=== PATIENT | female | born 1940 | race Caucasian/White ===

== ENCOUNTER 2016-09-30 04:49 | Inpatient (IN) | payer MEDICARE ==
[2016-09-30] MEDS ORDERED: ONDANSETRON 4 MG/2 ML VIAL IVP STA (04:58)
[2016-09-30] MEDS ORDERED: SODIUM CHLORIDE 0.9% 1,000 ML IV STA ×2 (04:58→07:43)
[2016-09-30] MEDS ORDERED: SODIUM CHLORIDE 0.9% 500 ML IV STA (04:58)
--- NOTE | 2016-09-30 05:16 | ED ---
Nausea/Vomiting/Diarrhea HPI - General Chief complaint: Nausea/Vomiting/Diarrhea Stated complaint: ABD PAIN Time Seen by Provider: 09/30/16 04:50 Source: patient, family, RN notes reviewed Mode of arrival: EMS Limitations: no limitations - History of Present Illness Initial comments: This is a 76-year-old female states she had the onset at about 11:30 PM of nausea vomiting diarrhea she's been dry heaving since then. Apparently her is been sick recently with similar findings. No evidence or complaints of vomiting blood or blood per rectum. MD complaint: nausea, vomiting, diarrhea, abdominal pain - Related Data Home Medications Medication Instructions Recorded Confirmed Aspirin 81 mg PO DAILY 02/09/14 01/08/15 Atenolol 25 mg PO DAILY 02/09/14 01/08/15 Digoxin [Digox] 125 mcg PO DAILY 02/09/14 01/08/15 Ergocalciferol (Vitamin D2) 50,000 unit PO Q7DAYS 02/09/14 01/08/15 [Drisdol] Ferrous Sulfate [Feosol] 325 mg PO Q48H 02/09/14 01/08/15 Furosemide 40 mg PO DAILY 02/09/14 01/08/15 Gabapentin 300 mg PO TID 02/09/14 01/08/15 Levothyroxine Sodium [Synthroid] 137 mcg PO DAILY 02/09/14 01/08/15 Omeprazole 20 mg PO BID 02/09/14 01/08/15 Potassium Chloride [Klor-Con M10] 5 meq PO DAILY 02/09/14 01/08/15 predniSONE [Prednisone] 10 mg PO DAILY 02/09/14 01/08/15 Insulin Aspart [NovoLOG Flexpen] See Protocol SQ ACHS 01/09/15 01/09/15 Previous Rx's Medication Instructions Recorded Cholestyramine (with Sugar) 4 gm PO QID #28 packet 01/14/15 [Questran Packet] Insulin Aspart [NovoLOG Flexpen] 10 units SQ AC-BRKFST #0 01/14/15 Insulin Aspart [NovoLOG Flexpen] 10 units SQ AC-LUNCH #0 01/14/15 Insulin Aspart [NovoLOG Flexpen] 10 units SQ AC-SUPPER #0 01/14/15 Insulin Aspart [NovoLOG Flexpen] 10 units SQ HS #0 01/14/15 Insulin NPH Human Isophane 10 unit SQ HS #0 01/14/15 [NovoLIN N] Insulin NPH Human Isophane 30 unit SQ AC-BRKFST #0 01/14/15 [NovoLIN N] Lactobacillus Acidoph & Bulgar 1 each PO TID #30 packet 01/14/15 [Lactinex] Losartan [Cozaar] 50 mg PO BID #60 tab 01/14/15 Vancomycin Oral Solution 250 mg PO Q6HR #40 ml 01/14/15 Allergies Allergy/AdvReac Type Severity Reaction Status Date / Time levofloxacin [From Levaquin] Allergy Intermediate Unknown Verified 09/30/16 05: 00 Penicillins Allergy Intermediate Rash/Hives Verified 09/30/16 05:00 Sulfa (Sulfonamide Allergy Intermediate Rash/Hives Verified 09/30/16 05:00 Antibiotics) cephalexin monohydrate Allergy Unknown Unknown Verified 09/30/16 05:00 [From Keflex] erythromycin base Allergy Unknown Rash/Hives Verified 09/30/16 05:00 [From E-Mycin] gatifloxacin [From Tequin] Allergy Unknown Unknown Verified 09/30/16 05:00 nitrofurantoin Allergy Unknown Unknown Verified 09/30/16 05:00 macrocrystalline [From Macrodantin] [place] Allergy Unknown Verified 09/30/16 05:00 apricot Allergy Unknown Verified 09/30/16 05:00 asparagus Allergy Unknown Verified 09/30/16 05:00 banana [Banana] Allergy Unknown Verified 09/30/16 05:00 cabbage Allergy Unknown Verified 09/30/16 05:00 carrot Allergy Unknown Verified 09/30/16 05:00 ciprofloxacin [From Cipro] Allergy Unknown Verified 09/30/16 05:00 ciprofloxacin HCl Allergy Unknown Verified 09/30/16 05:00 [From Cipro] Coconut Allergy Unknown Verified 09/30/16 05:00 coffee (Coffea arabica) Allergy Unknown Verified 09/30/16 05:00 [coffee] cucumber Allergy Unknown Verified 09/30/16 05:00 flaxseed Allergy Unknown Verified 09/30/16 05:00 sam Allergy Unknown Verified 09/30/16 05:00 grapefruit [Grapefruit] Allergy Unknown Verified 09/30/16 05:00 insulin NPH human isophane Allergy Rash/Hives Verified 09/30/16 05:00 [From Humulin 70/30] insulin regular, human Allergy Rash/Hives Verified 09/30/16 05:00 [From Humulin 70/30] onion Allergy Unknown Verified 09/30/16 05:00 orange juice [Roulette] Allergy Unknown Verified 09/30/16 05:00 spinach Allergy Unknown Verified 09/30/16 05:00 tree nut [Pecan] Allergy Unknown Verified 09/30/16 05:00 cantaloupe Allergy Unknown Uncoded 09/30/16 05:00 cottonseed Allergy Unknown Uncoded 09/30/16 05:00 green beans Allergy Unknown Uncoded 09/30/16 05:00 mustard Allergy Unknown Uncoded 09/30/16 05:00 nuts Allergy Unknown Uncoded 09/30/16 05:00 pepper Allergy Unknown Uncoded 09/30/16 05:00 rice Allergy Unknown Uncoded 09/30/16 05:00 squash Allergy Unknown Uncoded 09/30/16 05:00 tea Allergy Unknown Uncoded 09/30/16 05:00 walnut Allergy Unknown Uncoded 09/30/16 05:00 Review of Systems ROS Statement: Those systems with pertinent positive or pertinent negative responses have been documented in the HPI. ROS Other: All systems not noted in ROS Statement are negative. Past Medical History Past Medical History: Asthma, Coronary Artery Disease (CAD), Heart Failure, Diabetes Mellitus, Fibromyalgia, GI Bleed, Hyperlipidemia, Hypertension, Mitral Valve Prolapse (MVP), Osteoarthritis (OA), Pneumonia, Sleep Apnea/CPAP/BIPAP, Thyroid Disorder Additional Past Medical History / Comment(s): NEUROPATHY, SARCOIDOSIS, LUPUS, AUTOIMMUNE ISSUES HEART MURMUR, autoimmune HEPATITIS with prednisone dependence , IRREGULAR HEART RATE, LEFT FEMUR FRACTURE, NO CPAP USE, right ankle fracture, lower extremity DVT History of Any Multi-Drug Resistant Organisms: C-DIFF Date of last positivie culture/infection: 12/2014 MDRO Source:: stool Past Surgical History: Adenoidectomy, Appendectomy, Cholecystectomy, Heart Catheterization With Stent, Hysterectomy, Tonsillectomy Additional Past Surgical History / Comment(s): COLONOSCOPY, EGD, Zena filter, bronchoscopy Past Anesthesia/Blood Transfusion Reactions: No Reported Reaction Date of Last Stent Placement:: 2012 Past Psychological History: No Psychological Hx Reported Smoking Status: Never smoker Past Alcohol Use History: None Reported Additional Past Alcohol Use History / Comment(s): Patient is a lifelong nonsmoker. She denies any medical marijuana, marijuana or street drug use. She denies any alcohol use. She lives at home with her . There are currently no pets in the home. 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 Past Drug Use History: None Reported - Past Family History Mother Family Medical History: Coronary Artery Disease (CAD) Father Family Medical History: Coronary Artery Disease (CAD) General Exam - General Exam Comments Initial Comments: This a well-developed well-nourished awake alert anxious moaning female. Limitations: no limitations General appearance: alert, anxious, in distress Head exam: Present: atraumatic, normocephalic, normal inspection Eye exam: Present: normal appearance, PERRL, EOMI. Absent: scleral icterus, conjunctival injection, periorbital swelling ENT exam: Present: mucous membranes dry Neck exam: Present: normal inspection. Absent: tenderness, meningismus, lymphadenopathy Respiratory exam: Present: normal lung sounds bilaterally. Absent: respiratory distress, wheezes, rales, rhonchi, stridor Cardiovascular Exam: Present: normal rhythm, tachycardia, normal heart sounds. Absent: systolic murmur, diastolic murmur, rubs, gallop, clicks GI/Abdominal exam: Present: soft, normal bowel sounds. Absent: distended, tenderness, guarding, rebound, rigid, mass, bruit, pulsatile mass, hernia Rectal exam: Present: deferred Extremities exam: Present: normal inspection, full ROM, normal capillary refill. Absent: tenderness, pedal edema, joint swelling, calf tenderness Back exam: Present: normal inspection Neurological exam: Present: alert, oriented X3, CN II-XII intact Psychiatric exam: Present: normal affect, anxious Skin exam: Present: warm, dry, intact, normal color. Absent: rash Course Vital Signs 09/30/16 09/30/16 04:54 06:17 Temperature 99.1 F Pulse Rate 104 H 56 L Respiratory 20 20 Rate Blood Pressure 145/81 124/40 O2 Sat by Pulse 96 96 Oximetry - Reevaluation(s) Reevaluation #1: 09/30/16 07:42 The patient was noted to have a blood pressure in the 80s. Initially was 145 systolic when she came and she will receive additional fluids she is asymptomatic otherwise. Medical Decision Making - Medical Decision Making I did discuss findings with the patient and family as well as with Dr. Chaidez the patient will be admitted for evaluation of elevated troponin dehydration renal insufficiency and gastroenteritis. - Lab Data Result diagrams: 09/30/16 05:19 09/30/16 05:19 Lab Results 09/30/16 09/30/16 09/30/16 Range/Units 05:19 05:19 05:19 WBC 14.4 H (3.8-10.6) k/uL RBC 5.41 H (3.80-5.40) m/uL Hgb 16.5 H D (11.4-16.0) gm/dL Hct 51.2 H (34.0-46.0) % MCV 94.5 D (80.0-100.0) fL MCH 30.5 (25.0-35.0) pg MCHC 32.2 (31.0-37.0) g/dL RDW 14.2 (11.5-15.5) % Plt Count 248 (150-450) k/uL Neutrophils % (Manual) 41.0 % Band Neutrophils % 47.5 % Lymphocytes % (Manual) 5.0 % Monocytes % (Manual) 5.5 % Metamyelocytes % 0.5 % Myelocytes % 0.5 % Neutrophils # (Manual) 12.7 H (1.3-7.7) k/uL Lymphocytes # (Manual) 0.7 L (1.0-4.8) k/uL Monocytes # (Manual) 0.8 (0-1.0) k/uL Nucleated RBCs 0 (0-0) /100 WBC Toxic Granulation Present Toxic Vacuolation Present Poikilocytosis (manual Present Anisocytosis (manual) Present Sodium 143 (137-145) mmol/L Potassium 5.5 H (3.5-5.1) mmol/L Chloride 104 (98-107) mmol/L Carbon Dioxide 21 L (22-30) mmol/L Anion Gap 18 mmol/L BUN 43 H (7-17) mg/dL Creatinine 1.70 H (0.52-1.04) mg/dL Est GFR (MDRD) Af Amer 36 (>60 ml/min/1.73 sqM) Est GFR (MDRD) Non-Af 29 (>60 ml/min/1.73 sqM) Glucose 195 H (74-99) mg/dL Plasma Lactic Acid Chandler (0.7-2.0) mmol/L Calcium 8.6 (8.4-10.2) mg/dL Total Bilirubin 1.0 (0.2-1.3) mg/dL AST 46 H (14-36) U/L ALT 36 (9-52) U/L Alkaline Phosphatase 71 (38-126) U/L Total Creatine Kinase 63 (30-135) U/L CK-MB (CK-2) 1.3 (0.0-2.4) ng/mL CK-MB (CK-2) Rel Index 2.1 Troponin I 0.038 H* (0.000-0.034) ng/mL Total Protein 7.4 (6.3-8.2) g/dL Albumin 3.8 (3.5-5.0) g/dL Amylase 78 (30-110) U/L Lipase 93 (23-300) U/L Digoxin 0.9 ng/mL 09/30/16 09/30/16 Range/Units 05:19 06:40 WBC (3.8-10.6) k/uL RBC (3.80-5.40) m/uL Hgb (11.4-16.0) gm/dL Hct (34.0-46.0) % MCV (80.0-100.0) fL MCH (25.0-35.0) pg MCHC (31.0-37.0) g/dL RDW (11.5-15.5) % Plt Count (150-450) k/uL Neutrophils % (Manual) % Band Neutrophils % % Lymphocytes % (Manual) % Monocytes % (Manual) % Metamyelocytes % % Myelocytes % % Neutrophils # (Manual) (1.3-7.7) k/uL Lymphocytes # (Manual) (1.0-4.8) k/uL Monocytes # (Manual) (0-1.0) k/uL Nucleated RBCs (0-0) /100 WBC Toxic Granulation Toxic Vacuolation Poikilocytosis (manual Anisocytosis (manual) Sodium (137-145) mmol/L Potassium (3.5-5.1) mmol/L Chloride (98-107) mmol/L Carbon Dioxide (22-30) mmol/L Anion Gap mmol/L BUN (7-17) mg/dL Creatinine (0.52-1.04) mg/dL Est GFR (MDRD) Af Amer (>60 ml/min/1.73 sqM) Est GFR (MDRD) Non-Af (>60 ml/min/1.73 sqM) Glucose (74-99) mg/dL Plasma Lactic Acid Chandler 3.3 H* (0.7-2.0) mmol/L Calcium (8.4-10.2) mg/dL Total Bilirubin (0.2-1.3) mg/dL AST (14-36) U/L ALT (9-52) U/L Alkaline Phosphatase (38-126) U/L Total Creatine Kinase (30-135) U/L CK-MB (CK-2) (0.0-2.4) ng/mL CK-MB (CK-2) Rel Index Troponin I 0.030 (0.000-0.034) ng/mL Total Protein (6.3-8.2) g/dL Albumin (3.5-5.0) g/dL Amylase (30-110) U/L Lipase (23-300) U/L Digoxin ng/mL - EKG Data -: EKG Interpreted by Wi EKG shows normal: sinus rhythm (Sinus rhythm a rate of 57 WI interval to 16 QRS duration 124 QT/QTC of 466/453 bundle-branch block pattern nonspecific changes when compared to an EKG dated 01/10/15) - Radiology Data Radiology results: report reviewed (Surgeon nonspecific), image reviewed Disposition Clinical Impression: Gastroenteritis, Renal insufficiency syndrome, Dehydration, Elevated troponin, Hypotensive episode Disposition: ADMITTED IP TO THIS [facility] Condition: Stable
[2016-09-30] MEDS ORDERED: METOCLOPRAMIDE 5 MG/ML 2 ML VIAL IVP STA (05:51)
[2016-09-30 05:53] LABS: CH 30.7; CHCM 32.6; HCT 51.2 % (34.0-46.0); HDW 2.36; Immature Gran Flag Slight; MCH 30.5 pg (25.0-35.0); MCHC 32.2 g/dL (31.0-37.0); Mean Platelet Volume 7.9; RBC 5.41 m/uL (3.80-5.40); RDW 14.2 % (11.5-15.5); WBC 14.4 k/uL (3.8-10.6); WBC (Perox) 15.03
[2016-09-30 06:25] LABS: HGB 16.5 gm/dL (11.4-16.0); MCV 94.5 fL (80.0-100.0)
[2016-09-30 06:50] LABS: Creatine Kinase MB 1.3 ng/mL (0.0-2.4)
[2016-09-30 06:54] LABS: Troponin I 0.038 ng/mL (0.000-0.034)
[2016-09-30 06:57] LABS: Add Differential Manual Differential
[2016-09-30 07:04] LABS: Band Neutrophils % 47.5 %; Metamyelocytes % 0.5 %; Myelocytes % 0.5 %; Nucleated Red Blood Cells 0 /100 WBC (0-0); Total Cells Counted 200
[2016-09-30 07:05] LABS: Calcium 8.6 mg/dL (8.4-10.2); Digoxin 0.9 ng/mL; Total Protein 7.4 g/dL (6.3-8.2); Toxic Granulation Present
[2016-09-30 07:06] LABS: Toxic Vacuolation Present
[2016-09-30 07:15] LABS: Potassium 5.5 mmol/L (3.5-5.1)
--- NOTE | 2016-09-30 07:25 | XR ---
EXAMINATION TYPE: XR KUB DATE OF EXAM: 09/30/2016 7:18 AM COMPARISON: 10/05/2011 HISTORY: 76-year-old female with left lower quadrant pain and nausea with vomiting and dehydration, a bdominal pain FINDINGS: Supine imaging limited for assessment of free air. Cholecystectomy clips and IVC filter are present. There is some bowel gas which appears to be within the colon in the right abdomen. Small amount of rectal gas as well. Otherwise, there is overall pauci ty of bowel gas limiting overall evaluation. IMPRESSION: Nonspecific bowel gas pattern. Some right-sided colonic gas is seen and some rectal gas as well.
[2016-09-30] MEDS ORDERED: NALOXONE 0.4 MG/ML 1 ML VIAL IV PRN (07:43)
[2016-09-30] MEDS ORDERED: HEPARIN SODIUM,PORCINE 5,000 UNIT/ML 1 ML VIAL IV ONE (07:53)
[2016-09-30] MEDS: SODIUM CHLORIDE 0.9% 1,000 ML IV SCH ×2 (08:05→17:45)
[2016-09-30] MEDS: HEPARIN SODIUM,PORCINE/D5W PMX 25,000 UNIT in DEXTROSE/WATER 1 500ML.BAG IV SCH (08:05)
[2016-09-30 08:16] LABS: INR 1.3 (<1.1); Prothrombin Time 12.4 sec (9.0-12.0)
--- NOTE | 2016-09-30 08:47 | XR ---
EXAMINATION TYPE: XR chest 2V DATE OF EXAM: 09/30/2016 8:26 AM COMPARISON: 01/12/2015 HISTORY: 76 year-old female shortness of breath, abdominal pain, trauma TECHNIQUE: AP and lateral views FINDINGS: Round sclerotic densities in the peripheral and upper lungs especially on the right likely related to prior healed rib fracture deformities and was seen on 2014 as well. The heart is mildly enlarged. Diffuse interstitial prominence. No aron consolidation or pleural effu олег. IMPRESSION: Mild cardiomegaly with diffuse interstitial prominence. Correlate to exclude CHF and pulmonary vascul ar congestion.
[2016-09-30 10:36] VITALS: BMI 43.9
[2016-09-30] MEDS: PANTOPRAZOLE 40 MG/10 ML VIAL IV SCH ×2 (11:19→20:18)
[2016-09-30 11:22] LABS: Hemoglobin A1C 6.6 % (4.2-6.1)
[2016-09-30 11:55] LABS: Glucose,Whole Blood 197 mg/dL (75-99)
[2016-09-30 12:02] LABS: Troponin I 0.103 ng/mL (0.000-0.034)
[2016-09-30] MEDS ORDERED: ONDANSETRON 4 MG/2 ML VIAL IVP PRN (12:22)
[2016-09-30] MEDS ORDERED: INSULIN LISPRO (humaLOG) 300 UNIT/3 ML VIAL SQ SCH ×2 (12:30→17:30)
[2016-09-30] MEDS ORDERED: DIGOXIN 125 MCG TAB PO STA (15:37)
[2016-09-30] MEDS ORDERED: ATENOLOL 25 MG TAB PO STA (15:38)
--- NOTE | 2016-09-30 16:04 | CONS ---
DATE OF CONSULTATION: ATTENDING: Dr. Snowden. Mrs. Herrera is a 76-year-old female with known history of coronary artery disease, who presented with symptoms of nausea and vomiting and diarrhea and quite fatigued. She came into the emergency room and subsequently admitted. She has a known history of coronary artery disease, has been followed by Dr. Ortiz in the past, has underwent a stenting years ago following a myocardial infarction. She has not had any chest pain. Her breathing has been stable. She denies dizziness. No palpitation. She has occasional peripheral edema. No PND. No orthopnea. She was in the hospital in December of 2014. At that time her left ventricular systolic function was normal. She had no fever but she had chills. Apparently her had similar symptoms at home as well. Her coronary risk factors are positive for hypertension and hyperlipidemia. She is a nonsmoker. She is diabetic. Her medications at home included prednisone, omeprazole, losartan 50 mg daily, insulin, atenolol, digoxin, furosemide and gabapentin. REVIEW OF SYSTEMS: RESPIRATORY SYSTEM: She has mild dyspnea on exertion. No recent wheezing or cough. GI system: She had the nausea and vomiting and the diarrhea. No recent GI bleeding. system: No history of recent dysuria or hematuria. Nervous system: No history of stroke or seizure. PHYSICAL EXAMINATION: A 76-year-old female, alert, in mild discomfort. Temperature of 100.9, blood pressure 124/50 with a heart in the 50s. HEAD: Normocephalic. EYES: Sclerae anicteric. NECK: Good upstroke. No bruit. No jugular venous distention. LUNGS: Clear to auscultation. HEART: Regular rate and rhythm. S1, S2, no S3, with systolic murmur 2/6. No diastolic murmur. No rub. ABDOMEN: Soft, obese, mild tenderness. Positive bowel sounds. No organomegaly. EXTREMITIES: No edema. Lab data revealed BUN and creatinine of 43 and 1.7. Troponin of 0.03. AST of 46, ALT of 36. White blood cell of 14.4. Hemoglobin of 16.5. Her lactic acid is 3.3. Her EKG revealed sinus mechanism with a right bundle branch block, first-degree AV block, no acute changes. Her chest x-ray revealed questionable increased markings. Her KUB revealed no evidence of obstruction. IMPRESSION: 1. Diarrhea with nausea and vomiting, probable viral gastroenteritis. Of note, the patient had C. difficile infection in December of 2014. 2. History of coronary artery disease, stable. 3. History of diabetes. 4. Hyperlipidemia. 5. History of autoimmune hepatitis and sarcoidosis. RECOMMENDATIONS: From the cardiac standpoint, I see no evidence of acute cardiac changes. First troponin is within the normal range so far. Her renal functions are consistent with dehydration and the patient is getting IV fluid. If the second troponin is negative then I will stop the IV heparin. Will hold her losartan at this time, follow her renal function. Depending on her progress, further recommendation will be made. Thank you for this consult. We will follow with you
[2016-09-30 16:44] LABS: Glucose,Whole Blood 234 mg/dL (75-99)
[2016-09-30] MEDS: GABAPENTIN 300 MG CAP PO SCH ×2 (16:45→22:18)
[2016-09-30 17:32] LABS: Creatine Kinase MB 2.5 ng/mL (0.0-2.4); Troponin I 0.113 ng/mL (0.000-0.034)
[2016-09-30] MEDS: INSULIN REGULAR HUMAN 40 UNIT SQ SCH (17:45)
[2016-09-30] MEDS: HYDROCORTISONE SUCCINATE 100 MG/2 ML VIAL IV SCH (17:45)
[2016-09-30 19:00] LABS: Glucose,Whole Blood 174 mg/dL (75-99)
[2016-09-30] MEDS: cefTRIAXone 2,000 MG in SODIUM CHLORIDE 0.9% 100 ML IVPB SCH (19:07)
[2016-09-30] MEDS ORDERED: SODIUM CHLORIDE 0.9% 1,000 ML IV ONE ×3 (19:24→20:30)
[2016-09-30 19:31] LABS: Appearance,Urine Cloudy (Clear); Bacteria,Urine Occasional /hpf; Bilirubin,Urine 1+ (Negative); Glucose,Urine (UA) Negative (Negative); Ketones,Urine Negative (Negative); Leukocyte Esterase,Urine Moderate (Negative); Nitrite,Urine Negative (Negative); Particle Count 27833; Protein,Urine Trace (Negative); RBC,Urine 4 /hpf (0-5); Specific Gravity,Urine 1.018 (1.001-1.035); Squamous Epithelial Cell,Urine 1 /hpf (0-4); UA Billing (MACRO vs. MICRO) MICRO; WBC,Urine 7 /hpf (0-5)
[2016-09-30] MEDS: INSULIN NPH HUMAN ISOPHANE SQ SCH (20:16)
[2016-09-30] MEDS: diphenhydrAMINE 50 MG CAP PO SCH (20:17)
[2016-09-30 22:19] LABS: Glucose,Whole Blood 122 mg/dL (75-99)
[2016-10-01] MEDS: HYDROCORTISONE SUCCINATE 100 MG/2 ML VIAL IV SCH ×3 (00:23→16:57)
[2016-10-01 06:08] LABS: Basophils % (A) 0 %; CH 30.3; CHCM 31.1; Eosinophils # (A) 0.1 k/uL (0-0.7); Eosinophils % (A) 0 %; HCT 38.2 % (34.0-46.0); HDW 2.49; Hypochromasia Slight; Luc # (Auto) 0.08; Luc % (Auto) 0; Lymphocytes # (A) 4.8 k/uL (1.0-4.8); Lymphocytes % (A) 21 %; MCH 32.1 pg (25.0-35.0); MCHC 32.6 g/dL (31.0-37.0); MCV 98.2 fL (80.0-100.0); Monocytes # (A) 2.3 k/uL (0-1.0); Monocytes % (A) 10 %; Neutrophils # (A) 16.2 k/uL (1.3-7.7); Neutrophils % (A) 69 %; RBC 3.89 m/uL (3.80-5.40); RDW 14.4 % (11.5-15.5); WBC 23.4 k/uL (3.8-10.6); WBC (Perox) 19.04
[2016-10-01 06:09] LABS: HGB 12.5 gm/dL (11.4-16.0)
[2016-10-01] MEDS: LEVOTHYROXINE 137 MCG TAB PO SCH (06:13)
[2016-10-01] MEDS: SODIUM CHLORIDE 0.9% 1,000 ML IV SCH ×2 (06:14→08:08)
[2016-10-01 07:17] LABS: Calcium 6.2 mg/dL (8.4-10.2); Phosphorous 4.6 mg/dL (2.5-4.5); Potassium 5.3 mmol/L (3.5-5.1)
[2016-10-01 07:18] LABS: Magnesium 1.5 mg/dL (1.6-2.3)
[2016-10-01 07:41] LABS: Glucose,Whole Blood 149 mg/dL (75-99)
--- NOTE | 2016-10-01 08:05 | HP ---
DATE OF ADMISSION: CHIEF COMPLAINT: Nausea, vomiting, diarrhea. HISTORY OF PRESENT ILLNESS: This 76-year-old female with a past medical history of hospice, CAD, CHF, diabetes mellitus, fibromyalgia, GI bleed, hypertension, hyperlipidemia, mitral valve prolapse, history of sleep apnea, hypothyroidism, lupus, autoimmune disorder, history of hepatitis, history of adenoidectomy, appendectomy, being followed by Dr. Mary Ann Snowden in the outpatient setting is complaining of nausea, diarrhea for 2 days duration. The apparently was sick and was having similar symptoms. The patient came to [facility] and admitted for further evaluation and treatment. The patient had features of acute renal failure and as well as plasma lactic acid elevated indicating possible sepsis and troponins were elevated up to 0.103 and the patient admitted for further evaluation and treatment. There is no history of fever, rigors. No history of any headache, loss of consciousness or seizures at this time. PAST MEDICAL HISTORY: History of asthma, CAD, CHF, diabetes mellitus, fibromyalgia, gastrointestinal bleed, hypertension, hyperlipidemia, mitral valve, prolapse, history of sleep apnea, arthritis, history of pneumonia, appendectomy, cholecystectomy, coronary artery disease and stent. Home medications are: 1. Prednisone 10 mg p.o. daily. 2. Benadryl 50 mg q.h.s.. 3. Klor-Con 5 mg p.o. daily. 4. Omeprazole 20 mg p.o. b.i.d. 5. Mobic 15 mg p.o. b.i.d. 6. Cozaar 50 mg daily. 7. Synthroid 160 mcg p.o. b.i.d. 8. Novolin R 14 subcu a.c. t.i.d. 9. Novolin N 10 units subcu q.h.s. 10. Novolin N 34 units subcu a.c. breakfast. 11. Gabapentin 300 mg p.o. t.i.d. 12. Lasix 40 mg p.o. daily. 13. Iron sulfate 320 mg q.48 hours. 14. Drisdol 50,000 p.o. Saturday. 15. Digoxin 120 mcg p.o. daily. 16. Atenolol 25 mg p.o. daily. 17. Aspirin 81 mg p.o. daily. ALLERGIES: MULTIPLE ALLERGIES INCLUDING LEVAQUIN, PENICILLIN, SULFA, CEPHALEXIN, ERYTHROMYCIN, GATIFLOXACIN, ALMOND, BANANA, CABG, CARROTS, COCONUT, COFFEE, CUCUMBER, FLEX SEED, POLA, INSULIN, ONION, SPINACH, TREE NUTS, CANTALOUPE, SEED, GREEN BEANS, MUSTARD, NUTS, PEPPER, RICE, SQUASH, TEA, WALNUT. FAMILY HISTORY: History of coronary artery disease. SOCIAL HISTORY: No history of smoking, no history of alcohol. REVIEW OF SYSTEMS: ENT: No diminished hearing or vision. Mouth is dry. CARDIOVASCULAR: No angina or palpitations. RESPIRATORY: No cough or hemoptysis. GI: As mentioned earlier. : No dysuria. NERVOUS SYSTEM: No numbness or weakness. ALLERGY/IMMUNOLOGY: No asthma or hayfever. MUSCULOSKELETAL: As mentioned earlier. HEMATOLOGY: No history of anemia. ENDOCRINE: As mentioned earlier. CONSTITUTIONAL: As mentioned earlier. DERMATOLOGY: Negative. RHEUMATOLOGY: Negative. PSYCHIATRY: As mentioned earlier. PHYSICAL EXAMINATION: Patient is alert and oriented x3. Pulse is 54, blood pressure 104/69, respirations 18, temperature 100, pulse ox 100% on 2 liters. HEENT: Conjunctivae normal. Oral mucosa dry. NECK: No jugular venous distention. No carotid bruit. No lymph node enlargement. CARDIOVASCULAR: S1 and S2, muffled. No S3, no S4. RESPIRATORY: Breath sounds diminished at the bases. No rhonchi, no crackles. ABDOMEN: Soft, mild diffuse distention. Otherwise no guarding, no rigidity. No mass palpable. Bowel sounds present. LEGS: No edema, no swelling. NERVOUS SYSTEM: Higher function as mentioned. Moves all four limbs. No focal motor deficits. LYMPHATIC: No lymphadenopathy in the neck, axillae or groin. SKIN: No ulcer, rash or bleeding. LABS: WBC 14.2, hemoglobin 16.5. Sodium is 140, potassium 5.5. Hemoglobin A1c 6.6. Lactic acid is noted. Troponin 0.103. ASSESSMENT: 1. Acute diarrhea, possible acute gastritis and gastroenteritis with sepsis, present on admission. 2. Increased WBC. 3. Increased hemoglobin secondary to dehydration. 4. Acute renal failure, possible prerenal and acute dehydration, acute tubular necrosis. 5. Hyperkalemia. 6. Increased plasma lactic acid. 7. Troponin 0.103; rule out acute non-ST segment elevation myocardial infarction. 8. Obesity, body mass index of 43.9. 9. History of asthma. 10. History of congestive heart failure. 11. History of coronary artery disease. 12. Diabetes mellitus type 2. 13. History of fibromyalgia. 14. History of gastrointestinal bleed. 15. Hypertension. 16. Hyperlipidemia. 17. Mitral valve prolapse. 18. History of pneumonia. 19. History of sleep apnea. 20. Hypothyroidism. 21. History of neuropathy. 22. History of sarcoidosis. 23. Lupus. 24. History of autoimmune disease. 25. History of autoimmune hepatitis. 26. History of irregular cardiac rhythm. 27. History of left femoral fracture. 28. History of Clostridium difficile colitis. 29. History of appendectomy. 30. History of cholecystectomy. 31. History of coronary artery disease and stent. 32. FULL CODE. RECOMMENDATIONS AND DISCUSSION: In this 76-year-old woman who presented with multiple complex medical issues. Will monitor the patient closely. Continue the current medications, continue symptomatic treatment. Continue the IV fluids cautiously. Otherwise, we will obtain cardiology consultation. I would also recommend broad-spectrum IV antibiotics will be initiated and I would also recommend evaluation per Dr. Almanza. The patient is immunosuppressed. Patient also had multiple allergies as well. Prognosis extremely guarded because of multiple complex medical issues. Further recommendations to follow. Dr. Lester also will be consulted for ongoing pulmonary issues. See orders for details. AMYD
[2016-10-01] MEDS: HEPARIN SODIUM,PORCINE/D5W PMX 25,000 UNIT in DEXTROSE/WATER 1 500ML.BAG IV SCH (08:08)
[2016-10-01] MEDS: ASPIRIN 81 MG CHEW PO SCH (08:09)
[2016-10-01] MEDS: PANTOPRAZOLE 40 MG/10 ML VIAL IV SCH ×2 (08:09→20:15)
[2016-10-01] MEDS: GABAPENTIN 300 MG CAP PO SCH ×3 (08:10→21:56)
[2016-10-01] MEDS: DIGOXIN 125 MCG TAB PO SCH (08:10)
[2016-10-01] MEDS: ATENOLOL 25 MG TAB PO SCH (08:10)
--- NOTE | 2016-10-01 08:14 | XR ---
EXAMINATION TYPE: XR chest 1V portable DATE OF EXAM: 10/01/2016 6:46 AM Comparison: 09/30/2016 Clinical History: 76 year-old female shortness of breath Findings: Heart remains mildly enlarged. Diffuse interstitial opacities persist with some slight increased righ t perihilar density. Patchy left basilar opacity also slightly increased. Impression: Correlate for [id number] CHF, stable to slightly worsened. Increasing focal atelectasis or cons olidation at the left base.
[2016-10-01] MEDS: INSULIN NPH HUMAN ISOPHANE SQ SCH ×2 (08:18→20:15)
[2016-10-01] MEDS: INSULIN REGULAR HUMAN 40 UNIT SQ SCH ×3 (08:18→17:03)
[2016-10-01] MEDS: HYDROmorphone 1 MG/ML 1 ML SYRINGE IVP PRN ×2 (08:30→21:49)
[2016-10-01] MEDS ORDERED: FUROSEMIDE 40 MG TAB PO SCH (09:00)
[2016-10-01] MEDS ORDERED: Magnesium Replacement Protocol 1 EACH MISC MISCELLANE PRN (09:01)
[2016-10-01] MEDS: MAGNESIUM SULFATE-D5W PMX 1 GM in DEXTROSE/WATER 1 100ML.BAG IVPB SCH ×2 (09:55→12:07)
[2016-10-01 12:21] LABS: Glucose,Whole Blood 184 mg/dL (75-99)
--- NOTE | 2016-10-01 14:52 | P.CNPUL ---
History of Present Illness Consult date: 10/01/16 Requesting physician: Hellen Chaidez Reason for consult: other (Sarcoidosis and ICU management.) Chief complaint: Diarrhea nausea and vomiting History of present illness: This is a 76-year-old female who is quite familiar to my service. Patient had a remote history of sarcoidosis, and history of autoimmune hepatitis. 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 Patient was admitted this time with a few days' history of multiple GI symptoms including nausea vomiting and diarrhea. Patient was also fatigued, and upon evaluation in the ER, patient was found to have slightly elevated troponin, hence he was seen by cardiology, but considering her profound dehydration picture hypotension requiring fluid boluses, I was asked to see the patient on consultation. Since admission, the patient received multiple fluid boluses, and she seems to be doing much better today. No active pulmonary symptoms, her GI symptoms seem to be under control, except for her diarrhea. Further workup on her diarrhea is pending. Review of Systems 12 point review of systems were obtained, please refer to pertinent positives and negatives as per HPI Past Medical History Past Medical History: Asthma, Coronary Artery Disease (CAD), Heart Failure, Diabetes Mellitus, Fibromyalgia, GI Bleed, Hyperlipidemia, Hypertension, Mitral Valve Prolapse (MVP), Osteoarthritis (OA), Pneumonia, Sleep Apnea/CPAP/BIPAP, Thyroid Disorder Additional Past Medical History / Comment(s): NEUROPATHY, SARCOIDOSIS, LUPUS, AUTOIMMUNE ISSUES HEART MURMUR, autoimmune HEPATITIS with prednisone dependence , IRREGULAR HEART RATE, LEFT FEMUR FRACTURE, NO CPAP USE, right ankle fracture, lower extremity DVT History of Any Multi-Drug Resistant Organisms: C-DIFF Date of last positivie culture/infection: 12/2014 MDRO Source:: stool Past Surgical History: Adenoidectomy, Appendectomy, Cholecystectomy, Heart Catheterization With Stent, Hysterectomy, Tonsillectomy Additional Past Surgical History / Comment(s): COLONOSCOPY, EGD, [place] filter, bronchoscopy Past Anesthesia/Blood Transfusion Reactions: No Reported Reaction Date of Last Stent Placement:: 2012 Past Psychological History: No Psychological Hx Reported Smoking Status: Never smoker Past Alcohol Use History: None Reported Additional Past Alcohol Use History / Comment(s): Patient is a lifelong nonsmoker. She denies any medical marijuana, marijuana or street drug use. She denies any alcohol use. She lives at home with her . There are currently no pets in the home. 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 Past Drug Use History: None Reported - Past Family History Mother Family Medical History: Coronary Artery Disease (CAD) Father Family Medical History: Coronary Artery Disease (CAD) Medications and Allergies Home Medications Medication Instructions Recorded Confirmed Type Aspirin 81 mg PO DAILY 02/09/14 09/30/16 History Atenolol 25 mg PO DAILY 02/09/14 09/30/16 History Digoxin [Digox] 125 mcg PO DAILY 02/09/14 09/30/16 History Ergocalciferol (Vitamin D2) 50,000 unit PO BENSON 02/09/14 09/30/16 History [Drisdol] Ferrous Sulfate [Feosol] 325 mg PO Q48H 02/09/14 09/30/16 History Furosemide 40 mg PO DAILY 02/09/14 09/30/16 History Gabapentin 300 mg PO TID 02/09/14 09/30/16 History Levothyroxine Sodium [Synthroid] 137 mcg PO DAILY 02/09/14 09/30/16 History Omeprazole 20 mg PO BID 02/09/14 09/30/16 History Potassium Chloride [Klor-Con M10] 5 meq PO DAILY 02/09/14 09/30/16 History Insulin NPH Human Isophane 34 unit SQ AC-BRKFST 09/30/16 09/30/16 History [NovoLIN N] Insulin Regular, Human [NovoLIN R] 40 unit SQ AC-TID 09/30/16 09/30/16 History Losartan [Cozaar] 50 mg PO DAILY 09/30/16 09/30/16 History Meloxicam [Mobic] 15 mg PO DAILY 09/30/16 09/30/16 History diphenhydrAMINE [Benadryl] 50 mg PO HS 09/30/16 09/30/16 History predniSONE 10 mg PO DAILY 09/30/16 09/30/16 History Allergies Allergy/AdvReac Type Severity Reaction Status Date / Time levofloxacin [From Levaquin] Allergy Intermediate Unknown Verified 09/30/16 09: 45 Penicillins Allergy Intermediate Rash/Hives Verified 09/30/16 09:45 Sulfa (Sulfonamide Allergy Intermediate Rash/Hives Verified 09/30/16 09:45 Antibiotics) cephalexin monohydrate Allergy Unknown Unknown Verified 09/30/16 09:45 [From Keflex] erythromycin base Allergy Unknown Rash/Hives Verified 09/30/16 09:45 [From E-Mycin] gatifloxacin [From Tequin] Allergy Unknown Unknown Verified 09/30/16 09:45 nitrofurantoin Allergy Unknown Unknown Verified 09/30/16 09:45 macrocrystalline [From Macrodantin] Corona Allergy Unknown Verified 09/30/16 09:45 apricot Allergy Unknown Verified 09/30/16 09:45 asparagus Allergy Unknown Verified 09/30/16 09:45 banana [Banana] Allergy Unknown Verified 09/30/16 09:45 cabbage Allergy Unknown Verified 09/30/16 09:45 carrot Allergy Unknown Verified 09/30/16 09:45 ciprofloxacin [From Cipro] Allergy Unknown Verified 09/30/16 09:45 ciprofloxacin HCl Allergy Unknown Verified 09/30/16 09:45 [From Cipro] Coconut Allergy Unknown Verified 09/30/16 09:45 coffee (Coffea arabica) Allergy Unknown Verified 09/30/16 09:45 [coffee] cucumber Allergy Unknown Verified 09/30/16 09:45 flaxseed Allergy Unknown Verified 09/30/16 09:45 sam Allergy Unknown Verified 09/30/16 09:45 grapefruit [Grapefruit] Allergy Unknown Verified 09/30/16 09:45 insulin lispro [From Humalog] Allergy Rash/Hives Verified 09/30/16 11:23 insulin NPH human isophane Allergy Rash/Hives Verified 09/30/16 09:45 [From Humulin 70/30] insulin regular, human Allergy Rash/Hives Verified 09/30/16 09:45 [From Humulin 70/30] onion Allergy Unknown Verified 09/30/16 09:45 orange juice [[place]] Allergy Unknown Verified 09/30/16 09:45 spinach Allergy Unknown Verified 09/30/16 09:45 tree nut [Pecan] Allergy Unknown Verified 09/30/16 09:45 cantaloupe Allergy Unknown Uncoded 09/30/16 05:00 cottonseed Allergy Unknown Uncoded 09/30/16 05:00 green beans Allergy Unknown Uncoded 09/30/16 05:00 mustard Allergy Unknown Uncoded 09/30/16 05:00 nuts Allergy Unknown Uncoded 09/30/16 05:00 pepper Allergy Unknown Uncoded 09/30/16 05:00 rice Allergy Unknown Uncoded 09/30/16 05:00 squash Allergy Unknown Uncoded 09/30/16 05:00 tea Allergy Unknown Uncoded 09/30/16 05:00 walnut Allergy Unknown Uncoded 09/30/16 05:00 Physical Exam Vitals: Vital Signs Temp Pulse Pulse Resp BP BP Pulse Ox 10/01/16 12:30 78 16 128/47 98 10/01/16 12:00 78 92 15 139/53 98 10/01/16 11:30 81 22 140/48 98 10/01/16 11:00 78 12 152/57 97 10/01/16 10:45 79 14 152/57 98 10/01/16 10:30 81 15 143/51 99 10/01/16 10:15 82 16 143/51 96 10/01/16 10:00 82 16 138/50 98 10/01/16 09:45 83 19 138/50 96 10/01/16 09:30 85 18 118/56 98 10/01/16 09:10 84 17 118/56 99 10/01/16 09:00 83 13 110/50 98 10/01/16 08:50 83 17 110/50 98 10/01/16 08:40 82 9 L 110/50 98 10/01/16 08:30 87 12 135/51 100 10/01/16 08:20 82 11 L 135/51 99 10/01/16 08:10 82 14 135/51 98 10/01/16 08:00 98.1 F 80 92 16 116/54 100 10/01/16 07:50 81 11 L 116/54 100 10/01/16 07:40 83 15 116/54 99 10/01/16 07:30 84 18 121/58 99 10/01/16 07:20 89 27 H 121/58 100 10/01/16 07:10 83 11 L 121/58 100 10/01/16 07:00 82 15 140/50 100 10/01/16 06:50 84 12 140/50 99 10/01/16 06:40 82 15 140/50 100 10/01/16 06:30 84 14 121/54 99 10/01/16 06:20 86 14 121/54 95 10/01/16 06:10 99 15 121/54 99 10/01/16 06:00 88 18 135/52 99 10/01/16 05:50 88 16 135/52 100 02 05:40 85 14 135/52 99 02 05:30 87 12 119/51 99 10/01/16 05:20 86 15 119/51 96 02 05:10 87 12 119/51 95 02 05:00 87 11 L 113/45 98 10/01/16 04:50 86 15 113/45 98 10/01/16 04:40 86 13 113/45 99 02 04:30 86 12 115/45 99 10/01/16 04:20 84 14 115/45 99 10/01/16 04:10 84 11 L 115/45 97 10/01/16 04:00 89 92 15 107/41 98 10/01/16 03:50 90 21 107/41 98 10/01/16 03:40 86 15 107/41 97 10/01/16 03:30 88 19 94/50 95 10/01/16 03:20 98.2 F 87 16 94/50 97 02 03:10 88 25 H 94/50 98 10/01/16 03:00 90 18 103/40 100 10/01/16 02:50 88 23 103/40 97 02 02:40 86 12 103/40 99 10/01/16 02:30 87 12 92/45 100 02 02:20 88 11 L 92/45 99 02 02:10 88 12 92/45 100 02 02:00 88 12 103/41 100 10/01/16 01:50 89 10 L 103/41 100 02 01:40 91 16 103/41 97 02 01:30 89 11 L 100/44 100 02 01:20 89 11 L 100/44 99 02/ 01:10 89 12 100/44 100 10/01/16 01:00 89 12 85/41 99 02 00:50 87 12 85/41 98 02 00:40 90 14 85/41 100 02 00:30 90 23 100/46 100 10/01/16 00:20 91 17 100/46 100 10/01/16 00:10 91 12 100/46 100 10/01/16 00:00 98.2 F 92 92 11 L 94/45 95 09/30/16 23:50 95 18 94/45 92 L 09/30/16 23:40 91 11 L 94/45 100 09/30/16 23:30 92 16 85/42 99 09/30/16 23:20 93 12 85/42 100 09/30/16 23:10 92 16 85/42 98 09/30/16 23:00 92 13 100/42 98 09/30/16 22:50 92 19 100/42 98 09/30/16 22:40 92 15 100/42 99 09/30/16 22:37 93 20 102/39 100 09/30/16 22:30 90 12 102/39 99 09/30/16 22:20 93 15 102/39 90 L 09/30/16 22:10 94 19 84/44 100 09/30/16 22:00 93 16 100/42 99 09/30/16 21:50 91 18 100/42 100 09/30/16 21:42 92 14 100/42 99 09/30/16 21:00 92 13 90/40 99 09/30/16 20:00 97.8 F 94 20 99/39 99 09/30/16 19:27 85/53 09/30/16 19:20 102 H 16 78/36 99 09/30/16 19:10 97.9 F 103 H 16 91/59 98 09/30/16 16:00 100 F H 88 17 85/60 96 09/30/16 15:39 17 Intake and Output 09/30/16 10/01/16 10/01/16 22:59 06:59 14:59 Intake Total 2400 2200 1081 Output Total 165 495 755 Balance 2235 1705 326 Intake: IV 2400 2200 500 Sodium Chloride 0.9% 1, 2400 2200 500 000 ml @ 100 mls/hr IV . Q10H [facility] Rx#:[id number] Intake, IV Titration 581 Amount Heparin Sodium,Porcine/ 481 D5w Pmx 25,000 unit In Dextrose/Water 1 500ml. bag @ 9.8 UNITS/KG/HR 20 mls/hr IV .Q24H [facility] Rx#: [id number] Magnesium Sulfate-D5w Pmx 100 1 gm In Dextrose/Water 1 100ml.bag @ 100 mls/hr IVPB Q1H [facility] Rx#: [id number] Output: Urine 165 395 455 Stool 100 300 Other: Voiding Method Indwelling Catheter Indwelling Catheter Indwelling Catheter Weight 102 kg 112.5 kg Physical Exam: Revealed a 76-year-old female in no form of respiratory distress. HEENT:[Neck is supple.] [No neck masses.] [No thyromegaly.] [No JVD.] Chest: [Clear throughout, no crackles, no rhonchi, no wheezes.] Cardiac Exam: [Normal S1 and S2, no S3 gallop, no murmur.] Abdomen: [Soft, nontender, no megaly, no rebound, no guarding, normal bowel sounds.] Extremities: [No clubbing, no edema, no cyanosis.] Neurological Exam: [No focal neurologic deficit.] Results - Laboratory Findings CBC and BMP: 10/01/16 05:48 10/01/16 05:48 PT/INR, D-dimer PT 12.4 sec (9.0-12.0) H 09/30/16 05:19 INR 1.3 (<1.1) 09/30/16 05:19 Abnormal lab findings: Abnormal Labs 09/30/16 09/30/16 09/30/16 11:02 11:02 11:52 WBC Plt Count Neutrophils # Monocytes # APTT Potassium Chloride Carbon Dioxide BUN Creatinine Glucose POC Glucose (mg/dL) 197 H Plasma Lactic Acid [place] 4.0 H* Calcium Phosphorus Magnesium CK-MB (CK-2) Troponin I 0.103 H* Urine Appearance Urine Protein Urine Bilirubin Ur Leukocyte Esterase Urine WBC Urine WBC Clumps Urine Bacteria 09/30/16 09/30/16 09/30/16 16:21 16:23 16:41 WBC Plt Count Neutrophils # Monocytes # APTT Potassium Chloride Carbon Dioxide BUN Creatinine Glucose POC Glucose (mg/dL) 234 H Plasma Lactic Acid [place] 4.4 H* Calcium Phosphorus Magnesium CK-MB (CK-2) 2.5 H* Troponin I 0.113 H* Urine Appearance Urine Protein Urine Bilirubin Ur Leukocyte Esterase Urine WBC Urine WBC Clumps Urine Bacteria 09/30/16 09/30/16 09/30/16 18:59 19:00 20:05 WBC Plt Count Neutrophils # Monocytes # APTT 64.3 H Potassium Chloride Carbon Dioxide BUN Creatinine Glucose POC Glucose (mg/dL) 174 H Plasma Lactic Acid [place] Calcium Phosphorus Magnesium CK-MB (CK-2) Troponin I Urine Appearance Cloudy H Urine Protein Trace H Urine Bilirubin 1+ H Ur Leukocyte Esterase Moderate H Urine WBC 7 H Urine WBC Clumps Occasional H Urine Bacteria Occasional H 09/30/16 09/30/16 10/01/16 22:09 22:17 03:52 WBC Plt Count Neutrophils # Monocytes # APTT 48.1 H Potassium Chloride Carbon Dioxide BUN Creatinine Glucose POC Glucose (mg/dL) 122 H Plasma Lactic Acid [place] 2.3 H* Calcium Phosphorus Magnesium CK-MB (CK-2) Troponin I Urine Appearance Urine Protein Urine Bilirubin Ur Leukocyte Esterase Urine WBC Urine WBC Clumps Urine Bacteria 10/01/16 10/01/16 10/01/16 05:48 05:48 07:39 WBC 23.4 H Plt Count 146 L Neutrophils # 16.2 H Monocytes # 2.3 H APTT Potassium 5.3 H Chloride 118 H Carbon Dioxide 13 L BUN 52 H Creatinine 2.10 H Glucose 149 H POC Glucose (mg/dL) 149 H Plasma Lactic Acid [place] Calcium 6.2 L* Phosphorus 4.6 H Magnesium 1.5 L CK-MB (CK-2) Troponin I Urine Appearance Urine Protein Urine Bilirubin Ur Leukocyte Esterase Urine WBC Urine WBC Clumps Urine Bacteria 10/01/16 12:20 WBC Plt Count Neutrophils # Monocytes # APTT Potassium Chloride Carbon Dioxide BUN Creatinine Glucose POC Glucose (mg/dL) 184 H Plasma Lactic Acid [place] Calcium Phosphorus Magnesium CK-MB (CK-2) Troponin I Urine Appearance Urine Protein Urine Bilirubin Ur Leukocyte Esterase Urine WBC Urine WBC Clumps Urine Bacteria Assessment and Plan Plan: Impression: Acute gastroenteritis, probably viral in nature, however the patient needs to be screened for C. difficile colitis since she had previous episode of C. difficile colitis in December of 2014 2 history of coronary artery disease, stable 3 multiple comorbidities including sarcoidosis, autoimmune hepatitis, hyperlipidemia, obstructive sleep apnea syndrome, hypothyroidism, diabetic neuropathy, Recommendation: Continue IV fluids, hold Lasix for now, continue empiric antibiotics patient is presently on ceftriaxone, C. difficile screening, continue stress doses of hydrocortisone, but the dose will be tapered down today to 50 mg 3 times a day since the patient seems to be more and more hemodynamically stable. We'll continue to follow. Time with Patient: Greater than 30
[2016-10-01 16:56] LABS: Glucose,Whole Blood 196 mg/dL (75-99)
[2016-10-01] MEDS: cefTRIAXone 2,000 MG in SODIUM CHLORIDE 0.9% 100 ML IVPB SCH (17:06)
[2016-10-01 20:14] LABS: Glucose,Whole Blood 132 mg/dL (75-99)
[2016-10-01] MEDS: diphenhydrAMINE 50 MG CAP PO SCH (20:15)
--- NOTE | 2016-10-01 23:52 | PN ---
DATE OF SERVICE: 10/01/2016 Ms. Herrera is a 76-year-old female who presented with diarrhea, nausea, vomiting and fatigue. She has a known history of coronary artery disease. She was transferred to the ICU yesterday because of episode of hypotension. She is feeling better today. Her blood pressure is stable. She denies any symptoms of chest pain. She has no dizziness. Her breathing is stable. Her abdomen is feeling better. Hemodynamically, she has been stable. She continues to be at this time on insulin, aspirin, atenolol 25 mg daily, digoxin 0.125 mg daily, levothyroxine. PHYSICAL EXAMINATION: Blood pressure 128/40 with a heart in the 70s. LUNGS: Clear. HEART: Regular rate rhythm. S1, S2, no S3, no rub. ABDOMEN: Soft, obese, mild tenderness. EXTREMITIES: No edema. Lab data revealed a BUN and creatinine are 52 and 2.1. Potassium 5.3, white blood cell 23.4, hemoglobin of 12.5. IMPRESSION: 1. Severe gastroenteritis. 2. History of coronary artery disease. 3. Episode of paroxysmal atrial fibrillation with pause, remaining in sinus mechanism. RECOMMENDATIONS: I will stop her IV heparin at this time. Continue the rest of her medical regimen. Follow her renal function closely. Depending on her progress, further recommendation will be made.
[2016-10-02] MEDS: SODIUM CHLORIDE 0.9% 1,000 ML IV SCH ×3 (00:22→18:55)
[2016-10-02] MEDS: HYDROCORTISONE SUCCINATE 100 MG/2 ML VIAL IV SCH ×4 (00:23→23:39)
[2016-10-02] MEDS: LEVOTHYROXINE 137 MCG TAB PO SCH (05:57)
--- NOTE | 2016-10-02 06:21 | PN ---
DATE OF SERVICE: 10/01/2016 This 76-year-old woman who was admitted with nausea, vomiting, diarrhea and features of severe dehydration, hypotension as well as sepsis and septic shock also. The patient is going to be started on empiric antibiotics and the cultures are negative so far. The patient has diarrhea, which is also improving at this time. The patient is on IV Rocephin currently and stress dose corticosteroids. Corticosteroids also. PAST MEDICAL HISTORY: Reviewed. REVIEW OF SYSTEMS: CARDIOVASCULAR: No angina, no palpitations. RESPIRATORY: As mentioned earlier. GI: As mentioned earlier. : No dysuria. NERVOUS SYSTEM: No numbness or weakness. Current medications are reviewed and include: 1. Aspirin 81 mg daily. 2. Tenormin 25 mg daily. 3. Rocephin 1 gram daily. 4. Lanoxin 125 mcg p.o. daily. 5. Benadryl 50 mg. 6. Neurontin 300 mg t.i.d. 7. Solu-Cortef 50 mg q.8. 8. Dilaudid 0.5 q.6. 9. Synthroid 137 mcg daily. 10. Narcan. 11. Novolin R 40 units subcu t.i.d. 12. Novolin N 10 units subcu q.h.s. 13. Novolin N 34 units subcu. 14. Zofran 4 mg IV q.6 p.r.n. 15. Protonix 40 mg IV b.i.d. 16. Multivitamins. PHYSICAL EXAMINATION: The patient is alert and oriented x3. Pulse 77, blood pressure 151/59, respirations 35, temperature n, pulse ox 100% on 2 L. HEENT: Conjunctivae normal. NECK: No jugular venous distention. CARDIOVASCULAR: S1 and S2, muffled. RESPIRATORY: Breath sounds diminished at the bases. Scattered rhonchi and no crackles. Abdomen is soft, obese, nontender. No mass palpable. Mild diffuse discomfort. No guarding. No rigidity. LEGS: No edema, no swelling. NERVOUS SYSTEM: No focal deficits. LABS: WBC 23.4, hemoglobin 12.5. Sodium 141, potassium 5.3. Creatinine 2.10. Calcium is 6.2. ASSESSMENT: 1. Acute diarrhea, possible acute gastroenteritis with sepsis and severe sepsis and septic shock and hypotension present on admission. 2. Increased WBC . 3. Increased hemoglobin possibly secondary to dehydration. 4. Acute renal failure, possibly prerenal, acute tubular necrosis secondary to dehydration, prerenal factors. 5. Hyperkalemia secondary to acute renal failure. 6. Increased plasma lactic acid. 7. Troponin 0.103, rule out acute non-ST segment elevation myocardial infarction or indeterminate. 8. Obesity, body mass index of 43.9. 9. History of asthma. 10. History of congestive heart failure. 11. History of coronary artery disease. 12. Diabetes mellitus type 2. 13. History of fibromyalgia. 14. History of gastrointestinal bleeding. 15. Hypertension. 16. Hyperlipidemia. 17. History of mitral valve prolapse. 18. History of pneumonia. 19. History of sleep apnea. 20. Hypothyroidism. 21. History of neuropathy. 22. History of sarcoidosis. 23. History of lupus. 24. History of autoimmune disease. 25. History of autoimmune hepatitis. 26. History of irregular cardiac rhythm. 27. History of left femoral fracture. 28. History of Clostridium difficile colitis. 29. History of appendectomy. 30. History of cholecystectomy. 31. History of coronary artery disease, stent. 32. FULL CODE. RECOMMENDATIONS AND DISCUSSION: This 76-year-old woman presented with multiple complex medical issues, will monitor the patient closely. Continue the current medications. Continue symptomatic treatment. Otherwise, at this time I would recommend continue with empiric antibiotics. Follow cultures. Continue with steroids. Continue with IV fluids. Monitor closely. Monitor electrolytes. Repeat labs. The creatinine appears to be slightly worsened compared to yesterday. We will continue to monitor. Dr. Lester's input appreciated. Closely follow with Dr. Sweeney and as well as Dr. Almanza. Further recommendations to follow. Prognosis guarded. MTDD
[2016-10-02 06:32] LABS: Glucose,Whole Blood 98 mg/dL (75-99)
[2016-10-02] MEDS: PANTOPRAZOLE 40 MG TABLET PO SCH ×2 (07:59→21:01)
[2016-10-02] MEDS: DIGOXIN 125 MCG TAB PO SCH (07:59)
[2016-10-02] MEDS: ATENOLOL 25 MG TAB PO SCH (07:59)
[2016-10-02] MEDS: GABAPENTIN 300 MG CAP PO SCH ×3 (07:59→21:02)
[2016-10-02] MEDS: ASPIRIN 81 MG CHEW PO SCH (07:59)
--- NOTE | 2016-10-02 08:18 | PN ---
Mrs. Herrera is a 76-year-old female who presented with nausea and vomiting, diarrhea. She was transferred to the ICU yesterday because of episodes of hypotension. She has history of sarcoidosis and autoimmune hepatitis. She is feeling better today. She received IV fluids and her blood pressure is stable. She denies any symptoms of chest pain. She denies any dizziness or palpitation. Hemodynamically, she is more stable. Her blood pressure 129/46 with a heart rate in the 70s. LUNGS: Clear. HEART: Regular rate rhythm. S1, S2, no S3, with systolic murmur. ABDOMEN: Soft, obese, nontender. EXTREMITIES: No significant edema. She continues to be on atenolol 25 mg daily, digoxin 0.125 mg daily, aspirin once a day, IV heparin. LAB DATA: BUN and creatinine 52 and 2.1 with a sodium of 5.3. IMPRESSION: 1. Gastroenteritis, improving. 2. Hypertension, resolved. 3. Renal failure worsening, probably prerenal with an episode of hypotension. 4. Diabetes mellitus. 5. Hyperlipidemia. 6. History of coronary artery disease, stable. RECOMMENDATIONS: Will continue present therapy, continue to follow her renal function. I will stop her IV heparin. Her level of activity will be increased gradually. MTDD
[2016-10-02 08:24] LABS: Calcium 7.2 mg/dL (8.4-10.2); Magnesium 2.2 mg/dL (1.6-2.3); Phosphorous 3.6 mg/dL (2.5-4.5)
[2016-10-02 08:37] LABS: Potassium 4.7 mmol/L (3.5-5.1)
[2016-10-02 08:44] LABS: Basophils % (A) 0 %; CH 30.5; CHCM 32.1; Eosinophils % (A) 0 %; HCT 38.7 % (34.0-46.0); HGB 12.4 gm/dL (11.4-16.0); Luc # (Auto) 0.09; Luc % (Auto) 1; Lymphocytes # (A) 0.3 k/uL (1.0-4.8); Lymphocytes % (A) 3 %; MCH 30.7 pg (25.0-35.0); MCHC 32.1 g/dL (31.0-37.0); MCV 95.4 fL (80.0-100.0); Mean Platelet Volume 8.9; Monocytes # (A) 0.4 k/uL (0-1.0); Monocytes % (A) 4 %; Neutrophils # (A) 10.2 k/uL (1.3-7.7); Neutrophils % (A) 93 %; RBC 4.06 m/uL (3.80-5.40); RDW 14.3 % (11.5-15.5); WBC (Perox) 10.93
[2016-10-02] MEDS: INSULIN NPH HUMAN ISOPHANE SQ SCH ×2 (09:54→21:08)
[2016-10-02] MEDS: INSULIN REGULAR HUMAN 40 UNIT SQ SCH ×3 (09:54→17:45)
[2016-10-02 09:55] LABS: Glucose,Whole Blood 100 mg/dL (75-99)
--- NOTE | 2016-10-02 10:32 | ECHOF ---
Referral Reason:cad MEASUREMENTS -------- HEIGHT: 152.4 cm WEIGHT: 112.5 kg BP: 157/62 RVIDd: 2.4 cm (< 3.3) IVSd: 1.1 cm (0.6 - 1.1) LVIDd: 4.6 cm (3.9 - 5.3) LVPWd: 1.2 cm (0.6 - 1.1) IVSs: 1.7 cm LVIDs: 3.2 cm LVPWs: 2.3 cm LA Diam: 3.6 cm (2.7 - 3.8) Ao Diam: 2.4 cm (2.0 - 3.7) AV Cusp: 1.2 cm (1.5 - 2.6) LA Diam: 3.0 cm (2.7 - 3.8) MV EXCURSION: 13.536 mm (> 18.000) MV EF SLOPE: 30 mm/s (70 - 150) EPSS: 1.2 cm MV E Abhay: 1.12 m/s MV DecT: 237 ms MV A Abhay: 1.04 m/s MV E/A Ratio: 1.08 AV maxP.00 mmHg AV meanP.63 mmHg RAP: 5.00 mmHg RVSP: 10.49 mmHg FINDINGS -------- Sinus rhythm. This was a technically adequate study. There is borderline concentric left ventricular hypertrophy. Overall left ventricular systolic function is normal with, an EF between 55 - 60 %. The right ventricle is normal in size. The left atrial size is normal. The right atrium is normal in size. Aortic valve is trileaflet and is mildly thickened. Peak/mean gradient across the Aortic Valve is 14.00mmHg / 7.63mmHg. Mild mitral annular calcification present. There is trace mitral regurgitation. Mild tricuspid regurgitation present. Right ventricular systolic pressure is normal at < 35 mmHg. Trace/mild (physiologic) pulmonic regurgitation. The aortic root size is normal. Normal inferior vena cava with normal inspiratory collapse consistent with estimated right atrial pressure of 5 mmHg. Echo free space may represent effusion or a pericardial fat pad. CONCLUSIONS -------- 1. Sinus rhythm. 2. Mild mitral annular calcification present. 3. There is trace mitral regurgitation. 4. Mild tricuspid regurgitation present. 5. Right ventricular systolic pressure is normal at < 35 mmHg. 6. Trace/mild (physiologic) pulmonic regurgitation. 7. The aortic root size is normal. 8. Echo free space may represent effusion or a pericardial fat pad. 9. This was a technically adequate study. 10. There is borderline concentric left ventricular hypertrophy. 11. Overall left ventricular systolic function is normal with, an EF between 55 - 60 %. 12. The right ventricle is normal in size. 13. The left atrial size is normal. 14. The right atrium is normal in size. 15. Aortic valve is trileaflet and is mildly thickened. 16. Peak/mean gradient across the Aortic Valve is 14.00mmHg / 7.63mmHg. HUMAN FACTORS SPECIALIST: Jen Vu RDCS
[2016-10-02 12:08] LABS: Glucose,Whole Blood 93 mg/dL (75-99)
--- NOTE | 2016-10-02 14:21 | P.CONS ---
History of Present Illness - Reason for Consult Consult date: 10/02/16 Sepsis - History of Present Illness This is a 76-year-old female who is known to ID service for urinary tract infections. Patient denies having any recent problems with urinary tract infections and currently denies having any increased frequency, burning with urination. Patient states that she started having nausea and vomiting and diarrhea on Saturday and presented to [facility] emergency center on September 30 with the above complaints. Her chest x-ray showed mild cardiomegaly with diffuse interstitial prominence, KUB showed nonspecific bowel gas pattern with right-sided and rectal gas. She was found to be hypotensive with systolic blood pressure in the 80s and was given fluid bolus. Temperature maximum 100.9. White count 14.4 with repeat at 23.4. Potassium 5.5 and 1.70 with repeat of 52 and 2.10. Lactic acid 2.3 with repeat 1.2. Hemoglobin A1c 6.6. AST 46. Dig level 0.9 and troponin 0.113. Urinalysis was cloudy, protein trace, bili high, leukoesterase moderate. C. difficile toxin was negative. Blood cultures showing no growth at 24 hours that's 2 out of 2 specimens. Urine culture is in process. She underwent a repeat chest x-ray on the second that showed mild to moderate heart failure slightly worsened with increased atelectasis or consolidation left base. Patient currently has a fecal management system in place. She initially went to the intensive care unit. She has received IV fluid boluses, stress hydrocortisone. Lasix has been on hold. She has been followed by Dr. Lester for intensive care management. She has been seen by Dr. Burnett is well with no acute coronary disease. She has been subsequently transferred to the selective care unit. She states her nausea and vomiting are improved but she continues to have diarrhea but unsure of how much. She denies having fever or chills. Review of Systems All systems: negative Constitutional: Reports anorexia, Reports fatigue, Reports poor appetite, Denies chills, Denies fever Eyes: denies blurred vision, denies pain Ears, nose, mouth and throat: Denies headache, Denies sore throat Cardiovascular: Denies chest pain, Denies shortness of breath Respiratory: Denies cough Gastrointestinal: Reports abdominal pain, Reports diarrhea, Reports nausea, Reports vomiting Genitourinary: Denies dysuria, Denies hematuria, Denies urgency, Denies urinary frequency Musculoskeletal: Denies myalgias Integumentary: Denies pruritus, Denies rash Neurological: Denies numbness, Denies weakness Psychiatric: Denies anxiety, Denies depression Endocrine: Denies fatigue, Denies weight change Past Medical History Past Medical History: Asthma, Coronary Artery Disease (CAD), Heart Failure, Diabetes Mellitus, Fibromyalgia, GI Bleed, Hyperlipidemia, Hypertension, Mitral Valve Prolapse (MVP), Osteoarthritis (OA), Pneumonia, Sleep Apnea/CPAP/BIPAP, Thyroid Disorder Additional Past Medical History / Comment(s): NEUROPATHY, SARCOIDOSIS, LUPUS, AUTOIMMUNE ISSUES HEART MURMUR, autoimmune HEPATITIS with prednisone dependence , IRREGULAR HEART RATE, LEFT FEMUR FRACTURE, NO CPAP USE, right ankle fracture, lower extremity DVT History of Any Multi-Drug Resistant Organisms: C-DIFF Year Discovered:: 12/2014 MDRO Source:: stool Past Surgical History: Adenoidectomy, Appendectomy, Cholecystectomy, Heart Catheterization With Stent, Hysterectomy, Tonsillectomy Additional Past Surgical History / Comment(s): COLONOSCOPY, EGD, Zena filter, bronchoscopy Past Anesthesia/Blood Transfusion Reactions: No Reported Reaction Date of Last Stent Placement:: 2012 Past Psychological History: No Psychological Hx Reported Smoking Status: Never smoker Past Alcohol Use History: None Reported Additional Past Alcohol Use History / Comment(s): Patient is a lifelong nonsmoker. She denies any medical marijuana, marijuana or street drug use. She denies any alcohol use. She lives at home with her . There are currently no pets in the home. 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 Past Drug Use History: None Reported - Past Family History Mother Family Medical History: Coronary Artery Disease (CAD) Father Family Medical History: Coronary Artery Disease (CAD) Medications and Allergies Home Medications Medication Instructions Recorded Confirmed Type Aspirin 81 mg PO DAILY 02/09/14 09/30/16 History Atenolol 25 mg PO DAILY 02/09/14 09/30/16 History Digoxin [Digox] 125 mcg PO DAILY 02/09/14 09/30/16 History Ergocalciferol (Vitamin D2) 50,000 unit PO BENSON 02/09/14 09/30/16 History [Drisdol] Ferrous Sulfate [Feosol] 325 mg PO Q48H 02/09/14 09/30/16 History Furosemide 40 mg PO DAILY 02/09/14 09/30/16 History Gabapentin 300 mg PO TID 02/09/14 09/30/16 History Levothyroxine Sodium [Synthroid] 137 mcg PO DAILY 02/09/14 09/30/16 History Omeprazole 20 mg PO BID 02/09/14 09/30/16 History Potassium Chloride [Klor-Con M10] 5 meq PO DAILY 02/09/14 09/30/16 History Insulin NPH Human Isophane 34 unit SQ AC-BRKFST 09/30/16 09/30/16 History [NovoLIN N] Insulin Regular, Human [NovoLIN R] 40 unit SQ AC-TID 09/30/16 09/30/16 History Losartan [Cozaar] 50 mg PO DAILY 09/30/16 09/30/16 History Meloxicam [Mobic] 15 mg PO DAILY 09/30/16 09/30/16 History diphenhydrAMINE [Benadryl] 50 mg PO HS 09/30/16 09/30/16 History predniSONE 10 mg PO DAILY 09/30/16 09/30/16 History Allergies Allergy/AdvReac Type Severity Reaction Status Date / Time levofloxacin [From Levaquin] Allergy Intermediate Unknown Verified 09/30/16 09: 45 Penicillins Allergy Intermediate Rash/Hives Verified 09/30/16 09:45 Sulfa (Sulfonamide Allergy Intermediate Rash/Hives Verified 09/30/16 09:45 Antibiotics) cephalexin monohydrate Allergy Unknown Unknown Verified 09/30/16 09:45 [From Keflex] erythromycin base Allergy Unknown Rash/Hives Verified 09/30/16 09:45 [From E-Mycin] gatifloxacin [From Tequin] Allergy Unknown Unknown Verified 09/30/16 09:45 nitrofurantoin Allergy Unknown Unknown Verified 09/30/16 09:45 macrocrystalline [From Macrodantin] Vega Allergy Unknown Verified 09/30/16 09:45 apricot Allergy Unknown Verified 09/30/16 09:45 asparagus Allergy Unknown Verified 09/30/16 09:45 banana [Banana] Allergy Unknown Verified 09/30/16 09:45 cabbage Allergy Unknown Verified 09/30/16 09:45 carrot Allergy Unknown Verified 09/30/16 09:45 ciprofloxacin [From Cipro] Allergy Unknown Verified 09/30/16 09:45 ciprofloxacin HCl Allergy Unknown Verified 09/30/16 09:45 [From Cipro] Coconut Allergy Unknown Verified 09/30/16 09:45 coffee (Coffea arabica) Allergy Unknown Verified 09/30/16 09:45 [coffee] cucumber Allergy Unknown Verified 09/30/16 09:45 flaxseed Allergy Unknown Verified 09/30/16 09:45 sam Allergy Unknown Verified 09/30/16 09:45 grapefruit [Grapefruit] Allergy Unknown Verified 09/30/16 09:45 insulin lispro [From Humalog] Allergy Rash/Hives Verified 09/30/16 11:23 insulin NPH human isophane Allergy Rash/Hives Verified 09/30/16 09:45 [From Humulin 70/30] insulin regular, human Allergy Rash/Hives Verified 09/30/16 09:45 [From Humulin 70/30] onion Allergy Unknown Verified 09/30/16 09:45 orange juice [Stevens] Allergy Unknown Verified 09/30/16 09:45 spinach Allergy Unknown Verified 09/30/16 09:45 tree nut [Pecan] Allergy Unknown Verified 09/30/16 09:45 cantaloupe Allergy Unknown Uncoded 09/30/16 05:00 cottonseed Allergy Unknown Uncoded 09/30/16 05:00 green beans Allergy Unknown Uncoded 09/30/16 05:00 mustard Allergy Unknown Uncoded 09/30/16 05:00 nuts Allergy Unknown Uncoded 09/30/16 05:00 pepper Allergy Unknown Uncoded 09/30/16 05:00 rice Allergy Unknown Uncoded 09/30/16 05:00 squash Allergy Unknown Uncoded 09/30/16 05:00 tea Allergy Unknown Uncoded 09/30/16 05:00 walnut Allergy Unknown Uncoded 09/30/16 05:00 Physical Exam Vitals: Vital Signs Temp Pulse Pulse Resp BP BP Pulse Ox 10/02/16 12:00 66 16 10/02/16 11:38 97.5 F L 66 16 145/69 97 10/02/16 08:00 97.6 F 64 16 127/60 100 10/02/16 03:02 97.1 F L 66 16 157/62 100 10/01/16 22:00 74 15 146/50 100 10/01/16 21:00 71 14 146/50 100 10/01/16 20:00 98.1 F 74 92 17 100 10/01/16 19:00 78 14 100 10/01/16 18:00 75 15 100 10/01/16 17:00 74 16 144/62 100 10/01/16 16:00 75 16 129/46 100 10/01/16 15:30 92 35 H 10/01/16 15:00 77 35 H 151/59 99 10/01/16 14:00 72 20 146/45 99 Intake and Output 10/01/16 10/02/16 10/02/16 22:59 06:59 14:59 Intake Total 100 420 Output Total 517 572 9765 Balance -300 -400 -680 Intake: IV 100 Sodium Chloride 0.9% 1, 100 000 ml @ 100 mls/hr IV . Q10H [facility] Rx#:[id number] Oral 420 Output: Urine 300 300 900 Stool 100 100 200 Other: Voiding Method Indwelling Catheter Indwelling Catheter Indwelling Catheter # Voids 0 Weight 111.5 kg Gen: This is a morbidly obese 76-year-old female. She is in bed appears to be in no acute distress. HEENT: Head is atraumatic, normocephalic. Pupils equal, round. Sclerae is anicteric. Oral mucous membranes are dry. NECK: Supple. No JVD. No lymphadenopathy. No thyromegaly. LUNGS: Clear to auscultation. No wheezes or rhonchi. No intercostal retractions. HEART: Regular rate and rhythm. No murmur. ABDOMEN: Soft. Bowel sounds are present. No masses. Bilateral lower abdominal tenderness. Fecal management system in place draining medium brown liquid stool of scant amount. EXTREMITIES: No pedal edema. No calf tenderness. No pedal edema. Dorsalis pedis is weak bilaterally. NEUROLOGICAL: Patient is awake, alert and oriented x3. Cranial nerves 2 through 12 are grossly intact. Results CBC & Chem 7: 10/02/16 06:18 10/02/16 06:18 Labs: Abnormal Lab Results - Last 24 Hours (Table) 10/01/16 10/01/16 10/02/16 Range/Units 16:53 20:13 06:18 WBC 11.0 H (3.8-10.6) k/uL Plt Count 107 L (150-450) k/uL Neutrophils # 10.2 H (1.3-7.7) k/uL Lymphocytes # 0.3 L (1.0-4.8) k/uL Chloride (98-107) mmol/L Carbon Dioxide (22-30) mmol/L BUN (7-17) mg/dL Creatinine (0.52-1.04) mg/dL POC Glucose (mg/dL) 196 H 132 H (75-99) mg/dL Calcium (8.4-10.2) mg/dL 10/02/16 10/02/16 Range/Units 06:18 09:51 WBC (3.8-10.6) k/uL Plt Count (150-450) k/uL Neutrophils # (1.3-7.7) k/uL Lymphocytes # (1.0-4.8) k/uL Chloride 115 H (98-107) mmol/L Carbon Dioxide 16 L (22-30) mmol/L BUN 40 H (7-17) mg/dL Creatinine 1.27 H (0.52-1.04) mg/dL POC Glucose (mg/dL) 100 H (75-99) mg/dL Calcium 7.2 L (8.4-10.2) mg/dL Microbiology - Last 24 Hours (Table) 09/30/16 19:00 Urine Culture - Preliminary Urine,Catheterized Gram Neg Bacilli Aerococcus urinae 09/30/16 16:21 Blood Culture - Preliminary Blood No Growth after 24 hours Assessment and Plan Plan: This is a 76-year-old female who presented to the hospital with nausea , vomiting, diarrhea most likely due to gastroenteritis with signs of dehydration and sepsis with concern for urinary tract infection. Urine culture is in process. C. difficile toxin is negative. Stool studies will be ordered. Continue supportive care. Further recommendations as patient progresses. The above dictated assessment and findings were discussed with Dr. Almanza. The impression and plan of care have been directed as dictated. Angelica Calixto nurse practitioner acting as scribe for Dr. Almanza. Time with Patient: Greater than 30
--- NOTE | 2016-10-02 14:44 | P.PN ---
Subjective Principal diagnosis: Dehydration This is a 76-year-old female who presented to the hospital with symptoms of nausea vomiting and diarrhea. She is now being followed on the telemetry unit, she was in the intensive care unit because of episodes of hypotension. Patient also has a history of sarcoidosis and autoimmune hepatitis. Patient did receive IV fluid bolus, continues to have stable blood pressure. He was seen and examined today, denies any dizziness or lightheadedness. Blood pressure and heart rate have been stable. Echocardiogram with Doppler study was performed which revealed an ejection fraction of 55-60%. Objective - Vital Signs Vital signs: Vital Signs Temp 97.5 F L 10/02/16 11:38 Pulse 66 10/02/16 12:00 Resp 16 10/02/16 12:00 BP 145/69 10/02/16 11:38 Pulse Ox 97 10/02/16 11:38 Intake & Output 10/01/16 10/02/16 10/02/16 18:59 06:59 18:59 Intake Total 1481 1420 Output Total 6481 432 4970 Balance 476 -650 320 Weight 111.5 kg Intake: IV 800 1000 Sodium Chloride 0.9% 1, 800 1000 000 ml @ 100 mls/hr IV . Q10H [facility] Rx#:[id number] Intake, IV Titration 681 Amount Heparin Sodium,Porcine/ 481 D5w Pmx 25,000 unit In Dextrose/Water 1 500ml. bag @ 9.8 UNITS/KG/HR 20 mls/hr IV .Q24H [facility] Rx#: [id number] Magnesium Sulfate-D5w Pmx 200 1 gm In Dextrose/Water 1 100ml.bag @ 100 mls/hr IVPB Q1H [facility] Rx#: [id number] Oral 420 Output: Urine 605 550 900 Stool 400 100 200 Other: Voiding Method Indwelling Catheter Indwelling Catheter Indwelling Catheter # Voids 0 - Exam PHYSICAL EXAMINATION: HEENT: Head is atraumatic, normocephalic. Pupils equal, round. Neck is supple. There is no elevated jugular venous pressure. HEART EXAMINATION: Heart S1, S2 normal. No murmur or gallop heard. CHEST EXAMINATION: Lungs are clear to auscultation and precussion. No chest wall tenderness is noted on palpation or with deep breathing. ABDOMEN: Soft, nontender. Bowel sounds are heard. No organomegaly noted. Fecal management system in place. EXTREMITIES: 2+ peripheral pulses with no evidence of peripheral edema and no calf tenderness noted. NEUROLOGIC patient is awake, alert and oriented -3. . - Labs CBC & Chem 7: 10/02/16 06:18 10/02/16 06:18 Labs: Abnormal Lab Results - Last 24 Hours (Table) 10/01/16 10/01/16 10/02/16 Range/Units 16:53 20:13 06:18 WBC 11.0 H (3.8-10.6) k/uL Plt Count 107 L (150-450) k/uL Neutrophils # 10.2 H (1.3-7.7) k/uL Lymphocytes # 0.3 L (1.0-4.8) k/uL Chloride (98-107) mmol/L Carbon Dioxide (22-30) mmol/L BUN (7-17) mg/dL Creatinine (0.52-1.04) mg/dL POC Glucose (mg/dL) 196 H 132 H (75-99) mg/dL Calcium (8.4-10.2) mg/dL 10/02/16 10/02/16 Range/Units 06:18 09:51 WBC (3.8-10.6) k/uL Plt Count (150-450) k/uL Neutrophils # (1.3-7.7) k/uL Lymphocytes # (1.0-4.8) k/uL Chloride 115 H (98-107) mmol/L Carbon Dioxide 16 L (22-30) mmol/L BUN 40 H (7-17) mg/dL Creatinine 1.27 H (0.52-1.04) mg/dL POC Glucose (mg/dL) 100 H (75-99) mg/dL Calcium 7.2 L (8.4-10.2) mg/dL Microbiology - Last 24 Hours (Table) 09/30/16 19:00 Urine Culture - Preliminary Urine,Catheterized Gram Neg Bacilli Aerococcus urinae 09/30/16 16:21 Blood Culture - Preliminary Blood No Growth after 24 hours Assessment and Plan (1) Diabetes Status: Acute (2) HTN (hypertension) Status: Acute (3) Dehydration Status: Acute (4) Elevated troponin Status: Acute (5) Gastroenteritis Status: Acute (6) Hypotensive episode Status: Acute (7) Renal insufficiency syndrome Status: Acute (8) Autoimmune hepatitis Status: Acute Plan: From cardiology's perspective, we will recommend to continue the patient on her current medications. We will follow her with you now on an as-needed basis only , please don't hesitate to call with any questions. DNP note has been reviewed, I agree with a documented findings and plan of care. Patient was seen and examined.
--- NOTE | 2016-10-02 15:24 | P.PN ---
Subjective Planned for 10/02/2016 This is a 76-year-old female patient seen by my partner Dr. Salas yesterday. She apparently is well-known to Dr. London Steen and has a history of sarcoidosis. The patient also has a history of autoimmune hepatitis. Maintained on prednisone 10 mg a day chronically. The patient was admitted with a number different GI symptoms including nausea vomiting and diarrhea. She was fatigued. She had a slightly elevated troponin. She was seen by cardiology. She was found to be high dehydrated. She is doing much better today. Feeling much better. Lying flat. Hoping to go home by tomorrow. She was sitting at the bedside with her . Objective - Vital Signs Vital signs: Vital Signs Temp 97.0 F L 10/02/16 15:19 Pulse 63 10/02/16 15:19 Resp 18 10/02/16 15:19 BP 122/48 10/02/16 15:19 Pulse Ox 95 10/02/16 15:19 Intake & Output 10/01/16 10/02/16 10/02/16 18:59 06:59 18:59 Intake Total 1481 1420 Output Total 7202 073 7743 Balance 476 -650 320 Weight 111.5 kg Intake: IV 800 1000 Sodium Chloride 0.9% 1, 800 1000 000 ml @ 100 mls/hr IV . Q10H [facility] Rx#:[id number] Intake, IV Titration 681 Amount Heparin Sodium,Porcine/ 481 D5w Pmx 25,000 unit In Dextrose/Water 1 500ml. bag @ 9.8 UNITS/KG/HR 20 mls/hr IV .Q24H [facility] Rx#: [id number] Magnesium Sulfate-D5w Pmx 200 1 gm In Dextrose/Water 1 100ml.bag @ 100 mls/hr IVPB Q1H [facility] Rx#: [id number] Oral 420 Output: Urine 605 550 900 Stool 400 100 200 Other: Voiding Method Indwelling Catheter Indwelling Catheter Indwelling Catheter # Voids 0 - Exam No acute distress, oriented 3. HEENT examination is grossly unremarkable. Mucous membranes are moist. No oral lesions. Supple. Full range of motion. No adenopathy or thyromegaly. Cardiovascular examination reveals regular rhythm rate. S1-S2 normal. No S3- S4. No murmur. Lungs are clear breath sounds equal. No wheezes or rhonchi. Abdomen soft and obese. Extremities are intact. - Labs CBC & Chem 7: 10/02/16 06:18 10/02/16 06:18 Labs: Abnormal Lab Results - Last 24 Hours (Table) 10/01/16 10/01/16 10/02/16 Range/Units 16:53 20:13 06:18 WBC 11.0 H (3.8-10.6) k/uL Plt Count 107 L (150-450) k/uL Neutrophils # 10.2 H (1.3-7.7) k/uL Lymphocytes # 0.3 L (1.0-4.8) k/uL Chloride (98-107) mmol/L Carbon Dioxide (22-30) mmol/L BUN (7-17) mg/dL Creatinine (0.52-1.04) mg/dL POC Glucose (mg/dL) 196 H 132 H (75-99) mg/dL Calcium (8.4-10.2) mg/dL 10/02/16 10/02/16 Range/Units 06:18 09:51 WBC (3.8-10.6) k/uL Plt Count (150-450) k/uL Neutrophils # (1.3-7.7) k/uL Lymphocytes # (1.0-4.8) k/uL Chloride 115 H (98-107) mmol/L Carbon Dioxide 16 L (22-30) mmol/L BUN 40 H (7-17) mg/dL Creatinine 1.27 H (0.52-1.04) mg/dL POC Glucose (mg/dL) 100 H (75-99) mg/dL Calcium 7.2 L (8.4-10.2) mg/dL Microbiology - Last 24 Hours (Table) 09/30/16 19:00 Urine Culture - Preliminary Urine,Catheterized Gram Neg Bacilli Aerococcus urinae 09/30/16 16:21 Blood Culture - Preliminary Blood No Growth after 24 hours Assessment and Plan (1) Dehydration Status: Acute (2) Diabetes Status: Acute (3) Elevated troponin Status: Acute (4) Gastroenteritis Status: Acute (5) HTN (hypertension) Status: Acute (6) Hypotensive episode Status: Acute (7) Renal insufficiency syndrome Status: Acute (8) Autoimmune hepatitis Status: Acute (9) Diabetes Status: Acute (10) Diarrhea Status: Acute (11) Sarcoidosis Status: Acute Plan: Plan 10/02/2016 The patient is doing much better. Feels much better. Hoping to be discharged home tomorrow. No major issues or complaints today. No pulmonary complaints. She should follow-up with Dr. Engel once she is discharged. Additional recommendations suggestions are forthcoming. She should also follow-up with her primary doctor is Dr. Mary Ann Snowden. Time with Patient: Less than 30
[2016-10-02] MEDS ORDERED: LOPERAMIDE 2 MG CAP PO STA (16:33)
[2016-10-02] MEDS ORDERED: LOPERAMIDE 2 MG CAP PO PRN (16:33)
--- NOTE | 2016-10-02 17:06 | XR ---
EXAMINATION TYPE: XR chest 1V DATE OF EXAM: 10/02/2016 4:47 PM COMPARISON: 10/01/2016 INDICATION: Short of breath TECHNIQUE: Single frontal view of the chest is obtained. FINDINGS: Heart size is enlarged. EKG leads overlie the chest. The pulmonary vasculature is normal. The lungs are clear. IMPRESSION: 1. Cardiomegaly.
[2016-10-02 17:24] LABS: Glucose,Whole Blood 180 mg/dL (75-99)
[2016-10-02] MEDS: cefTRIAXone 2,000 MG in SODIUM CHLORIDE 0.9% 100 ML IVPB SCH (17:46)
[2016-10-02] MEDS: diphenhydrAMINE 50 MG CAP PO SCH (21:01)
[2016-10-02 21:10] LABS: Glucose,Whole Blood 111 mg/dL (75-99)
--- NOTE | 2016-10-02 21:23 | PN ---
DATE OF SERVICE: 10/02/2016 This 76 -year-old woman who was admitted with acute diarrhea is being closely monitored. Seen and evaluated the patient along with nurse practitioner. Please refer to the nurse practitioner notes and impression documented as a scribe for further information. Repeat chest x-ray. Remove rectal tube. Symptomatic treatment. Guarded prognosis. Further recommendations to follow. steroids. MTDD
--- NOTE | 2016-10-02 21:40 | P.CON ---
Consult Note - . Consult date: 10/02/16 Assessment/Plan:: This is a 76-year-old female who is known to ID service for urinary tract infections. Patient denies having any recent problems with urinary tract infections and currently denies having any increased frequency, burning with urination. Patient states that she started having nausea and vomiting and diarrhea on Saturday and presented to [facility] emergency center on September 30 with the above complaints. Her chest x-ray showed mild cardiomegaly with diffuse interstitial prominence, KUB showed nonspecific bowel gas pattern with right-sided and rectal gas. She was found to be hypotensive with systolic blood pressure in the 80s and was given fluid bolus. Temperature maximum 100.9. White count 14.4 with repeat at 23.4. Potassium 5.5 and 1.70 with repeat of 52 and 2.10. Lactic acid 2.3 with repeat 1.2. Hemoglobin A1c 6.6. AST 46. Dig level 0.9 and troponin 0.113. Urinalysis was cloudy, protein trace, bili high, leukoesterase moderate. C. difficile toxin was negative. Blood cultures showing no growth at 24 hours that's 2 out of 2 specimens. Urine culture is in process. She underwent a repeat chest x-ray on the second that showed mild to moderate heart failure slightly worsened with increased atelectasis or consolidation left base. Patient currently has a fecal management system in place. She initially went to the intensive care unit. She has received IV fluid boluses, stress hydrocortisone. Lasix has been on hold. She has been followed by Dr. Lester for intensive care management. She has been seen by Dr. Burnett is well with no acute coronary disease. She has been subsequently transferred to the selective care unit. She states her nausea and vomiting are improved but she continues to have diarrhea but unsure of how much. She denies having fever or chills. Please see the consult note is dictated by nurse practitioner Mrs. Angelica Calixto. Diarrhea starting to improve. Does relate that and daughter have both had similar illnesses. Physical history of C. diff in the distant past. Current testing is negative. with evidence of sepsis at admission concerns to sepsis from the urinary system. Urine culture does have gram-negative bacilli. With her history of prior urinary infections and by therapy with ceftriaxone was started. Also receiving supportive care. Has received some steroid therapy because of her chronic autoimmune hepatitis and sarcoidosis and chronic steroid needs. She's feeling considerably better today. She relates that she' s been able to eat some solid food. Rectal tube was removed and she's had just a few loose stools since. No melena or hematochezia have been noted. For she is feeling considerably better. I'm going concerns the possibility of gastroenteritis and stool evaluations have been requested. Stool for C. diff did come back as negative. With the final urine culture and hopefully will be able to adjust antibiotic therapy for discharge. I agree with the evaluation, assessment and plan as dictated by nurse practitioner Mrs. Angelica Calixto.
[2016-10-03] MEDS: SODIUM CHLORIDE 0.9% 1,000 ML IV SCH ×2 (03:25→15:41)
[2016-10-03] MEDS: LEVOTHYROXINE 137 MCG TAB PO SCH (05:59)
[2016-10-03 06:27] LABS: Glucose,Whole Blood 76 mg/dL (75-99)
[2016-10-03] MEDS: INSULIN NPH HUMAN ISOPHANE SQ SCH ×2 (06:27→22:16)
[2016-10-03] MEDS: INSULIN REGULAR HUMAN 40 UNIT SQ SCH ×3 (06:28→17:39)
[2016-10-03 06:44] LABS: Basophils % (A) 0 %; CHCM 32.7; Eosinophils # (A) 0.1 k/uL (0-0.7); Eosinophils % (A) 1 %; HCT 39.1 % (34.0-46.0); HDW 2.67; HGB 12.2 gm/dL (11.4-16.0); Luc # (Auto) 0.12; Luc % (Auto) 1; Lymphocytes # (A) 0.4 k/uL (1.0-4.8); Lymphocytes % (A) 4 %; MCH 29.9 pg (25.0-35.0); MCHC 31.3 g/dL (31.0-37.0); MCV 95.5 fL (80.0-100.0); Mean Platelet Volume 9.6; Monocytes # (A) 0.4 k/uL (0-1.0); Monocytes % (A) 4 %; Neutrophils # (A) 8.5 k/uL (1.3-7.7); Neutrophils % (A) 89 %; RBC 4.09 m/uL (3.80-5.40); RDW 14.4 % (11.5-15.5); WBC 9.5 k/uL (3.8-10.6); WBC (Perox) 9.74
[2016-10-03 07:12] LABS: Manual Review Performed
[2016-10-03 07:29] LABS: Anion Gap 7 mmol/L; Blood Urea Nitrogen 31 mg/dL (7-17); Calcium 7.8 mg/dL (8.4-10.2); Carbon Dioxide 19 mmol/L (22-30); Chloride 116 mmol/L (98-107); Glucose 76 mg/dL (74-99); Non-African American GFR(MDRD) 56 (>60 ml/min/1.73 sqM); Phosphorous 2.9 mg/dL (2.5-4.5); Sodium 142 mmol/L (137-145)
[2016-10-03] MEDS: ASPIRIN 81 MG CHEW PO SCH (07:52)
[2016-10-03] MEDS: HYDROCORTISONE SUCCINATE 100 MG/2 ML VIAL IV SCH (07:52)
[2016-10-03] MEDS: GABAPENTIN 300 MG CAP PO SCH ×3 (07:53→22:16)
[2016-10-03] MEDS: DIGOXIN 125 MCG TAB PO SCH (07:53)
[2016-10-03] MEDS: ATENOLOL 25 MG TAB PO SCH (07:53)
[2016-10-03] MEDS: PANTOPRAZOLE 40 MG TABLET PO SCH ×2 (07:53→22:16)
[2016-10-03 11:50] LABS: Glucose,Whole Blood 105 mg/dL (75-99)
--- NOTE | 2016-10-03 14:55 | P.PN ---
Subjective This is a very pleasant 76-year-old female patient who follows with Dr. Lester in our office for sarcoidosis. She also has autoimmune hepatitis and is treated with prednisone 10 mg daily. She presented here 09/30/2016 with complaints of nausea vomiting diarrhea and fatigue. She was found to be quite dehydrated. She also had urinary tract infection with E. coli and Aerococcus urinae 422 She is seen again in today in follow-up. She is sitting up in the chair at the bedside. She is more awake and alert. She denies any shortness of breath, cough or congestion. Her creatinine has improved and is currently 0.97. She is maintaining good O2 saturations in the mid 90s on room air. She is afebrile. No leukocytosis. She's been maintained on ceftriaxone. Objective - Vital Signs Vital signs: Vital Signs Temp 97.4 F L 10/03/16 08:00 Pulse 67 10/03/16 08:00 Resp 18 10/03/16 08:00 BP 159/74 10/03/16 08:00 Pulse Ox 95 10/03/16 08:00 Intake & Output 10/02/16 10/03/16 10/03/16 18:59 06:59 18:59 Intake Total 1670 1200 460 Output Total 1200 800 725 Balance 470 400 -265 Weight 112.5 kg Intake: IV 1000 900 Sodium Chloride 0.9% 1, 1000 900 000 ml @ 100 mls/hr IV . Q10H [facility] Rx#:[id number] Oral 670 300 460 Output: Urine 900 800 725 Stool 300 Other: Voiding Method Indwelling Catheter Indwelling Catheter Indwelling Catheter # Voids 0 - Exam GENERAL EXAM: Obese. Alert, active, comfortable in no apparent distress. HEAD: Normocephalic. EYES: Normal reaction of pupils, equal size. NOSE: Clear with pink turbinates. THROAT: No erythema or exudates. NECK: No masses, no JVD. CHEST: No chest wall deformity. LUNGS: Equal air entry with no crackles, wheeze, rhonchi or dullness. CVS: S1 and S2 normal with no audible murmurs, regular rhythm. ABDOMEN: No hepatosplenomegaly, normal bowel sounds, no guarding or rigidity. SPINE: No scoliosis or deformity SKIN: No rashes CENTRAL NERVOUS SYSTEM: No focal deficits, tone is normal in all 4 extremities. Extremities: There is trace peripheral edema. No clubbing, no cyanosis. Peripheral pulses are intact. - Labs CBC & Chem 7: 10/03/16 06:17 10/03/16 06:17 Labs: Abnormal Lab Results - Last 24 Hours (Table) 10/02/16 10/02/16 10/03/16 Range/Units 17:01 21:06 06:17 Plt Count 87 L (150-450) k/uL Neutrophils # 8.5 H (1.3-7.7) k/uL Lymphocytes # 0.4 L (1.0-4.8) k/uL Chloride (98-107) mmol/L Carbon Dioxide (22-30) mmol/L BUN (7-17) mg/dL POC Glucose (mg/dL) 180 H 111 H (75-99) mg/dL Calcium (8.4-10.2) mg/dL 10/03/16 10/03/16 Range/Units 06:17 11:42 Plt Count (150-450) k/uL Neutrophils # (1.3-7.7) k/uL Lymphocytes # (1.0-4.8) k/uL Chloride 116 H (98-107) mmol/L Carbon Dioxide 19 L (22-30) mmol/L BUN 31 H (7-17) mg/dL POC Glucose (mg/dL) 105 H (75-99) mg/dL Calcium 7.8 L (8.4-10.2) mg/dL Microbiology - Last 24 Hours (Table) 09/30/16 19:00 Urine Culture - Final Urine,Catheterized Escherichia coli Aerococcus urinae 09/30/16 16:21 Blood Culture - Preliminary Blood No Growth after 48 hours Assessment and Plan Plan: Impression: #1 Acute gastroenteritis, recovered #2 Acute urinary tract infection secondary to E. coli and Aerococcus urinae. #3 History of coronary artery disease, stable. #4 Sarcoidosis, currently inactive and stable. #5 Autoimmune hepatitis maintained on prednisone 10 mg daily. #6 Hyperlipidemia. #7 Obstructive sleep apnea syndrome. #8 Hypothyroidism. #9 Diabetic neuropathy. Plan: The patient was seen and evaluated by Dr. Eid. She is stable from the pulmonary and critical care standpoint. We'll continue with her current antibiotics in the form of ceftriaxone. We'll discontinue her Solu-Cortef and put her back on her maintenance prednisone at 10 mg daily. We'll increase her activity as tolerated. We'll continue to follow make further recommendations based on her clinical status.
[2016-10-03 17:05] LABS: Glucose,Whole Blood 129 mg/dL (75-99)
--- NOTE | 2016-10-03 17:30 | P.PN ---
Subjective Date of service 10/02/2016. Progress note being dictated for Dr. Smith. Interval history: This is a 76-year-old female admitted with acute nausea, vomiting ,diarrhea, possible acute gastroenteritis with severe sepsis, septic shock on admission with hypotension, acute renal failure, dehydration and multiple other medical issues in a patient on chronic steroids. Maintained on Rocephin, steroids, gentle IV fluid hydration, status post fluid boluses. Significant improvement in renal function. Evaluated by multiple consults with recommendations noted. Diet intake improving. Feels better today with no further nausea or vomiting. Diarrhea slowly improving. Currently with [employer].fr system. Tested negative for C. difficile colitis. Generalized weakness, requiring 2 person assist to transfer from bed to chair, PT/OT recommendations pending. Echo reporting normal LV function, EF 55-60%, borderline concentric left ventricular hypertrophy. Chest x-ray reports cardiomegaly. Denies chest pain, palpitations or increasing shortness of breath. Denies focal deficits lightheadedness or dizziness. Afebrile, leukocytosis improving. Preliminary Urine culture with gram-negative bacilli, preliminary blood cultures negative. Objective - Vital Signs Vital signs: Vital Signs Temp 97.0 F L 10/02/16 15:19 Pulse 63 10/02/16 15:19 Resp 18 10/02/16 15:19 BP 122/48 10/02/16 15:19 Pulse Ox 95 10/02/16 15:19 Intake & Output 10/01/16 10/02/16 10/02/16 18:59 06:59 18:59 Intake Total 1481 1420 Output Total 4041 452 9935 Balance 476 -650 320 Weight 111.5 kg Intake: IV 800 1000 Sodium Chloride 0.9% 1, 800 1000 000 ml @ 100 mls/hr IV . Q10H [facility] Rx#:[id number] Intake, IV Titration 681 Amount Heparin Sodium,Porcine/ 481 D5w Pmx 25,000 unit In Dextrose/Water 1 500ml. bag @ 9.8 UNITS/KG/HR 20 mls/hr IV .Q24H [facility] Rx#: [id number] Magnesium Sulfate-D5w Pmx 200 1 gm In Dextrose/Water 1 100ml.bag @ 100 mls/hr IVPB Q1H [facility] Rx#: [id number] Oral 420 Output: Urine 605 550 900 Stool 400 100 200 Other: Voiding Method Indwelling Catheter Indwelling Catheter Indwelling Catheter # Voids 0 - Exam PHYSICAL EXAM: VITAL SIGNS: As above GENERAL: [Sitting up in chair, mild increase in shortness of breath] HEENT: [Pupils equal conjunctiva normal.] NECK: [Supple, no JVD] RESPIRATORY EFFORT:[Mildly increased] LUNGS: [Diminished, scattered rhonchi, no wheezing, no crackles] CARDIOVASCULAR[regular S1 and S2, no murmur, gallop, or rub, no edema] GI: [Abdomen soft, obese, nontender, positive bowel sounds.] PSYCH: [Alert and oriented -3, mood and affect normal.] NEURO: No focal deficits, generalized diffuse weakness - Labs CBC & Chem 7: 10/03/16 06:17 10/03/16 06:17 Labs: Abnormal Lab Results - Last 24 Hours (Table) 10/01/16 10/01/16 10/02/16 Range/Units 16:53 20:13 06:18 WBC 11.0 H (3.8-10.6) k/uL Plt Count 107 L (150-450) k/uL Neutrophils # 10.2 H (1.3-7.7) k/uL Lymphocytes # 0.3 L (1.0-4.8) k/uL Chloride (98-107) mmol/L Carbon Dioxide (22-30) mmol/L BUN (7-17) mg/dL Creatinine (0.52-1.04) mg/dL POC Glucose (mg/dL) 196 H 132 H (75-99) mg/dL Calcium (8.4-10.2) mg/dL 10/02/16 10/02/16 Range/Units 06:18 09:51 WBC (3.8-10.6) k/uL Plt Count (150-450) k/uL Neutrophils # (1.3-7.7) k/uL Lymphocytes # (1.0-4.8) k/uL Chloride 115 H (98-107) mmol/L Carbon Dioxide 16 L (22-30) mmol/L BUN 40 H (7-17) mg/dL Creatinine 1.27 H (0.52-1.04) mg/dL POC Glucose (mg/dL) 100 H (75-99) mg/dL Calcium 7.2 L (8.4-10.2) mg/dL Microbiology - Last 24 Hours (Table) 09/30/16 19:00 Urine Culture - Preliminary Urine,Catheterized Gram Neg Bacilli Aerococcus urinae 09/30/16 16:21 Blood Culture - Preliminary Blood No Growth after 24 hours Assessment and Plan Plan: 1. [Acute diarrhea, possible gastroenteritis with severe sepsis secondary to UTI and septic shock, hypotension, increased plasma lactic acid present on admission]. 2. [Acute UTI with Leukocytosis, preliminary culture with gram-negative bacilli] . 3. [Increased hemoglobin possibly secondary to dehydration]. 4. [Acute renal failure, prerenal, acute tubular necrosis secondary to dehydration, prerenal factors]. 5. [Hyperkalemia secondary to acute renal failure]. 6. [Troponin 0.103, rule out acute non-STEMI or indeterminate]. 7. [Morbid obesity, BMI 48.4]. 8. Chronic intermittent asthma 9. Chronic CHF, no acute exacerbation at this time 10. CAD, history of stent 11. Diabetes, type II 12. Fibromyalgia 13. History of GI bleed 14. Hypertension 15. Hyperlipidemia 16. Mitral valve prolapse 17. Sleep apnea 18. Hypothyroidism 19. Neuropathy 20. History of sarcoidosis 21. History of lupus, 22. History of autoimmune hepatitis 24. History of irregular cardiac rhythm 25. History of left femoral fracture 26. History of C. difficile colitis Plan: Continue on current medication regime ,monitoring and symptomatic treatment. Follow cultures closely. Antibiotics as per infectious disease. Repeat Chest x-ray. Fecal management system to be discontinued. Imodium added to med regime. Close monitoring of electrolytes with repeat labs ordered for a.m. Symptomatic treatment. PT OT .Discharge planning in progress for tomorrow. Guarded prognosis given multiple complex medical issues. Further recommendations to follow. The impression and plan of care has been dictated as directed. : I performed a H&P examination of this patient and discussed the same with the dictator. I agree with the dictator's note. Any additional findings/opinions/ etc. will be noted.
[2016-10-03] MEDS: cefTRIAXone 2,000 MG in SODIUM CHLORIDE 0.9% 100 ML IVPB SCH (17:39)
--- NOTE | 2016-10-03 17:41 | P.PN ---
Subjective Date of service 10/03/2016. Progress note being dictated for Dr. Arguelles. Interval history: This is a 76-year-old female admitted with acute nausea, vomiting ,diarrhea, possible acute gastroenteritis with severe sepsis, dehydration, acute renal failure, and multiple other medical issues . Continues on Rocephin, steroids.renal function continues to improve. Good diet intake. No further nausea, or vomiting. Yesterday fecal management system discontinued, Imodium added to med regime. No further diarrhea. Generalized weakness, declining rehab. Denies chest pain, palpitations or increasing shortness of breath. Denies focal deficits lightheadedness or dizziness. Urine culture now positive for E. coli, aeroccocus urinae, preliminary blood cultures negative. Objective - Vital Signs Vital signs: Vital Signs Temp 96.9 F L 10/03/16 16:00 Pulse 57 L 10/03/16 16:00 Resp 16 10/03/16 16:00 BP 151/58 10/03/16 16:00 Pulse Ox 98 10/03/16 16:00 Intake & Output 10/02/16 10/03/16 10/03/16 18:59 06:59 18:59 Intake Total 1670 1200 700 Output Total 2099 670 3260 Balance 470 400 -1125 Weight 112.5 kg Intake: IV 1000 900 Sodium Chloride 0.9% 1, 1000 900 000 ml @ 100 mls/hr IV . Q10H [facility] Rx#:[id number] Oral 670 300 700 Output: Urine 018 515 4254 Stool 300 200 Other: Voiding Method Indwelling Catheter Indwelling Catheter Indwelling Catheter # Voids 0 - Exam PHYSICAL EXAM: VITAL SIGNS: As above GENERAL: [Sitting up in chair, mild increase in shortness of breath] HEENT: [Pupils equal conjunctiva normal.] NECK: [Supple, no JVD] RESPIRATORY EFFORT:[Mildly increased] LUNGS: [Diminished, scattered rhonchi, no wheezing, no crackles] CARDIOVASCULAR[regular S1 and S2, no murmur, gallop, or rub, no edema] GI: [Abdomen soft, obese, nontender, positive bowel sounds.] PSYCH: [Alert and oriented -3, mood and affect normal.] NEURO: No focal deficits, generalized diffuse weakness, moves all 4 extremities - Labs CBC & Chem 7: 10/03/16 06:17 10/03/16 06:17 Labs: Abnormal Lab Results - Last 24 Hours (Table) 10/02/16 10/03/16 10/03/16 Range/Units 21:06 06:17 06:17 Plt Count 87 L (150-450) k/uL Neutrophils # 8.5 H (1.3-7.7) k/uL Lymphocytes # 0.4 L (1.0-4.8) k/uL Chloride 116 H (98-107) mmol/L Carbon Dioxide 19 L (22-30) mmol/L BUN 31 H (7-17) mg/dL POC Glucose (mg/dL) 111 H (75-99) mg/dL Calcium 7.8 L (8.4-10.2) mg/dL 10/03/16 10/03/16 Range/Units 11:42 16:52 Plt Count (150-450) k/uL Neutrophils # (1.3-7.7) k/uL Lymphocytes # (1.0-4.8) k/uL Chloride (98-107) mmol/L Carbon Dioxide (22-30) mmol/L BUN (7-17) mg/dL POC Glucose (mg/dL) 105 H 129 H (75-99) mg/dL Calcium (8.4-10.2) mg/dL Microbiology - Last 24 Hours (Table) 09/30/16 19:00 Urine Culture - Final Urine,Catheterized Escherichia coli Aerococcus urinae 09/30/16 16:21 Blood Culture - Preliminary Blood No Growth after 48 hours Assessment and Plan Plan: 1. [Acute diarrhea, possible gastroenteritis with severe sepsis secondary to UTI and septic shock, hypotension, increased plasma lactic acid present on admission]. 2. [Acute UTI with E. coli, aeroccocus urinae]. 3. [Increased hemoglobin possibly secondary to dehydration]. 4. [Acute renal failure, prerenal, acute tubular necrosis secondary to dehydration, prerenal factors]. 5. [Hyperkalemia secondary to acute renal failure]. 6. [Troponin 0.103, rule out acute non-STEMI or indeterminate]. 7. [Morbid obesity, BMI 48.4]. 8. Chronic intermittent asthma 9. Chronic CHF, no acute exacerbation at this time 10. CAD, history of stent 11. Diabetes, type II 12. Fibromyalgia 13. History of GI bleed 14. Hypertension 15. Hyperlipidemia 16. Mitral valve prolapse 17. Sleep apnea 18. Hypothyroidism 19. Neuropathy 20. History of sarcoidosis 21. History of lupus, 22. History of autoimmune hepatitis 24. History of irregular cardiac rhythm 25. History of left femoral fracture 26. History of C. difficile colitis Plan: Continue on current medication regime ,monitoring and symptomatic treatment. Follow cultures closely with antibiotics as per ID. Increase ambulation with assistance with walker as tolerated. PT/OT. Close monitoring of electrolytes with repeat labs ordered for a.m. Discharge planning in progress for tomorrow. Guarded prognosis given multiple complex medical issues. Further recommendations to follow. The impression and plan of care has been dictated as directed. : I performed a H&P examination of this patient and discussed the same with the dictator. I agree with the dictator's note. Any additional findings/opinions/ etc. will be noted.
[2016-10-03 21:02] LABS: Glucose,Whole Blood 105 mg/dL (75-99)
--- NOTE | 2016-10-03 22:05 | P.PN ---
Subjective Principal diagnosis: Urinary tract infection This is a 76-year-old female who is known to ID service for urinary tract infections. Patient denies having any recent problems with urinary tract infections and currently denies having any increased frequency, burning with urination. Patient states that she started having nausea and vomiting and diarrhea on Saturday and presented to [facility] emergency center on September 30 with the above complaints. Her chest x-ray showed mild cardiomegaly with diffuse interstitial prominence, KUB showed nonspecific bowel gas pattern with right-sided and rectal gas. She was found to be hypotensive with systolic blood pressure in the 80s and was given fluid bolus. Temperature maximum 100.9. White count 14.4 with repeat at 23.4. Potassium 5.5 and 1.70 with repeat of 52 and 2.10. Lactic acid 2.3 with repeat 1.2. Hemoglobin A1c 6.6. AST 46. Dig level 0.9 and troponin 0.113. Urinalysis was cloudy, protein trace, bili high, leukoesterase moderate. C. difficile toxin was negative. Blood cultures showing no growth at 24 hours that's 2 out of 2 specimens. Urine culture is in process. She underwent a repeat chest x-ray on the second that showed mild to moderate heart failure slightly worsened with increased atelectasis or consolidation left base. Patient currently has a fecal management system in place. She initially went to the intensive care unit. She has received IV fluid boluses, stress hydrocortisone. Lasix has been on hold. She has been followed by Dr. Lester for intensive care management. She has been seen by Dr. Burnett is well with no acute coronary disease. She has been subsequently transferred to the selective care unit. She's feeling better today. The nausea and emesis have resolved. Diarrhea is resolved. She is able to eat. But is still very weak and is requiring 2 people for an assistance. She believes that she wanted to go back to home. However she doesn't gain her strength will need to go to rehab. Objective - Vital Signs Vital signs: Vital Signs Temp 96.9 F L 10/03/16 16:00 Pulse 57 L 10/03/16 16:00 Resp 16 10/03/16 16:00 BP 151/58 10/03/16 16:00 Pulse Ox 98 10/03/16 16:00 Intake & Output 10/03/16 10/03/16 10/04/16 06:59 18:59 06:59 Intake Total 1200 700 240 Output Total 800 2225 Balance 400 -1525 240 Weight 112.5 kg Intake: IV 900 Sodium Chloride 0.9% 1, 900 000 ml @ 100 mls/hr IV . Q10H [facility] Rx#:[id number] Oral 300 700 240 Output: Urine 800 2025 Uretheral ([place]) 400 Stool 200 Other: Voiding Method Indwelling Catheter Indwelling Catheter # Voids 1 # Bowel Movements 1 - Exam Gen: This is a morbidly obese 76-year-old female. She is in bed appears to be in no acute distress. HEENT: Head is atraumatic, normocephalic. Pupils equal, round. Sclerae is anicteric. Oral mucous membranes are dry. NECK: Supple. No JVD. No lymphadenopathy. No thyromegaly. LUNGS: Clear to auscultation. No wheezes or rhonchi. No intercostal retractions. HEART: Regular rate and rhythm. No murmur. ABDOMEN: Soft. Bowel sounds are present. No masses. Bilateral lower abdominal tenderness. Fecal management system in place draining medium brown liquid stool of scant amount. EXTREMITIES: No pedal edema. No calf tenderness. No pedal edema. Dorsalis pedis is weak bilaterally. NEUROLOGICAL: Patient is awake, alert and oriented x3 - Labs CBC & Chem 7: 10/03/16 06:17 10/03/16 06:17 Labs: Abnormal Lab Results - Last 24 Hours (Table) 10/03/16 10/03/16 10/03/16 Range/Units 06:17 06:17 11:42 Plt Count 87 L (150-450) k/uL Neutrophils # 8.5 H (1.3-7.7) k/uL Lymphocytes # 0.4 L (1.0-4.8) k/uL Chloride 116 H (98-107) mmol/L Carbon Dioxide 19 L (22-30) mmol/L BUN 31 H (7-17) mg/dL POC Glucose (mg/dL) 105 H (75-99) mg/dL Calcium 7.8 L (8.4-10.2) mg/dL 10/03/16 10/03/16 Range/Units 16:52 21:01 Plt Count (150-450) k/uL Neutrophils # (1.3-7.7) k/uL Lymphocytes # (1.0-4.8) k/uL Chloride (98-107) mmol/L Carbon Dioxide (22-30) mmol/L BUN (7-17) mg/dL POC Glucose (mg/dL) 129 H 105 H (75-99) mg/dL Calcium (8.4-10.2) mg/dL Microbiology - Last 24 Hours (Table) 09/30/16 16:21 Blood Culture - Preliminary Blood No Growth after 72 hours 09/30/16 19:00 Urine Culture - Final Urine,Catheterized Escherichia coli Aerococcus urinae Laboratory Results WBC 9.5 k/uL (3.8-10.6) 10/03/16 06:17 RBC 4.09 m/uL (3.80-5.40) 10/03/16 06:17 Hgb 12.2 gm/dL (11.4-16.0) 10/03/16 06:17 Hct 39.1 % (34.0-46.0) 10/03/16 06:17 MCV 95.5 fL (80.0-100.0) 10/03/16 06:17 MCH 29.9 pg (25.0-35.0) 10/03/16 06:17 MCHC 31.3 g/dL (31.0-37.0) 10/03/16 06:17 RDW 14.4 % (11.5-15.5) 10/03/16 06:17 Plt Count 87 k/uL (150-450) L 10/03/16 06:17 Neutrophils % 89 % 10/03/16 06:17 Neutrophils % (Manual) 41.0 % 09/30/16 05:19 Band Neutrophils % 47.5 % 09/30/16 05:19 Lymphocytes % 4 % 10/03/16 06:17 Lymphocytes % (Manual) 5.0 % 09/30/16 05:19 Monocytes % 4 % 10/03/16 06:17 Monocytes % (Manual) 5.5 % 09/30/16 05:19 Eosinophils % 1 % 10/03/16 06:17 Basophils % 0 % 10/03/16 06:17 Metamyelocytes % 0.5 % 09/30/16 05:19 Myelocytes % 0.5 % 09/30/16 05:19 Neutrophils # 8.5 k/uL (1.3-7.7) H 10/03/16 06:17 Neutrophils # (Manual) 12.7 k/uL (1.3-7.7) H 09/30/16 05:19 Lymphocytes # 0.4 k/uL (1.0-4.8) L 10/03/16 06:17 Lymphocytes # (Manual) 0.7 k/uL (1.0-4.8) L 09/30/16 05:19 Monocytes # 0.4 k/uL (0-1.0) 10/03/16 06:17 Monocytes # (Manual) 0.8 k/uL (0-1.0) 09/30/16 05:19 Eosinophils # 0.1 k/uL (0-0.7) 10/03/16 06:17 Basophils # 0.0 k/uL (0-0.2) 10/03/16 06:17 Nucleated RBCs 0 /100 WBC (0-0) 09/30/16 05:19 Manual Slide Review Performed 10/03/16 06:17 Toxic Granulation Present 09/30/16 05:19 Toxic Vacuolation Present 09/30/16 05:19 Hypochromasia Slight 10/01/16 05:48 Poikilocytosis (manual Present 09/30/16 05:19 Anisocytosis (manual) Present 09/30/16 05:19 PT 12.4 sec (9.0-12.0) H 09/30/16 05:19 INR 1.3 (<1.1) 09/30/16 05:19 APTT 48.1 sec (22.0-30.0) H 10/01/16 03:52 Sodium 142 mmol/L (137-145) 10/03/16 06:17 Potassium 5.0 mmol/L (3.5-5.1) 10/03/16 06:17 Chloride 116 mmol/L (98-107) H 10/03/16 06:17 Carbon Dioxide 19 mmol/L (22-30) L 10/03/16 06:17 Anion Gap 7 mmol/L 10/03/16 06:17 BUN 31 mg/dL (7-17) H 10/03/16 06:17 Creatinine 0.97 mg/dL (0.52-1.04) 10/03/16 06:17 Est GFR (MDRD) Af Amer >60 (>60 ml/min/1.73 sqM) 10/03/16 06:17 Est GFR (MDRD) Non-Af 56 (>60 ml/min/1.73 sqM) 10/03/16 06:17 Glucose 76 mg/dL (74-99) 10/03/16 06:17 POC Glucose (mg/dL) 105 mg/dL (75-99) H 10/03/16 21:01 POC Glu [employer] ID Gerardo Restrepo 10/03/16 21:[address] Glu mg/dL 143 mg/dL 09/30/16 05:19 Hemoglobin A1c 6.6 % (4.2-6.1) H 09/30/16 05:19 Plasma Lactic Acid [place] 1.2 mmol/L (0.7-2.0) 10/01/16 03:52 Calcium 7.8 mg/dL (8.4-10.2) L 10/03/16 06:17 Phosphorus 2.9 mg/dL (2.5-4.5) 10/03/16 06:17 Magnesium 2.0 mg/dL (1.6-2.3) 10/03/16 06:17 Total Bilirubin 1.0 mg/dL (0.2-1.3) 09/30/16 05:19 AST 46 U/L (14-36) H 09/30/16 05:19 ALT 36 U/L (9-52) 09/30/16 05:19 Alkaline Phosphatase 71 U/L (38-126) 09/30/16 05:19 Total Creatine Kinase 135 U/L (30-135) 09/30/16 16:23 CK-MB (CK-2) 2.5 ng/mL (0.0-2.4) H* 09/30/16 16:23 CK-MB (CK-2) Rel Index 1.9 09/30/16 16:23 Troponin I 0.113 ng/mL (0.000-0.034) H* 09/30/16 16:23 Total Protein 7.4 g/dL (6.3-8.2) 09/30/16 05:19 Albumin 3.8 g/dL (3.5-5.0) 09/30/16 05:19 Amylase 78 U/L (30-110) 09/30/16 05:19 Lipase 93 U/L (23-300) 09/30/16 05:19 Urine Color Yellow 09/30/16 19:00 Urine Appearance Cloudy (Clear) H 09/30/16 19:00 Urine pH 5.0 (5.0-8.0) 09/30/16 19:00 Ur Specific [place] 1.018 (1.001-1.035) 09/30/16 19:00 Urine Protein Trace (Negative) H 09/30/16 19:00 Urine Glucose (UA) Negative (Negative) 09/30/16 19:00 Urine Ketones Negative (Negative) 09/30/16 19:00 Urine Blood Negative (Negative) 09/30/16 19:00 Urine Nitrate Negative (Negative) 09/30/16 19:00 Urine Bilirubin 1+ (Negative) H 09/30/16 19:00 Urine Urobilinogen 2.0 mg/dL (<2.0) 09/30/16 19:00 Ur Leukocyte Esterase Moderate (Negative) H 09/30/16 19:00 Urine RBC 4 /hpf (0-5) 09/30/16 19:00 Urine WBC 7 /hpf (0-5) H 09/30/16 19:00 Urine WBC Clumps Occasional /hpf (None) H 09/30/16 19:00 Ur Squamous Epith Cells 1 /hpf (0-4) 09/30/16 19:00 Urine Bacteria Occasional /hpf (None) H 09/30/16 19:00 Digoxin 0.9 ng/mL 09/30/16 05:19 C. difficile (EIA) Intrp Negative (Negative) 09/30/16 16:00 Microbiology 09/30/16 16:21 Blood Blood Culture - Preliminary No Growth after 72 hours 09/30/16 06:40 Blood Blood Culture - Preliminary No Growth after 72 hours 09/30/16 19:00 Urine,Catheterized Urine Culture - Final Escherichia coli Aerococcus urinae Assessment and Plan (1) Leukocytosis Narrative/Plan: 76-year-old woman presented to Hospital with profound weakness this as with nausea emesis and diarrhea. There is concern that she had a viral or bacterial gastroenteritis. C. diff was negative. No other positive studies are noted except as is the positive urine culture for both E. coli and enterococcus. She is responding very well this point in time to the ceftriaxone therapy. However she still is very weak and will need further therapy evaluations. May need to go to rehab. She is doing well with the current antibiotic therapy with Rocephin. It would be reasonable this point and to complete another week of this antibiotic therapy given the marked clinical improvement. The leukocytosis has improved. The acute renal failure has resolved. Status: Acute (2) UTI (urinary tract infection) Status: Acute
[2016-10-03] MEDS: diphenhydrAMINE 50 MG CAP PO SCH (22:15)
[2016-10-04 06:08] LABS: Glucose,Whole Blood 77 mg/dL (75-99)
[2016-10-04 06:40] LABS: Basophils % (A) 0 %; CH 30.2; CHCM 31.5; Eosinophils % (A) 1 %; HCT 38.3 % (34.0-46.0); HDW 2.67; HGB 12.1 gm/dL (11.4-16.0); Hypochromasia Slight; Luc # (Auto) 0.12; Luc % (Auto) 2; Lymphocytes # (A) 0.6 k/uL (1.0-4.8); Lymphocytes % (A) 9 %; MCH 30.7 pg (25.0-35.0); MCHC 31.7 g/dL (31.0-37.0); MCV 96.7 fL (80.0-100.0); Mean Platelet Volume 8.3; Monocytes # (A) 0.3 k/uL (0-1.0); Monocytes % (A) 5 %; Neutrophils # (A) 5.5 k/uL (1.3-7.7); Neutrophils % (A) 83 %; RBC 3.96 m/uL (3.80-5.40); RDW 14.5 % (11.5-15.5); WBC 6.7 k/uL (3.8-10.6)
[2016-10-04] MEDS: LEVOTHYROXINE 137 MCG TAB PO SCH (06:57)
[2016-10-04] MEDS: SODIUM CHLORIDE 0.9% 1,000 ML IV SCH ×2 (06:57→12:16)
[2016-10-04 07:04] LABS: Anion Gap 10 mmol/L; Blood Urea Nitrogen 29 mg/dL (7-17); Calcium 8.2 mg/dL (8.4-10.2); Carbon Dioxide 18 mmol/L (22-30); Chloride 116 mmol/L (98-107); Glucose 78 mg/dL (74-99); Non-African American GFR(MDRD) 54 (>60 ml/min/1.73 sqM); Potassium 4.4 mmol/L (3.5-5.1); Sodium 144 mmol/L (137-145)
[2016-10-04] MEDS: INSULIN NPH HUMAN ISOPHANE SQ SCH (07:09)
[2016-10-04] MEDS: INSULIN REGULAR HUMAN 40 UNIT SQ SCH ×3 (07:20→17:33)
--- NOTE | 2016-10-04 08:47 | PN ---
DATE OF SERVICE: 10/03/2016 This 76-year-old woman who was admitted with significant diarrheal illness is improved significantly. Seen and evaluated the patient along with the nurse practitioner. Please refer to the nurse practitioner notes and impression documented for further information. Patient also had with E. coli and Aerococcus urinae in the urine culture also. Increase ambulation. Further recommendations to follow.
[2016-10-04] MEDS ORDERED: predniSONE 10 MG TAB PO SCH (09:00)
[2016-10-04] MEDS: GABAPENTIN 300 MG CAP PO SCH ×2 (09:08→17:31)
[2016-10-04] MEDS: ASPIRIN 81 MG CHEW PO SCH (09:08)
[2016-10-04] MEDS: PANTOPRAZOLE 40 MG TABLET PO SCH (09:08)
[2016-10-04] MEDS: ATENOLOL 25 MG TAB PO SCH (09:08)
[2016-10-04 09:29] VITALS: RESP 18
--- NOTE | 2016-10-04 11:28 | P.PN ---
Subjective Planned for 10/02/2016 This is a 76-year-old female patient seen by my partner Dr. Salas yesterday. She apparently is well-known to Dr. London Steen and has a history of sarcoidosis. The patient also has a history of autoimmune hepatitis. Maintained on prednisone 10 mg a day chronically. The patient was admitted with a number different GI symptoms including nausea vomiting and diarrhea. She was fatigued. She had a slightly elevated troponin. She was seen by cardiology. She was found to be high dehydrated. She is doing much better today. Feeling much better. Lying flat. Hoping to go home by tomorrow. She was sitting at the bedside with her . Progress note dated 10/02/2016 This is a 76-year-old female patient sees Dr. Lester and our pulmonary office. She sees him for her sarcoidosis which is inactive and quiesced and at this time. She also has a history of autoimmune hepatitis treated with a base dose of prednisone at 10 mg a day. She presented with primarily urinary symptoms with dehydration. Both are treated in our back to baseline. She's feeling well. No pulmonary complaints. From the pulmonary standpoint patient could be discharged home. Infectious disease is seen the patient. Objective - Vital Signs Vital signs: Vital Signs Temp 98.1 F 10/04/16 09:00 Pulse 58 L 10/04/16 09:00 Resp 18 10/04/16 09:00 BP 161/71 10/04/16 09:00 Pulse Ox 98 10/04/16 09:00 Intake & Output 10/03/16 10/04/16 10/04/16 18:59 06:59 18:59 Intake Total 700 740 240 Output Total 2225 775 Balance -1525 -35 240 Weight 115.2 kg Intake: Oral 700 740 240 Output: Urine 5 675 Uretheral (Ballard) 400 Stool 200 100 Other: Voiding Method Indwelling Catheter Indwelling Catheter Bedside Commode # Voids 1 # Bowel Movements 1 - Exam No acute distress, oriented 3. HEENT examination is grossly unremarkable. Mucous membranes are moist. No oral lesions. Supple. Full range of motion. No adenopathy or thyromegaly. Cardiovascular examination reveals regular rhythm rate. S1-S2 normal. No S3- S4. No murmur. Lungs are clear breath sounds equal. No wheezes or rhonchi. Abdomen soft and obese. Extremities are intact. - Labs CBC & Chem 7: 10/04/16 05:51 10/04/16 05:51 Labs: Abnormal Lab Results - Last 24 Hours (Table) 10/03/16 10/03/16 10/03/16 Range/Units 11:42 16:52 21:01 Plt Count (150-450) k/uL Lymphocytes # (1.0-4.8) k/uL Chloride (98-107) mmol/L Carbon Dioxide (22-30) mmol/L BUN (7-17) mg/dL POC Glucose (mg/dL) 105 H 129 H 105 H (75-99) mg/dL Calcium (8.4-10.2) mg/dL 10/04/16 10/04/16 Range/Units 05:51 05:51 Plt Count 117 L (150-450) k/uL Lymphocytes # 0.6 L (1.0-4.8) k/uL Chloride 116 H (98-107) mmol/L Carbon Dioxide 18 L (22-30) mmol/L BUN 29 H (7-17) mg/dL POC Glucose (mg/dL) (75-99) mg/dL Calcium 8.2 L (8.4-10.2) mg/dL Microbiology - Last 24 Hours (Table) 09/30/16 16:21 Blood Culture - Preliminary Blood No Growth after 72 hours 09/30/16 19:00 Urine Culture - Final Urine,Catheterized Escherichia coli Aerococcus urinae Assessment and Plan (1) Dehydration Status: Acute (2) Diabetes Status: Acute (3) Elevated troponin Status: Acute (4) Gastroenteritis Status: Acute (5) HTN (hypertension) Status: Acute (6) Hypotensive episode Status: Acute (7) Renal insufficiency syndrome Status: Acute (8) Autoimmune hepatitis Status: Acute (9) Diabetes Status: Acute (10) Diarrhea Status: Acute (11) Sarcoidosis Status: Acute Plan: Plan 10/02/2016 The patient is doing much better. Feels much better. Hoping to be discharged home tomorrow. No major issues or complaints today. No pulmonary complaints. She should follow-up with Dr. Engel once she is discharged. Additional recommendations suggestions are forthcoming. She should also follow-up with her primary doctor is Dr. Mary Ann Snowden. Plan dated 10/04/2016 The patient is doing much better. We placed her on prednisone 10 mg a day. The Solu-Cortef was discontinued. From the pulmonary standpoint the patient could be discharged. We'll only see the patient has needed. She should follow- up with Dr. Engel when she is discharged from the hospital. Time with Patient: Less than 30
[2016-10-04 11:47] LABS: Glucose,Whole Blood 165 mg/dL (75-99)
[2016-10-04 16:29] VITALS: BP 184/79; PULSE 52; TEMP 97.5
[2016-10-04 16:37] LABS: Glucose,Whole Blood 112 mg/dL (75-99)
[2016-10-04] MEDS: cefTRIAXone 2,000 MG in SODIUM CHLORIDE 0.9% 100 ML IVPB SCH (17:31)
--- NOTE | 2016-10-05 14:50 | DS ---
DATE OF ADMISSION: 09/30/2016 DATE OF DISCHARGE: 10/04/2016 FINAL DIAGNOSES: 1. Acute diarrhea, possible gastroenteritis with severe sepsis secondary to urinary tract infection. Septic shock, hypotension, and as well as plasma lactic present on admission. 2. Acute urinary tract infection with Escherichia coli and enterococcus urinary. 3. Increased to hemoglobin possibly secondary to dehydration. 4. Acute renal failure prerenal acute tubular necrosis secondary to dehydration, prerenal factors. 5. Congestive heart failure with chronic diastolic dysfunction, ejection fraction 50% to 55%. 6. Hyperkalemia secondary to acute renal failure. 7. Troponin 0.103, indeterminate troponins. Possibly secondary to sepsis. 8. Morbid obesity for a BMI 48.4. 9. Chronic intermittent asthma. 10. History of congestive heart failure, with no acute exacerbation at this time. 11. History of coronary artery disease and stent. 12. Diabetes mellitus type 2. 13. Fibromyalgia. 14. History of gastrointestinal bleed. 15. Hypertension. 16. Hyperlipidemia. 17. Mitral valve prolapse. 18. Sleep apnea. 19. History of hypothyroidism. 20. History of neuropathy. 21. History of sarcoidosis. 22. History of lupus, hepatitis. 23. History of irregular cardiac arrhythmia. 24. History of left femoral fracture. 25. History of clostridium difficile colitis. 26. NO CODE, NO CPR, NO VENT. DISCHARGE DISPOSITION: The patient will be discharged in stable condition with guarded prognosis. Total time taken 35 minutes. HISTORY OF PRESENT ILLNESS: This 76-year-old admitted with UTI sepsis severe hypotension, diarrhea, the patient was treated symptomatically with high-dose steroids and other medications. The patient being monitored in the ICU . Dr. Almanza and Dr. Eid saw the patient. The patient improved significantly. The patient able to ambulate. PT/OT was consulted and the patient improved significantly. The patient will be discharged in stable condition with guarded prognosis with the following advice and medications: On exam, vital signs stable. CARDIOVASCULAR: S1, S2 muffled. RESPIRATORY: Breath sounds diminished at the bases. A few scattered rhonchi. ABDOMEN: Soft, nontender. Central nervous system: No focal deficits. DISCHARGE ADVICE AND MEDICATIONS: 1. Diet is cardiac. 2. Activity limited until follow up. 3. Follow-up with Dr. Lestre in 2 weeks. 4. Follow-up with Dr. Mary Ann Snowden in 2 to 3 days. 5. Follow up with Dr. Almanza as recommended. 6. Medications are Ecotrin 81 mg p.o. daily. 7. Atenolol 25 mg daily. 8. Digoxin 0.125 mg p.o. daily. 9. Vitamin D2 50,000 Saturday. 10. Iron sulfate 320 mg q.48 hours. 11. Lasix 40 mg p.o. daily. 12. Gabapentin 300 mg p.o. t.i.d. 13. Novolin 10 units q.h.s. and 34 units a.c. 14. Novolin-R 40 units a.c. t.i.d. 15. Synthroid 137 mcg p.o. daily. 16. Imodium 2 mg daily q.i.d. p.r.n. 17. Cozaar 50 mg p.o. daily. 18. Omeprazole 20 mg p.o. b.i.d. 19. Klor-Con 10 meq p.o. daily. 20. Benadryl 50 mg q.h.s. 21. Prednisone 10 mg p.o. daily. Once again, the patient will be discharged in a stable condition with guarded prognosis. AMYD
== END 2016-10-04 19:37 | disposition home or self-care (01) | DRG 871 ==
LOC: EC 04:49 → 6SEL 07:49 → 6ICU 18:42 → 6SEL 10-02 02:26
PROVIDERS: ADMIT Internal Medicine; ATTEND Internal Medicine
DX: A41.9 Sepsis, unspecified organism (principal); N17.0 Acute kidney failure with tubular necrosis; R65.21 Severe sepsis with septic shock; E11.40 Type 2 diabetes mellitus with diabetic neuropathy, unspecified; D86.0 Sarcoidosis of lung; I11.0 Hypertensive heart disease with heart failure; I48.0 Paroxysmal atrial fibrillation; I50.32 Chronic diastolic (congestive) heart failure; N39.0 Urinary tract infection, site not specified; E86.0 Dehydration; J98.11 Atelectasis; E87.5 Hyperkalemia; B96.20 Unspecified Escherichia coli [E. coli] as the cause of diseases classified elsewhere; E03.9 Hypothyroidism, unspecified; E78.5 Hyperlipidemia, unspecified; K52.9 Noninfective gastroenteritis and colitis, unspecified; G47.33 Obstructive sleep apnea (adult) (pediatric); I25.10 Atherosclerotic heart disease of native coronary artery without angina pectoris; I25.2 Old myocardial infarction; I34.1 Nonrheumatic mitral (valve) prolapse; J45.20 Mild intermittent asthma, uncomplicated; K75.4 Autoimmune hepatitis; M19.90 Unspecified osteoarthritis, unspecified site; M79.7 Fibromyalgia; Z79.4 Long term (current) use of insulin; Z79.52 Long term (current) use of systemic steroids; Z79.82 Long term (current) use of aspirin; Z82.49 Family history of ischemic heart disease and other diseases of the circulatory system; Z87.01 Personal history of pneumonia (recurrent); Z90.49 Acquired absence of other specified parts of digestive tract; Z95.5 Presence of coronary angioplasty implant and graft; Z79.899 Other long term (current) drug therapy; Z88.1 Allergy status to other antibiotic agents; Z88.0 Allergy status to penicillin; Z88.2 Allergy status to sulfonamides
CPT/HCPCS: 36415; 71010; 71020; 74000; 80048; 80053; 80162; 80299; 81001; 82150; 82550; 82553; 83036; 83605; 83690; 83735; 84100; 84484; 85025; 85610; 85730; 87040; 87077; 87086; 87186; 87324; 93005; 93306; 96361; 96365; 96366; 96375; 96376; 99285

== ENCOUNTER → 2016-12-10 | Outpatient (CLI) | payer MEDICARE ==
--- NOTE | 2016-12-11 08:55 | MM ---
Reason for exam: screening (asymptomatic). Last mammogram was performed 1 year ago. History: Patient is postmenopausal. Family history of breast cancer in maternal aunt. Physical Findings: A clinical breast exam by your physician is recommended on an annual basis and results should be correlated with mammographic findings. MG Screening Mammo w CAD Bilateral CC and MLO view(s) were taken. Prior study comparison: December 08, 2015, right breast MG 3d work up w/cad RT. December 05, 2015, bilateral MG screening mammo w CAD. There are scattered fibroglandular densities. Finding: There are typically benign vascular, punctate calcifications in both breasts. There is a chronic nodularity in the right breast. There is no discrete abnormality. ASSESSMENT: Benign, BI-RAD 2 RECOMMENDATION: Routine screening mammogram of both breasts in 1 year.
== END | disposition home or self-care (01) ==
LOC: RADMAMWWP 10:54
PROVIDERS: ATTEND Family Medicine
DX: Z12.31 Encounter for screening mammogram for malignant neoplasm of breast (principal)

== ENCOUNTER → 2017-01-24 | Outpatient (CLI) | payer MEDICARE ==
[2017-01-24 09:28] LABS: ALT 32 U/L (9-52); AST 38 U/L (14-36); Alkaline Phosphatase 80 U/L (38-126); Anion Gap 7 mmol/L; Blood Urea Nitrogen 22 mg/dL (7-17); Calcium 9.3 mg/dL (8.4-10.2); Carbon Dioxide 28 mmol/L (22-30); Chloride 103 mmol/L (98-107); Cholesterol 156 mg/dL (<200); Glucose 130 mg/dL (74-99); HDL Cholesterol 68 mg/dL (40-60); Non-African American GFR(MDRD) 55 (>60 ml/min/1.73 sqM); Potassium 4.9 mmol/L (3.5-5.1); Sodium 138 mmol/L (137-145); Total Bilirubin 0.9 mg/dL (0.2-1.3); Total Protein 7.1 g/dL (6.3-8.2)
[2017-01-24 09:42] LABS: Triglycerides 177 mg/dL (<150)
== END | disposition home or self-care (01) ==
LOC: LABWHC1 08:24
PROVIDERS: ATTEND Internal Medicine Endocrinology, Diabetes & Metabolism
DX: E11.65 Type 2 diabetes mellitus with hyperglycemia (principal); E03.8 Other specified hypothyroidism
CPT/HCPCS: 36415; 80053; 80061; 82043; 84443

== ENCOUNTER → 2017-02-18 | Outpatient (CLI) | payer MEDICARE ==
--- NOTE | 2017-02-18 13:02 | XR ---
EXAMINATION TYPE: XR ankle complete RT DATE OF EXAM: 02/18/2017 12:55 PM COMPARISON: 12/05/2012 HISTORY: Injury, pain TECHNIQUE: 3 views right ankle FINDINGS: There is a fracture of the medial malleolus. The ankle mortise appears intact. There is dif fuse soft tissue swelling present diffusely. Old fracture of the lateral malleolus is likely present. IMPRESSION: 1. Medial malleolar fracture with diffuse ankle soft tissue swelling.
== END | disposition home or self-care (01) ==
LOC: RADXRMAIN 12:37
PROVIDERS: ATTEND Nurse Practitioner Family
DX: S82.51XA Displaced fracture of medial malleolus of right tibia, initial encounter for closed fracture (principal); M79.89 Other specified soft tissue disorders

== ENCOUNTER → 2017-02-22 | Outpatient (CLI) | payer MEDICARE | END | disposition home or self-care (01) | LOC: LABWHC1 09:33 | PROVIDERS: ATTEND Orthopaedic Surgery | DX: E55.9 Vitamin D deficiency, unspecified (principal) | CPT/HCPCS: 36415; 82306 ==

== ENCOUNTER → 2017-03-15 | Outpatient (CLI) | payer MEDICARE ==
[2017-03-15 08:40] LABS: INR 1.1 (<1.1)
[2017-03-15 08:41] LABS: CH 29.8; CHCM 31.7; HCT 40.1 % (34.0-46.0); HDW 2.32; HGB 12.6 gm/dL (11.4-16.0); MCH 29.6 pg (25.0-35.0); MCHC 31.3 g/dL (31.0-37.0); MCV 94.5 fL (80.0-100.0); Mean Platelet Volume 7.5; RBC 4.24 m/uL (3.80-5.40); RDW 14.3 % (11.5-15.5); WBC 8.2 k/uL (3.8-10.6)
[2017-03-15 08:57] LABS: Calcium 9.2 mg/dL (8.4-10.2); Potassium 5.2 mmol/L (3.5-5.1); Total Bilirubin 0.7 mg/dL (0.2-1.3); Total Protein 6.9 g/dL (6.3-8.2)
== END | disposition home or self-care (01) ==
LOC: LABWHC1 08:13
PROVIDERS: ATTEND Internal Medicine Gastroenterology
DX: K74.60 Unspecified cirrhosis of liver (principal)
CPT/HCPCS: 36415; 80053; 82105; 85027; 85610

== ENCOUNTER → 2017-05-15 | Outpatient (CLI) | payer MEDICARE ==
--- NOTE | 2017-05-15 15:34 | XR ---
EXAMINATION TYPE: XR shoulder complete LT DATE OF EXAM: 05/15/2017 CLINICAL HISTORY: pain COMPARISON: NONE TECHNIQUE: Three views of the left shoulder are obtained. FINDINGS: There is no acute fracture/dislocation evident. The acromioclavicular and glenohumeral angel luis int spaces appear mildly narrowed.. The visualized ribs are intact and unremarkable. IMPRESSION: 1. There is no acute fracture or dislocation. ICD 10 NO FRACTURE, INITIAL EVALUATION
--- NOTE | 2017-05-15 15:50 | XR ---
EXAMINATION TYPE: XR finger LT DATE OF EXAM: 05/15/2017 CLINICAL HISTORY: pain Left first digit. TECHNIQUE: 3 views of the left first digit are submitted. COMPARISON: None FINDINGS: Degenerative narrowing involving the first metacarpal phalangeal joint and interphalangeal joint. Small ossific density adjacent to the first metacarpal head could reflect a spur or small chip or avulsion fracture. Correlate clinically point tenderness. IMPRESSION: Small ossific density adjacent to the first metacarpal head could reflect a spur or small chip or avulsion fracture. Correlate clinically point tenderness.
== END | disposition home or self-care (01) ==
LOC: RADXRMAIN 15:04
PROVIDERS: ATTEND Family Medicine
DX: M85.842 Other specified disorders of bone density and structure, left hand (principal); M79.642 Pain in left hand; M25.519 Pain in unspecified shoulder

== ENCOUNTER → 2017-05-20 | Outpatient (CLI) | payer MEDICARE ==
[2017-05-20 09:25] LABS: ALT 38 U/L (9-52); AST 31 U/L (14-36); Alkaline Phosphatase 89 U/L (38-126); Anion Gap 9 mmol/L; Blood Urea Nitrogen 17 mg/dL (7-17); Calcium 9.1 mg/dL (8.4-10.2); Carbon Dioxide 29 mmol/L (22-30); Chloride 98 mmol/L (98-107); Cholesterol 147 mg/dL (<200); Glucose 145 mg/dL (74-99); HDL Cholesterol 61 mg/dL (40-60); Non-African American GFR(MDRD) 52 (>60 ml/min/1.73 sqM); Potassium 4.4 mmol/L (3.5-5.1); Sodium 136 mmol/L (137-145); Total Bilirubin 0.7 mg/dL (0.2-1.3); Total Protein 6.4 g/dL (6.3-8.2)
[2017-05-20 15:14] LABS: Urine Creatinine 83.6 mg/dL
== END | disposition home or self-care (01) ==
LOC: LABWHC1 08:18
PROVIDERS: ATTEND Internal Medicine Endocrinology, Diabetes & Metabolism
DX: E11.65 Type 2 diabetes mellitus with hyperglycemia (principal); E03.8 Other specified hypothyroidism
CPT/HCPCS: 36415; 80053; 80061; 82043; 82570; 84443

== ENCOUNTER → 2017-08-29 | Outpatient (CLI) | payer MEDICARE ==
[2017-08-29 09:42] LABS: CH 29.4; CHCM 31.2; HCT 41.5 % (34.0-46.0); HDW 2.26; HGB 12.8 gm/dL (11.4-16.0); MCH 29.2 pg (25.0-35.0); MCHC 30.9 g/dL (31.0-37.0); MCV 94.5 fL (80.0-100.0); Mean Platelet Volume 8.5; RBC 4.39 m/uL (3.80-5.40); RDW 14.4 % (11.5-15.5)
[2017-08-29 09:58] LABS: Calcium 9.4 mg/dL (8.4-10.2); Potassium 4.5 mmol/L (3.5-5.1); Total Bilirubin 0.7 mg/dL (0.2-1.3); Total Protein 6.6 g/dL (6.3-8.2)
[2017-08-29 10:06] LABS: INR 1.1 (<1.2); Prothrombin Time 11.1 sec (9.0-12.0)
== END | disposition home or self-care (01) ==
LOC: LABWHC1 08:23
PROVIDERS: ATTEND Internal Medicine Gastroenterology
DX: K74.60 Unspecified cirrhosis of liver (principal)
CPT/HCPCS: 36415; 80053; 82105; 85027; 85610

== ENCOUNTER → 2017-10-16 | Outpatient (CLI) | payer MEDICARE ==
--- NOTE | 2017-10-16 10:43 | US ---
EXAMINATION TYPE: US liver DATE OF EXAM: 10/16/2017 COMPARISON: 2013 CLINICAL HISTORY: K74.60 cirrhosis of the liver. Cirrhosis, cholecystectomy EXAM MEASUREMENTS: Liver Length: 14.0 cm Gallbladder Wall: Surgically absent CBD: 0.5 cm Right Kidney: 11.4 x 3.3 x 3.8 cm Technical limitations due to patient's body habitus and large amount of overlying bowel content Pancreas: Tail obscured by overlying bowel gas Liver: heterogeneous in appearance of the hepatic parenchyma with a focal hypoechoic area noted = 1. 6 x 1.5 x 1.3cm , seen on the prior exam of 2013 measuring 1.5 cm. Gallbladder: Surgically absent Evidence for sonographic Coronel's sign: No CBD: visualized portion appears wnl Right Kidney: no evidence of hydronephrosis or mass as visualized Hepatopedal flow is noted within the portal vein. IMPRESSION: 1. Heterogeneity of the hepatic parenchyma is compatible with the patient's history of underlying hep atocellular disease. 2. Focal hepatic mass is similar to the prior exam currently measuring 1.6 cm and previously measurin g 1.5 cm on the exam of 2013. Therefore this is favored to be benign.
== END | disposition home or self-care (01) ==
LOC: RADUSWWP 08:56
PROVIDERS: ATTEND Internal Medicine Gastroenterology
DX: R16.0 Hepatomegaly, not elsewhere classified (principal)
CPT/HCPCS: 76705

== ENCOUNTER → 2017-12-11 | Outpatient (CLI) | payer MEDICARE ==
--- NOTE | 2017-12-11 15:32 | XR ---
EXAMINATION TYPE: XR ribs LT w pa chest xray DATE OF EXAM: 12/11/2017 COMPARISON: NONE HISTORY: Contusion on RIBS left rib pain, bruising TECHNIQUE: Left ribs are examined in 2 projections and supplemented with a frontal chest FINDINGS: There is mild stable cardiomegaly. No pneumothorax is evident. No suspicious osseous abnormality is evident. Costochondral cartilage calcification is present. IMPRESSION: 1. Normal left ribs study
== END | disposition home or self-care (01) ==
LOC: RADXRMAIN 14:34
PROVIDERS: ATTEND Family Medicine
DX: S20.212A Contusion of left front wall of thorax, initial encounter (principal)

== ENCOUNTER → 2017-12-13 | Outpatient (CLI) | payer MEDICARE ==
--- NOTE | 2017-12-16 13:18 | MM ---
Reason for exam: screening (asymptomatic). Last mammogram was performed 1 year ago. History: Patient is postmenopausal. Family history of breast cancer in maternal aunt. Physical Findings: A clinical breast exam by your physician is recommended on an annual basis and results should be correlated with mammographic findings. MG Screening Mammo w CAD Bilateral CC and MLO view(s) were taken. Prior study comparison: December 10, 2016, bilateral MG screening mammo w CAD. December 08, 2015, right breast MG 3d work up w/cad RT. There are scattered fibroglandular densities. Finding: There are typically benign calcifications in both breasts. No suspicious abnormality. No significant changes in finding since December 10, 2016 and December 08, 2015. ASSESSMENT: Benign, BI-RAD 2 RECOMMENDATION: Routine screening mammogram of both breasts in 1 year.
== END | disposition home or self-care (01) ==
LOC: RADMAMWWP 09:23
PROVIDERS: ATTEND Family Medicine
DX: Z12.31 Encounter for screening mammogram for malignant neoplasm of breast (principal)
CPT/HCPCS: 77067

== ENCOUNTER 2017-12-14 10:20 | Inpatient (IN) | payer MEDICARE ==
[2017-12-14 10:52] LABS: Glucose,Whole Blood 48 mg/dL (75-99)
[2017-12-14] MEDS ORDERED: DEXTROSE 50%-WATER 50 ML SYRINGE IVP STA (10:53)
--- NOTE | 2017-12-14 10:56 | ED ---
General Adult HPI - General Chief complaint: Recheck/Abnormal Lab/Rx Stated complaint: Low Blood Sugar Time Seen by Provider: 12/14/17 10:46 Source: patient, family, EMS, RN notes reviewed Mode of arrival: EMS - History of Present Illness Initial comments: Patient is a pleasant 77-year-old female presenting to the emergency department with family by EMS for low blood sugar. Patient was difficult to get out of bed per family. EMS arrived and found blood sugar low. They did give D50. Patient feels fine at this time and has no complaints. Family feels patient is acting normal. Patient reportedly states her blood sugar has been dropping low recently at nighttime. No recent change in medication or diet. - Related Data Home Medications Medication Instructions Recorded Confirmed Aspirin 81 mg PO DAILY 02/09/14 09/30/16 Atenolol 25 mg PO DAILY 02/09/14 09/30/16 Digoxin [Digox] 125 mcg PO DAILY 02/09/14 09/30/16 Ergocalciferol (Vitamin D2) 50,000 unit PO BENSON 02/09/14 09/30/16 [Drisdol] Ferrous Sulfate [Feosol] 325 mg PO Q48H 02/09/14 09/30/16 Furosemide 40 mg PO DAILY 02/09/14 09/30/16 Gabapentin 300 mg PO TID 02/09/14 09/30/16 Levothyroxine Sodium [Synthroid] 137 mcg PO DAILY 02/09/14 09/30/16 Omeprazole 20 mg PO BID 02/09/14 09/30/16 Potassium Chloride [Klor-Con M10] 5 meq PO DAILY 02/09/14 09/30/16 Insulin NPH Human Isophane 34 unit SQ AC-BRKFST 09/30/16 09/30/16 [NovoLIN N] Insulin Regular, Human [NovoLIN R] 40 unit SQ AC-TID 09/30/16 09/30/16 diphenhydrAMINE [Benadryl] 50 mg PO HS 09/30/16 09/30/16 predniSONE 10 mg PO DAILY 09/30/16 09/30/16 Previous Rx's Medication Instructions Recorded Insulin NPH Human Isophane 10 unit SQ HS #0 01/14/15 [NovoLIN N] Loperamide [Imodium] 2 mg PO QID PRN #15 cap 10/04/16 Losartan Potassium [Cozaar] 50 mg PO DAILY #1 tablet 10/04/16 Allergies Allergy/AdvReac Type Severity Reaction Status Date / Time levofloxacin [From Levaquin] Allergy Intermediate Unknown Verified 12/14/17 10: 27 Penicillins Allergy Intermediate Rash/Hives Verified 12/14/17 10:27 Sulfa (Sulfonamide Allergy Intermediate Rash/Hives Verified 12/14/17 10:27 Antibiotics) cephalexin monohydrate Allergy Unknown Unknown Verified 12/14/17 10:27 [From Keflex] erythromycin base Allergy Unknown Rash/Hives Verified 12/14/17 10:27 [From E-Mycin] gatifloxacin [From Tequin] Allergy Unknown Unknown Verified 12/14/17 10:27 nitrofurantoin Allergy Unknown Unknown Verified 12/14/17 10:27 macrocrystalline [From Macrodantin] Cebolla Allergy Unknown Verified 12/14/17 10:27 apricot Allergy Unknown Verified 12/14/17 10:27 asparagus Allergy Unknown Verified 12/14/17 10:27 banana [Banana] Allergy Unknown Verified 12/14/17 10:27 cabbage Allergy Unknown Verified 12/14/17 10:27 carrot Allergy Unknown Verified 12/14/17 10:27 ciprofloxacin [From Cipro] Allergy Unknown Verified 12/14/17 10:27 ciprofloxacin HCl Allergy Unknown Verified 12/14/17 10:27 [From Cipro] Coconut Allergy Unknown Verified 12/14/17 10:27 coffee (Coffea arabica) Allergy Unknown Verified 12/14/17 10:27 [coffee] cucumber Allergy Unknown Verified 12/14/17 10:27 flaxseed Allergy Unknown Verified 12/14/17 10:27 sam Allergy Unknown Verified 12/14/17 10:27 grapefruit [Grapefruit] Allergy Unknown Verified 12/14/17 10:27 insulin lispro [From Humalog] Allergy Rash/Hives Verified 12/14/17 10:27 insulin NPH human isophane Allergy Rash/Hives Verified 12/14/17 10:27 [From Humulin 70/30] insulin regular, human Allergy Rash/Hives Verified 12/14/17 10:27 [From Humulin 70/30] onion Allergy Unknown Verified 12/14/17 10:27 orange juice [Castle] Allergy Unknown Verified 12/14/17 10:27 spinach Allergy Unknown Verified 12/14/17 10:27 tree nut [Pecan] Allergy Unknown Verified 12/14/17 10:27 cantaloupe Allergy Unknown Uncoded 12/14/17 10:27 cottonseed Allergy Unknown Uncoded 12/14/17 10:27 green beans Allergy Unknown Uncoded 12/14/17 10:27 mustard Allergy Unknown Uncoded 12/14/17 10:27 nuts Allergy Unknown Uncoded 12/14/17 10:27 pepper Allergy Unknown Uncoded 12/14/17 10:27 rice Allergy Unknown Uncoded 12/14/17 10:27 squash Allergy Unknown Uncoded 12/14/17 10:27 tea Allergy Unknown Uncoded 12/14/17 10:27 walnut Allergy Unknown Uncoded 12/14/17 10:27 Review of Systems ROS Statement: Those systems with pertinent positive or pertinent negative responses have been documented in the HPI. ROS Other: All systems not noted in ROS Statement are negative. Constitutional: Denies: fever Eyes: Denies: eye pain ENT: Denies: ear pain Respiratory: Denies: cough Cardiovascular: Denies: chest pain Endocrine: Denies: fatigue Gastrointestinal: Denies: abdominal pain Genitourinary: Denies: dysuria Musculoskeletal: Denies: back pain Skin: Denies: rash Neurological: Denies: headache Past Medical History Past Medical History: Atrial Fibrillation, Asthma, Coronary Artery Disease (CAD) , Heart Failure, Diabetes Mellitus, Fibromyalgia, GI Bleed, Hyperlipidemia, Hypertension, Mitral Valve Prolapse (MVP), Osteoarthritis (OA), Pneumonia, Sleep Apnea/CPAP/BIPAP, Thyroid Disorder Additional Past Medical History / Comment(s): NEUROPATHY, SARCOIDOSIS, LUPUS, AUTOIMMUNE ISSUES HEART MURMUR, autoimmune HEPATITIS with prednisone dependence , IRREGULAR HEART RATE, LEFT FEMUR FRACTURE, NO CPAP USE, right ankle fracture, lower extremity DVT History of Any Multi-Drug Resistant Organisms: C-DIFF Date of last positivie culture/infection: 12/2014 MDRO Source:: stool Past Surgical History: Adenoidectomy, Appendectomy, Cholecystectomy, Heart Catheterization With Stent, Hysterectomy, Tonsillectomy Additional Past Surgical History / Comment(s): COLONOSCOPY, EGD, Zena filter, bronchoscopy Past Anesthesia/Blood Transfusion Reactions: No Reported Reaction Date of Last Stent Placement:: 2012 Past Psychological History: No Psychological Hx Reported Smoking Status: Never smoker Past Alcohol Use History: None Reported Past Drug Use History: None Reported - Past Family History Mother Family Medical History: Coronary Artery Disease (CAD) Father Family Medical History: Coronary Artery Disease (CAD) General Exam Limitations: no limitations General appearance: alert, in no apparent distress Head exam: Present: atraumatic Eye exam: Present: normal appearance, PERRL, EOMI ENT exam: Present: normal oropharynx Neck exam: Present: normal inspection Respiratory exam: Present: normal lung sounds bilaterally Cardiovascular Exam: Present: regular rate, irregular rhythm GI/Abdominal exam: Present: soft. Absent: tenderness Extremities exam: Present: normal inspection Neurological exam: Present: alert, oriented X3, CN II-XII intact. Absent: motor sensory deficit Psychiatric exam: Present: normal affect, normal mood Skin exam: Present: normal color Course Vital Signs 12/14/17 10:22 Temperature 97.1 F L Pulse Rate 102 H Respiratory 16 Rate Blood Pressure 112/58 O2 Sat by Pulse 96 Oximetry EKG Findings - EKG Comments: EKG Findings:: A. fib with rate of 91. QRS 138. QT 436. QTc 536. Normal axis. Right bundle branch block. No acute ST change. Medical Decision Making - Medical Decision Making Patient reevaluated and is sitting up at bedside still eating. Case was discussed with Dr. Arguelles who does recommend admission. He is covering for Dr. bryson, who admits for Dr. Snowden. - Lab Data Lab Results 12/14/17 12/14/17 Range/Units 10:51 11:24 POC Glucose (mg/dL) 48 L 90 (75-99) mg/dL POC Glu Butcher All Round ID Remedios Valerio Ellie Disposition Clinical Impression: Hypoglycemia Disposition: ADMITTED IP TO THIS [facility] Referrals: John Snowden DO [Primary Care Provider] - 1-2 days Decision Time: 11:47
[2017-12-14 11:27] LABS: Glucose,Whole Blood 90 mg/dL (75-99)
[2017-12-14] MEDS ORDERED: NALOXONE 0.4 MG/ML 1 ML VIAL IV PRN (11:47)
[2017-12-14] MEDS ORDERED: DEXTROSE 5%-0.45% NACL 1,000 ML IV SCH (12:00)
[2017-12-14 12:44] LABS: Basophils # (A) 0.1 k/uL (0-0.2); Basophils % (A) 1 %; Eosinophils # (A) 0.1 k/uL (0-0.7); Eosinophils % (A) 1 %; HCT 40.7 % (34.0-46.0); HGB 13.5 gm/dL (11.4-16.0); Lymphocytes # (A) 0.7 k/uL (1.0-4.8); Lymphocytes % (A) 7 %; MCH 31.1 pg (25.0-35.0); MCHC 33.3 g/dL (31.0-37.0); MCV 93.6 fL (80.0-100.0); Mean Platelet Volume 7.6; Monocytes # (A) 0.7 k/uL (0-1.0); Monocytes % (A) 8 %; Neutrophils # (A) 7.9 k/uL (1.3-7.7); Neutrophils % (A) 82 %; Platelet Count 175 k/uL (150-450); RBC 4.35 m/uL (3.80-5.40); WBC 9.6 k/uL (3.8-10.6)
[2017-12-14 12:58] LABS: ALT 24 U/L (9-52); AST 28 U/L (14-36); Albumin 3.3 g/dL (3.5-5.0); Alkaline Phosphatase 50 U/L (38-126); Anion Gap 9 mmol/L; Blood Urea Nitrogen 56 mg/dL (7-17); Calcium 9.1 mg/dL (8.4-10.2); Carbon Dioxide 26 mmol/L (22-30); Chloride 104 mmol/L (98-107); Glucose 114 mg/dL (74-99); Potassium 5.1 mmol/L (3.5-5.1); Sodium 139 mmol/L (137-145); Total Bilirubin 0.6 mg/dL (0.2-1.3); Total Protein 6.3 g/dL (6.3-8.2)
[2017-12-14 13:03] LABS: Glucose,Whole Blood 100 mg/dL (75-99)
[2017-12-14 13:09] LABS: Digoxin <0.4 ng/mL
[2017-12-14 14:29] LABS: Glucose,Whole Blood 126 mg/dL (75-99)
[2017-12-14] MEDS ORDERED: NITROGLYCERIN SL TABS 0.4 MG TAB SUBLINGUAL PRN (15:48)
[2017-12-14] MEDS ORDERED: HYDROcodone/APAP 7.5-325MG 1 EACH TAB PO PRN (15:48)
[2017-12-14] MEDS ORDERED: DIGOXIN 125 MCG TAB PO SCH (16:00)
[2017-12-14] MEDS ORDERED: METOPROLOL SUCCINATE (ER) 25 MG TAB.ER.24H PO SCH (16:00)
[2017-12-14 16:47] VITALS: BMI 44.9
[2017-12-14 17:02] LABS: Glucose,Whole Blood 227 mg/dL (75-99)
[2017-12-14] MEDS: FERROUS SULFATE 325 MG TAB PO SCH (17:47)
[2017-12-14] MEDS: GABAPENTIN 300 MG CAP PO SCH ×2 (17:47→20:27)
[2017-12-14] MEDS: PANTOPRAZOLE 40 MG TABLET PO SCH (17:47)
[2017-12-14] MEDS: diphenhydrAMINE 50 MG CAP PO SCH (20:27)
[2017-12-14 20:40] LABS: Hemoglobin A1C 6.7 % (4.0-6.0)
[2017-12-14 20:59] LABS: Glucose,Whole Blood 280 mg/dL (75-99)
[2017-12-14] MEDS ORDERED: ATROPINE SULFATE 0.1 MG/ML 10ML SYRINGE IV STA (21:51)
[2017-12-14 22:11] LABS: Basophils % (A) 1 %; Eosinophils # (A) 0.1 k/uL (0-0.7); Eosinophils % (A) 1 %; HCT 37.2 % (34.0-46.0); HGB 11.6 gm/dL (11.4-16.0); Lymphocytes # (A) 0.6 k/uL (1.0-4.8); Lymphocytes % (A) 9 %; MCH 29.5 pg (25.0-35.0); MCHC 31.2 g/dL (31.0-37.0); MCV 94.4 fL (80.0-100.0); Mean Platelet Volume 8.4; Monocytes # (A) 0.5 k/uL (0-1.0); Monocytes % (A) 7 %; Neutrophils # (A) 5.9 k/uL (1.3-7.7); Neutrophils % (A) 82 %; Platelet Count 185 k/uL (150-450); RBC 3.94 m/uL (3.80-5.40); RDW 14.2 % (11.5-15.5); WBC 7.2 k/uL (3.8-10.6)
[2017-12-14 22:19] LABS: INR 1.1 (<1.2); Prothrombin Time 10.9 sec (9.0-12.0)
[2017-12-14 22:22] LABS: Magnesium 2.4 mg/dL (1.6-2.3); Potassium 6.1 mmol/L (3.5-5.1)
[2017-12-14] MEDS ORDERED: LIDOCAINE 2% INJ 20 MG/ML (20 ML MDV) ONE ×2 (22:46→22:56)
[2017-12-14] MEDS ORDERED: DEXTROSE 5%-0.45% NACL 1,000 ML IV ONE (22:50)
[2017-12-14] MEDS ORDERED: LIDOCAINE 2% INJ 20 MG/ML SQ ONE ×2 (22:52→23:01)
[2017-12-14] MEDS ORDERED: RX INFO: IV CONTRAST WAS GIVEN 1 EACH MISC MISCELLANE PRN (23:18)
--- NOTE | 2017-12-14 23:44 | HP ---
HISTORY AND PHYSICAL DATE OF SERVICE: 12/14/2017 CHIEF COMPLAINT: Hypoglycemia. HISTORY OF PRESENT ILLNESS: This 77-year-old woman with a past medical history of atrial fibrillation, history of asthma, CAD, CHF, diabetes mellitus, fibromyalgia, GI bleed, hypertension, hyperlipidemia, mitral valve prolapse, history of pneumonia, being followed by Dr. John Snowden in the outpatient setting, was complaining of low blood sugar. The patient was difficult to get out of bed per family this morning and the EMS found the blood sugar was low at 54. D50 was given and the blood sugar increased to 100 and subsequently the blood sugar dropped again to 48 and again D50 was given and the patient was taken to [facility] and admitted for further evaluation and treatment. There was recently a medication change, according to her, and Dr. Westbrook is following the patient from the diabetes point of view. Dr. Lynn Ortiz has also discontinue 2 medications, according to her. There is no history of fever, rigors. No history of headache, loss of conscious, seizures. PAST MEDICAL HISTORY: History of atrial ablation, history of asthma, CAD, CHF, diabetes mellitus, fibromyalgia, hypertension, hyperlipidemia, history of mitral valve prolapse, had adenoidectomy, appendectomy. MEDICATIONS PRIOR TO ADMISSION: Include home medications. Home medications are: 1. Metoprolol 25 mg p.r.n. 2. Digoxin 125 mcg p.r.n. 3. Crestor 5 mg. 4. Nitrostat 0.4 sublingual p.r.n. 5. [place] 7.5 every 6 hours p.r.n. 6. Iron sulfate 320 mg q.48h. 7. Vitamin D2 50,000 p.o. Saturday. 8. Prednisone 10 mg p.o. daily. 9. Klor-Con 5 mg p.o. daily. 10.Cozaar 50 mg p.o. daily. 11.Synthroid 136 mcg p.o. daily. 12.Gabapentin 300 mg p.o. t.i.d. 13.Lasix 40 mg p.o. daily. 14.Omeprazole 20 mg p.o. b.i.d. 15.Insulin 48 units subcu with lunch, 52 units with supper, 15 units q.h.s. and insulin and Novolin and 80 units subcu a.c. breakfast, 28 units a.c. breakfast Novolin R. 16.Benadryl 50 mg q.h.s. 17.Meloxicam 15 mg p.o. daily. 18.Fenofibrate 160 mg p.o. daily. 19.Aspirin 81 mg daily. ALLERGIES: Multiple allergies, including LEVAQUIN, PENICILLIN, SULFA, CEPHALEXIN, ERYTHROMYCIN, GATIFLOXACIN, NITROFURANTOIN, ALMOND, APRICOT, ASPARAGUS, BANANA, CABBAGE, CARROT, CIPROFLOXACIN, COCONUT, COFFEE, CUCUMBER, FLAXSEED, POLA, GRAPEFRUIT, INSULIN , CIPRO AND NPH INSULIN REGULAR, ONION, ORANGE JUICE, SPINACH, TREE NUTS, CANTALOUPE, GREEN BEANS, MUSTARD, NUTS, PEPPER, RICE, SQUASH, TEA, WALNUT. FAMILY HISTORY: History of coronary artery disease in the family. SOCIAL HISTORY: No history of smoking. No history of alcohol. REVIEW OF SYSTEMS: ENT: No diminished hearing, diminished vision. CARDIOVASCULAR: No angina. RESPIRATORY: As mentioned earlier. GI: No nausea or vomiting. : No dysuria. NERVOUS: No numbness or weakness. ALLERGY/IMMUNOLOGY: As mentioned earlier. HEMATOLOGY/ONCOLOGY: No history of anemia. ENDOCRINE: Diabetes mellitus. CONSTITUTIONAL: As mentioned earlier. DERMATOLOGY: Negative. RHEUMATOLOGY: Negative. PSYCHIATRY: As mentioned earlier. PHYSICAL EXAM: Alert and oriented x3. Pulse is 74, blood pressure 164/69, respirations 18, temperature 97.4, pulse ox 98% on room air. HEENT: Conjunctivae normal. Oral mucosa moist. NECK: No jugular venous distention. No carotid bruits. No lymph node enlargement. CARDIOVASCULAR: S1, S2 muffled. RESPIRATORY: Breath sounds diminished in the bases. No rhonchi. No crackles. ABDOMEN: Soft, nontender. No mass palpable. LEGS: No edema. No swelling. NERVOUS SYSTEM: Higher functions as mentioned earlier. Moves all 4 limbs. No focal motor or sensory deficits. LYMPHATIC: No lymphadenopathy in neck or axillae. SKIN: No ulcer, rash or bleeding. LABS: CBC within normal limits. Creatinine 1.77, glucose 114, 100. Albumin is 3.3. ASSESSMENT: 1. Hypoglycemia with uncontrolled diabetes mellitus type 2. 2. History atrial fibrillation. 3. History of asthma. 4. History of coronary artery disease. 5. Congestive heart failure. 6. Diabetes mellitus type 2. 7. History of fibromyalgia. 8. Gastrointestinal bleed. 9. Hyperlipidemia. 10.Hypertension. 11.Mitral valve prolapse. 12.History of degenerative joint disease. 13.Pneumonia. 14.Sleep apnea. 15.History of hypothyroidism. 16.History of neuropathy. 17.History of sarcoidosis. 18.Lupus. 19.History of autoimmune diseases. 20.History of multiple allergies. 21.Adenoidectomy. 22.History of coronary artery disease, stent. RECOMMENDATIONS AND DISCUSSION: In this 77-year-old woman who presented with multiple complex medical issues, will monitor the patient closely, continue the current medical management and symptomatic treatment. Otherwise at this time, I recommend hold the insulins and continue to monitor the endocrine evaluation. Resume the home medications. Guarded prognosis because of multiple complex medical issues. Dr. Westbrook is being consulted. Further recommendations to follow. MMELLIOTTL / YOKON: [id number] / MTDD
--- NOTE | 2017-12-14 23:50 | CONS ---
CONSULTATION HISTORY: Mrs. Herrera is a 77-year-old female who was brought in by her because they tried to wake her up in the morning and he could not wake her up. Came into the emergency room, in the emergency room, she was evaluated. She was noted to be in atrial fibrillation with a steady heart rate, but on presentation she was found to have a low blood sugar. On the floor after admission, the nursing staff felt that she was not looking as well and they put her on a monitor. She turned out to be in complete heart block with slow ventricular response. The patient has some episodes of chest discomfort of relates to a fall she had. She had dizziness but no syncope. She denies any knowledge of prior atrial fibrillation. She was in sinus mechanism in 2017 with a right bundle branch block, but she feels has been feeling dizzy. She has been feeling progressively fatigued and short of breath. She has chronic peripheral edema. No clear PND, nor orthopnea. She has a known history of coronary disease, has been followed by Dr. Ortiz in the past. She had prior stenting following myocardial infarction. She had a normal left ventricular systolic function in the past. Her coronary risk factors are positive for hypertension and hyperlipidemia. She is a nonsmoker. There is no prior documented history of diabetes. PAST MEDICAL HISTORY: Remarkable for history of sarcoidosis and history of autoimmune hepatitis, maintained on prednisone chronically. MEDICATIONS: 1. Aspirin. 2. Crestor 5 mg daily. 3. Prednisone. 4. Metoprolol succinate 25 mg daily. 5. Losartan 50 mg daily. 6. Levothyroxine. 7. Insulin. 8. Gabapentin. 9. Furosemide 40 mg daily. 10.Iron. 11.Fenofibrate. 12.Digoxin 0.125 mg daily. 13.Vitamin D. 14.Aspirin. REVIEW OF SYSTEMS: RESPIRATORY SYSTEM: She had dyspnea on exertion. She has cough. No recent wheezing. GI SYSTEM: No recent nausea. No vomiting. No recent GI bleeding. SYSTEM: No dysuria or hematuria. NERVOUS SYSTEM: No prior history of seizure. In September 2016 she had an echocardiogram, revealed a preserved ventricular size systolic function with mild aortic stenosis. PHYSICAL EXAMINATION: She is a 77-year-old female, alert, in no apparent distress. Appears to be tired. Blood pressure 138/60 with a heart in the 20s. HEAD: Normocephalic eyes. Sclerae anicteric. NECK: No bruit appreciated. LUNGS: Clear to auscultation totally. HEART: Bradycardic. S1, S2 with systolic murmur at the base, ejection type. No diastolic murmur. No rub. ABDOMEN: Soft, nontender, obese. EXTREMITIES: Trace to 1+ edema with decreased distal pulses. LAB DATA: BUN and creatinine of 53 and 1.9, which has worsened since June 2017. Her potassium is 6.1, hemoglobin of 11.6. The patient has a prior episode of hyperkalemia, but not to this level. EKG on admission shows atrial fibrillation with right bundle branch block and a rate of 91. Subsequently, she is in complete heart block with sinus mechanism. IMPRESSION: 1. Complete heart block with symptoms of dizziness and fatigue. The patient had episode of atrial fibrillation raising the possibility of sick sinus syndrome. 2. History of coronary artery disease. 3. Renal failure noted in the past, could be related to the hypoperfusion. 4. History of hypertension. 5. Hyperlipidemia. 6. Diabetes mellitus. 7. Hypothyroidism. 8. History of sarcoidosis and autoimmune hepatitis. RECOMMENDATION: From the cardiac standpoint, I have discussed the finding with the patient and her family. I have recommended to proceed with a temporary pacemaker implantation. We will check her thyroid function test. Depending on the findings, further recommendation will be made. Thank you for this consult. We will follow with you. MARITA / YOKON: [id number] /
[2017-12-14 23:51] LABS: Glucose,Whole Blood 194 mg/dL (75-99)
--- NOTE | 2017-12-15 00:37 | XR ---
EXAMINATION TYPE: XR chest 1V portable DATE OF EXAM: 12/15/2017 COMPARISON: 10/02/2016 HISTORY: Short of breath TECHNIQUE: Single frontal view of the chest is obtained. FINDINGS: Heart is enlarged. There is pulmonary vascular congestion. There is right pacemaker lead w ith the tip over the right ventricle. This is in the right subclavian vein. There is also a left side catheter in uncertain location. There are chest leads. There is no pulmonary consolidation. I see no pleural effusion. IMPRESSION: Cardiomegaly and mild congestion consistent with mild heart failure. Congestion appears increased compared to old exam.
--- NOTE | 2017-12-15 00:59 | OP ---
OPERATIVE REPORT DATE OF SERVICE: 12/14/2017. INDICATIONS: Mrs. Herrera is a 77-year-old female who presented to the hospital with symptoms of dizziness, was noted to have atrial fibrillation on presentation. Subsequently , went into complete heart block with sinus mechanism and a very slow ventricular response. In view of that, recommendations were made regarding temporary pacemaker. The procedure as well as the risks and complication were discussed with her and her family. They are in full understanding and agreement. PROCEDURE: Patient was brought to the greenhouse laborer. No sedation was given. Using Xylocaine anesthesia in the Seldinger technique, a wire was introduced in the right femoral vein, but it was found that the patient had a Zena filter. At that time the wire was removed and pressure was placed with control of the hemostasis. Subsequently, using Xylocaine anesthesia and Seldinger technique, a microcatheter needle was introduced in the right subclavian, exchanged to 6-Portuguese sheath. Subsequently, a temporary pacemaker catheter was introduced in the right ventricle. Pacing parameters were obtained. The pacemaker was secured in place. The patient was returned to room in stable condition. There was no immediate complication. MMODL / IJN: [id number] / MANDY
[2017-12-15] MEDS ORDERED: SODIUM POLYSTYRENE SULFONATE 15 GM/60 ML BOTTLE PO STA ×2 (02:29→08:56)
[2017-12-15] MEDS: SODIUM CHLORIDE 0.9% 1,000 ML IV SCH ×2 (04:00→22:41)
[2017-12-15 04:45] LABS: Glucose,Whole Blood 165 mg/dL (75-99)
[2017-12-15] MEDS ORDERED: MORPHINE SULFATE 4 MG/ML SYRINGE IVP PRN (05:16)
[2017-12-15 05:29] LABS: Basophils % (A) 1 %; Eosinophils # (A) 0.1 k/uL (0-0.7); Eosinophils % (A) 1 %; HCT 35.2 % (34.0-46.0); HGB 11.1 gm/dL (11.4-16.0); Lymphocytes # (A) 0.5 k/uL (1.0-4.8); Lymphocytes % (A) 7 %; MCH 29.8 pg (25.0-35.0); MCHC 31.6 g/dL (31.0-37.0); MCV 94.5 fL (80.0-100.0); Mean Platelet Volume 8.3; Monocytes # (A) 0.7 k/uL (0-1.0); Monocytes % (A) 9 %; Neutrophils # (A) 6.2 k/uL (1.3-7.7); Neutrophils % (A) 82 %; Platelet Count 165 k/uL (150-450); RBC 3.73 m/uL (3.80-5.40); RDW 14.1 % (11.5-15.5); WBC 7.6 k/uL (3.8-10.6)
[2017-12-15] MEDS ORDERED: MORPHINE SULFATE/PF 10MG/10ML VL IVP PRN (05:31)
[2017-12-15 05:40] LABS: Calcium 8.8 mg/dL (8.4-10.2); Magnesium 2.4 mg/dL (1.6-2.3); Phosphorus 3.6 mg/dL (2.5-4.5)
[2017-12-15 05:51] LABS: Potassium 6.2 mmol/L (3.5-5.1)
[2017-12-15] MEDS ORDERED: INSULIN REGULAR BOLUS (FROM DRIP BAG) IV PRN (08:27)
[2017-12-15] MEDS ORDERED: INSULIN REGULAR 100 UNIT in SODIUM CHLORIDE 0.9% 100 ML IV SCH (08:30)
[2017-12-15] MEDS ORDERED: CALCIUM GLUCONATE 1,000 MG in SODIUM CHLORIDE 0.9% 100 ML IVPB ONE (08:59)
[2017-12-15] MEDS ORDERED: FUROSEMIDE 40 MG TAB PO SCH (09:00)
[2017-12-15] MEDS ORDERED: MELOXICAM 7.5 MG TAB PO SCH (09:00)
[2017-12-15] MEDS ORDERED: LOSARTAN 50 MG TAB PO SCH (09:00)
[2017-12-15] MEDS ORDERED: POTASSIUM CHLORIDE ER 10 MEQ TAB.ER.PRT PO SCH (09:00)
[2017-12-15] MEDS ORDERED: FENOFIBRATE 160 MG TAB PO SCH (09:00)
[2017-12-15 09:24] LABS: Glucose,Whole Blood 179 mg/dL (75-99)
[2017-12-15] MEDS ORDERED: NOVOLIN R IV ONE (09:30)
[2017-12-15] MEDS ORDERED: ceFAZolin 1,000 MG in DEXTROSE/WATER 1 50ML.BAG IVPB STA (09:36)
[2017-12-15] MEDS ORDERED: ceFAZolin 2,000 MG in DEXTROSE/WATER 1 50ML.BAG IVPB STA (09:43)
[2017-12-15] MEDS ORDERED: ceFAZolin IN SWFI 2 GM/20 ML SYRINGE IVP STA (09:48)
[2017-12-15] MEDS ORDERED: FUROSEMIDE 10 MG/ML 4 ML VIAL IV STA (09:55)
[2017-12-15] MEDS: LEVOTHYROXINE 137 MCG TAB PO SCH (10:15)
[2017-12-15] MEDS: predniSONE 10 MG TAB PO SCH (10:15)
[2017-12-15] MEDS: ASPIRIN 81 MG PO SCH (10:15)
[2017-12-15] MEDS ORDERED: IV FLUID CONTINUATION 700 ML IV ONE (10:31)
[2017-12-15] MEDS ORDERED: SODIUM CHLORIDE 0.9% 250 ML IV ONE (10:31)
[2017-12-15] MEDS ORDERED: ceFAZolin 1,000 MG in SODIUM CHLORIDE 0.9% IRRIGATIO 250 ML IRRIGATION ONE (10:35)
[2017-12-15 10:44] LABS: Glucose,Whole Blood 126 mg/dL (75-99)
[2017-12-15] MEDS ORDERED: CLINDAMYCIN 900 MG in DEXTROSE 5% IN WATER 50 ML IVPB STA ×2 (10:48)
[2017-12-15] MEDS ORDERED: IODIXANOL 320 MG/ML 100 ML IV ONE (11:00)
[2017-12-15] MEDS ORDERED: ACETAMINOPHEN IV (For NPO) 1,000 MG in EMPTY BAG 1 BAG IVPB ONE (11:06)
[2017-12-15] MEDS ORDERED: HYDROcodone/APAP 5-325MG 1 EACH TAB PO PRN (11:06)
[2017-12-15] MEDS ORDERED: ACETAMINOPHEN TAB 325 MG TAB PO PRN (11:06)
--- NOTE | 2017-12-15 11:14 | P.CRDCN ---
History of Present Illness History of present illness: Patient presented with severe bradycardia secondary to heart block symptomatic with renal hypoperfusion. She was scheduled for a dual-chamber pacemaker for intermittent 2-1 heart block Known severe conduction system disease with intermittent 2-1 block and bradycardia in the 40s already scheduled for an outpatient pacemaker placement Dr. Burnett placed temporary pacemaker lead via the right subclavian last night Non-capture detected, positional, in the ICU Intermittent non-capture when she lay flat, associated with syncope in the ICU when examined this morning Dr. Burnett spoke to me this morning Urgent dual-chamber pacemaker implantation today Past Medical History Past Medical History: Atrial Fibrillation, Asthma, Coronary Artery Disease (CAD) , Heart Failure, Diabetes Mellitus, Fibromyalgia, GI Bleed, Hyperlipidemia, Hypertension, Mitral Valve Prolapse (MVP), Osteoarthritis (OA), Pneumonia, Sleep Apnea/CPAP/BIPAP, Thyroid Disorder Additional Past Medical History / Comment(s): NEUROPATHY, SARCOIDOSIS, LUPUS, AUTOIMMUNE ISSUES HEART MURMUR, autoimmune HEPATITIS with prednisone dependence , IRREGULAR HEART RATE, LEFT FEMUR FRACTURE, NO CPAP USE, right ankle fracture, left lower extremity DVT, left rotator cuff tear History of Any Multi-Drug Resistant Organisms: C-DIFF Date of last positivie culture/infection: 12/2014 MDRO Source:: stool Past Surgical History: Adenoidectomy, Appendectomy, Cholecystectomy, Heart Catheterization With Stent, Hysterectomy, Tonsillectomy Additional Past Surgical History / Comment(s): COLONOSCOPY, EGD, [place] filter, bronchoscopy Past Anesthesia/Blood Transfusion Reactions: No Reported Reaction Date of Last Stent Placement:: 2012 Smoking Status: Never smoker - Past Family History Mother Family Medical History: Coronary Artery Disease (CAD) Father Family Medical History: Coronary Artery Disease (CAD) Medications and Allergies Home Medications Medication Instructions Recorded Confirmed Type Aspirin 81 mg PO DAILY 02/09/14 12/14/17 History Digoxin [Digox] 125 mcg PO DIRECTED 02/09/14 12/14/17 History Ergocalciferol (Vitamin D2) 50,000 unit PO BENSON 02/09/14 12/14/17 History [Drisdol] Ferrous Sulfate [Feosol] 325 mg PO Q48H 02/09/14 12/14/17 History Furosemide 40 mg PO DAILY 02/09/14 12/14/17 History Gabapentin 300 mg PO TID 02/09/14 12/14/17 History Levothyroxine Sodium [Synthroid] 137 mcg PO DAILY 02/09/14 12/14/17 History Omeprazole 20 mg PO BID 02/09/14 12/14/17 History Potassium Chloride [Klor-Con M10] 5 meq PO DAILY 02/09/14 12/14/17 History Insulin NPH Human Isophane 80 unit SQ AC-BRKFST 09/30/16 12/14/17 History [NovoLIN N] Insulin Regular, Human [NovoLIN R] 28 unit SQ W/BRKFST 09/30/16 12/14/17 History diphenhydrAMINE [Benadryl] 50 mg PO HS 09/30/16 12/14/17 History predniSONE 10 mg PO DAILY 09/30/16 12/14/17 History Losartan Potassium [Cozaar] 50 mg PO DAILY #1 tablet 10/04/16 12/14/17 Rx Fenofibrate 160 mg PO DAILY 12/14/17 12/14/17 History HYDROcodone/APAP 7.5-325MG [Brimson 1 tab PO Q6HR PRN 12/14/17 12/14/17 History 7.5-325] Insulin NPH Human Isophane 15 unit SQ HS 12/14/17 12/14/17 History [NovoLIN N] Insulin Regular, Human [NovoLIN R] 52 unit SQ W/SUPPER 12/14/17 12/14/17 History Insulin Regular, Human [Novolin R] 48 unit SQ W/LUNCH 12/14/17 12/14/17 History Meloxicam 15 mg PO DAILY 12/14/17 12/14/17 History Metoprolol Succinate (ER) [Toprol 25 mg PO DIRECTED 12/14/17 12/14/17 History Xl] Nitroglycerin Sl Tabs [Nitrostat] 0.4 mg SUBLINGUAL Q5M PRN 12/14/17 12/14/17 History Rosuvastatin Calcium [Crestor] 5 mg PO WE 12/14/17 12/14/17 History Allergies Allergy/AdvReac Type Severity Reaction Status Date / Time levofloxacin [From Levaquin] Allergy Intermediate Unknown Verified 12/14/17 12: 34 Penicillins Allergy Intermediate Rash/Hives Verified 12/14/17 12:34 Sulfa (Sulfonamide Allergy Intermediate Rash/Hives Verified 12/14/17 12:34 Antibiotics) cephalexin monohydrate Allergy Unknown Unknown Verified 12/14/17 12:34 [From Keflex] erythromycin base Allergy Unknown Rash/Hives Verified 12/14/17 12:34 [From E-Mycin] gatifloxacin [From Tequin] Allergy Unknown Unknown Verified 12/14/17 12:34 nitrofurantoin Allergy Unknown Unknown Verified 12/14/17 12:34 macrocrystalline [From Macrodantin] [place] Allergy Unknown Verified 12/14/17 12:34 apricot Allergy Unknown Verified 12/14/17 12:34 asparagus Allergy Unknown Verified 12/14/17 12:34 banana [Banana] Allergy Unknown Verified 12/14/17 12:34 cabbage Allergy Unknown Verified 12/14/17 12:34 carrot Allergy Unknown Verified 12/14/17 12:34 ciprofloxacin [From Cipro] Allergy Unknown Verified 12/14/17 12:34 ciprofloxacin HCl Allergy Unknown Verified 12/14/17 12:34 [From Cipro] Coconut Allergy Unknown Verified 12/14/17 12:34 coffee (Coffea arabica) Allergy Unknown Verified 12/14/17 12:34 [coffee] cucumber Allergy Unknown Verified 12/14/17 12:34 flaxseed Allergy Unknown Verified 12/14/17 12:34 sam Allergy Unknown Verified 12/14/17 12:34 grapefruit [Grapefruit] Allergy Unknown Verified 12/14/17 12:34 insulin lispro [From Humalog] Allergy Rash/Hives Verified 12/14/17 12:34 insulin NPH human isophane Allergy Rash/Hives Verified 12/14/17 12:34 [From Humulin 70/30] insulin regular, human Allergy Rash/Hives Verified 12/14/17 12:34 [From Humulin 70/30] onion Allergy Unknown Verified 12/14/17 12:34 orange juice [[place]] Allergy Unknown Verified 12/14/17 12:34 spinach Allergy Unknown Verified 12/14/17 12:34 tree nut [Pecan] Allergy Unknown Verified 12/14/17 12:34 cantaloupe Allergy Unknown Uncoded 12/14/17 10:27 cottonseed Allergy Unknown Uncoded 12/14/17 10:27 green beans Allergy Unknown Uncoded 12/14/17 10:27 mustard Allergy Unknown Uncoded 12/14/17 10:27 nuts Allergy Unknown Uncoded 12/14/17 10:27 pepper Allergy Unknown Uncoded 12/14/17 10:27 rice Allergy Unknown Uncoded 12/14/17 10:27 squash Allergy Unknown Uncoded 12/14/17 10:27 tea Allergy Unknown Uncoded 12/14/17 10:27 walnut Allergy Unknown Uncoded 12/14/17 10:27 Physical Exam Vitals: Vital Signs Temp Pulse Pulse Pulse Pulse Resp BP 12/15/17 10:00 53 L 20 135/45 12/15/17 09:00 58 L 21 134/57 12/15/17 08:00 98.9 F 51 L 74 20 97/56 12/15/17 07:00 80 46 H 87/55 12/15/17 06:00 80 24 107/48 12/15/17 05:30 74 30 H 12/15/17 05:00 70 20 12/15/17 04:30 80 21 12/15/17 04:00 98.9 F 80 21 12/15/17 03:52 12/15/17 03:30 62 19 12/15/17 03:15 56 L 41 H 12/15/17 03:00 78 29 H 12/15/17 02:45 72 28 H 12/15/17 02:30 80 19 12/15/17 02:15 78 16 12/15/17 01:30 78 27 H 150/77 12/15/17 01:20 82 23 133/44 12/15/17 01:10 71 20 137/98 12/15/17 01:00 80 26 H 137/98 12/15/17 00:50 68 25 H 145/49 12/15/17 00:40 80 31 H 149/47 12/15/17 00:30 79 19 149/47 12/15/17 00:20 71 14 135/39 12/15/17 00:10 80 14 12/15/17 00:00 80 22 12/14/17 23:50 100.4 F H 80 17 140/53 12/14/17 23:48 100.4 F H 16 12/14/17 22:14 98.3 F 25 L 25 L 16 12/14/17 21:37 98.5 F 26 L 18 12/14/17 20:00 25 L 16 12/14/17 15:32 97.5 F L 74 18 12/14/17 15:11 67 16 153/69 12/14/17 13:00 80 16 111/62 BP Pulse Ox 12/15/17 10:00 100 12/15/17 09:00 99 12/15/17 08:00 100 12/15/17 07:00 99 12/15/17 06:00 96 12/15/17 05:30 114/45 96 12/15/17 05:00 110/47 96 12/15/17 04:30 89/43 96 12/15/17 04:00 119/52 96 12/15/17 03:52 93 L 12/15/17 03:30 115/40 96 12/15/17 03:15 126/61 90 L 12/15/17 03:00 112/53 95 12/15/17 02:45 112/42 98 12/15/17 02:30 139/80 95 12/15/17 02:15 137/50 96 12/15/17 01:30 96 12/15/17 01:20 95 12/15/17 01:10 96 12/15/17 01:00 98 12/15/17 00:50 98 12/15/17 00:40 97 12/15/17 00:30 98 12/15/17 00:20 95 12/15/17 00:10 95 12/15/17 00:00 98 12/14/17 23:50 97 12/14/17 23:48 140/53 96 12/14/17 22:14 138/64 96 12/14/17 21:37 137/83 96 12/14/17 20:00 12/14/17 15:32 164/69 98 12/14/17 15:11 96 12/14/17 13:00 100 Intake and Output 12/14/17 12/15/17 12/15/17 22:59 06:59 14:59 Intake Total 195 380 Output Total 280 195 Balance -85 185 Intake: IV 195 380 Dextrose 5%-0.45% NaCl 1, 140 80 000 ml @ 20 mls/hr IV . Q24H ENZO Rx#:[id number] Sodium Chloride 0.9% 1, 55 300 000 ml @ 20 mls/hr IV . Q24H ENZO Rx#:[id number] Output: Urine 280 195 Other: Voiding Method Toilet Indwelling Catheter Indwelling Catheter Weight 104.326 kg Results 12/15/17 05:04 12/15/17 05:04 Cardiac Enzymes 12/14/17 12/14/17 Range/Units 12:33 21:36 AST 28 (14-36) U/L Troponin I 0.078 H* (0.000-0.034) ng/mL Coagulation 12/14/17 Range/Units 21:36 PT 10.9 (9.0-12.0) sec CBC 12/14/17 12/14/17 12/15/17 Range/Units 12:33 21:36 05:04 WBC 9.6 7.2 7.6 (3.8-10.6) k/uL RBC 4.35 3.94 3.73 L (3.80-5.40) m/uL Hgb 13.5 11.6 11.1 L (11.4-16.0) gm/dL Hct 40.7 37.2 35.2 (34.0-46.0) % Plt Count 175 185 165 (150-450) k/uL Comprehensive Metabolic Panel 12/14/17 12/14/17 12/15/17 Range/Units 12:33 21:36 01:30 Sodium 139 136 L (137-145) mmol/L Potassium 5.1 6.1 H 6.4 H* (3.5-5.1) mmol/L Chloride 104 104 (98-107) mmol/L Carbon Dioxide 26 23 (22-30) mmol/L BUN 56 H 53 H (7-17) mg/dL Creatinine 1.77 H 1.90 H (0.52-1.04) mg/dL Glucose 114 H 271 H (74-99) mg/dL Calcium 9.1 9.0 (8.4-10.2) mg/dL AST 28 (14-36) U/L ALT 24 (9-52) U/L Alkaline Phosphatase 50 (38-126) U/L Total Protein 6.3 (6.3-8.2) g/dL Albumin 3.3 L (3.5-5.0) g/dL 12/15/17 Range/Units 05:04 Sodium 137 (137-145) mmol/L Potassium 6.2 H* (3.5-5.1) mmol/L Chloride 106 (98-107) mmol/L Carbon Dioxide 23 (22-30) mmol/L BUN 56 H (7-17) mg/dL Creatinine 1.92 H (0.52-1.04) mg/dL Glucose 178 H (74-99) mg/dL Calcium 8.8 (8.4-10.2) mg/dL AST (14-36) U/L ALT (9-52) U/L Alkaline Phosphatase (38-126) U/L Total Protein (6.3-8.2) g/dL Albumin (3.5-5.0) g/dL Current Medications Generic Name Dose Route Start Last Admin Trade Name Freq PRN Reason Stop Dose Admin Acetaminophen 650 mg 12/15/17 11:06 Tylenol Tab PO Q6HR PRN Mild Pain Hydrocodone Bitart/Acetaminophen 1 each 12/14/17 15:48 12/14/17 20:26 Brimson 7.5-325 PO 1 each Q6HR PRN Administration Pain Hydrocodone Bitart/Acetaminophen 1 each 12/15/17 11:06 Brimson 5-325 PO Q4HR PRN Pain Amlodipine Besylate 5 mg 12/15/17 09:00 Norvasc PO DAILY ENZO Aspirin 81 mg 12/15/17 09:00 12/15/17 10:15 Aspirin PO 81 mg DAILY ENZO Administration Atorvastatin Calcium 10 mg 12/18/17 09:00 Lipitor PO WE ENZO Cefazolin Sodium 2 gm 12/15/17 17:00 Kefzol IVP 12/16/17 06:01 Q6HR ENZO Diphenhydramine HCl 50 mg 12/14/17 21:00 12/14/17 20:27 Benadryl PO 50 mg HS ENZO Administration Ergocalciferol 50,000 unit 12/15/17 12:00 Vitamin D2 PO BENSON ENZO Ferrous Sulfate 325 mg 12/14/17 16:00 12/14/17 17:47 Feosol PO 325 mg Q48H ENZO Administration Gabapentin 300 mg 12/14/17 16:00 12/14/17 20:27 Neurontin PO 300 mg TID ENZO Administration Sodium Chloride 1,000 mls @ 20 mls/hr 12/14/17 23:30 12/15/17 04:00 Saline 0.9% IV 75 mls/hr .Q24H ENZO Administration Clindamycin Phosphate 900 mg/ 56 mls @ 100 mls/hr 12/15/17 10:48 Dextrose/Water IVPB 12/15/17 11:21 ONCE STA Acetaminophen 1,000 mg/ IV 100 mls @ 400 mls/hr 12/15/17 11:06 Solution IVPB 12/15/17 11:20 ONCE ONE Insulin Aspart 0 unit 12/15/17 12:30 Novolog SQ ACHS ON LICENSE OF [facility] Protocol Levothyroxine Sodium 137 mcg 12/15/17 06:30 12/15/17 10:15 Synthroid PO 137 mcg DAILY@0630 ENZO Administration Miscellaneous Information 1 each 12/14/17 23:18 Rx Info: Iv Contrast Was Given MISCELLANE 12/16/17 23:18 DAILY PRN Per Protocol Morphine Sulfate 2 mg 12/15/17 05:31 12/15/17 05:49 Morphine Sulfate IVP 2 mg Q4HR PRN Administration Pain Naloxone HCl 0.2 mg 12/14/17 11:47 Narcan IV Q2M PRN Opioid Reversal Nitroglycerin 0.4 mg 12/14/17 15:48 Nitrostat SUBLINGUAL Q5M PRN Chest Pain Pantoprazole Sodium 40 mg 12/14/17 17:30 12/14/17 17:47 Protonix PO 40 mg AC-BID ENZO Administration Prednisone 10 mg 12/15/17 09:00 12/15/17 10:15 PO 10 mg DAILY ENZO Administration Sodium Chloride 10 ml 12/15/17 21:00 Saline Flush IV Q12HR ON LICENSE OF [facility] Intake and Output 12/14/17 12/15/17 12/15/17 22:59 06:59 14:59 Intake Total 195 380 Output Total 280 195 Balance -85 185 Intake: IV 195 380 Dextrose 5%-0.45% NaCl 1, 140 80 000 ml @ 20 mls/hr IV . Q24H ON LICENSE OF [facility] Rx#:[id number] Sodium Chloride 0.9% 1, 55 300 000 ml @ 20 mls/hr IV . Q24H ON LICENSE OF [facility] Rx#:[id number] Output: Urine 280 195 Other: Voiding Method Toilet Indwelling Catheter Indwelling Catheter Weight 104.326 kg 12/15/17 05:04 12/15/17 05:04
[2017-12-15] MEDS ORDERED: fentaNYL (PF) 50 MCG/ML 2 ML AMP ONE (11:21)
[2017-12-15] MEDS ORDERED: MIDAZOLAM 2 MG/2 ML VIAL ONE (11:21)
[2017-12-15] MEDS ORDERED: MIDAZOLAM 2 MG/2 ML VIAL IV ONE (11:24)
[2017-12-15] MEDS ORDERED: LIDOCAINE 1% INJ 10MG/ML (20 ML MDV) SQ ONE ×2 (11:26→11:31)
[2017-12-15] MEDS: fentaNYL (PF) 50 MCG/ML 2 ML AMP IV ONE ×2 (11:51→12:17)
[2017-12-15] MEDS ORDERED: ERGOCALCIFEROL 50,000 UNIT CAP PO SCH (12:00)
--- NOTE | 2017-12-15 12:42 | P.PCN ---
Preoperative Diagnosis: Patient underwent EP procedure under conscious sedation/moderate sedation, monitoring of the level of consciousness and physiologic parameters including but not limited to vital signs and oxygenation. Patient tolerated the procedure well without any acute complications. Start time: 1125 Stop time: 1235 Disposition: floor
[2017-12-15 13:04] LABS: Calcium 8.8 mg/dL (8.4-10.2); Potassium 5.2 mmol/L (3.5-5.1)
--- NOTE | 2017-12-15 13:09 | CE ---
CARDIAC ELECTROPHYSIOLOGY REPORT Isabel Herrera is a 77-year-old female who has a history of 2:1 heart block and continued to have these episodes despite discontinuation of digoxin and metoprolol as an outpatient a few weeks back. She presented to the hospital with severe bradycardia with third-degree heart block. Dr. Burnett placed a transvenous temporary pacemaker via the right subclavian vein, but I believe this was unstable this morning with the change in body position and therefore she was brought in urgently for dual-chamber pacemaker implantation. PROCEDURE: When she was brought to the lab first TTP was repositioned in the RV septum. The left pectoral area was prepped and draped as per protocol. IV antibiotics were administered, 3 g of Kefzol. Local anesthetics were used. A 4 cm incision was made parallel to the deltopectoral groove, about 1.5 cm medial to it. The incision was carried down to the level of the pectoralis muscle. A subfascial pocket was made. Hemostasis was assured. Two venous access was obtained in the left axillary vein. Via these 2 venous sheaths were placed. Quadripolar catheter was positioned in the RV for temporary pacing of the right ventricle while the RV lead was placed. The RV lead was placed successfully in the RV apex and screwed in. Next the atrial lead, passive lead was placed in the right atrial appendage after the quadripolar catheter was removed. The leads secured to the underlying pectoralis fascia. Pocket was irrigated with antibiotic solution. Leads were connected to the dual-chamber pacemaker generator which was placed a subfascial pocket. The wound was closed in 3 layers and dressed per protocol. The pacemaker was a [employer] PM [id number], serial #[id number]. The RV lead was a [employer] [id number], 58 cm in length and serial number [id number]. The pacing impedance was 690 ohms, pacing threshold 0.5 V at 0.4 milliseconds. 10 V test negative. The atrial lead was a passive [employer] lead mason tender model #1944, 46 cm in length and serial number [id number]. P waves 2.6 mV, pacing impedance 580 ohms, pacing threshold 1 V at 0.4 milliseconds. 10 V test negative. The device was programmed to DDD mode at 60 ppm with normal AV delay of 184/210 milliseconds. The patient tolerated the procedure well without any acute complications. PLAN: IV antibiotics for overnight. MMODL / IJN: [id number] /
[2017-12-15] MEDS: GABAPENTIN 300 MG CAP PO SCH ×3 (13:35→21:20)
[2017-12-15] MEDS: INSULIN ASPART 100 UNIT/ML 1 ML 10 ML VIAL SQ SCH ×3 (13:37→21:19)
[2017-12-15] MEDS: PANTOPRAZOLE 40 MG TABLET PO SCH ×2 (13:42→18:08)
[2017-12-15] MEDS: amLODIPine 5 MG TAB PO SCH (13:43)
[2017-12-15 14:04] LABS: Glucose,Whole Blood 123 mg/dL (75-99)
--- NOTE | 2017-12-15 16:24 | P.CNPUL ---
History of Present Illness Consult date: 12/15/17 Requesting physician: Natalio Schmidt Reason for consult: other (ICU management,) Chief complaint: Difficult to arouse out of bed. History of present illness: This is a 77-year-old female who is quite familiar to my service. Patient is primarily a patient of Dr. Snowden, I have seen her for many years, mostly because she had previous history of sarcoidosis, autoimmune hepatitis, and the patient has been on prednisone maintenance for many years. And I see her on a regular basis in my office. Patient is also known to have history of asthma, atrial fibrillation and previous ablation, history of diabetes, hypertension, mitral valve prolapse. On 12/14/2017, patient was brought in by EMS because family was having difficulty arousing the patient out of bed. When EMS arrived , patient's sugar was noted to be 54. Hence one amp of D50 was given. Then the sugar dropped again to 48, and another amp of D50 was given. Patient was brought into the hospital, admitted, and when placed on the monitor, the patient was noted to be in third-degree AV block. Patient was seen by cardiology on consultation, and a temporary pacemaker was placed yesterday by Dr. Burnett. Patient is scheduled to have the permanent pacemaker placement today by Dr. Long. Pulmonary-gibson the patient is relatively asymptomatic, no cough no wheezing no shortness of breath, no chest pain, placed back on her usual dose of prednisone. This is 10 mg daily. Denies any headaches no blurred vision no dizziness no chest pain no nausea no vomiting no abdominal pain no melena no hematemesis no dysuria and no frequency no urgency. Review of Systems 14 point review of systems were obtained, please refer to positive findings in HPI otherwise remaining systems are negative. Past Medical History Past Medical History: Atrial Fibrillation, Asthma, Coronary Artery Disease (CAD) , Heart Failure, Diabetes Mellitus, Fibromyalgia, GI Bleed, Hyperlipidemia, Hypertension, Mitral Valve Prolapse (MVP), Osteoarthritis (OA), Pneumonia, Sleep Apnea/CPAP/BIPAP, Thyroid Disorder Additional Past Medical History / Comment(s): NEUROPATHY, SARCOIDOSIS, LUPUS, AUTOIMMUNE ISSUES HEART MURMUR, autoimmune HEPATITIS with prednisone dependence , IRREGULAR HEART RATE, LEFT FEMUR FRACTURE, NO CPAP USE, right ankle fracture, left lower extremity DVT, left rotator cuff tear History of Any Multi-Drug Resistant Organisms: C-DIFF Date of last positivie culture/infection: 12/2014 MDRO Source:: stool Past Surgical History: Adenoidectomy, Appendectomy, Cholecystectomy, Heart Catheterization With Stent, Hysterectomy, Tonsillectomy Additional Past Surgical History / Comment(s): COLONOSCOPY, EGD, [place] filter, bronchoscopy Past Anesthesia/Blood Transfusion Reactions: No Reported Reaction Date of Last Stent Placement:: 2012 Smoking Status: Never smoker - Past Family History Mother Family Medical History: Coronary Artery Disease (CAD) Father Family Medical History: Coronary Artery Disease (CAD) Medications and Allergies Home Medications Medication Instructions Recorded Confirmed Type Aspirin 81 mg PO DAILY 02/09/14 12/14/17 History Digoxin [Digox] 125 mcg PO DIRECTED 02/09/14 12/14/17 History Ergocalciferol (Vitamin D2) 50,000 unit PO BENSON 02/09/14 12/14/17 History [Drisdol] Ferrous Sulfate [Feosol] 325 mg PO Q48H 02/09/14 12/14/17 History Furosemide 40 mg PO DAILY 02/09/14 12/14/17 History Gabapentin 300 mg PO TID 02/09/14 12/14/17 History Levothyroxine Sodium [Synthroid] 137 mcg PO DAILY 02/09/14 12/14/17 History Omeprazole 20 mg PO BID 02/09/14 12/14/17 History Potassium Chloride [Klor-Con M10] 5 meq PO DAILY 02/09/14 12/14/17 History Insulin NPH Human Isophane 80 unit SQ AC-BRKFST 09/30/16 12/14/17 History [NovoLIN N] Insulin Regular, Human [NovoLIN R] 28 unit SQ W/BRKFST 09/30/16 12/14/17 History diphenhydrAMINE [Benadryl] 50 mg PO HS 09/30/16 12/14/17 History predniSONE 10 mg PO DAILY 09/30/16 12/14/17 History Losartan Potassium [Cozaar] 50 mg PO DAILY #1 tablet 10/04/16 12/14/17 Rx Fenofibrate 160 mg PO DAILY 12/14/17 12/14/17 History HYDROcodone/APAP 7.5-325MG [[place] 1 tab PO Q6HR PRN 12/14/17 12/14/17 History 7.5-325] Insulin NPH Human Isophane 15 unit SQ HS 12/14/17 12/14/17 History [NovoLIN N] Insulin Regular, Human [NovoLIN R] 52 unit SQ W/SUPPER 12/14/17 12/14/17 History Insulin Regular, Human [Novolin R] 48 unit SQ W/LUNCH 12/14/17 12/14/17 History Meloxicam 15 mg PO DAILY 12/14/17 12/14/17 History Metoprolol Succinate (ER) [Toprol 25 mg PO DIRECTED 12/14/17 12/14/17 History Xl] Nitroglycerin Sl Tabs [Nitrostat] 0.4 mg SUBLINGUAL Q5M PRN 12/14/17 12/14/17 History Rosuvastatin Calcium [Crestor] 5 mg PO WE 12/14/17 12/14/17 History Allergies Allergy/AdvReac Type Severity Reaction Status Date / Time levofloxacin [From Levaquin] Allergy Intermediate Unknown Verified 12/14/17 12: 34 Penicillins Allergy Intermediate Rash/Hives Verified 12/15/17 11:38 Sulfa (Sulfonamide Allergy Intermediate Rash/Hives Verified 12/14/17 12:34 Antibiotics) cephalexin monohydrate Allergy Unknown Unknown Verified 12/14/17 12:34 [From Keflex] erythromycin base Allergy Unknown Rash/Hives Verified 12/14/17 12:34 [From E-Mycin] gatifloxacin [From Tequin] Allergy Unknown Unknown Verified 12/14/17 12:34 nitrofurantoin Allergy Unknown Unknown Verified 12/14/17 12:34 macrocrystalline [From Macrodantin] Antelope Allergy Unknown Verified 12/14/17 12:34 apricot Allergy Unknown Verified 12/14/17 12:34 asparagus Allergy Unknown Verified 12/14/17 12:34 banana [Banana] Allergy Unknown Verified 12/14/17 12:34 cabbage Allergy Unknown Verified 12/14/17 12:34 carrot Allergy Unknown Verified 12/14/17 12:34 ciprofloxacin [From Cipro] Allergy Unknown Verified 12/14/17 12:34 ciprofloxacin HCl Allergy Unknown Verified 12/14/17 12:34 [From Cipro] Coconut Allergy Unknown Verified 12/14/17 12:34 coffee (Coffea arabica) Allergy Unknown Verified 12/14/17 12:34 [coffee] cucumber Allergy Unknown Verified 12/14/17 12:34 flaxseed Allergy Unknown Verified 12/14/17 12:34 sam Allergy Unknown Verified 12/14/17 12:34 grapefruit [Grapefruit] Allergy Unknown Verified 12/14/17 12:34 insulin lispro [From Humalog] Allergy Rash/Hives Verified 12/14/17 12:34 insulin NPH human isophane Allergy Rash/Hives Verified 12/14/17 12:34 [From Humulin 70/30] insulin regular, human Allergy Rash/Hives Verified 12/14/17 12:34 [From Humulin 70/30] onion Allergy Unknown Verified 12/14/17 12:34 orange juice [Seward] Allergy Unknown Verified 12/14/17 12:34 spinach Allergy Unknown Verified 12/14/17 12:34 tree nut [Pecan] Allergy Unknown Verified 12/14/17 12:34 cantaloupe Allergy Unknown Uncoded 12/14/17 10:27 cottonseed Allergy Unknown Uncoded 12/14/17 10:27 green beans Allergy Unknown Uncoded 12/14/17 10:27 mustard Allergy Unknown Uncoded 12/14/17 10:27 nuts Allergy Unknown Uncoded 12/14/17 10:27 pepper Allergy Unknown Uncoded 12/14/17 10:27 rice Allergy Unknown Uncoded 12/14/17 10:27 squash Allergy Unknown Uncoded 12/14/17 10:27 tea Allergy Unknown Uncoded 12/14/17 10:27 walnut Allergy Unknown Uncoded 12/14/17 10:27 Physical Exam Vitals: Vital Signs Temp Pulse Pulse Pulse Pulse Resp BP 12/15/17 15:00 83 20 151/52 12/15/17 14:00 77 18 167/63 12/15/17 13:55 76 12 12/15/17 13:25 98.8 F 78 10 L 141/71 12/15/17 13:20 78 16 12/15/17 13:16 12/15/17 12:00 10 L 12/15/17 10:40 135/45 12/15/17 10:35 135/45 12/15/17 10:30 135/45 12/15/17 10:00 53 L 20 135/45 12/15/17 09:00 58 L 21 134/57 12/15/17 08:00 98.9 F 51 L 74 20 97/56 12/15/17 07:00 80 46 H 87/55 12/15/17 06:00 80 24 107/48 12/15/17 05:30 74 30 H 12/15/17 05:00 70 20 12/15/17 04:30 80 21 12/15/17 04:00 98.9 F 80 21 12/15/17 03:52 12/15/17 03:30 62 19 12/15/17 03:15 56 L 41 H 12/15/17 03:00 78 29 H 12/15/17 02:50 10 L 12/15/17 02:45 72 28 H 12/15/17 02:30 80 19 12/15/17 02:15 78 16 12/15/17 01:30 78 27 H 150/77 12/15/17 01:20 82 23 133/44 12/15/17 01:10 71 20 137/98 12/15/17 01:00 80 26 H 137/98 12/15/17 00:50 68 25 H 145/49 12/15/17 00:40 80 31 H 149/47 12/15/17 00:30 79 19 149/47 12/15/17 00:20 71 14 135/39 12/15/17 00:10 80 14 12/15/17 00:00 80 22 12/14/17 23:50 100.4 F H 80 17 140/53 12/14/17 23:48 100.4 F H 16 18 22:14 98.3 F 25 L 25 L 16 18 21:37 98.5 F 26 L 18 12/14/17 20:00 25 L 16 BP Pulse Ox 12/15/17 15:00 97 12/15/17 14:00 96 12/15/17 13:55 155/44 12/15/17 13:25 93 L 12/15/17 13:20 99 12/15/17 13:16 98 12/15/17 12:00 12/15/17 10:40 12/15/17 10:35 12/15/17 10:30 12/15/17 10:00 100 12/15/17 09:00 99 12/15/17 08:00 100 12/15/17 07:00 99 12/15/17 06:00 96 12/15/17 05:30 114/45 96 12/15/17 05:00 110/47 96 12/15/17 04:30 89/43 96 12/15/17 04:00 119/52 96 12/15/17 03:52 93 L 12/15/17 03:30 115/40 96 12/15/17 03:15 126/61 90 L 12/15/17 03:00 112/53 95 12/15/17 02:50 93 L 12/15/17 02:45 112/42 98 12/15/17 02:30 139/80 95 12/15/17 02:15 137/50 96 12/15/17 01:30 96 12/15/17 01:20 95 12/15/17 01:10 96 12/15/17 01:00 98 12/15/17 00:50 98 12/15/17 00:40 97 12/15/17 00:30 98 12/15/17 00:20 95 12/15/17 00:10 95 12/15/17 00:00 98 12/14/17 23:50 97 12/14/17 23:48 140/53 96 12/14/17 22:14 138/64 96 12/14/17 21:37 137/83 96 12/14/17 20:00 Intake and Output 12/15/17 12/15/17 12/15/17 06:59 14:59 22:59 Intake Total 195 680 Output Total 280 195 Balance -85 485 Intake: IV 195 680 Dextrose 5%-0.45% NaCl 1, 140 80 000 ml @ 20 mls/hr IV . Q24H EN[facility] Rx#:[id number] Sodium Chloride 0.9% 1, 55 340 000 ml @ 20 mls/hr IV . Q24H ENZO Rx#:[id number] Output: Urine 280 195 Other: Voiding Method Indwelling Catheter Bedpan Physical Exam: Revealed a 77-year-old female, obese, in no distress. Head: Cushingoid, atraumatic, normocephalic. Eyes: PERRLA, EOMI, no icterus. HEENT:[Neck is supple.] [No neck masses.] [No thyromegaly.] [No JVD.] Chest: [Clear throughout, no crackles, no rhonchi, no wheezes.] Cardiac Exam: [Normal S1 and S2, no S3 gallop, no murmur. Ration is noted to be in paced rhythm in the ICU.] Abdomen: [Obese, Soft, nontender, no megaly, no rebound, no guarding, normal bowel sounds.] Extremities: [No clubbing, no edema, no cyanosis.] Neurological Exam: [No focal neurologic deficit.] Psychiatric: Normal mood affect and mental status examination. Lymphatics: No lymphadenopathy. Results - Laboratory Findings CBC and BMP: 12/15/17 05:04 12/15/17 12:40 PT/INR, D-dimer PT 10.9 sec (9.0-12.0) 12/14/17 21:36 INR 1.1 (<1.2) 12/14/17 21:36 Abnormal lab findings: Abnormal Labs 12/14/17 12/14/17 12/14/17 10:51 12:33 12:33 RBC Hgb Neutrophils # 7.9 H Lymphocytes # 0.7 L Sodium Potassium BUN 56 H Creatinine 1.77 H Glucose 114 H POC Glucose (mg/dL) 48 L Magnesium Troponin I Albumin 3.3 L 12/14/17 12/14/17 12/14/17 13:01 14:25 17:01 RBC Hgb Neutrophils # Lymphocytes # Sodium Potassium BUN Creatinine Glucose POC Glucose (mg/dL) 100 H 126 H 227 H Magnesium Troponin I Albumin 12/14/17 12/14/17 12/14/17 20:57 21:36 21:36 RBC Hgb Neutrophils # Lymphocytes # 0.6 L Sodium 136 L Potassium 6.1 H BUN 53 H Creatinine 1.90 H Glucose 271 H POC Glucose (mg/dL) 280 H Magnesium 2.4 H Troponin I Albumin 12/14/17 12/14/17 12/15/17 21:36 23:48 01:30 RBC Hgb Neutrophils # Lymphocytes # Sodium Potassium 6.4 H* BUN Creatinine Glucose POC Glucose (mg/dL) 194 H Magnesium Troponin I 0.078 H* Albumin 12/15/17 12/15/17 12/15/17 02:53 05:04 05:04 RBC 3.73 L Hgb 11.1 L Neutrophils # Lymphocytes # 0.5 L Sodium Potassium 6.2 H* BUN 56 H Creatinine 1.92 H Glucose 178 H POC Glucose (mg/dL) 165 H Magnesium 2.4 H Troponin I Albumin 12/15/17 12/15/17 12/15/17 09:06 10:23 12:40 RBC Hgb Neutrophils # Lymphocytes # Sodium 136 L Potassium 5.2 H BUN 53 H Creatinine 1.89 H Glucose 182 H POC Glucose (mg/dL) 179 H 126 H Magnesium Troponin I Albumin 12/15/17 13:24 RBC Hgb Neutrophils # Lymphocytes # Sodium Potassium BUN Creatinine Glucose POC Glucose (mg/dL) 123 H Magnesium Troponin I Albumin - Diagnostic Findings Chest x-ray: image reviewed (Cardiomegaly and mild congestive changes, patient did receive a dose of Lasix earlier today.) Assessment and Plan Assessment: Impression: 1 acute third-degree AV block requiring pacemaker implantation. 2 history of sarcoidosis, quiescent. 3 history of autoimmune hepatitis, maintained on prednisone at 10 mg daily. 4 multiple comorbidities including history of asthma, history of atrial fibrillation requiring ablation, history of diabetes, fibromyalgia, hyperlipidemia, hypertension, mitral valve prolapse, osteoarthritis, and obstructive sleep apnea syndrome. Recommendation: Continue present supportive care measures, we'll monitor in the ICU for the next 24 hours, patient is back on her usual meds, will continue to follow. Time with Patient: Greater than 30
[2017-12-15] MEDS: ceFAZolin IN SWFI 2 GM/20 ML SYRINGE IVP SCH ×2 (18:08→22:40)
[2017-12-15 18:25] LABS: Glucose,Whole Blood 160 mg/dL (75-99)
[2017-12-15] MEDS ORDERED: hydrALAZINE HCL 20 MG/ML 1 ML VIAL IVP STA (18:52)
--- NOTE | 2017-12-15 19:30 | PN ---
PROGRESS NOTE DATE OF SERVICE: 12/15/2017 This 77-year-old woman who was admitted with significant hypoglycemia and other problems, had overnight issues with cardiac rhythm. The patient had complete heart block. The patient had non conduction disturbance. The patient underwent temporary venous pacemaker last night and the patient underwent pacemaker implantation today by Cardiology. Patient being closely monitored. PAST MEDICAL HISTORY: Reviewed. REVIEW OF SYSTEMS: CARDIOVASCULAR: As mentioned. RESPIRATORY: As mentioned. GI: No nausea. : No dysuria. NERVOUS SYSTEM: As mentioned. ENDOCRINE: As mentioned. CURRENT MEDICATIONS: 1. Tylenol 650 q.6 hours. 2. [place] 7.5. 3. Norvasc 5 mg. 4. Aspirin 81 mg. 5. Lipitor 10 mg. 6. Kefzol 2 g IV q.8h. 7. Benadryl. 8. Vitamin D2. 10.Neurontin 300 mg t.i.d. 11.NovoLog scale. 12.Synthroid 137 mcg p.o. daily. 13.Morphine sulfate 2 mg IV q.4h. 14.Narcan. 15.Nitrostat. 16.Protonix. 17.Prednisone 10 daily. PHYSICAL EXAM: Alert and oriented x3. Pulse 83, blood pressure 151/52, respiration 20, temperature 98.8, pulse ox 97% on 2 L. HEENT: Conjunctivae normal. Oral mucosa moist. NECK: No jugular venous distention. No carotid bruit. No lymph node enlargement. CARDIOVASCULAR: S1, S2. RESPIRATORY: Breath sounds diminished in the bases. A few scattered rhonchi. No crackles. ABDOMEN: Soft, nontender. LEGS: No edema. NERVOUS SYSTEM: No focal deficits. LAB STUDIES: WBC 7.2, hemoglobin 7.1, sodium 130, potassium 5.2, creatinine 1.89. ASSESSMENT: 1. Hypoglycemia, uncontrolled diabetes type 2, present on admission. 2. Complete heart block, severe symptomatic bradycardia, status post pacemaker implantation. 3. History atrial fibrillation. 4. History of asthma. 5. History of coronary artery disease. 6. Congestive heart failure. 7. Diabetes mellitus type 2. 8. History of fibromyalgia. 9. History of GI bleed. 10.Hyperlipidemia. 11.Hypertension. 13.History of degenerative joint disease. 14.History of pneumonia. 15.History of sleep apnea. 16.History of hypothyroidism. 17.History neuropathy. 18.History of sarcoidosis. 19.History of lupus. 20.History autoimmune disease. 21.History of adenoidectomy. 22.History of coronary artery disease, stent. RECOMMENDATIONS AND DISCUSSION: I recommend to continue current management and symptomatic treatment. Otherwise at this time repeat labs. Closely monitor and we will monitor the blood sugars closely. Recommend to get in touch with the patient's own Endocrinology and adjust medications. Otherwise we will continue to monitor. Prognosis guarded because of the multiple complex medical issues. Further recommendations to follow. MMODL / IJN: [id number] / MANDY
[2017-12-15 21:16] LABS: Glucose,Whole Blood 200 mg/dL (75-99)
[2017-12-15] MEDS: diphenhydrAMINE 50 MG CAP PO SCH (21:20)
[2017-12-16 04:47] LABS: Basophils % (A) 0 %; Eosinophils % (A) 1 %; HGB 10.9 gm/dL (11.4-16.0); Lymphocytes # (A) 0.5 k/uL (1.0-4.8); Lymphocytes % (A) 7 %; MCH 30.4 pg (25.0-35.0); MCHC 33.1 g/dL (31.0-37.0); MCV 91.9 fL (80.0-100.0); Mean Platelet Volume 7.7; Monocytes # (A) 0.5 k/uL (0-1.0); Monocytes % (A) 7 %; Neutrophils # (A) 6.3 k/uL (1.3-7.7); Neutrophils % (A) 84 %; Platelet Count 153 k/uL (150-450); RBC 3.59 m/uL (3.80-5.40); RDW 14.1 % (11.5-15.5); WBC 7.5 k/uL (3.8-10.6)
[2017-12-16 04:55] LABS: Calcium 8.8 mg/dL (8.4-10.2); Magnesium 2.2 mg/dL (1.6-2.3); Phosphorus 3.9 mg/dL (2.5-4.5)
[2017-12-16] MEDS: ceFAZolin IN SWFI 2 GM/20 ML SYRINGE IVP SCH ×2 (06:02→10:54)
[2017-12-16] MEDS: LEVOTHYROXINE 137 MCG TAB PO SCH (06:25)
[2017-12-16 07:42] LABS: Glucose,Whole Blood 127 mg/dL (75-99)
[2017-12-16] MEDS: INSULIN ASPART 100 UNIT/ML 1 ML 10 ML VIAL SQ SCH ×4 (08:15→21:09)
[2017-12-16] MEDS: PANTOPRAZOLE 40 MG TABLET PO SCH ×2 (08:15→18:31)
[2017-12-16] MEDS: ASPIRIN 81 MG PO SCH (08:15)
[2017-12-16] MEDS: amLODIPine 5 MG TAB PO SCH (08:15)
[2017-12-16] MEDS: predniSONE 10 MG TAB PO SCH (08:16)
[2017-12-16] MEDS: GABAPENTIN 300 MG CAP PO SCH ×3 (08:16→21:09)
--- NOTE | 2017-12-16 08:38 | XR ---
EXAMINATION TYPE: XR chest 2V DATE OF EXAM: 12/16/2017 COMPARISON: Prior chest x-ray 12/14/2017 HISTORY: Lead placement check TECHNIQUE: Frontal and lateral views of the chest are obtained. FINDINGS: Patient is rotated. There is been interval placement of a generator in the left pectoral r egion, leads are present in the right atrium and ventricle. Heart remains enlarged. Right subclavian lead has been removed. There are overlying cardiac leads. No pneumothorax or pleural effusion is evid ent. Interstitium remains prominent. Patchy basilar increased density is again seen. IMPRESSION: No evident complication status post pacemaker placement. Cardiomegaly, correlate for pos sible pulmonary venous hypertension and interstitial edema. Follow-up recommended.
--- NOTE | 2017-12-16 10:09 | P.PN ---
Subjective Progress Note Date: 12/16/17 Principal diagnosis: Hypoglycemia and hyperkalemia with heart block Progress note dated 12/16/2017 This is a 77-year-old female admitted with third-degree heart block a low blood glucose and a high potassium. The patient does have history of quiesced and sarcoidosis and autoimmune hepatitis. In addition, the patient suffers from asthma atrial fibrillation with previous ablation diabetes fibromyalgia hyperlipidemia hypertension mitral valve prolapse osteoarthritis and sleep apnea syndrome. The patient currently is doing reasonably reasonably well. The patient's currently in the ICU. The patient had a pacemaker placed yesterday for heart block. The patient's getting an IV of saline at KVO and a couple liters of nasal O2. [employer] disturbances have been corrected. He denies any pain shortness breath difficulty breathing nausea vomiting diarrhea palpitations chest pressure or other chest complaints at this time. Objective - Vital Signs Vital signs: Vital Signs Temp 98.8 F 12/16/17 08:00 Pulse 83 12/16/17 08:00 Resp 16 12/16/17 08:00 BP 164/68 12/16/17 08:00 Pulse Ox 97 12/16/17 08:00 Intake & Output 12/15/17 12/16/17 12/16/17 18:59 06:59 18:59 Intake Total 960 260 20 Output Total 345 775 300 Balance 615 -515 -280 Weight 111.3 kg Intake: IV 760 260 20 Dextrose 5%-0.45% NaCl 1, 80 000 ml @ 20 mls/hr IV . Q24H [facility] Rx#:[id number] Sodium Chloride 0.9% 1, 420 260 20 000 ml @ 20 mls/hr IV . Q24H [facility] Rx#:[id number] Oral 200 Output: Urine 345 775 300 Other: Voiding Method Bedpan Bedpan # Voids 1 - Exam No acute distress, The patient is oriented but a bit sleepy HEENT examination is grossly unremarkable. Mucous membranes are moist. No oral lesions. Neck supple. Full range of motion. No adenopathy thyromegaly or neck vein distention. Cardiovascular examination reveals regular rhythm rate. S1-S2 normal. No S3 or S4. No discernible murmur noted. Lungs reveal clear breath sounds. Her sounds are equal bilaterally. No adventitious lung sounds including wheezes rhonchi or crackles. Abdomen soft bowel sounds are heard. No masses or tenderness. Extremities are intact. No cyanosis clubbing or edema. Skin is without rash or lesion. Neurologic examination is brief but nonfocal. - Labs CBC & Chem 7: 12/16/17 03:57 12/16/17 03:57 Labs: Abnormal Lab Results - Last 24 Hours (Table) 12/14/17 12/15/17 12/15/17 Range/Units 12:33 10:23 12:40 RBC (3.80-5.40) m/uL Hgb (11.4-16.0) gm/dL Hct (34.0-46.0) % Lymphocytes # (1.0-4.8) k/uL Sodium 136 L (137-145) mmol/L Potassium 5.2 H (3.5-5.1) mmol/L BUN 53 H (7-17) mg/dL Creatinine 1.89 H (0.52-1.04) mg/dL Glucose 182 H (74-99) mg/dL POC Glucose (mg/dL) 126 H (75-99) mg/dL Hemoglobin A1c 6.7 H (4.0-6.0) % 12/15/17 12/15/17 12/15/17 Range/Units 13:24 18:11 21:15 RBC (3.80-5.40) m/uL Hgb (11.4-16.0) gm/dL Hct (34.0-46.0) % Lymphocytes # (1.0-4.8) k/uL Sodium (137-145) mmol/L Potassium (3.5-5.1) mmol/L BUN (7-17) mg/dL Creatinine (0.52-1.04) mg/dL Glucose (74-99) mg/dL POC Glucose (mg/dL) 123 H 160 H 200 H (75-99) mg/dL Hemoglobin A1c (4.0-6.0) % 12/15/17 12/16/17 12/16/17 Range/Units 23:59 03:57 03:57 RBC 3.59 L (3.80-5.40) m/uL Hgb 10.9 L (11.4-16.0) gm/dL Hct 33.0 L (34.0-46.0) % Lymphocytes # 0.5 L (1.0-4.8) k/uL Sodium (137-145) mmol/L Potassium 5.2 H (3.5-5.1) mmol/L BUN 50 H (7-17) mg/dL Creatinine 1.80 H (0.52-1.04) mg/dL Glucose 145 H (74-99) mg/dL POC Glucose (mg/dL) (75-99) mg/dL Hemoglobin A1c (4.0-6.0) % 12/16/17 Range/Units 07:36 RBC (3.80-5.40) m/uL Hgb (11.4-16.0) gm/dL Hct (34.0-46.0) % Lymphocytes # (1.0-4.8) k/uL Sodium (137-145) mmol/L Potassium (3.5-5.1) mmol/L BUN (7-17) mg/dL Creatinine (0.52-1.04) mg/dL Glucose (74-99) mg/dL POC Glucose (mg/dL) 127 H (75-99) mg/dL Hemoglobin A1c (4.0-6.0) % Assessment and Plan Assessment: Assessment Status post pacemaker insertion on December 15 for complete heart block History of hypoglycemia History of hyperkalemia. History of sarcoidosis, inactive History of autoimmune hepatitis History of asthma Previous history of atrial fibrillation with ablation Diabetes mellitus Fibromyalgia Hyperlipidemia Hypertension Mitral valve prolapse DJD Sleep apnea syndrome Plan: Plan dated 12/16/2017 The patient seemed be doing relatively well. We'll monitor her closely. We'll monitor her electrolytes. We'll pay special attention to potassium and magnesium levels. In addition, we'll continue to watch her glucose. The patient seemed to be relatively stable from the cardiovascular and hemodynamic standpoint at this time. Her respiratory status also seems stable. Prognosis is good. Additional recommendations and suggestions are forthcoming. Critical care time 32 minutes Time with Patient: Greater than 30
[2017-12-16 12:22] LABS: Glucose,Whole Blood 232 mg/dL (75-99)
--- NOTE | 2017-12-16 13:13 | PN ---
PROGRESS NOTE Isabel is a a 77-year-old lady who developed symptomatic heart block in the hospital and underwent permanent pacemaker yesterday. This morning she is feeling better. Has a paced rhythm. Blood pressure is elevated at 164/68. There is no jugular venous distention. Chest exam reveals diminished air entry at the bases. Heart exam reveals first and second heart sounds. No gallop. Examination of the extremities did not reveal any edema. Peripheral pulses are felt. The patient is currently on aspirin, Norvasc 5 mg daily, Lipitor. I will start her back on the Toprol-XL that the patient was on. On exam, heart rate is 60 beats per minute. Blood pressure is 164/68, respiratory rate 18. Chest exam reveals good air entry bilaterally. Heart exam reveals first and second heart sounds. No gallop. Examination of the extremities did not reveal any edema. Chest x-ray did not reveal any pneumothorax. Pacemaker needs to be evaluated today. ASSESSMENT: 1. Complete heart block, status post permanent pacemaker. 2. Uncontrolled hypertension. PLAN: Patient will be ambulated and we should be able to discharge her home. Her renal functions are improving from 1.9 The creatinine had come down to 1.8 and I anticipate it getting better. MMODL / IJN: [id number] /
[2017-12-16] MEDS ORDERED: MORPHINE ORAL SOLN 10 MG/5 ML CUP PO PRN (13:44)
[2017-12-16 17:23] LABS: Glucose,Whole Blood 259 mg/dL (75-99)
--- NOTE | 2017-12-16 17:25 | PN ---
PROGRESS NOTE DATE OF SERVICE: 12/16/2017 This 77-year-old woman admitted with significant hypoglycemia, also had cardiac arrhythmia in the form complete heart block. Patient underwent pacemaker implantation. Patient complains of significant tiredness and weakness. The patient is mildly edematous at this time. Multiple consultants including Dr. Eid and Cardiology following the patient closely. PAST MEDICAL HISTORY: Reviewed. REVIEW OF SYSTEMS: CARDIOVASCULAR: No angina. RESPIRATORY: As mentioned earlier. GI: As mentioned earlier. : No dysuria. NERVOUS SYSTEM: No numbness or weakness. MEDICATIONS: Current medications are reviewed and include: 1. Tylenol 650 q.6h p.r.n. 2. [place] 7.5 q.6h p.r.n. 3. Norvasc 5 mg p.o. daily. 4. Aspirin 81 mg. 5. Lipitor 80 mg daily. 6. Benadryl. 7. Requip. 8. Vitamin D2 50,000 Saturday. 9. Iron sulfate 325 mg q.48 hours. 10.Neurontin 300 mg p.o. t.i.d. 11.NovoLog a.c. and at bedtime. 12.Synthroid 137 mcg p.o. daily. 13.Toprol-XL 50 mg p.o. daily. 14.P.r.n. medications. 15.Narcan 0.2 q.2h p.r.n. 16.Nitrostat 0.4 sublingual p.r.n. 17.Protonix 40 mg b.i.d. 18.Prednisone 10 daily. 19.P.r.n. medications. PHYSICAL EXAM: Patient is alert, oriented x3. Pulse 83, blood pressure is 140/50, respiration 18, temperature 98.8, pulse ox 97% on room air. HEENT: Conjunctivae normal. Oral mucosa moist. NECK: No jugular venous distention. No carotid bruit. No lymph node enlargement. CARDIOVASCULAR: S1, S2. No S3, no S4. RESPIRATORY: Breath sounds diminished in the bases. A few scattered rhonchi. No crackles. ABDOMEN: Soft, obese, nontender. LEGS: Bilateral leg edema. NERVOUS SYSTEM: Higher functions as mentioned earlier, moves all 4 limbs, no focal motor deficits. LYMPHATICS: No lymphadenopathy in the neck, axillae, groin. SKIN: No ulcer, rash or bleeding. LABS: WBC 7, hemoglobin 7.9, creatinine 1.80. ASSESSMENT: 1. Hypoglycemia, poorly controlled diabetes mellitus, present on admission. 2. Complete heart block, severe symptomatic bradycardia, status post pacemaker implantation. 3. History atrial fibrillation. 4. History of asthma. 5. History of coronary artery disease. 6. History of congestive heart failure. 7. Diabetes mellitus type 2. 8. History of fibromyalgia. 9. History of gastrointestinal bleed. 10.Hyperlipidemia. 11.History of degenerative joint disease. 12.History pneumonia. 13.History of sleep apnea. 14.History of hypothyroidism. 15.History of neuropathy. 16.History of sarcoidosis. 17.History of lupus. 18.History of autoimmune disease. 19.History of adenoidectomy. 20.History of coronary artery disease, stent. RECOMMENDATIONS AND DISCUSSION: I recommend to continue current management and symptomatic treatment. At this time I recommend to continue with current medications. I would also recommend PT, OT evaluation and as well as possible ECF rehab. Otherwise home medications to resume. Closely follow with Cardiology. Repeat labs will be ordered. The prognosis guarded because of multiple complex medical issues. Further recommendations to follow. MMODL / IJN: [id number] / MANDY
[2017-12-16] MEDS: METOPROLOL SUCCINATE (ER) 50 MG TAB.ER.24H PO SCH (17:55)
[2017-12-16] MEDS: FERROUS SULFATE 325 MG TAB PO SCH (18:31)
--- NOTE | 2017-12-16 20:23 | ECHOF ---
Referral Reason:cad MEASUREMENTS -------- HEIGHT: 152.4 cm WEIGHT: 111.1 kg BP: 143/77 RVIDd: 2.3 cm (< 3.3) IVSd: 1.1 cm (0.6 - 1.1) LVIDd: 4.8 cm (3.9 - 5.3) LVPWd: 1.2 cm (0.6 - 1.1) IVSs: 1.7 cm LVIDs: 3.1 cm LVPWs: 1.4 cm LA Diam: 3.6 cm (2.7 - 3.8) LAESV Index (A-L): 36.47 ml/m Ao Diam: 3.5 cm (2.0 - 3.7) AV Cusp: 1.6 cm (1.5 - 2.6) MV EXCURSION: 15.965 mm (> 18.000) MV EF SLOPE: 25 mm/s (70 - 150) EPSS: 0.8 cm MV E Abhay: 1.27 m/s MV DecT: 183 ms MV A Abhay: 1.35 m/s MV E/A Ratio: 0.94 AV maxP.30 mmHg AV meanP.98 mmHg FINDINGS -------- Pacerwire seen in RV and RA. This was a technically adequate study. The left ventricular size is normal. There is borderline concentric left ventricular hypertrophy. Overall left ventricular systolic function is normal with, an EF between 55 - 60 %. The right ventricle is normal in size. LA is moderately dilated 34-39 ml/m2 The right atrium is normal in size. There is mild aortic valve sclerosis. There is mild aortic stenosis present. Peak/mean gradient a cross the Aortic Valve is 30.30mmHg / 15.98mmHg. Mild mitral annular calcification present. The tricuspid valve appears structurally normal. Trace/mild (physiologic) pulmonic regurgitation. The aortic root size is normal. Normal inferior vena cava with normal inspiratory collapse consistent with estimated right atrial pre ssure of 5 mmHg. There is a small pericardial effusion located near the left ventricle. CONCLUSIONS -------- 1. Pacerwire seen in RV and RA. 2. This was a technically adequate study. 3. The left ventricular size is normal. 4. There is borderline concentric left ventricular hypertrophy. 5. Overall left ventricular systolic function is normal with, an EF between 55 - 60 %. 6. The right ventricle is normal in size. 7. LA is moderately dilated 34-39 ml/m2 8. The right atrium is normal in size. 9. There is mild aortic valve sclerosis. 10. There is mild aortic stenosis present. 11. Peak/mean gradient across the Aortic Valve is 30.30mmHg / 15.98mmHg. 12. Mild mitral annular calcification present. 13. The tricuspid valve appears structurally normal. 14. Trace/mild (physiologic) pulmonic regurgitation. 15. The aortic root size is normal. 16. Normal inferior vena cava with normal inspiratory collapse consistent with estimated right atrial pressure of 5 mmHg. 17. There is a small pericardial effusion located near the left ventricle. RACING DRIVER: Joanna Yanez RDCS
[2017-12-16 21:05] LABS: Glucose,Whole Blood 214 mg/dL (75-99)
[2017-12-16] MEDS: diphenhydrAMINE 50 MG CAP PO SCH (21:09)
[2017-12-16] MEDS: SODIUM CHLORIDE 0.9% 1,000 ML IV SCH (23:50)
[2017-12-17 06:02] LABS: Basophils % (A) 1 %; Eosinophils # (A) 0.1 k/uL (0-0.7); Eosinophils % (A) 2 %; HCT 32.6 % (34.0-46.0); HGB 10.7 gm/dL (11.4-16.0); Lymphocytes # (A) 0.5 k/uL (1.0-4.8); Lymphocytes % (A) 7 %; MCH 30.2 pg (25.0-35.0); MCV 91.4 fL (80.0-100.0); Mean Platelet Volume 7.4; Monocytes # (A) 0.5 k/uL (0-1.0); Monocytes % (A) 7 %; Neutrophils # (A) 5.9 k/uL (1.3-7.7); Neutrophils % (A) 82 %; Platelet Count 144 k/uL (150-450); RBC 3.56 m/uL (3.80-5.40); RDW 13.8 % (11.5-15.5); WBC 7.2 k/uL (3.8-10.6)
[2017-12-17 06:06] LABS: Glucose,Whole Blood 145 mg/dL (75-99)
[2017-12-17 06:06] LABS: Potassium 4.8 mmol/L (3.5-5.1)
[2017-12-17 06:07] LABS: Calcium 9.3 mg/dL (8.4-10.2)
[2017-12-17] MEDS: LEVOTHYROXINE 137 MCG TAB PO SCH (06:18)
[2017-12-17] MEDS: PANTOPRAZOLE 40 MG TABLET PO SCH ×2 (06:18→16:50)
[2017-12-17] MEDS: INSULIN ASPART 100 UNIT/ML 1 ML 10 ML VIAL SQ SCH ×4 (06:18→21:00)
[2017-12-17] MEDS: predniSONE 10 MG TAB PO SCH (09:30)
[2017-12-17] MEDS: METOPROLOL SUCCINATE (ER) 50 MG TAB.ER.24H PO SCH (09:30)
[2017-12-17] MEDS: amLODIPine 5 MG TAB PO SCH (09:30)
[2017-12-17] MEDS: ASPIRIN 81 MG PO SCH (09:30)
[2017-12-17] MEDS: GABAPENTIN 300 MG CAP PO SCH ×3 (09:30→20:31)
--- NOTE | 2017-12-17 11:33 | P.PN ---
Subjective Progress Note Date: 12/17/17 This is a pleasant 77-year-old female who follows with Dr. Ortiz in the office she presented to the hospital with complete heart block and underwent implantation of a permanent pacemaker. Her device was interrogated and is functioning appropriately, chest x-ray was reviewed yesterday and did not reveal any evidence of a pneumothorax. She was seen and examined this morning, feels well, denies any palpitations, no dizziness or lightheadedness. Blood pressure 150/48, heart rate in the 70s, 97% on room air. White blood cell count 7.2, hemoglobin 10.7, platelet count 144. Sodium 137, potassium 4.8 , BUN 39, creatinine 1.3. Physical therapy was in this morning to assist with ambulation, patient is much longer today overall. She should be able to be discharged home today from cardiology's perspective, we'll make her a follow-up appointment to see Dr. Ortiz in the office post discharge. Objective - Vital Signs Vital signs: Vital Signs Temp 97.4 F L 12/17/17 08:00 Pulse 71 12/17/17 08:00 Resp 18 12/17/17 08:00 BP 154/61 12/17/17 08:00 Pulse Ox 98 12/17/17 08:00 Intake & Output 12/16/17 12/17/17 12/17/17 18:59 06:59 18:59 Intake Total 260 236 Output Total 1050 250 Balance -790 -14 Weight 111.3 kg 107.7 kg Intake: IV 20 Sodium Chloride 0.9% 1, 20 000 ml @ 20 mls/hr IV . Q24H [facility] Rx#:[id number] Oral 240 236 Output: Urine 1050 250 Other: Voiding Method Bedpan Bedside Commode # Voids 1 # Bowel Movements 1 - Exam PHYSICAL EXAMINATION: HEENT: Head is atraumatic, normocephalic. Pupils equal, round. Neck is supple. There is no elevated jugular venous pressure. HEART EXAMINATION: Heart S1 and S2 systolic ejection murmur is heard. Site of pacemaker implantation dressing is dry and intact. CHEST EXAMINATION: Lungs are clear to auscultation and precussion. No chest wall tenderness is noted on palpation or with deep breathing. ABDOMEN: Soft, nontender. Bowel sounds are heard. No organomegaly noted. EXTREMITIES: 1+ peripheral pulses with trace evidence of peripheral edema and mild areas of redness noted . NEUROLOGIC patient is awake, alert and oriented -3. . - Labs CBC & Chem 7: 12/17/17 05:27 12/17/17 05:27 Labs: Abnormal Lab Results - Last 24 Hours (Table) 12/16/17 12/16/17 12/16/17 Range/Units 12:21 17:05 21:03 RBC (3.80-5.40) m/uL Hgb (11.4-16.0) gm/dL Hct (34.0-46.0) % Plt Count (150-450) k/uL Lymphocytes # (1.0-4.8) k/uL BUN (7-17) mg/dL Creatinine (0.52-1.04) mg/dL Glucose (74-99) mg/dL POC Glucose (mg/dL) 232 H 259 H 214 H (75-99) mg/dL 12/17/17 12/17/17 12/17/17 Range/Units 05:27 05:27 06:04 RBC 3.56 L (3.80-5.40) m/uL Hgb 10.7 L (11.4-16.0) gm/dL Hct 32.6 L (34.0-46.0) % Plt Count 144 L (150-450) k/uL Lymphocytes # 0.5 L (1.0-4.8) k/uL BUN 39 H (7-17) mg/dL Creatinine 1.31 H (0.52-1.04) mg/dL Glucose 159 H (74-99) mg/dL POC Glucose (mg/dL) 145 H (75-99) mg/dL Assessment and Plan Plan: Assessment and plan #1 complete heart block status post implantation of a permanent pacemaker #2 paroxysmal atrial fibrillation #3 hypertension #4 hyperlipidemia # 5 diabetes #6 hypothyroidism #7 history of sarcoidosis and autoimmune hepatitis Plan Because of the patient's episodes of paroxysmal atrial fibrillation, we will initiate Eliquis for anticoagulation. We will discontinue the patient's aspirin. She may be able to be discharged home from cardiology's perspective, we'll make her a follow-up appointment to follow-up in the office with Dr. VC Ortiz post discharge. DNP note has been reviewed, I agree with a documented findings and plan of care. Patient was seen and examined.
[2017-12-17 12:23] LABS: Glucose,Whole Blood 224 mg/dL (75-99)
[2017-12-17] MEDS: APIXABAN 5 MG TAB PO SCH ×2 (12:26→20:31)
--- NOTE | 2017-12-17 13:23 | P.PN ---
Subjective Progress Note Date: 12/17/17 Principal diagnosis: Hypoglycemia and hyperkalemia with heart block Progress note dated 12/16/2017 This is a 77-year-old female admitted with third-degree heart block a low blood glucose and a high potassium. The patient does have history of quiesced and sarcoidosis and autoimmune hepatitis. In addition, the patient suffers from asthma atrial fibrillation with previous ablation diabetes fibromyalgia hyperlipidemia hypertension mitral valve prolapse osteoarthritis and sleep apnea syndrome. The patient currently is doing reasonably reasonably well. The patient's currently in the ICU. The patient had a pacemaker placed yesterday for heart block. The patient's getting an IV of saline at KVO and a couple liters of nasal O2. [employer] disturbances have been corrected. He denies any pain shortness breath difficulty breathing nausea vomiting diarrhea palpitations chest pressure or other chest complaints at this time. Progress note dated 12/17/2017 77-year-old female admitted with third-degree heart block. She was also found to have hypoglycemia and hyperkalemia. The patient is doing relatively well. Yesterday she was in the treatment room in the ICU. She was transferred out per cardiology. The patient does have a history of inactive sarcoidosis and autoimmune hepatitis. She also suffers from asthma atrial fibrillation previous ablation diabetes fibromyalgia hyperlipidemia hypertension mitral valve prolapse DJD and sleep apnea syndrome. The patient seems be doing relatively well. Sitting up at the bedside today when seen. No distress. Not requiring any supplemental oxygen. She might be discharged home in a day or 2. Actually the still photographer yesterday thought that she could be discharged from the unit yesterday. This did not happen. No complaints today. Objective - Vital Signs Vital signs: Vital Signs Temp 97.4 F L 12/17/17 08:00 Pulse 71 12/17/17 08:00 Resp 18 12/17/17 08:00 BP 154/61 12/17/17 08:00 Pulse Ox 98 12/17/17 08:00 Intake & Output 12/16/17 12/17/17 12/17/17 18:59 06:59 18:59 Intake Total 260 236 Output Total 1050 250 Balance -790 -14 Weight 111.3 kg 107.7 kg Intake: IV 20 Sodium Chloride 0.9% 1, 20 000 ml @ 20 mls/hr IV . Q24H [facility] Rx#:[id number] Oral 240 236 Output: Urine 1050 250 Other: Voiding Method Bedpan Bedside Commode # Voids 1 1 # Bowel Movements 1 - Exam No acute distress, The patient is oriented but a bit sleepy HEENT examination is grossly unremarkable. Mucous membranes are moist. No oral lesions. Neck supple. Full range of motion. No adenopathy thyromegaly or neck vein distention. Cardiovascular examination reveals regular rhythm rate. S1-S2 normal. No S3 or S4. No discernible murmur noted. Lungs reveal clear breath sounds. Her sounds are equal bilaterally. No adventitious lung sounds including wheezes rhonchi or crackles. Abdomen soft bowel sounds are heard. No masses or tenderness. Extremities are intact. No cyanosis clubbing or edema. Skin is without rash or lesion. Neurologic examination is brief but nonfocal. - Labs CBC & Chem 7: 12/17/17 05:27 12/17/17 05:27 Labs: Abnormal Lab Results - Last 24 Hours (Table) 12/16/17 12/16/17 12/17/17 Range/Units 17:05 21:03 05:27 RBC 3.56 L (3.80-5.40) m/uL Hgb 10.7 L (11.4-16.0) gm/dL Hct 32.6 L (34.0-46.0) % Plt Count 144 L (150-450) k/uL Lymphocytes # 0.5 L (1.0-4.8) k/uL BUN (7-17) mg/dL Creatinine (0.52-1.04) mg/dL Glucose (74-99) mg/dL POC Glucose (mg/dL) 259 H 214 H (75-99) mg/dL 12/17/17 12/17/17 12/17/17 Range/Units 05:27 06:04 12:21 RBC (3.80-5.40) m/uL Hgb (11.4-16.0) gm/dL Hct (34.0-46.0) % Plt Count (150-450) k/uL Lymphocytes # (1.0-4.8) k/uL BUN 39 H (7-17) mg/dL Creatinine 1.31 H (0.52-1.04) mg/dL Glucose 159 H (74-99) mg/dL POC Glucose (mg/dL) 145 H 224 H (75-99) mg/dL Assessment and Plan Assessment: Assessment Status post pacemaker insertion on December 15 for complete heart block History of hypoglycemia History of hyperkalemia. History of sarcoidosis, inactive History of autoimmune hepatitis History of asthma Previous history of atrial fibrillation with ablation Diabetes mellitus Fibromyalgia Hyperlipidemia Hypertension Mitral valve prolapse DJD Sleep apnea syndrome Plan: Plan dated 12/16/2017 The patient seemed be doing relatively well. We'll monitor her closely. We'll monitor her electrolytes. We'll pay special attention to potassium and magnesium levels. In addition, we'll continue to watch her glucose. The patient seemed to be relatively stable from the cardiovascular and hemodynamic standpoint at this time. Her respiratory status also seems stable. Prognosis is good. Additional recommendations and suggestions are forthcoming. Critical care time 32 minutes Plan dated 12/17/2017 the patient seemed be doing relatively well. Hopeful discharge soon. The patient denies any respiratory or cardiac issues at this time. We'll continue to follow. Prognosis is generally thought to be good. Additional recommendations are made at this time. Time with Patient: Less than 30
[2017-12-17 16:41] LABS: Glucose,Whole Blood 345 mg/dL (75-99)
--- NOTE | 2017-12-17 17:32 | PN ---
PROGRESS NOTE DATE OF SERVICE: 12/17/2017 This 77-year-old woman who was admitted with hypoglycemia and poorly controlled diabetes mellitus, also had complete heart block. Patient had a pacemaker implantation. No chest pain. No palpitations. No fever. PHYSICAL EXAM: Alert and oriented. Pulse 67, blood pressure 160/64, respiration 18, temperature 98.2, pulse ox 97% on room air. HEENT: Conjunctivae normal. NECK: No jugular venous distention. CARDIOVASCULAR: S1, S2. RESPIRATORY: Breath sounds diminished in the bases. A few rhonchi, no crackles. ABDOMEN: Soft, nontender. No mass palpable. LEGS: No edema. No swelling. NERVOUS SYSTEM: Mild diffuse weakness. Examination of the left chest status post pacemaker implantation. LABS: WBC 7, hemoglobin 10.9, creatinine 1.31. ASSESSMENT: 1. Complete heart block severe symptomatic bradycardia, status post pacemaker implantation. 2. Hypoglycemia, poorly controlled diabetes mellitus type 2, present on admission. 3. History of atrial fibrillation. 4. History of asthma. 5. History of coronary artery disease. 6. History of congestive heart failure. 7. Diabetes mellitus type 2. 8. History of fibromyalgia. 9. History of GI bleed. 10.History of hyperlipidemia. 11.History of degenerative joint disease. 12.History of pneumonia. 13.History of sleep apnea. 14.History hypothyroidism. 15.History of neuropathy. 16.History of sarcoidosis. 17.History of lupus and disease. 18.History adenoidectomy. 19.History of coronary artery disease, stent. RECOMMENDATIONS AND DISCUSSION: I recommend to continue current management and symptomatic treatment. Otherwise at this time, PT and OT evaluation, possible ECF rehab. Closely follow with Cardiology. Guarded prognosis. Further recommendations to follow. MMODL / IJN: [id number] / MANDY
[2017-12-17] MEDS: diphenhydrAMINE 50 MG CAP PO SCH (20:31)
[2017-12-17 20:48] LABS: Glucose,Whole Blood 267 mg/dL (75-99)
[2017-12-17] MEDS: SODIUM CHLORIDE 0.9% 1,000 ML IV SCH (21:00)
[2017-12-18 06:14] LABS: Glucose,Whole Blood 118 mg/dL (75-99)
[2017-12-18 06:27] LABS: Calcium 9.1 mg/dL (8.4-10.2); Potassium 5.2 mmol/L (3.5-5.1)
[2017-12-18] MEDS: INSULIN ASPART 100 UNIT/ML 1 ML 10 ML VIAL SQ SCH ×3 (06:29→17:28)
[2017-12-18] MEDS: PANTOPRAZOLE 40 MG TABLET PO SCH ×2 (06:29→17:22)
[2017-12-18] MEDS: LEVOTHYROXINE 137 MCG TAB PO SCH (06:29)
[2017-12-18 06:31] LABS: Basophils % (A) 0 %; Eosinophils # (A) 0.1 k/uL (0-0.7); Eosinophils % (A) 2 %; HCT 31.8 % (34.0-46.0); HGB 10.7 gm/dL (11.4-16.0); Lymphocytes # (A) 0.7 k/uL (1.0-4.8); Lymphocytes % (A) 9 %; MCH 30.3 pg (25.0-35.0); MCHC 33.6 g/dL (31.0-37.0); MCV 90.2 fL (80.0-100.0); Mean Platelet Volume 7.9; Monocytes # (A) 0.6 k/uL (0-1.0); Monocytes % (A) 7 %; Neutrophils # (A) 6.4 k/uL (1.3-7.7); Neutrophils % (A) 81 %; Platelet Count 142 k/uL (150-450); RBC 3.53 m/uL (3.80-5.40); RDW 13.8 % (11.5-15.5); WBC 7.9 k/uL (3.8-10.6)
[2017-12-18] MEDS ORDERED: ATORVASTATIN 10 MG TAB PO SCH (09:00)
[2017-12-18] MEDS: amLODIPine 5 MG TAB PO SCH (09:02)
[2017-12-18] MEDS: APIXABAN 5 MG TAB PO SCH (09:02)
[2017-12-18] MEDS: predniSONE 10 MG TAB PO SCH (09:02)
[2017-12-18] MEDS: GABAPENTIN 300 MG CAP PO SCH ×2 (09:02→17:22)
[2017-12-18] MEDS: METOPROLOL SUCCINATE (ER) 50 MG TAB.ER.24H PO SCH (09:02)
--- NOTE | 2017-12-18 10:49 | P.PN ---
Subjective Progress Note Date: 12/18/17 This is a pleasant 77-year-old female who follows with Dr. Ortiz in the office she presented to the hospital with complete heart block and underwent implantation of a permanent pacemaker. Her device was interrogated and is functioning appropriately, chest x-ray was reviewed yesterday and did not reveal any evidence of a pneumothorax. She was seen and examined this morning, feels well, denies any palpitations, no dizziness or lightheadedness. Blood pressure 150/48, heart rate in the 70s, 97% on room air. White blood cell count 7.2, hemoglobin 10.7, platelet count 144. Sodium 137, potassium 4.8 , BUN 39, creatinine 1.3. Physical therapy was in this morning to assist with ambulation, patient is much longer today overall. She should be able to be discharged home today from cardiology's perspective, we'll make her a follow-up appointment to see Dr. Ortiz in the office post discharge. 12/18/2017 Patient was seen and examined this morning, originally arrangements are being made for her to go to [facility] yesterday, she wishes to be discharged home. Hemodynamically stable. Objective - Vital Signs Vital signs: Vital Signs Temp 98.5 F 12/18/17 08:00 Pulse 70 12/18/17 08:00 Resp 18 12/18/17 08:00 BP 160/61 12/18/17 08:00 Pulse Ox 98 12/18/17 08:00 Intake & Output 12/17/17 12/18/17 12/18/17 18:59 06:59 18:59 Intake Total 594 180 480 Output Total 250 Balance 344 180 480 Weight 106.5 kg Intake: IV 180 Sodium Chloride 0.9% 1, 180 000 ml @ 20 mls/hr IV . Q24H [facility] Rx#:[id number] Oral 594 480 Output: Urine 250 Other: Voiding Method Toilet Toilet # Voids 2 1 1 # Bowel Movements 0 - Exam PHYSICAL EXAMINATION: HEENT: Head is atraumatic, normocephalic. Pupils equal, round. Neck is supple. There is no elevated jugular venous pressure. HEART EXAMINATION: Heart S1 and S2 systolic ejection murmur is heard. Site of pacemaker implantation dressing is dry and intact. CHEST EXAMINATION: Lungs are clear to auscultation and precussion. No chest wall tenderness is noted on palpation or with deep breathing. ABDOMEN: Soft, nontender. Bowel sounds are heard. No organomegaly noted. EXTREMITIES: 1+ peripheral pulses with trace evidence of peripheral edema and mild areas of redness noted . NEUROLOGIC patient is awake, alert and oriented -3. . - Labs CBC & Chem 7: 12/18/17 05:51 12/18/17 05:51 Labs: Abnormal Lab Results - Last 24 Hours (Table) 12/17/17 12/17/17 12/17/17 Range/Units 12:21 16:38 20:46 RBC (3.80-5.40) m/uL Hgb (11.4-16.0) gm/dL Hct (34.0-46.0) % Plt Count (150-450) k/uL Lymphocytes # (1.0-4.8) k/uL Potassium (3.5-5.1) mmol/L BUN (7-17) mg/dL Creatinine (0.52-1.04) mg/dL Glucose (74-99) mg/dL POC Glucose (mg/dL) 224 H 345 H 267 H (75-99) mg/dL 12/18/17 12/18/17 12/18/17 Range/Units 05:51 05:51 06:11 RBC 3.53 L (3.80-5.40) m/uL Hgb 10.7 L (11.4-16.0) gm/dL Hct 31.8 L (34.0-46.0) % Plt Count 142 L (150-450) k/uL Lymphocytes # 0.7 L (1.0-4.8) k/uL Potassium 5.2 H (3.5-5.1) mmol/L BUN 37 H (7-17) mg/dL Creatinine 1.11 H (0.52-1.04) mg/dL Glucose 128 H (74-99) mg/dL POC Glucose (mg/dL) 118 H (75-99) mg/dL Assessment and Plan Plan: Assessment and plan #1 complete heart block status post implantation of a permanent pacemaker #2 paroxysmal atrial fibrillation #3 hypertension #4 hyperlipidemia # 5 diabetes #6 hypothyroidism #7 history of sarcoidosis and autoimmune hepatitis Plan Because of the patient's episodes of paroxysmal atrial fibrillation, she was initiated on Eliquis for anticoagulation. She may be able to be discharged home from cardiology's perspective, we'll make her a follow-up appointment to follow-up in the office with Dr. VC Ortiz post discharge. DNP note has been reviewed, I agree with a documented findings and plan of care. Patient was seen and examined.
[2017-12-18 11:47] LABS: Glucose,Whole Blood 281 mg/dL (75-99)
--- NOTE | 2017-12-18 13:55 | P.PN ---
Subjective Progress Note Date: 12/18/17 Principal diagnosis: Hypoglycemia and hyperkalemia with heart block Progress note dated 12/16/2017 This is a 77-year-old female admitted with third-degree heart block a low blood glucose and a high potassium. The patient does have history of quiesced and sarcoidosis and autoimmune hepatitis. In addition, the patient suffers from asthma atrial fibrillation with previous ablation diabetes fibromyalgia hyperlipidemia hypertension mitral valve prolapse osteoarthritis and sleep apnea syndrome. The patient currently is doing reasonably reasonably well. The patient's currently in the ICU. The patient had a pacemaker placed yesterday for heart block. The patient's getting an IV of saline at KVO and a couple liters of nasal O2. [employer] disturbances have been corrected. He denies any pain shortness breath difficulty breathing nausea vomiting diarrhea palpitations chest pressure or other chest complaints at this time. Progress note dated 12/17/2017 77-year-old female admitted with third-degree heart block. She was also found to have hypoglycemia and hyperkalemia. The patient is doing relatively well. Yesterday she was in the treatment room in the ICU. She was transferred out per cardiology. The patient does have a history of inactive sarcoidosis and autoimmune hepatitis. She also suffers from asthma atrial fibrillation previous ablation diabetes fibromyalgia hyperlipidemia hypertension mitral valve prolapse DJD and sleep apnea syndrome. The patient seems be doing relatively well. Sitting up at the bedside today when seen. No distress. Not requiring any supplemental oxygen. She might be discharged home in a day or 2. Actually the recovery agent yesterday thought that she could be discharged from the unit yesterday. This did not happen. No complaints today. Progress note dated 12/18/2017 77-year-old female who came in with third-degree heart block. She was also initially found have hypoglycemia and hyperkalemia. These were corrected. The patient status post permanent pacemaker insertion. The patient was seen by cardiology. The patient does have a history of inactive sarcoidosis and autoimmune hepatitis. She also suffers some mild asthma atrial fibrillation with previous ablation diabetes mellitus fibromyalgia hyperlipidemia hypertension mitral valve prolapse DJD and sleep apnea syndrome. The patient may be discharged home the next day or so. She's doing well. Not requiring any supplemental oxygen. Again the patient status post permanent pacemaker insertion. Seemed to be doing relatively well. No other complaints of shortness of breath chest tightness wheezing cough phlegm production chest pain chest breath pressure palpitations nausea vomiting or diarrhea. Objective - Vital Signs Vital signs: Vital Signs Temp 98.2 F 12/18/17 12:00 Pulse 64 12/18/17 12:00 Resp 16 12/18/17 12:00 BP 164/79 12/18/17 12:00 Pulse Ox 98 12/18/17 12:00 Intake & Output 12/17/17 12/18/17 12/18/17 18:59 06:59 18:59 Intake Total 594 180 480 Output Total 250 Balance 344 180 480 Weight 106.5 kg Intake: IV 180 Sodium Chloride 0.9% 1, 180 000 ml @ 20 mls/hr IV . Q24H ENZO Rx#:[id number] Oral 594 480 Output: Urine 250 Other: Voiding Method Toilet Toilet # Voids 2 1 1 # Bowel Movements 0 - Exam No acute distress, The patient is oriented 3 HEENT examination is grossly unremarkable. Mucous membranes are moist. No oral lesions. Neck supple. Full range of motion. No adenopathy thyromegaly or neck vein distention. Cardiovascular examination reveals regular rhythm rate. S1-S2 normal. No S3 or S4. No discernible murmur noted. Lungs reveal clear breath sounds. Her sounds are equal bilaterally. No adventitious lung sounds including wheezes rhonchi or crackles. Abdomen soft bowel sounds are heard. No masses or tenderness. Extremities are intact. No cyanosis clubbing or edema. Skin is without rash or lesion. Neurologic examination is brief but nonfocal. - Labs CBC & Chem 7: 12/18/17 05:51 12/18/17 05:51 Labs: Abnormal Lab Results - Last 24 Hours (Table) 12/17/17 12/17/17 12/18/17 Range/Units 16:38 20:46 05:51 RBC 3.53 L (3.80-5.40) m/uL Hgb 10.7 L (11.4-16.0) gm/dL Hct 31.8 L (34.0-46.0) % Plt Count 142 L (150-450) k/uL Lymphocytes # 0.7 L (1.0-4.8) k/uL Potassium (3.5-5.1) mmol/L BUN (7-17) mg/dL Creatinine (0.52-1.04) mg/dL Glucose (74-99) mg/dL POC Glucose (mg/dL) 345 H 267 H (75-99) mg/dL 12/18/17 12/18/17 12/18/17 Range/Units 05:51 06:11 11:44 RBC (3.80-5.40) m/uL Hgb (11.4-16.0) gm/dL Hct (34.0-46.0) % Plt Count (150-450) k/uL Lymphocytes # (1.0-4.8) k/uL Potassium 5.2 H (3.5-5.1) mmol/L BUN 37 H (7-17) mg/dL Creatinine 1.11 H (0.52-1.04) mg/dL Glucose 128 H (74-99) mg/dL POC Glucose (mg/dL) 118 H 281 H (75-99) mg/dL Assessment and Plan Assessment: Assessment Status post pacemaker insertion on December 15 for complete heart block History of hypoglycemia History of hyperkalemia. History of sarcoidosis, inactive History of autoimmune hepatitis History of asthma Previous history of atrial fibrillation with ablation Diabetes mellitus Fibromyalgia Hyperlipidemia Hypertension Mitral valve prolapse DJD Sleep apnea syndrome Plan: Plan dated 12/16/2017 The patient seemed be doing relatively well. We'll monitor her closely. We'll monitor her electrolytes. We'll pay special attention to potassium and magnesium levels. In addition, we'll continue to watch her glucose. The patient seemed to be relatively stable from the cardiovascular and hemodynamic standpoint at this time. Her respiratory status also seems stable. Prognosis is good. Additional recommendations and suggestions are forthcoming. Critical care time 32 minutes Plan dated 12/17/2017 the patient seemed be doing relatively well. Hopeful discharge soon. The patient denies any respiratory or cardiac issues at this time. We'll continue to follow. Prognosis is generally thought to be good. Additional recommendations are made at this time. Plan dated 12/18/2017 The patient seemed be doing relatively well. Possible discharge in next day or so. The patient denies all chest complaints. No difficulty breathing coughing wheezing or phlegm production. Not coughing up any blood. His pressure. In addition, not having any of the additional electrolyte disturbances that she had when she first came into the hospital including hypoglycemia and hyperkalemia. Time with Patient: Less than 30
[2017-12-18 16:33] VITALS: BP 147/65; PULSE 69; RESP 14; TEMP 97.5
[2017-12-18 16:51] LABS: Glucose,Whole Blood 287 mg/dL (75-99)
[2017-12-18] MEDS: FERROUS SULFATE 325 MG TAB PO SCH (17:22)
--- NOTE | 2017-12-18 20:30 | DS ---
DISCHARGE SUMMARY FINAL DIAGNOSES: 1. Complete heart block with severe symptomatic bradycardia, status post pacemaker implantation. 2. Hyperglycemia, poorly controlled. Diabetes mellitus type 2, present on admission. 3. History of atrial fibrillation. 4. History of asthma. 5. Coronary artery disease. 6. Congestive heart failure. 7. History of diabetes mellitus type 2. 8. History of fibromyalgia. 9. Gastrointestinal bleed. 10.Hyperlipidemia. 11.History of degenerative joint disease. 12.History of pneumonia. 13.Sleep apnea. 14.History of hypothyroidism. 15.History of neuropathy. 16.History of sarcoidosis. 17.History of lupus. 18.History of adenoidectomy. 19.History of coronary artery disease, stent. DISCHARGE DISPOSITION: The patient will be discharged in stable condition with a guarded prognosis. HISTORY OF PRESENT ILLNESS: This 77-year-old woman with a past history of multiple medical problems was admitted with hyperglycemia and poorly-controlled diabetes mellitus. The patient also noted to have severe bradycardia and complete AV block. Patient underwent a pacemaker implantation. Otherwise, Cardiology and Dr. Eid saw the patient. The patient improved significantly. EXAM: Vitals are stable. CARDIOVASCULAR: Normal. ABDOMEN: Soft. NERVOUS SYSTEM: No focal deficits. Discharge diet is cardiac. Activity limited until followup. Follow up with Dr. Snowden in 2-3 days. Follow up with Dr. Lynn Ortiz as advised. MEDICATIONS: 1. Norvasc 5 mg p.o. daily. 2. Eliquis 5 mg p.o. b.i.d. 3. Benadryl 50 mg q.h.s. 4. Vitamin D2 50,000 Saturday. 5. Fenofibrate 160 mg p.o. daily. 6. Iron sulfate 325 mg q.48 hours. 7. Lasix 40 mg p.o. daily. 8. Gabapentin 300 mg p.o. t.i.d. 9. [place] 7.5 every 6 hours p.r.n. 10.Humalog scale 151-200, 2 units; 201-250, 4 units, 251-300, 6 units and 301-350, 8 units, 351-400, 10 units, more than 400, call. 11.Synthroid 137 mcg p.o. daily. 12.Toprol-XL 50 mg p.o. daily. 13.Nitrostat 0.4 sublingual p.r.n. 14.Omeprazole 20 mg p.o. b.i.d. 15.Prednisone 10 mg p.o. daily. 16.Crestor 5 mg p.o. Saturday. Once again, the patient will be discharged in stable condition with guarded prognosis. MARITA / KAYODE: [id number] /
--- NOTE | 2017-12-19 14:15 | CDI ---
Last Revision, August 2017 Date: 12/19/2017 12:00:00 AM From: ANJEL Damian; Swathi Ma [employer] Phone: If you have a question about this query, please contact Swathi Ma [employer] at [phone] between 8am and 5pm. Admit Date: 12/15/2017 12:14:00 PM Patient Name: Isabel Herrera Visit Number: [id number] Discharge Date: 12/15/17 ATTENTION: The Clinical Documentation Specialists (CDI) and [facility] Coding Staff appreciate your assistance in clarifying documentation. Please respond to the clarification below the line at the bottom and electronically sign. The CDI & [facility] Coding staff will review the response and follow-up if needed. Please note: Queries are made part of the Legal Health Record. If you have any questions, please contact the author of this message via ITS. Dr. Toni Arguelles History/Risk Factors:. Complete heart block, CAD, JANN. Home Lasix 40 mg po daily. Echocardiogram Results: preserved systolic dysfunction with. EF 55-60% Chest X Ray: cardiomegaly and mild heart failure. Treatment: 40 mg IV Lasix In your professional opinion, can you please clarify the acuity and type of CHF if known? Systolic Heart Failure: Acute Chronic Acute on Chronic Diastolic Heart Failure: Acute Chronic Acute on Chronic Systolic & Diastolic Heart Failure: Acute Chronic Acute on Chronic Heart Failure Unable to Determine Other, please specify Diastolic Heart Failure: Chronic MTDD
== END 2017-12-18 19:58 | disposition home or self-care (01) | DRG 243 ==
LOC: EC 10:20 → 3OBS 11:48 → 6ICU 23:15 → OBSVTOIN 12-15 12:14 → 6SEL 12-16 14:37
PROVIDERS: ADMIT Hospitalist; ATTEND Hospitalist
PROC: 5A1223Z Performance of Cardiac Pacing, Continuous (ICD-10-PCS; 2017-12-15)
PROC: 02HK3JZ Insertion of Pacemaker Lead into Right Ventricle, Percutaneous Approach (ICD-10-PCS; principal; 2017-12-15 10:10)
PROC: 4A023FZ Measurement of Cardiac Rhythm, Percutaneous Approach (ICD-10-PCS; principal; 2017-12-15 10:10)
PROC: 4A0234Z Measurement of Cardiac Electrical Activity, Percutaneous Approach (ICD-10-PCS; principal; 2017-12-15 10:10)
PROC: 02H63JZ Insertion of Pacemaker Lead into Right Atrium, Percutaneous Approach (ICD-10-PCS; principal; 2017-12-15 10:10)
PROC: 0JH606Z Insertion of Pacemaker, Dual Chamber into Chest Subcutaneous Tissue and Fascia, Open Approach (ICD-10-PCS; principal; 2017-12-15 10:10)
DX: I44.2 Atrioventricular block, complete (principal); I50.32 Chronic diastolic (congestive) heart failure; E11.649 Type 2 diabetes mellitus with hypoglycemia without coma; E87.5 Hyperkalemia; D86.9 Sarcoidosis, unspecified; I49.5 Sick sinus syndrome; E03.9 Hypothyroidism, unspecified; E78.5 Hyperlipidemia, unspecified; G47.33 Obstructive sleep apnea (adult) (pediatric); I11.0 Hypertensive heart disease with heart failure; I25.10 Atherosclerotic heart disease of native coronary artery without angina pectoris; I25.2 Old myocardial infarction; I34.1 Nonrheumatic mitral (valve) prolapse; I48.0 Paroxysmal atrial fibrillation; J45.909 Unspecified asthma, uncomplicated; K75.4 Autoimmune hepatitis; M19.90 Unspecified osteoarthritis, unspecified site; M79.7 Fibromyalgia; Z79.4 Long term (current) use of insulin; Z79.52 Long term (current) use of systemic steroids; Z79.82 Long term (current) use of aspirin; Z79.899 Other long term (current) drug therapy; Z82.49 Family history of ischemic heart disease and other diseases of the circulatory system; Z87.01 Personal history of pneumonia (recurrent); Z90.710 Acquired absence of both cervix and uterus; Z95.5 Presence of coronary angioplasty implant and graft
CPT/HCPCS: 33208; 33210; 36415; 71045; 71046; 80048; 80053; 80162; 83036; 83735; 84100; 84132; 84443; 84484; 85025; 85610; 93005; 93306; 96374; 99285

== ENCOUNTER → 2018-03-17 | Outpatient (CLI) | payer MEDICARE ==
[2018-03-17 09:24] LABS: INR 1.2 (<1.2); Prothrombin Time 11.5 sec (9.0-12.0)
[2018-03-17 09:26] LABS: HCT 39.7 % (34.0-46.0); HGB 12.7 gm/dL (11.4-16.0); MCH 29.2 pg (25.0-35.0); MCHC 31.9 g/dL (31.0-37.0); MCV 91.4 fL (80.0-100.0); Mean Platelet Volume 7.2; Platelet Count 143 k/uL (150-450); RBC 4.35 m/uL (3.80-5.40); RDW 13.6 % (11.5-15.5); WBC 7.1 k/uL (3.8-10.6)
[2018-03-17 09:36] LABS: Albumin 3.4 g/dL (3.5-5.0); Calcium 9.4 mg/dL (8.4-10.2); Potassium 4.6 mmol/L (3.5-5.1); Total Bilirubin 0.6 mg/dL (0.2-1.3); Total Protein 6.3 g/dL (6.3-8.2)
== END | disposition home or self-care (01) ==
LOC: LABWHC1 08:11
PROVIDERS: ATTEND Internal Medicine Gastroenterology
DX: K74.60 Unspecified cirrhosis of liver (principal)
CPT/HCPCS: 36415; 80053; 82105; 85027; 85610

== ENCOUNTER → 2018-04-08 | Outpatient (CLI) | payer MEDICARE ==
--- NOTE | 2018-04-08 08:54 | US ---
EXAMINATION TYPE: US liver DATE OF EXAM: 04/08/2018 COMPARISON: US liver October 16, 2017, CT chest CLINICAL HISTORY: K74.60 Unspecified Cirrhosis of Liver; following right liver lesion; patient stated has autoimmune hepatitis, lupus and sarcoidosis; gallbladder remove; diabetic; multiple allergies EXAM MEASUREMENTS: Liver Length: 13.2 cm Gallbladder Wall: surgically removed CBD: 0.5 cm Right Kidney: 10.3 x 5.8 x 6.3 cm Pancreas: hyperechoic Liver: heterogeneous with lobular borders; right lobe hypoechoic oval mass is noted on images #8,12, 26 thru 28 and size = 1.2 x 1.1 x 0.6cm . Gallbladder: surgically removed Evidence for sonographic Coronel's sign: no CBD: wnl Right Kidney: No hydronephrosis or masses seen Main Portal Vein Flow and CAMRON Flow is to liver; Hepatic Vein flow (as seen in one vein) is to IVC. Va scularity of liver was assessed for cirrhosis diagnosis. Visualized pancreas is slightly heterogeneous without mass or ductal ductal dilatation. Visualized li theron is lobulated and heterogeneous hyperechoic in appearance. Evaluation for focal masses suboptimal due to the heterogeneity. There is a 1.2 x 0.6 x 1.1 cm oval hypoechoic area left hepatic lobe may co rrelate with prior visualized lesion. There is satisfactory monophasic hepatopedal flow to liver in m ain portal vein. There is hepatofugal patent hepatic vein draining into IVC. No surrounding ascites i s present. IMPRESSION: Cirrhotic liver redemonstrated with nonspecific 1.2 cm left hepatic lobe lesion seen. If patient has elevated alpha-fetoprotein consider further investigation with liver protocol contrast-en hanced MRI study.
== END | disposition home or self-care (01) ==
LOC: RADUSWWP 07:33
PROVIDERS: ATTEND Internal Medicine Gastroenterology
DX: K74.60 Unspecified cirrhosis of liver (principal); K76.89 Other specified diseases of liver
CPT/HCPCS: 76705

== ENCOUNTER → 2018-04-14 | Outpatient (CLI) | payer MEDICARE ==
[2018-04-14 09:06] LABS: Albumin 3.3 g/dL (3.5-5.0); Calcium 9.3 mg/dL (8.4-10.2); Potassium 4.5 mmol/L (3.5-5.1); Total Bilirubin 0.7 mg/dL (0.2-1.3); Total Protein 6.2 g/dL (6.3-8.2)
[2018-04-14 18:43] LABS: Hemoglobin A1C 8.3 % (4.0-6.0)
== END | disposition home or self-care (01) ==
LOC: LABWHC1 08:07
PROVIDERS: ATTEND Internal Medicine Endocrinology, Diabetes & Metabolism
DX: E11.65 Type 2 diabetes mellitus with hyperglycemia (principal); E03.8 Other specified hypothyroidism
CPT/HCPCS: 36415; 80053; 80061; 83036; 84443

== ENCOUNTER 2018-08-26 10:35 | Observation (INO) | payer MEDICARE ==
[2018-08-26 10:46] VITALS: RESP 18
[2018-08-26 12:22] LABS: Basophils % (A) 0 %; Eosinophils # (A) 0.1 k/uL (0-0.7); Eosinophils % (A) 2 %; HCT 36.7 % (34.0-46.0); HGB 12.1 gm/dL (11.4-16.0); Hypochromasia Slight; Lymphocytes # (A) 0.6 k/uL (1.0-4.8); Lymphocytes % (A) 10 %; MCH 29.7 pg (25.0-35.0); MCHC 33.1 g/dL (31.0-37.0); MCV 89.7 fL (80.0-100.0); Mean Platelet Volume 8.7; Monocytes # (A) 0.5 k/uL (0-1.0); Monocytes % (A) 8 %; Neutrophils # (A) 4.5 k/uL (1.3-7.7); Neutrophils % (A) 79 %; Platelet Count 135 k/uL (150-450); RBC 4.09 m/uL (3.80-5.40); RDW 13.9 % (11.5-15.5); WBC 5.8 k/uL (3.8-10.6)
[2018-08-26 12:26] LABS: Calcium 9.6 mg/dL (8.4-10.2); Total Protein 6.7 g/dL (6.3-8.2)
[2018-08-26 12:34] LABS: Potassium 4.9 mmol/L (3.5-5.1)
--- NOTE | 2018-08-26 12:36 | XR ---
EXAMINATION TYPE: XR chest 2V DATE OF EXAM: 08/26/2018 COMPARISON: 12/16/2017 HISTORY: Shortness of breath TECHNIQUE: Frontal and lateral views of the chest are obtained. FINDINGS: Scattered senescent parenchymal changes noted. No evidence for infiltrate. No evidence for atelectasis. Heart size is stable. Mediastinal structures are stable and grossly unremarkable. No evidence for hilar prominence. Degenerative changes dorsal spine. IMPRESSION: 1. No evidence for acute pulmonary disease.
[2018-08-26 12:37] LABS: Creatine Kinase 48 U/L (30-135)
--- NOTE | 2018-08-26 12:38 | XR ---
EXAMINATION TYPE: XR Hip Bilateral and AP pelvis DATE OF EXAM: 08/26/2018 CLINICAL HISTORY: Pelvic and right hip pain. TECHNIQUE: A single AP view of the pelvis is obtained. 2 views of the bilateral hips are submitted. C OMPARISON: None. FINDINGS: There is no acute fracture/dislocation evident in the pelvis or hips. Moderate degenerative narrowing of the bilateral hip joint spaces are right slightly greater than left. Lumbar degenerative change n oted as well. No osseous lesions seen. IMPRESSION: There is no acute fracture or dislocation
[2018-08-26 12:41] LABS: INR 1.4 (<1.2); Partial Thromboplastin Time 27.9 sec (22.0-30.0); Prothrombin Time 12.8 sec (9.0-12.0)
[2018-08-26 12:49] LABS: Troponin I <0.012 ng/mL (0.000-0.034)
--- NOTE | 2018-08-26 13:24 | CT ---
EXAMINATION TYPE: CT brain maria fernanda chandra DATE OF EXAM: 08/26/2018 COMPARISON: 12/05/2012 HISTORY: Fall CT DLP: 1644.[address] of the brain was performed. The ventricles, basal cisterns and sulci overlying the cerebral convexities demonstrate enlargement. There is no evidence for intracranial hemorrhage or sulcal effacement. There is decreased attenuatio n about the periventricular white matter and deep white matter of both cerebral hemispheres, compatib le with chronic small vessel ischemia. No mass effects are seen. If symptoms persist consider MRI. Osseous calvarium is intact. IMPRESSION: 1. Age related atrophic and chronic small vessel ischemic change without acute intracranial process seen at this time. CT Cervical Spine: Unenhanced CT of the cervical spine was performed with bone and soft tissue window settings submitted . Coronal and sagittal reconstruction is obtained. There is normal alignment and prevertebral soft tissues. No evidence for acute cervical fracture . S evere Scattered degenerative disc disease and spondylosis. Biapical scarring. IMPRESSION: 1. No evidence for acute fracture or subluxation of the cervical spine.
--- NOTE | 2018-08-26 13:29 | CT ---
EXAMINATION TYPE: CT lumbar spine wo con DATE OF EXAM: 08/26/2018 COMPARISON: None HISTORY: Fall CT DLP: [address] of the lumbar spine was performed. Bone and soft tissue window settings are submitted as well as coronal and sagittal reconstructions. T12-L1: Severe degenerative disc space narrowing with endplate sclerosis and irregularity. Moderate v entral and dorsal spondylosis. Effacement ventral thecal sac. Bilateral lateral recess stenosis and b ilateral foraminal encroachment. L1-L2: Normal disc space height. No disc herniation protrusion or central stenosis. No facet joint arthropathy. No evidence for foraminal encroachment. L2-L3: Normal disc space height. No disc herniation protrusion or central stenosis. No facet joint arthropathy. No evidence for foraminal encroachment. L3-L4: Severe degenerative disc space narrowing with endplate irregularity and sclerosis. Grade 1 ant erolisthesis measuring 4.4 mm. Ventral and dorsal spondylosis. Distortion of the thecal sac with bila teral lateral recess stenosis. Bilateral spondylolysis. Bilateral foraminal encroachment noted. L4-L5: Moderate degenerative disc space narrowing. Moderate circumferential disc bulge. Grade 1 anter olisthesis L4 and L5 measuring 5.1 mm. Severe facet joint arthropathy. Bilateral foraminal encroachme nt. Central stenosis moderate in degree. L5-S1: Severe degenerative disc space narrowing. Circumferential disc bulge with mild effacement vent ral thecal sac. Facet joint arthropathy. Left foraminal encroachment. No paraspinal masses are identified. Lumbar segments are free if fracture. IMPRESSION: 1. Severe multilevel degenerative disc disease with endplate sclerosis at T12-L1 and L3-L4. 2. Spondylolisthesis as discussed. At L3-4 there is bilateral spondylolysis.
[2018-08-26] MEDS ORDERED: SODIUM CHLORIDE 0.9% 500 ML 500 ML IV ONE (13:33)
[2018-08-26] MEDS ORDERED: MORPHINE SULFATE 2 MG/ML SYRINGE IVP STA (13:35)
[2018-08-26] MEDS ORDERED: NALOXONE 0.4 MG/ML 1 ML VIAL IV PRN (13:59)
[2018-08-26] MEDS ORDERED: ACETAMINOPHEN TAB 325 MG TAB PO PRN (13:59)
[2018-08-26] MEDS ORDERED: IBUPROFEN 400 MG TAB PO PRN (13:59)
--- NOTE | 2018-08-26 14:04 | ED ---
Fall HPI <Deshaun Goodman - Last Filed: 08/26/18 14:19> - General Source: patient, EMS Mode of arrival: EMS <Ghislaine Solis - Last Filed: 08/26/18 18:27> - General Chief Complaint: Fall Stated Complaint: Back pain Time Seen by Provider: 08/26/18 11:32 - History of Present Illness Initial Comments: 78yo old female with past medical history of atrial fibrillation, coronary artery disease, heart failure, diabetes mellitus, hypertension, hyperlipidemia, fibromyalgia, autoimmune hepatitis presenting today for for fall and low back pain. Patient is a poor historian, she states that she fell on Saturday she is not exactly sure why. She states she was in a small hallway, she fell down onto her butt. She hit her arm lightly on the wall, denies current pain. Patient is not sure shows consciousness. Patient thinks she hit her head. Patient denies any nausea vomiting, headaches, diplopia, visual changes, facial asymmetry, muscle weakness or loss of sensation, paresthesias, loss of bowel bladder control, urinary retention, numbness between the legs, loss of sensation or muscle weakness of the lower extremities. Today patient awoke and it is difficult to get out of bed, she states it was due to her low back pain. Family had difficulty getting her out of the bed due to the pain and presents emergency department for evaluation for possible fracture. They were concerned that when she fell on Saturday that she fractured her spine. Upon history taking from family they state the patient has seemed for the past few weeks to be a more chronic pain including the knees and more fatigued. Remainder of ROS negative, patient denies any recent fever, chills, shortness of breath, chest pain, abdominal pain, nausea or vomiting, numbness or tingling, dysuria or hematuria, constipation or diarrhea, headaches or visual changes, or any other complaints. Upon arrival pt VS within acceptable limits, pt appears fatigued but not altered. AAOx4, appropriately answering questions. (Ghislaine Solis) - Related Data Home Medications Medication Instructions Recorded Confirmed Ergocalciferol (Vitamin D2) 50,000 unit PO BENSON 02/09/14 08/26/18 [Drisdol] Ferrous Sulfate [Feosol] 325 mg PO Q48H 02/09/14 08/26/18 Furosemide 40 mg PO DAILY 02/09/14 08/26/18 Levothyroxine Sodium [Synthroid] 137 mcg PO DAILY 02/09/14 08/26/18 Omeprazole 20 mg PO BID 02/09/14 08/26/18 diphenhydrAMINE [Benadryl] 50 mg PO HS 09/30/16 08/26/18 predniSONE 10 mg PO DAILY 09/30/16 08/26/18 Fenofibrate 160 mg PO DAILY 12/14/17 08/26/18 Nitroglycerin Sl Tabs [Nitrostat] 0.4 mg SUBLINGUAL Q5M PRN 12/14/17 08/26/18 Rosuvastatin Calcium [Crestor] 5 mg PO WE 12/14/17 08/26/18 Aspirin EC [Ecotrin Low Dose] 81 mg PO DAILY 08/26/18 08/26/18 Calcium Carbonate [Calcium] 600 mg PO TID 08/26/18 08/26/18 Gabapentin 600 mg PO TID 08/26/18 08/26/18 Insulin NPH Human Isophane 15 unit SQ HS 08/26/18 08/26/18 [NovoLIN N] Insulin NPH Human Isophane 80 unit SQ DAILY 08/26/18 08/26/18 [NovoLIN N] Insulin Regular, Human [NovoLIN R] See Protocol SQ AC-TID 08/26/18 08/26/18 Losartan [Cozaar] 50 mg PO DAILY 08/26/18 08/26/18 Meloxicam 15 mg PO DAILY 08/26/18 08/26/18 Potassium Chloride [Klor-Con 10] 5 meq PO DAILY 08/26/18 08/26/18 Previous Rx's Medication Instructions Recorded Apixaban [Eliquis] 5 mg PO BID tab 12/17/17 Metoprolol Succinate (ER) [Toprol 50 mg PO DAILY #30 tab.er.24h 12/17/17 XL] Allergies Allergy/AdvReac Type Severity Reaction Status Date / Time levofloxacin [From Levaquin] Allergy Intermediate Unknown Verified 08/26/18 11: 08 Penicillins Allergy Intermediate Rash/Hives Verified 08/26/18 11:08 Sulfa (Sulfonamide Allergy Intermediate Rash/Hives Verified 08/26/18 11:08 Antibiotics) cephalexin monohydrate Allergy Unknown Unknown Verified 08/26/18 11:08 [From Keflex] erythromycin base Allergy Unknown Rash/Hives Verified 08/26/18 11:08 [From E-Mycin] gatifloxacin [From Tequin] Allergy Unknown Unknown Verified 08/26/18 11:08 nitrofurantoin Allergy Unknown Unknown Verified 08/26/18 11:08 macrocrystalline [From Macrodantin] [place] Allergy Unknown Verified 08/26/18 11:08 apricot Allergy Unknown Verified 08/26/18 11:08 asparagus Allergy Unknown Verified 08/26/18 11:08 banana [Banana] Allergy Unknown Verified 08/26/18 11:08 cabbage Allergy Unknown Verified 08/26/18 11:08 carrot Allergy Unknown Verified 08/26/18 11:08 ciprofloxacin [From Cipro] Allergy Unknown Verified 08/26/18 11:08 ciprofloxacin HCl Allergy Unknown Verified 08/26/18 11:08 [From Cipro] Coconut Allergy Unknown Verified 08/26/18 11:08 coffee (Coffea arabica) Allergy Unknown Verified 08/26/18 11:08 [coffee] cucumber Allergy Unknown Verified 08/26/18 11:08 flaxseed Allergy Unknown Verified 08/26/18 11:08 sam Allergy Unknown Verified 08/26/18 11:08 grapefruit [Grapefruit] Allergy Unknown Verified 08/26/18 11:08 insulin lispro [From Humalog] Allergy Rash/Hives Verified 08/26/18 11:08 insulin NPH human isophane Allergy Rash/Hives Verified 08/26/18 11:08 [From Humulin 70/30] insulin regular, human Allergy Rash/Hives Verified 08/26/18 11:08 [From Humulin 70/30] mustard Allergy Unknown Verified 08/26/18 11:08 onion Allergy Unknown Verified 08/26/18 11:08 orange juice [[place]] Allergy Unknown Verified 08/26/18 11:08 Pepper Allergy Unknown Verified 08/26/18 11:08 rice Allergy Unknown Verified 08/26/18 11:08 spinach Allergy Unknown Verified 08/26/18 11:08 Squash Allergy Unknown Verified 08/26/18 11:08 tree nut [Pecan] Allergy Unknown Verified 08/26/18 11:08 walnut Allergy Unknown Verified 08/26/18 11:08 cantaloupe Allergy Unknown Uncoded 12/14/17 10:27 cottonseed Allergy Unknown Uncoded 12/14/17 10:27 green beans Allergy Unknown Uncoded 12/14/17 10:27 nuts Allergy Unknown Uncoded 12/14/17 10:27 tea Allergy Unknown Uncoded 12/14/17 10:27 Review of Systems ROS Other: All systems not noted in ROS Statement are negative. <RexDeshaun - Last Filed: 08/26/18 14:19> ROS Other: All systems not noted in ROS Statement are negative. Constitutional: Reports: as per HPI (fatigue). Denies: fever, chills, night sweats ENT: Denies: ear pain, throat pain Respiratory: Denies: cough, dyspnea, wheezes, stridor Cardiovascular: Denies: chest pain, palpitations, dyspnea on exertion Endocrine: Denies: fatigue Gastrointestinal: Denies: abdominal pain, nausea, vomiting, diarrhea, constipation, hematemesis, melena, hematochezia Genitourinary: Denies: urgency, dysuria, frequency, hematuria Musculoskeletal: Reports: back pain, arthralgia (b/l knee pain chronic). Denies : joint swelling Skin: Denies: rash, lesions Neurological: Denies: headache, weakness, numbness, paresthesias, confusion, abnormal gait, vertigo <Ghislaine Solis - Last Filed: 08/26/18 18:27> ROS Statement: Those systems with pertinent positive or pertinent negative responses have been documented in the HPI. Past Medical History Past Medical History: Atrial Fibrillation, Asthma, Coronary Artery Disease (CAD) , Heart Failure, Diabetes Mellitus, Fibromyalgia, GI Bleed, Hyperlipidemia, Hypertension, Mitral Valve Prolapse (MVP), Osteoarthritis (OA), Pneumonia, Sleep Apnea/CPAP/BIPAP, Thyroid Disorder Additional Past Medical History / Comment(s): NEUROPATHY, SARCOIDOSIS, LUPUS, AUTOIMMUNE ISSUES HEART MURMUR, autoimmune HEPATITIS with prednisone dependence , IRREGULAR HEART RATE, LEFT FEMUR FRACTURE, NO CPAP USE, right ankle fracture, left lower extremity DVT, left rotator cuff tear History of Any Multi-Drug Resistant Organisms: C-DIFF Date of last positivie culture/infection: 12/2014 MDRO Source:: stool Past Surgical History: Adenoidectomy, Appendectomy, Cholecystectomy, Heart Catheterization With Stent, Hysterectomy, Tonsillectomy Additional Past Surgical History / Comment(s): COLONOSCOPY, EGD, [place] filter, bronchoscopy Past Anesthesia/Blood Transfusion Reactions: No Reported Reaction Date of Last Stent Placement:: 2012 Past Psychological History: No Psychological Hx Reported Smoking Status: Never smoker Past Alcohol Use History: None Reported Past Drug Use History: None Reported - Past Family History Mother Family Medical History: Coronary Artery Disease (CAD) Father Family Medical History: Coronary Artery Disease (CAD) <Ghislaine Solis - Last Filed: 08/26/18 18:27> General Exam <Deshaun Goodman - Last Filed: 08/26/18 14:19> Limitations: physical limitation <Ghislaine Solis - Last Filed: 08/26/18 18:27> - General Exam Comments Initial Comments: General: The patient is awake and alert, in no distress, and does not appear acutely ill. Eye: Pupils are equal, round and reactive to light, extra-ocular movements are intact. No nystagmus. There is normal conjunctiva bilaterally. No signs of icterus. Ears, nose, mouth and throat: There are dry mucous membranes and no oral lesions. Neck: The neck is supple, there is no tenderness or JVD. No carotid artery bruits audible Cardiovascular: There is a regular rate and rhythm. No murmur, rub or gallop is appreciated. Respiratory: Lungs are clear to auscultation, respirations are non-labored, breath sounds are equal. No wheezes, stridor, rales, or rhonchi. Gastrointestinal: Soft, non-distended, non-tender abdomen without masses or organomegaly noted. There is no rebound or guarding present. No CVA tenderness. Bowel sounds are unremarkable. Musculoskeletal: Normal ROM, no tenderness. Strength 5/5 of the UE and LE b/ l. Sensation intact of the UE and LE equally b/l. Radial and DP pulses equal bilaterally 2+. +SLR. No numbness to palpation of the saddle region. Neurological: A&O x 3. CN II-XII intact, There are no obvious motor or sensory deficits. Coordination appears grossly intact. Speech is normal. Skin: Skin is warm and dry and no rashes or lesions are noted. Some mild swelling of LE noted b/l equally. Psychiatric: Cooperative, appropriate mood & affect, normal judgment. (Ghislaine Solis) Course <Deshaun Goodman - Last Filed: 08/26/18 14:19> <Ghislaine Solis - Last Filed: 08/26/18 18:27> Vital Signs 08/26/18 08/26/18 08/26/18 10:39 14:19 18:01 Temperature 98.4 F Pulse Rate 76 74 67 Respiratory 18 18 18 Rate Blood Pressure 142/67 109/90 142/68 O2 Sat by Pulse 100 99 100 Oximetry - Reevaluation(s) Reevaluation #1: 08/26/18 14:19 Patient condition: She is a [id number] evaluation the patient did discuss [employer] her and her family members. Patient did have an episode that appears be syncopal in nature 2 days ago to be having weakness and inability to ambulate well. She also does demonstrate some evidence of dehydration. No neurological deficits at this time she was having some confusion this morning also. Physical exam this time demonstrates dry oral mucosa. No focal deficits. Patient will be admitted I did review the imaging shows no acute findings patient will be admitted with evaluation for syncope. I did discuss case Dr. Schmidt. (Deshaun Goodman) Medical Decision Making - Lab Data Result diagrams: 08/26/18 12:00 08/26/18 12:00 <Deshaun Goodman - Last Filed: 08/26/18 14:19> - Lab Data Result diagrams: 08/26/18 12:00 08/26/18 12:00 <Ghislaine Solis - Last Filed: 08/26/18 18:27> - Medical Decision Making Laboratory studies revealed low platelet count however this appears to be patient's baseline. Mildly elevated INR and PTT. BUN and creatinine mildly elevated concerning for dehydration, patient is dry on exam. glucose elevated at 300. Urine revealed 4+ ketones, was unable to get urine sample until pt was ambulatory (after admission). Acetone pending. CXR (-). CT brain & cspine (-) for acute process or fracture. Troponin negative. EKG was when compared to previous revealed no acute findings. Patient was evaluated [id number] by Dr. Deshaun Goodman. At this time feel patient should be admitted for intractable pain , difficulty ambulating, and history concerning for syncope-patient is unable to recall why she fell on Saturday evening. Patient was admitted to who accepted admission after speaking with Dr. Goodman. Cardiology and neruology on consult. Pt and family is agreeable to admission. Patient was given 500 mL bolus and emergency department, and placed on maintenance fluid. Patient's blood glucose elevated, patient has significant ALLERGIES to various insulin therapies. Patient will brought in home medications be administered. Patient transferred to the floor in stable condition, well appearing upon reevaluation. No changes of physical examination. Case discussed with Dr. Goodman throughout ER visit. (Ghislaine Solis) - Lab Data Lab Results 08/26/18 08/26/18 08/26/18 Range/Units 12:00 12:00 12:00 WBC 5.8 (3.8-10.6) k/uL RBC 4.09 (3.80-5.40) m/uL Hgb 12.1 (11.4-16.0) gm/dL Hct 36.7 (34.0-46.0) % MCV 89.7 (80.0-100.0) fL MCH 29.7 (25.0-35.0) pg MCHC 33.1 (31.0-37.0) g/dL RDW 13.9 (11.5-15.5) % Plt Count 135 L (150-450) k/uL Neutrophils % 79 % Lymphocytes % 10 % Monocytes % 8 % Eosinophils % 2 % Basophils % 0 % Neutrophils # 4.5 (1.3-7.7) k/uL Lymphocytes # 0.6 L (1.0-4.8) k/uL Monocytes # 0.5 (0-1.0) k/uL Eosinophils # 0.1 (0-0.7) k/uL Basophils # 0.0 (0-0.2) k/uL Hypochromasia Slight PT (9.0-12.0) sec INR (<1.2) APTT (22.0-30.0) sec Sodium 139 (137-145) mmol/L Potassium 4.9 (3.5-5.1) mmol/L Chloride 106 (98-107) mmol/L Carbon Dioxide 27 (22-30) mmol/L Anion Gap 6 mmol/L BUN 46 H (7-17) mg/dL Creatinine 1.58 H (0.52-1.04) mg/dL Est GFR (CKD-EPI)AfAm 37 (>60 ml/min/1.73 sqM) Est GFR (CKD-EPI)NonAf 32 (>60 ml/min/1.73 sqM) Glucose 301 H (74-99) mg/dL Calcium 9.6 (8.4-10.2) mg/dL Total Bilirubin 1.0 (0.2-1.3) mg/dL AST 54 H (14-36) U/L ALT 32 (9-52) U/L Alkaline Phosphatase 60 (38-126) U/L Total Creatine Kinase 48 (30-135) U/L CK-MB (CK-2) 1.0 (0.0-2.4) ng/mL CK-MB (CK-2) Rel Index 2.1 Troponin I <0.012 (0.000-0.034) ng/mL Total Protein 6.7 (6.3-8.2) g/dL Albumin 3.0 L (3.5-5.0) g/dL Urine Color Urine Appearance (Clear) Urine pH (5.0-8.0) Ur Specific Harvey (1.001-1.035) Urine Protein (Negative) Urine Glucose (UA) (Negative) Urine Ketones (Negative) Urine Blood (Negative) Urine Nitrite (Negative) Urine Bilirubin (Negative) Urine Urobilinogen (<2.0) mg/dL Ur Leukocyte Esterase (Negative) Urine WBC (0-5) /hpf Ur Squamous Epith Cells (0-4) /hpf Amorphous Sediment (None) /hpf Urine Bacteria (None) /hpf Hyaline Casts (0-2) /lpf Urine Mucus (None) /hpf 08/26/18 08/26/18 Range/Units 12:00 13:52 WBC (3.8-10.6) k/uL RBC (3.80-5.40) m/uL Hgb (11.4-16.0) gm/dL Hct (34.0-46.0) % MCV (80.0-100.0) fL MCH (25.0-35.0) pg MCHC (31.0-37.0) g/dL RDW (11.5-15.5) % Plt Count (150-450) k/uL Neutrophils % % Lymphocytes % % Monocytes % % Eosinophils % % Basophils % % Neutrophils # (1.3-7.7) k/uL Lymphocytes # (1.0-4.8) k/uL Monocytes # (0-1.0) k/uL Eosinophils # (0-0.7) k/uL Basophils # (0-0.2) k/uL Hypochromasia PT 12.8 H (9.0-12.0) sec INR 1.4 H (<1.2) APTT 27.9 (22.0-30.0) sec Sodium (137-145) mmol/L Potassium (3.5-5.1) mmol/L Chloride (98-107) mmol/L Carbon Dioxide (22-30) mmol/L Anion Gap mmol/L BUN (7-17) mg/dL Creatinine (0.52-1.04) mg/dL Est GFR (CKD-EPI)AfAm (>60 ml/min/1.73 sqM) Est GFR (CKD-EPI)NonAf (>60 ml/min/1.73 sqM) Glucose (74-99) mg/dL Calcium (8.4-10.2) mg/dL Total Bilirubin (0.2-1.3) mg/dL AST (14-36) U/L ALT (9-52) U/L Alkaline Phosphatase (38-126) U/L Total Creatine Kinase (30-135) U/L CK-MB (CK-2) (0.0-2.4) ng/mL CK-MB (CK-2) Rel Index Troponin I (0.000-0.034) ng/mL Total Protein (6.3-8.2) g/dL Albumin (3.5-5.0) g/dL Urine Color Yellow Urine Appearance Cloudy H (Clear) Urine pH 5.0 (5.0-8.0) Ur Specific Harvey 1.014 (1.001-1.035) Urine Protein Negative (Negative) Urine Glucose (UA) 4+ H (Negative) Urine Ketones Negative (Negative) Urine Blood Negative (Negative) Urine Nitrite Negative (Negative) Urine Bilirubin Negative (Negative) Urine Urobilinogen <2.0 (<2.0) mg/dL Ur Leukocyte Esterase Small H (Negative) Urine WBC 10 H (0-5) /hpf Ur Squamous Epith Cells 1 (0-4) /hpf Amorphous Sediment Rare H (None) /hpf Urine Bacteria Few H (None) /hpf Hyaline Casts 41 H (0-2) /lpf Urine Mucus Rare H (None) /hpf - EKG Data EKG Comments: Ventricular rate 82 bpm. [place] interval 242 ms, QS duration 134 ms, QT/QTC 464/542 ms, rhythm is paced, there is a redemonstrated right bundle branch block which was present on previous EKG. Nonspecific T-wave abnormalities. No findings concerning for ST elevation or depression. No acute findings. EKG interpreted by myself and Dr. Goodman. (Ghislaine Solis) Disposition <Deshaun Goodman - Last Filed: 08/26/18 14:19> Is patient prescribed a controlled substance at d/c from ED?: No Time of Disposition: 14:04 Decision to Admit Reason: Admit from EC Decision Date: 08/26/18 Decision Time: 14:04 <Ghislaine Solis - Last Filed: 08/26/18 18:27> Clinical Impression: Fall, Low back pain, Syncope Disposition: ADMITTED IP TO THIS HOSP
[2018-08-26 14:19] LABS: Amorphous Sediment,Urine Rare /hpf; Appearance,Urine Cloudy (Clear); Bacteria,Urine Few /hpf; Bilirubin,Urine Negative (Negative); Blood,Urine Negative (Negative); Color,Urine Yellow; Glucose,Urine (UA) 4+ (Negative); Hyaline Casts,Urine 41 /lpf (0-2); Ketones,Urine Negative (Negative); Leukocyte Esterase,Urine Small (Negative); Mucus,Urine Rare /hpf; Nitrite,Urine Negative (Negative); Protein,Urine Negative (Negative); Specific Gravity,Urine 1.014 (1.001-1.035); Squamous Epithelial Cell,Urine 1 /hpf (0-4); Urobilinogen,Urine <2.0 mg/dL (<2.0); WBC,Urine 10 /hpf (0-5)
[2018-08-26] MEDS ORDERED: HYDROcodone/APAP 5-325MG 1 EACH TAB PO STA (15:28)
[2018-08-26] MEDS: SODIUM CHLORIDE 0.9% 1,000 ML IV SCH (15:38)
[2018-08-26 18:17] LABS: Glucose,Whole Blood 249 mg/dL (75-99)
[2018-08-26] MEDS ORDERED: NITROGLYCERIN SL TABS 0.4 MG TAB SUBLINGUAL PRN (20:48)
[2018-08-26] MEDS ORDERED: INSULIN NPH 300 UNIT/3 ML VIAL SQ SCH (21:00)
[2018-08-26] MEDS ORDERED: INSULIN ASPART 100 UNIT/ML 1 ML 10 ML VIAL SQ SCH (21:00)
[2018-08-26 21:12] LABS: Glucose,Whole Blood 312 mg/dL (75-99)
[2018-08-26] MEDS: diphenhydrAMINE 50 MG CAP PO SCH (21:57)
[2018-08-26] MEDS: CALCIUM CARBONATE 500 MG CHEWABLE PO SCH (21:57)
[2018-08-26] MEDS: APIXABAN 5 MG TAB PO SCH (21:57)
[2018-08-26] MEDS: GABAPENTIN 300 MG CAP PO SCH (21:57)
[2018-08-26] MEDS: NOVOLIN R SQ SCH (21:58)
[2018-08-26] MEDS ORDERED: NOVOLIN N SQ SCH (22:00)
--- NOTE | 2018-08-26 22:47 | HP ---
HISTORY AND PHYSICAL DATE OF SERVICE: 08/26/2018. PRESENTING COMPLAINT: Dizzy, fall. HISTORY OF PRESENTING COMPLAINT: This is a 78-year-old patient of Dr. Snowden. The patient's chronic stable medical conditions include atrial fibrillation, asthma, coronary artery disease, congestive heart failure, diabetes, fibromyalgia, hyperlipidemia, hypertension, osteoarthritis. The patient does use a walker. The patient off and on gets dizzy. On this occasion patient 2 days ago got dizzy and fell down. She thinks she hit the back of her head, maybe passed out. Decided to come in. There was no chest pain, no palpitations. The patient is feeling a bit tired and rundown. The patient has a pacemaker. The patient also has significant peripheral neuropathy. REVIEW OF SYSTEMS: CONSTITUTIONAL: Tired. HEENT: None. RESPIRATORY: None. CARDIOVASCULAR: None. GASTROINTESTINAL: None. GENITOURINARY: None. MUSCULOSKELETAL: Pain in the joints. DERMATOLOGIC: Some chronic redness in the lower extremities. HEMATOLOGIC: None. LYMPHATIC: None. PSYCHIATRY: None. NEUROLOGICAL: Numbness and tingling in the feet. PAST MEDICAL HISTORY: Atrial fibrillation, asthma, coronary artery disease, congestive heart failure, diabetes, fibromyalgia, hyperlipidemia, hypertension, mitral valve prolapse, osteoarthritis, sleep apnea, hypothyroid, sarcoidosis, lupus, autoimmune hepatitis with prednisone dependence, right ankle fracture, left lower extremity DVT, left rotator cuff tear, complete heart block with pacemaker. PAST SURGICAL HISTORY: Adenoidectomy, appendectomy, cholecystectomy, cardiac cath with stent, hysterectomy, pacemaker, [place] filter. SOCIAL HISTORY: Does not smoke. . 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 FAMILY HISTORY: Coronary artery disease. HOME MEDICATIONS: 1. Novolin N 80 units subcutaneously daily. 2. Novolin R with meals t.i.d. 3. Novolin N 15 units subcutaneous at bedtime. 4. Calcium 600 mg t.i.d. 5. Potassium 5 mEq a day. 6. Meloxicam 50 mg a day. 7. Cozaar 50 mg a day. 8. Aspirin 81 mg a day. 9. Prednisone 10 mg a day. 10.Benadryl 50 mg at bedtime. 11.Crestor 5 mg on Saturday. 12.Omeprazole 20 mg b.i.d. 13.Nitrostat 0.4 sublingual every 5 hours p.r.n. 14.Toprol-XL 50 mg p.o. daily. 15.Synthroid 137 mcg a day. 16.Neurontin 600 mg p.o. t.i.d. 17.Lasix 40 mg p.o. daily. 18.Iron 325 p.o. every 48 hours. 19.Tricor 160 mg a day. 20.Vitamin D2, 50,000 units on Saturday. 21.Eliquis 5 mg b.i.d. ALLERGIES: Long, refer to the electronic chart from this admission in the computer. PHYSICAL EXAMINATION: VITAL SIGNS ON PRESENTATION: Temperature 98.4, pulse 76, respirations 18, blood pressure 142/67, pulse ox 100 percent on room air. GENERAL APPEARANCE: Well built, BMI 44.9. Lying in bed. EYES: Pupils equal. Conjunctivae normal. HEENT: External nose and ears normal. Oral cavity normal. NECK: Short, thick., JVD unable to assess. Mass not palpable. Respiratory effort increased. LUNGS: Distant breath sounds. CARDIOVASCULAR: Heart sounds muffled. Some edema. ABDOMEN: Soft, nontender, distended. Liver and spleen not palpable. LYMPHATICS: no lymph node palpable. PSYCHIATRY: Alert and oriented x3. Mood and affect normal. NEUROLOGIC: Pupils equal. Cranial nerves grossly intact. Decreased sensation peripherally. There is also superficial tenderness to both of the feet. INVESTIGATIONS: White count 5.8, hemoglobin 12.1, platelets 135,000, potassium 4.9, BUN 46, creatinine 1.58. The patient's creatinine was 1.3 a few months ago. UA positive for leukocyte esterase, WBC. Hyaline cast is 41. Serum acetone is negative. Glucose was 301. EKG tracing was personally reviewed by me, shows right bundle branch block and some T- wave changes. The patient's CT scan of the head and spine did not show any fracture. ASSESSMENT: 1. Episodes of dizziness with one episode of patient passing out. Need to rule out orthostatic given that the patient has got significant diabetes. The patient may be also having underlying autonomic dysfunction. 2. Chronic kidney disease, likely diabetic nephropathy. 3. Persistent atrial fibrillation. 4. Coronary artery disease, prior history of stent. 5. Chronic congestive heart failure, ejection fraction not known. 6. Diabetes mellitus type 2, chronically on insulin. 7. Chronic fibromyalgia. 8. Hyperlipidemia. 9. Essential hypertension. 10.Primary osteoarthritis. 11.Obstructive sleep apnea, does not use a CPAP machine. 12.Hypothyroid. 13.History of sarcoidosis and lupus. 14.Autoimmune hepatitis, chronically on prednisone. 15.Chronic lower extremity deep venous thrombosis plus permanent pacemaker. 16.Peripheral neuropathy from diabetes. 17.Morbid obesity, BMI 44.9. 18.Chronic gait dysfunction, uses a walker. PLAN: Home medications are resumed. Will consult Cardiology to get a pacemaker check. We will also check patient's orthostatics. Accu-Cheks will be followed with sliding scale insulin. Care was discussed with the patient. Questions were answered. MMODL / IJN: [id number] /
--- NOTE | 2018-08-26 23:09 | P.CNNES ---
History of Present Illness Consult date: 08/26/18 Reason for Consult: Patient admitted with back pain and fall. History of Present Illness: This patient is a 78-year-old right-handed white female who states that on Saturday of this past week she sustained a fall at home. She was unable to get up and required the assistance from her . Apparently on Saturday the patient began noticing severe back pain following the fall. Today the pain was excruciating and she decided to contact her primary care physician Dr. Snowden. She was advised to go to the emergency room. Patient was seen in the ER at [facility] today. She was seen by Dr. Goodman in the ER who ordered a computed tomography scan of the brain and cervical spine. CT of the brain revealed age-related atrophy and small vessel ischemic changes. CT of the cervical spine revealed no evidence of acute fracture or subluxation. Patient also underwent x-rays of the hips which came back negative for any acute fracture or dislocation. She was sent for CT of the lumbar spine which did reveal significant arthritic changes. There was evidence of severe multilevel degenerative disc disease from T12 through L4. There was also spondylolisthesis noted with bilateral spondylosis. Patient states she has been having excruciating pain in the back with some lower extremity weakness. Left leg seems to be weaker than her right. She denies any recent bowel or bladder incontinence. She does have a history of diabetes mellitus for over 10 years. She has been ambulating at home with the use of a walker. She has been noticing increase in her inability to ambulate over the last several months. Apparently in October of this year due to the severity of her back pain she underwent a series of epidural injections to the back which was not of much help. We have reviewed the computed tomography scan of the lumbar spine in detail today with the patient. We are recommending she be evaluated in the orthopedic spine surgery clinic by Dr. Padilla. She is not a candidate for MRI study of the lumbar spine as she has a pacemaker. We will await further recommendations from orthopedic spine surgery. We reviewed the results of all of her testing today with the patient in detail. She is being evaluated by cardiology as well and we will await their assessment. This patient's overall prognosis at this time remains guarded. Neurology has been consulted for further evaluation and recommendations. Review of Systems Constitutional: Denies chills, Denies fever Eyes: denies blurred vision, denies pain Ears, nose, mouth and throat: Denies headache, Denies sore throat Cardiovascular: Denies chest pain, Denies shortness of breath Respiratory: Denies cough Gastrointestinal: Denies abdominal pain, Denies diarrhea, Denies nausea, Denies vomiting Genitourinary: Denies dysuria, Denies hematuria Musculoskeletal: Denies myalgias Integumentary: Denies pruritus, Denies rash Neurological: Reports change in mentation, Reports motor disturbance, Reports paresthesias, Reports syncope, Denies numbness, Denies weakness Psychiatric: Denies anxiety, Denies depression Endocrine: Denies fatigue, Denies weight change Past Medical History Past Medical History: Atrial Fibrillation, Asthma, Coronary Artery Disease (CAD) , Heart Failure, Diabetes Mellitus, Fibromyalgia, GI Bleed, Hyperlipidemia, Hypertension, Mitral Valve Prolapse (MVP), Osteoarthritis (OA), Pneumonia, Sleep Apnea/CPAP/BIPAP, Thyroid Disorder Additional Past Medical History / Comment(s): PT STATED HAS HAD A PNE VACCINE LESS THAN 5 YEARS AGO,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 VERIFY DATE AT TIME OF ADMIT-PLEASE F/U IN AMNEUROPATHY, SARCOIDOSIS, LUPUS, AUTOIMMUNE ISSUES HEART MURMUR, autoimmune HEPATITIS with prednisone dependence, IRREGULAR HEART RATE, LEFT FEMUR FRACTURE , NO CPAP USE, right ankle fracture, left lower extremity DVT, left rotator cuff tear, HX COMPLETE HEART BLOCK/PACEMAKER IMPLANTED History of Any Multi-Drug Resistant Organisms: C-DIFF Date of last positivie culture/infection: 12/2014 MDRO Source:: stool Past Surgical History: Adenoidectomy, Appendectomy, Cholecystectomy, Heart Catheterization With Stent, Hysterectomy, Pacemaker, Tonsillectomy Additional Past Surgical History / Comment(s): COLONOSCOPY, EGD, [place] filter, bronchoscopy Past Anesthesia/Blood Transfusion Reactions: No Reported Reaction Additional Past Anesthesia/Blood Transfusion Reaction / Comment(s): PT STATED SHE HAS NEVER RECEIVED ANY BLOOD TRANSFUSIONS Date of Last Stent Placement:: 2012 Type of Cardiac Device: Permanent Pacemaker Device Placement Date:: 2017 Smoking Status: Never smoker - Past Family History Mother Family Medical History: Coronary Artery Disease (CAD) Father Family Medical History: Coronary Artery Disease (CAD) Medications and Allergies Home Medications Medication Instructions Recorded Confirmed Type Ergocalciferol (Vitamin D2) 50,000 unit PO BENSON 02/09/14 08/26/18 History [Drisdol] Ferrous Sulfate [Feosol] 325 mg PO Q48H 02/09/14 08/26/18 History Furosemide 40 mg PO DAILY 02/09/14 08/26/18 History Levothyroxine Sodium [Synthroid] 137 mcg PO DAILY 02/09/14 08/26/18 History Omeprazole 20 mg PO BID 02/09/14 08/26/18 History diphenhydrAMINE [Benadryl] 50 mg PO HS 09/30/16 08/26/18 History predniSONE 10 mg PO DAILY 09/30/16 08/26/18 History Fenofibrate 160 mg PO DAILY 12/14/17 08/26/18 History Nitroglycerin Sl Tabs [Nitrostat] 0.4 mg SUBLINGUAL Q5M PRN 12/14/17 08/26/18 History Rosuvastatin Calcium [Crestor] 5 mg PO WE 12/14/17 08/26/18 History Apixaban [Eliquis] 5 mg PO BID tab 12/17/17 08/26/18 Rx Metoprolol Succinate (ER) [Toprol 50 mg PO DAILY #30 tab.er.24h 12/17/17 Rx XL] Aspirin EC [Ecotrin Low Dose] 81 mg PO DAILY 08/26/18 08/26/18 History Calcium Carbonate [Calcium] 600 mg PO TID 08/26/18 08/26/18 History Gabapentin 600 mg PO TID 08/26/18 08/26/18 History Insulin NPH Human Isophane 15 unit SQ HS 08/26/18 08/26/18 History [NovoLIN N] Insulin NPH Human Isophane 80 unit SQ DAILY 08/26/18 08/26/18 History [NovoLIN N] Insulin Regular, Human [NovoLIN R] See Protocol SQ AC-TID 08/26/18 08/26/18 History Losartan [Cozaar] 50 mg PO DAILY 08/26/18 08/26/18 History Meloxicam 15 mg PO DAILY 08/26/18 08/26/18 History Potassium Chloride [Klor-Con 10] 5 meq PO DAILY 08/26/18 08/26/18 History Allergies Allergy/AdvReac Type Severity Reaction Status Date / Time levofloxacin [From Levaquin] Allergy Intermediate Unknown Verified 08/26/18 11: 08 Penicillins Allergy Intermediate Rash/Hives Verified 08/26/18 11:08 Sulfa (Sulfonamide Allergy Intermediate Rash/Hives Verified 08/26/18 11:08 Antibiotics) cephalexin monohydrate Allergy Unknown Unknown Verified 08/26/18 11:08 [From Keflex] erythromycin base Allergy Unknown Rash/Hives Verified 08/26/18 11:08 [From E-Mycin] gatifloxacin [From Tequin] Allergy Unknown Unknown Verified 08/26/18 11:08 nitrofurantoin Allergy Unknown Unknown Verified 08/26/18 11:08 macrocrystalline [From Macrodantin] Napoleon Allergy Unknown Verified 08/26/18 11:08 apricot Allergy Unknown Verified 08/26/18 11:08 asparagus Allergy Unknown Verified 08/26/18 11:08 banana [Banana] Allergy Unknown Verified 08/26/18 11:08 cabbage Allergy Unknown Verified 08/26/18 11:08 carrot Allergy Unknown Verified 08/26/18 11:08 ciprofloxacin [From Cipro] Allergy Unknown Verified 08/26/18 11:08 ciprofloxacin HCl Allergy Unknown Verified 08/26/18 11:08 [From Cipro] Coconut Allergy Unknown Verified 08/26/18 11:08 coffee (Coffea arabica) Allergy Unknown Verified 08/26/18 11:08 [coffee] cucumber Allergy Unknown Verified 08/26/18 11:08 flaxseed Allergy Unknown Verified 08/26/18 11:08 sam Allergy Unknown Verified 08/26/18 11:08 grapefruit [Grapefruit] Allergy Unknown Verified 08/26/18 11:08 insulin lispro [From Humalog] Allergy Rash/Hives Verified 08/26/18 11:08 insulin NPH human isophane Allergy Rash/Hives Verified 08/26/18 11:08 [From Humulin 70/30] insulin regular, human Allergy Rash/Hives Verified 08/26/18 11:08 [From Humulin 70/30] mustard Allergy Unknown Verified 08/26/18 11:08 onion Allergy Unknown Verified 08/26/18 11:08 orange juice [[place]] Allergy Unknown Verified 08/26/18 11:08 Pepper Allergy Unknown Verified 08/26/18 11:08 rice Allergy Unknown Verified 08/26/18 11:08 spinach Allergy Unknown Verified 08/26/18 11:08 Squash Allergy Unknown Verified 08/26/18 11:08 tree nut [Pecan] Allergy Unknown Verified 08/26/18 11:08 walnut Allergy Unknown Verified 08/26/18 11:08 cantaloupe Allergy Unknown Uncoded 12/14/17 10:27 cottonseed Allergy Unknown Uncoded 12/14/17 10:27 green beans Allergy Unknown Uncoded 12/14/17 10:27 nuts Allergy Unknown Uncoded 12/14/17 10:27 tea Allergy Unknown Uncoded 12/14/17 10:27 Physical Examination - Vital Signs Vital Signs: Vital Signs Temp Pulse Pulse Resp BP BP Pulse Ox 08/26/18 18:30 97.7 F 71 18 127/72 99 08/26/18 18:01 67 18 142/68 100 08/26/18 14:19 74 18 109/90 99 08/26/18 10:39 98.4 F 76 18 142/67 100 Intake and Output 08/26/18 08/26/18 08/26/18 06:59 14:59 22:59 Intake Total 200 Balance 200 Intake: Oral 200 Other: Weight 104.326 kg - Constitutional General appearance: average body habitus, cooperative - EENT EENT: PERRL, mucous membranes moist - Respiratory Respiratory: lungs clear, normal breath sounds - Cardiovascular Cardiovascular: regular rate, normal S1, normal S2 Extremities: no peripheral edema bilaterally - Gastrointestinal Gastrointestinal: normoactive bowel sounds - Integumentary Integumentary: normal - Neurologic Cranial nerve examination: PERRL, EOMI, VFF, V1/V2/V3 grossly intact, face symmetric, tongue midline, intact gag reflex (My "soup") Speech examination: intact Sensorimotor examination: intact Motor examination - right side: 3/5: hip flexors, knee extensors, dorsiflexion, toe extension (EHL), plantarflexion, 4/5: biceps, triceps, wrist flexion, wrist extension, 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 Motor examination - left side: 3/5: hip flexors, knee extensors, dorsiflexion, toe extension (EHL), plantarflexion, 4/5: biceps, triceps, wrist flexion, wrist extension, 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 Detailed sensory examination: intact Reflex and gait examination: intact Reflexes: 1+: ankle, bicep, knee, tricep - Musculoskeletal Musculoskeletal: no pain - Psychiatric Psychiatric: mood/affect appropriate, cooperative Results - Laboratory Findings CBC and BMP: 08/26/18 12:00 08/26/18 12:00 Abnormal Lab Findings: Abnormal Labs 08/26/18 08/26/18 08/26/18 12:00 12:00 12:00 Plt Count 135 L Lymphocytes # 0.6 L PT 12.8 H INR 1.4 H BUN 46 H Creatinine 1.58 H Glucose 301 H POC Glucose (mg/dL) AST 54 H Albumin 3.0 L Urine Appearance Urine Glucose (UA) Ur Leukocyte Esterase Urine WBC Amorphous Sediment Urine Bacteria Hyaline Casts Urine Mucus 08/26/18 08/26/18 08/26/18 13:52 18:00 21:08 Plt Count Lymphocytes # PT INR BUN Creatinine Glucose POC Glucose (mg/dL) 249 H 312 H AST Albumin Urine Appearance Cloudy H Urine Glucose (UA) 4+ H Ur Leukocyte Esterase Small H Urine WBC 10 H Amorphous Sediment Rare H Urine Bacteria Few H Hyaline Casts 41 H Urine Mucus Rare H Assessment and Plan (1) Chronic low back pain Current Visit: Yes Status: Acute Code(s): M54.5 - LOW BACK PAIN; G89.29 - OTHER CHRONIC PAIN SNOMED Code(s): 705427017 (2) Lumbar radiculopathy, acute Current Visit: Yes Status: Acute Code(s): M54.16 - RADICULOPATHY, LUMBAR REGION SNOMED Code(s): 960583347 (3) Lumbar spondylosis Current Visit: Yes Status: Acute Code(s): M47.816 - SPONDYLOSIS W/O MYELOPATHY OR RADICULOPATHY, LUMBAR REGION SNOMED Code(s): 667530712 (4) Fall Current Visit: Yes Status: Acute Code(s): W19.XXXA - UNSPECIFIED FALL, INITIAL ENCOUNTER SNOMED Code(s): 5439297 (5) Syncope Current Visit: Yes Status: Acute Code(s): R55 - SYNCOPE AND COLLAPSE SNOMED Code(s): 710999671 Plan: This patient is a 78-year-old right-handed white female who was had a long- standing history of chronic low back pain. She underwent epidural injections for her back in October of this year. This was really not very much beneficial for her. On Saturday of this past week the patient sustained a fall at home and was unable to get up without assistance. Her did come and help her up and she decided to hold off on going to the hospital at that time. Her pain symptoms following the fall worsened significantly causing her severe low back pain radiating into the gluteal area left greater than right. She was brought to the emergency room today for further evaluation. She was seen in the ER by Dr. Goodman. She underwent a series of CAT scans and x-rays results which are noted above. Computed tomography scan of the lumbar spine does reveal significant arthritic changes in the lumbar disc region. This likely is a major contributing factor of her back pain. She is unable to go for MRI of the lumbar spine is she has a pacemaker. We have recommended the patient to be seen tomorrow by orthopedic spine surgery and Dr. Padilla. We will await his further evaluation and recommendations. She may benefit from a reevaluation of epidural injections to the back. Her symptoms have been chronic in nature. We will continue to monitor progress closely during this admission. Her overall prognosis at this time remains very guarded. Time with Patient: Greater than 30
[2018-08-27] MEDS: SODIUM CHLORIDE 0.9% 1,000 ML IV SCH (05:14)
[2018-08-27] MEDS: LEVOTHYROXINE 137 MCG TAB PO SCH (05:38)
[2018-08-27 06:53] LABS: Glucose,Whole Blood 113 mg/dL (75-99)
[2018-08-27] MEDS ORDERED: NOVOLIN R SQ SCH (07:30)
[2018-08-27] MEDS ORDERED: predniSONE 10 MG TAB PO SCH (09:00)
[2018-08-27] MEDS ORDERED: NOVOLIN N SQ SCH (09:00)
[2018-08-27] MEDS ORDERED: MELOXICAM 7.5 MG TAB PO SCH (09:00)
[2018-08-27] MEDS ORDERED: ATORVASTATIN 10 MG TAB PO SCH (09:00)
[2018-08-27] MEDS ORDERED: INSULIN NPH 300 UNIT/3 ML VIAL SQ SCH (09:00)
[2018-08-27] MEDS: POTASSIUM CHLORIDE ER 10 MEQ TAB.ER.PRT PO SCH (10:23)
[2018-08-27] MEDS: LOSARTAN 50 MG TAB PO SCH (10:23)
[2018-08-27] MEDS: PANTOPRAZOLE 40 MG TABLET PO SCH (10:24)
[2018-08-27] MEDS: GABAPENTIN 300 MG CAP PO SCH ×3 (10:24→20:49)
[2018-08-27] MEDS: METOPROLOL SUCCINATE (ER) 50 MG TAB.ER.24H PO SCH (10:24)
[2018-08-27] MEDS: FENOFIBRATE 160 MG TAB PO SCH (10:24)
[2018-08-27] MEDS: FUROSEMIDE 40 MG TAB PO SCH (10:24)
[2018-08-27] MEDS: CALCIUM CARBONATE 500 MG CHEWABLE PO SCH ×3 (10:25→17:19)
--- NOTE | 2018-08-27 10:35 | P.CRDCN ---
History of Present Illness History of present illness: This is a pleasant 78-year-old female past medical history significant for coronary artery disease, paroxysmal atrial fibrillation, stenting in the setting of acute myocardial infarction in 2012 for which she underwent stenting to the ostial OM, sick sinus syndrome s/p permanent pacemaker implantation earlier this year per Dr. Talbot, hypertension and dyslipidemia. She follows with Dr. Ortiz in the office. We have been asked to see her in consultation for syncope. She is quite lethargic and somewhat of a poor historian. Most information is obtained from the medical record. Apparently she suffered a fall 2 days ago at home and was brought in by family for lower back pain. She does verbalize that she recalls falling but doesn't remember being dizzy or passing out. She denies chest pain, shortness of breath or palpitations. She has suffered with chronic back pain and has been receiving epidural injections. She has also been seen by neurology and they are recommending an orthopedic evaluation. She continues to complain of lower back pain with radiation down the legs as well as ongoing weakness. EKG reveals right bundle branch block pattern with evidence of pacemaker spikes. Chest x-ray is negative for acute cardiopulmonary process. CT of the cervical spine is negative for acute fracture or subluxation. CT of the lumbar spine reveals evidence of severe multilevel degenerative disc disease with sclerosis and spondylolithiasis. Laboratory data reviewed, WBC 5.8, hemoglobin 12.1, platelets 135, sodium 139, potassium 4.9, creatinine 1.58, cardiac enzymes negative 1. Cardiac medications include Eliquis 5 mg twice a day, fenofibrate 160 mg daily, Lasix 40 mg daily, Toprol 50 mg daily, Crestor 5 mg on Wednesdays, aspirin 81 mg daily and losartan 50 mg daily. Most recent echocardiogram obtained November 2017 reveals preserved left ventricular systolic function with ejection fraction 55-60%, moderately dilated left atrium, mild aortic valve sclerosis with moderate stenosis with a mean gradient across the valve of 15 mmHg. Most recent stress test performed in the office as a Lexiscan stress test in April 2018 was negative for reversible ischemia. Most recent carotid duplex study 02/2018 indicates 16-49% stenosis of the right and 50-79% stenosis of the left. At the time of my exam: CONSTITUTIONAL: Denies fever. Denies chills. EYES: Denies blurred vision. Denies vision changes. Denies eye pain. EARS, NOSE, MOUTH & THROAT: Denies headache. Denies sore throat. Denies ear pain. CARDIOVASCULAR: Denies chest pain. Denies shortness of breath. Denies orthopnea. Denies PND. Denies palpitations. RESPIRATORY: Denies cough. GASTROINTESTINAL: Denies abdominal pain. Denies diarrhea. Denies constipation. Denies nausea. Denies vomiting. MUSCULOSKELETAL: Denies myalgias. INTEGUMENTARY: Denies pruitis. Denies rash. NEUROLOGIC: Denies numbness. Denies tingling. Denies weakness. PSYCHIATRIC: Denies anxiety. Denies depression. ENDOCRINE: Denies fatigue. Denies weight change. Denies polydipsia. Denies polyurina. GENITOURINARY: Denies burning, hematuria or urgency with micturation. HEMATOLOGIC: Denies history of anemia. Denies bleeding. Blood pressure 156/71 heart rate 79 afebrile maintaining oxygen saturation on room air. GENERAL: This is a 78-year-old female in no apparent distress at the time of my examination. HEENT: Head is atraumatic, normocephalic. Pupils are equal, round. Sclerae anicteric. Conjunctivae are clear. Mucous membranes of the mouth are moist. Neck is supple. There is no jugular venous distention. No carotid bruit is heard. LUNGS: Clear to auscultation no wheezes, rales or rhonchi. No chest wall tenderness is noted on palpation or with deep breathing. HEART: Regular rate and rhythm with systolic ejection murmur at the base, no rubs or gallops. S1 and S2 heard. ABDOMEN: Soft, nontender. Bowel sounds are heard. No organomegaly noted. EXTREMITIES: No evidence of peripheral edema and no calf tenderness noted. VASCULAR: Radial and dorsalis pedis pulses palpated, no evidence of clubbing. NEUROLOGIC: Patient is awake, alert with some confusion about situation. ASSESSMENT Fall, no clear evidence of actual syncope. Lower back pain History of sick sinus syndrome status post permanent pacemaker implantation Paroxysmal atrial fibrillation on long-term anticoagulation currently maintaining sinus mechanism History of coronary artery disease Hypertension Dyslipidemia Aortic stenosis Carotid artery disease Morbid obesity, BMI 44 PLAN Have pacemaker interrogated by [facility] for any arrhythmia or event surrounding the time of the fall. Ongoing medical management of her lower back pain. There doesn't seem to be any clear cut evidence of syncope. She believes her fall was due to weakness secondary to pain. Thank you kindly for this consultation. Nurse Practitioner note has been reviewed, I agree with a documented findings and plan of care. Patient was seen and examined. Past Medical History Past Medical History: Atrial Fibrillation, Asthma, Coronary Artery Disease (CAD) , Heart Failure, Diabetes Mellitus, Fibromyalgia, GI Bleed, Hyperlipidemia, Hypertension, Mitral Valve Prolapse (MVP), Osteoarthritis (OA), Pneumonia, Sleep Apnea/CPAP/BIPAP, Thyroid Disorder Additional Past Medical History / Comment(s): PT STATED HAS HAD A PNE VACCINE LESS THAN 5 YEARS AGO,[employer]AIN [employer]ACHINE UNABLE TO VERIFY DATE AT TIME OF ADMIT-PLEASE F/U IN AMNEUROPATHY, SARCOIDOSIS, LUPUS, AUTOIMMUNE ISSUES HEART MURMUR, autoimmune HEPATITIS with prednisone dependence, IRREGULAR HEART RATE, LEFT FEMUR FRACTURE , NO CPAP USE, right ankle fracture, left lower extremity DVT, left rotator cuff tear, HX COMPLETE HEART BLOCK/PACEMAKER IMPLANTED History of Any Multi-Drug Resistant Organisms: C-DIFF Date of last positivie culture/infection: 12/2014 MDRO Source:: stool Past Surgical History: Adenoidectomy, Appendectomy, Cholecystectomy, Heart Catheterization With Stent, Hysterectomy, Pacemaker, Tonsillectomy Additional Past Surgical History / Comment(s): COLONOSCOPY, EGD, [place] filter, bronchoscopy Past Anesthesia/Blood Transfusion Reactions: No Reported Reaction Additional Past Anesthesia/Blood Transfusion Reaction / Comment(s): PT STATED SHE HAS NEVER RECEIVED ANY BLOOD TRANSFUSIONS Date of Last Stent Placement:: 2012 Type of Cardiac Device: Permanent Pacemaker Device Placement Date:: 2017 Smoking Status: Never smoker - Past Family History Mother Family Medical History: Coronary Artery Disease (CAD) Father Family Medical History: Coronary Artery Disease (CAD) Medications and Allergies Home Medications Medication Instructions Recorded Confirmed Type Ergocalciferol (Vitamin D2) 50,000 unit PO BENSON 02/09/14 08/26/18 History [Drisdol] Ferrous Sulfate [Feosol] 325 mg PO Q48H 02/09/14 08/26/18 History Furosemide 40 mg PO DAILY 02/09/14 08/26/18 History Levothyroxine Sodium [Synthroid] 137 mcg PO DAILY 02/09/14 08/26/18 History Omeprazole 20 mg PO BID 02/09/14 08/26/18 History diphenhydrAMINE [Benadryl] 50 mg PO HS 09/30/16 08/26/18 History predniSONE 10 mg PO DAILY 09/30/16 08/26/18 History Fenofibrate 160 mg PO DAILY 12/14/17 08/26/18 History Nitroglycerin Sl Tabs [Nitrostat] 0.4 mg SUBLINGUAL Q5M PRN 12/14/17 08/26/18 History Rosuvastatin Calcium [Crestor] 5 mg PO WE 12/14/17 08/26/18 History Apixaban [Eliquis] 5 mg PO BID tab 12/17/17 08/26/18 Rx Metoprolol Succinate (ER) [Toprol 50 mg PO DAILY #30 tab.er.24h 12/17/17 Rx XL] Aspirin EC [Ecotrin Low Dose] 81 mg PO DAILY 08/26/18 08/26/18 History Calcium Carbonate [Calcium] 600 mg PO TID 08/26/18 08/26/18 History Gabapentin 600 mg PO TID 08/26/18 08/26/18 History Insulin NPH Human Isophane 15 unit SQ HS 08/26/18 08/26/18 History [NovoLIN N] Insulin NPH Human Isophane 80 unit SQ DAILY 08/26/18 08/26/18 History [NovoLIN N] Insulin Regular, Human [NovoLIN R] See Protocol SQ AC-TID 08/26/18 08/26/18 History Losartan [Cozaar] 50 mg PO DAILY 08/26/18 08/26/18 History Meloxicam 15 mg PO DAILY 08/26/18 08/26/18 History Potassium Chloride [Klor-Con 10] 5 meq PO DAILY 08/26/18 08/26/18 History Allergies Allergy/AdvReac Type Severity Reaction Status Date / Time levofloxacin [From Levaquin] Allergy Intermediate Unknown Verified 08/26/18 11: 08 Penicillins Allergy Intermediate Rash/Hives Verified 08/26/18 11:08 Sulfa (Sulfonamide Allergy Intermediate Rash/Hives Verified 08/26/18 11:08 Antibiotics) cephalexin monohydrate Allergy Unknown Unknown Verified 08/26/18 11:08 [From Keflex] erythromycin base Allergy Unknown Rash/Hives Verified 08/26/18 11:08 [From E-Mycin] gatifloxacin [From Tequin] Allergy Unknown Unknown Verified 08/26/18 11:08 nitrofurantoin Allergy Unknown Unknown Verified 08/26/18 11:08 macrocrystalline [From Macrodantin] [place] Allergy Unknown Verified 08/26/18 11:08 apricot Allergy Unknown Verified 08/26/18 11:08 asparagus Allergy Unknown Verified 08/26/18 11:08 banana [Banana] Allergy Unknown Verified 08/26/18 11:08 cabbage Allergy Unknown Verified 08/26/18 11:08 carrot Allergy Unknown Verified 08/26/18 11:08 ciprofloxacin [From Cipro] Allergy Unknown Verified 08/26/18 11:08 ciprofloxacin HCl Allergy Unknown Verified 08/26/18 11:08 [From Cipro] Coconut Allergy Unknown Verified 08/26/18 11:08 coffee (Coffea arabica) Allergy Unknown Verified 08/26/18 11:08 [coffee] cucumber Allergy Unknown Verified 08/26/18 11:08 flaxseed Allergy Unknown Verified 08/26/18 11:08 sam Allergy Unknown Verified 08/26/18 11:08 grapefruit [Grapefruit] Allergy Unknown Verified 08/26/18 11:08 insulin lispro [From Humalog] Allergy Rash/Hives Verified 08/26/18 11:08 insulin NPH human isophane Allergy Rash/Hives Verified 08/26/18 11:08 [From Humulin 70/30] insulin regular, human Allergy Rash/Hives Verified 08/26/18 11:08 [From Humulin 70/30] mustard Allergy Unknown Verified 08/26/18 11:08 onion Allergy Unknown Verified 08/26/18 11:08 orange juice [[place]] Allergy Unknown Verified 08/26/18 11:08 Pepper Allergy Unknown Verified 08/26/18 11:08 rice Allergy Unknown Verified 08/26/18 11:08 spinach Allergy Unknown Verified 08/26/18 11:08 Squash Allergy Unknown Verified 08/26/18 11:08 tree nut [Pecan] Allergy Unknown Verified 08/26/18 11:08 walnut Allergy Unknown Verified 08/26/18 11:08 cantaloupe Allergy Unknown Uncoded 12/14/17 10:27 cottonseed Allergy Unknown Uncoded 12/14/17 10:27 green beans Allergy Unknown Uncoded 12/14/17 10:27 nuts Allergy Unknown Uncoded 12/14/17 10:27 tea Allergy Unknown Uncoded 12/14/17 10:27 Physical Exam Vitals: Vital Signs Temp Pulse Pulse Resp BP BP Pulse Ox 08/27/18 07:45 97.9 F 79 18 156/71 97 08/27/18 03:55 98.3 F 75 18 145/77 98 08/27/18 03:34 18 08/27/18 00:00 18 08/26/18 23:48 97.5 F L 73 18 146/93 97 08/26/18 20:00 18 08/26/18 18:30 97.7 F 71 18 127/72 99 08/26/18 18:01 67 18 142/68 100 08/26/18 14:19 74 18 109/90 99 08/26/18 10:39 98.4 F 76 18 142/67 100 Intake and Output 08/26/18 08/27/18 08/27/18 22:59 06:59 14:59 Intake Total 200 Balance 200 Intake: Oral 200 Other: # Voids 1 1 Results 08/26/18 12:00 08/26/18 12:00 Cardiac Enzymes 08/26/18 08/26/18 Range/Units 12:00 12:00 AST 54 H (14-36) U/L CK-MB (CK-2) 1.0 (0.0-2.4) ng/mL Troponin I <0.012 (0.000-0.034) ng/mL Coagulation 08/26/18 Range/Units 12:00 PT 12.8 H (9.0-12.0) sec APTT 27.9 (22.0-30.0) sec CBC 08/26/18 Range/Units 12:00 WBC 5.8 (3.8-10.6) k/uL RBC 4.09 (3.80-5.40) m/uL Hgb 12.1 (11.4-16.0) gm/dL Hct 36.7 (34.0-46.0) % Plt Count 135 L (150-450) k/uL Comprehensive Metabolic Panel 08/26/18 Range/Units 12:00 Sodium 139 (137-145) mmol/L Potassium 4.9 (3.5-5.1) mmol/L Chloride 106 (98-107) mmol/L Carbon Dioxide 27 (22-30) mmol/L BUN 46 H (7-17) mg/dL Creatinine 1.58 H (0.52-1.04) mg/dL Glucose 301 H (74-99) mg/dL Calcium 9.6 (8.4-10.2) mg/dL AST 54 H (14-36) U/L ALT 32 (9-52) U/L Alkaline Phosphatase 60 (38-126) U/L Total Protein 6.7 (6.3-8.2) g/dL Albumin 3.0 L (3.5-5.0) g/dL Current Medications Generic Name Dose Route Start Last Admin Trade Name Freq PRN Reason Stop Dose Admin Acetaminophen 650 mg 08/26/18 13:59 08/26/18 14:22 Tylenol Tab PO 650 mg Q6HR PRN Administration Mild Pain or Fever > 100.5 Apixaban 5 mg 08/26/18 21:00 08/26/18 21:57 Eliquis PO 5 mg BID ENZO Administration Aspirin 81 mg 08/27/18 09:00 Aspirin PO DAILY COUNT INCLUDES THE [facility] Atorvastatin Calcium 10 mg 08/27/18 09:00 Lipitor PO WE COUNT INCLUDES THE [facility] Calcium Carbonate/Glycine 500 mg 08/26/18 22:00 08/26/18 21:57 Tums PO 500 mg TID-W/MEALS COUNT INCLUDES THE [facility] Administration Diphenhydramine HCl 50 mg 08/26/18 21:00 08/26/18 21:57 Benadryl PO 50 mg HS COUNT INCLUDES THE [facility] Administration Fenofibrate 160 mg 08/27/18 09:00 Lofibra PO DAILY COUNT INCLUDES THE [facility] Ferrous Sulfate 325 mg 08/27/18 12:00 Feosol PO Q48H COUNT INCLUDES THE [facility] Furosemide 40 mg 08/27/18 09:00 Lasix PO DAILY COUNT INCLUDES THE [facility] Gabapentin 600 mg 08/26/18 22:00 08/26/18 21:57 Neurontin PO 600 mg TID COUNT INCLUDES THE [facility] Administration Sodium Chloride 1,000 mls @ 75 mls/hr 08/26/18 14:00 08/27/18 05:14 Saline 0.9% IV Not Given .[id number] COUNT INCLUDES THE [facility] Levothyroxine Sodium 137 mcg 08/27/18 06:30 08/27/18 05:38 Synthroid PO 137 mcg 0630 ENZO Administration Losartan Potassium 50 mg 08/27/18 09:00 Cozaar PO DAILY COUNT INCLUDES THE [facility] Meloxicam 15 mg 08/27/18 09:00 Mobic PO DAILY ENZO Metoprolol Succinate 50 mg 08/27/18 09:00 Toprol Xl PO DAILY ENZO Naloxone HCl 0.2 mg 08/26/18 13:59 Narcan IV Q2M PRN Opioid Reversal Nitroglycerin 0.4 mg 08/26/18 20:48 Nitrostat SUBLINGUAL Q5M PRN Chest Pain Novolin N 15 each 08/26/18 22:00 08/26/18 21:57 SQ 15 each HS ENZO Administration Novolin N 80 each 08/27/18 09:00 SQ QAM ENZO Novolin R 0 each 08/26/18 22:00 08/26/18 21:58 SQ 8 each ACHS ENZO Administration Protocol Pantoprazole Sodium 40 mg 08/27/18 07:30 Protonix PO AC-BRKFST ENZO Potassium Chloride 5 meq 08/27/18 09:00 K-Dur 10 PO DAILY ENZO Prednisone 10 mg 08/27/18 09:00 PO DAILY ENZO Intake and Output 08/26/18 08/27/18 08/27/18 22:59 06:59 14:59 Intake Total 200 Balance 200 Intake: Oral 200 Other: # Voids 1 1 08/26/18 12:00 08/26/18 12:00
--- NOTE | 2018-08-27 11:08 | P.CNOR ---
History of Present Illness - [facility] Consult date: 08/27/18 Consult reason: low back pain History of present illness: This is a 78-year-old female admitted on 08/26/2018 with intractable low back pain. She states that she does have history of chronic low back pain but it has never been this bad. She denies numbness or tingling down the legs. She does have pain down the legs, more so the right leg. She denies any recent fever or chills. She denies any recent illnesses. She is able to ambulate but with significant difficulty secondary to pain. She denies any recent bowel or bladder dysfunction. Past Medical History Past Medical History: Atrial Fibrillation, Asthma, Coronary Artery Disease (CAD) , Heart Failure, Diabetes Mellitus, Fibromyalgia, GI Bleed, Hyperlipidemia, Hypertension, Mitral Valve Prolapse (MVP), Osteoarthritis (OA), Pneumonia, Sleep Apnea/CPAP/BIPAP, Thyroid Disorder Additional Past Medical History / Comment(s): PT STATED HAS HAD A PNE VACCINE LESS THAN 5 YEARS AGO,[employer]ING [employer]ENT UNABLE TO VERIFY DATE AT TIME OF ADMIT-PLEASE F/U IN AMNEUROPATHY, SARCOIDOSIS, LUPUS, AUTOIMMUNE ISSUES HEART MURMUR, autoimmune HEPATITIS with prednisone dependence, IRREGULAR HEART RATE, LEFT FEMUR FRACTURE , NO CPAP USE, right ankle fracture, left lower extremity DVT, left rotator cuff tear, HX COMPLETE HEART BLOCK/PACEMAKER IMPLANTED History of Any Multi-Drug Resistant Organisms: C-DIFF Year Discovered:: 12/2014 MDRO Source:: stool Past Surgical History: Adenoidectomy, Appendectomy, Cholecystectomy, Heart Catheterization With Stent, Hysterectomy, Pacemaker, Tonsillectomy Additional Past Surgical History / Comment(s): COLONOSCOPY, EGD, [place] filter, bronchoscopy Past Anesthesia/Blood Transfusion Reactions: No Reported Reaction Additional Past Anesthesia/Blood Transfusion Reaction / Comm: PT STATED SHE HAS NEVER RECEIVED ANY BLOOD TRANSFUSIONS Date of Last Stent Placement:: 2012 Type of Cardiac Device: Permanent Pacemaker Device Placement Date:: 2017 Smoking Status: Never smoker - Past Family History Mother Family Medical History: Coronary Artery Disease (CAD) Father Family Medical History: Coronary Artery Disease (CAD) Medications and Allergies Home Medications Medication Instructions Recorded Confirmed Type Ergocalciferol (Vitamin D2) 50,000 unit PO BENSON 02/09/14 08/26/18 History [Drisdol] Ferrous Sulfate [Feosol] 325 mg PO Q48H 02/09/14 08/26/18 History Furosemide 40 mg PO DAILY 02/09/14 08/26/18 History Levothyroxine Sodium [Synthroid] 137 mcg PO DAILY 02/09/14 08/26/18 History Omeprazole 20 mg PO BID 02/09/14 08/26/18 History diphenhydrAMINE [Benadryl] 50 mg PO HS 09/30/16 08/26/18 History predniSONE 10 mg PO DAILY 09/30/16 08/26/18 History Fenofibrate 160 mg PO DAILY 12/14/17 08/26/18 History Nitroglycerin Sl Tabs [Nitrostat] 0.4 mg SUBLINGUAL Q5M PRN 12/14/17 08/26/18 History Rosuvastatin Calcium [Crestor] 5 mg PO WE 12/14/17 08/26/18 History Apixaban [Eliquis] 5 mg PO BID tab 12/17/17 08/26/18 Rx Metoprolol Succinate (ER) [Toprol 50 mg PO DAILY #30 tab.er.24h 12/17/17 Rx XL] Aspirin EC [Ecotrin Low Dose] 81 mg PO DAILY 08/26/18 08/26/18 History Calcium Carbonate [Calcium] 600 mg PO TID 08/26/18 08/26/18 History Gabapentin 600 mg PO TID 08/26/18 08/26/18 History Insulin NPH Human Isophane 15 unit SQ HS 08/26/18 08/26/18 History [NovoLIN N] Insulin NPH Human Isophane 80 unit SQ DAILY 08/26/18 08/26/18 History [NovoLIN N] Insulin Regular, Human [NovoLIN R] See Protocol SQ AC-TID 08/26/18 08/26/18 History Losartan [Cozaar] 50 mg PO DAILY 08/26/18 08/26/18 History Meloxicam 15 mg PO DAILY 08/26/18 08/26/18 History Potassium Chloride [Klor-Con 10] 5 meq PO DAILY 08/26/18 08/26/18 History Allergies Allergy/AdvReac Type Severity Reaction Status Date / Time levofloxacin [From Levaquin] Allergy Intermediate Unknown Verified 08/26/18 11: 08 Penicillins Allergy Intermediate Rash/Hives Verified 08/26/18 11:08 Sulfa (Sulfonamide Allergy Intermediate Rash/Hives Verified 08/26/18 11:08 Antibiotics) cephalexin monohydrate Allergy Unknown Unknown Verified 08/26/18 11:08 [From Keflex] erythromycin base Allergy Unknown Rash/Hives Verified 08/26/18 11:08 [From E-Mycin] gatifloxacin [From Tequin] Allergy Unknown Unknown Verified 08/26/18 11:08 nitrofurantoin Allergy Unknown Unknown Verified 08/26/18 11:08 macrocrystalline [From Macrodantin] [place] Allergy Unknown Verified 08/26/18 11:08 apricot Allergy Unknown Verified 08/26/18 11:08 asparagus Allergy Unknown Verified 08/26/18 11:08 banana [Banana] Allergy Unknown Verified 08/26/18 11:08 cabbage Allergy Unknown Verified 08/26/18 11:08 carrot Allergy Unknown Verified 08/26/18 11:08 ciprofloxacin [From Cipro] Allergy Unknown Verified 08/26/18 11:08 ciprofloxacin HCl Allergy Unknown Verified 08/26/18 11:08 [From Cipro] [place] Allergy Unknown Verified 08/26/18 11:08 coffee (Coffea arabica) Allergy Unknown Verified 08/26/18 11:08 [coffee] cucumber Allergy Unknown Verified 08/26/18 11:08 flaxseed Allergy Unknown Verified 08/26/18 11:08 sam Allergy Unknown Verified 08/26/18 11:08 grapefruit [Grapefruit] Allergy Unknown Verified 08/26/18 11:08 insulin lispro [From Humalog] Allergy Rash/Hives Verified 08/26/18 11:08 insulin NPH human isophane Allergy Rash/Hives Verified 08/26/18 11:08 [From Humulin 70/30] insulin regular, human Allergy Rash/Hives Verified 08/26/18 11:08 [From Humulin 70/30] mustard Allergy Unknown Verified 08/26/18 11:08 onion Allergy Unknown Verified 08/26/18 11:08 orange juice [[place]] Allergy Unknown Verified 08/26/18 11:08 Pepper Allergy Unknown Verified 08/26/18 11:08 rice Allergy Unknown Verified 08/26/18 11:08 spinach Allergy Unknown Verified 08/26/18 11:08 Squash Allergy Unknown Verified 08/26/18 11:08 tree nut [Pecan] Allergy Unknown Verified 08/26/18 11:08 walnut Allergy Unknown Verified 08/26/18 11:08 cantaloupe Allergy Unknown Uncoded 12/14/17 10:27 cottonseed Allergy Unknown Uncoded 12/14/17 10:27 green beans Allergy Unknown Uncoded 12/14/17 10:27 nuts Allergy Unknown Uncoded 12/14/17 10:27 tea Allergy Unknown Uncoded 12/14/17 10:27 Physical Examination This is a 78-year-old female in no acute distress. She is alert and oriented 3. She is observed ambulating from the bathroom with a walker. She is very slow and guarded in her movements. She is in obvious pain with ambulation. Exam of the low back reveals no obvious deformity. There is an area about her lumbar spine that appears as though there is a scar. She denies any recall of past back surgery. There is pain with palpation about the mid to lower lumbar spine. Minimal paraspinal musculature tenderness. Exam of the lower extremities reveals no obvious deformity. Straight leg raise is positive on the right producing pain to the upper thigh and buttock. She has full foot and ankle motion bilaterally. Dorsiflexion of the great toe against resistance is +3/5 on the right and +4/5 on the left. Neurovascular status to the lower extremities is grossly intact. Results CT of the lumbar spine reveals minor degenerative changes. There is some erosion of the L3-L4 region. Spondylolysis noted. - Labs Labs: Abnormal Lab Results - Last 24 Hours (Table) 08/26/18 08/26/18 08/26/18 Range/Units 12:00 12:00 12:00 Plt Count 135 L (150-450) k/uL Lymphocytes # 0.6 L (1.0-4.8) k/uL PT 12.8 H (9.0-12.0) sec INR 1.4 H (<1.2) BUN 46 H (7-17) mg/dL Creatinine 1.58 H (0.52-1.04) mg/dL Glucose 301 H (74-99) mg/dL POC Glucose (mg/dL) (75-99) mg/dL AST 54 H (14-36) U/L Albumin 3.0 L (3.5-5.0) g/dL Urine Appearance (Clear) Urine Glucose (UA) (Negative) Ur Leukocyte Esterase (Negative) Urine WBC (0-5) /hpf Amorphous Sediment (None) /hpf Urine Bacteria (None) /hpf Hyaline Casts (0-2) /lpf Urine Mucus (None) /hpf 08/26/18 08/26/18 08/26/18 Range/Units 13:52 18:00 21:08 Plt Count (150-450) k/uL Lymphocytes # (1.0-4.8) k/uL PT (9.0-12.0) sec INR (<1.2) BUN (7-17) mg/dL Creatinine (0.52-1.04) mg/dL Glucose (74-99) mg/dL POC Glucose (mg/dL) 249 H 312 H (75-99) mg/dL AST (14-36) U/L Albumin (3.5-5.0) g/dL Urine Appearance Cloudy H (Clear) Urine Glucose (UA) 4+ H (Negative) Ur Leukocyte Esterase Small H (Negative) Urine WBC 10 H (0-5) /hpf Amorphous Sediment Rare H (None) /hpf Urine Bacteria Few H (None) /hpf Hyaline Casts 41 H (0-2) /lpf Urine Mucus Rare H (None) /hpf 08/27/18 Range/Units 06:50 Plt Count (150-450) k/uL Lymphocytes # (1.0-4.8) k/uL PT (9.0-12.0) sec INR (<1.2) BUN (7-17) mg/dL Creatinine (0.52-1.04) mg/dL Glucose (74-99) mg/dL POC Glucose (mg/dL) 113 H (75-99) mg/dL AST (14-36) U/L Albumin (3.5-5.0) g/dL Urine Appearance (Clear) Urine Glucose (UA) (Negative) Ur Leukocyte Esterase (Negative) Urine WBC (0-5) /hpf Amorphous Sediment (None) /hpf Urine Bacteria (None) /hpf Hyaline Casts (0-2) /lpf Urine Mucus (None) /hpf H & H 08/26/18 Range/Units 12:00 Hgb 12.1 (11.4-16.0) gm/dL Hct 36.7 (34.0-46.0) % Coagulation 08/26/18 Range/Units 12:00 INR 1.4 H (<1.2) Result Diagrams: 08/26/18 12:00 08/26/18 12:00 Assessment and Plan (1) Acute exacerbation of chronic low back pain Current Visit: Yes Status: Acute Code(s): M54.5 - LOW BACK PAIN; G89.29 - OTHER CHRONIC PAIN SNOMED Code(s): 087437439 (2) Lumbar radiculopathy, acute Current Visit: Yes Status: Acute Code(s): M54.16 - RADICULOPATHY, LUMBAR REGION SNOMED Code(s): 554794231 (3) Lumbar spondylosis Current Visit: Yes Status: Acute Code(s): M47.816 - SPONDYLOSIS W/O MYELOPATHY OR RADICULOPATHY, LUMBAR REGION SNOMED Code(s): 181375986 Plan: The clinical and radiographic findings are discussed the patient. She is unable to have an MRI secondary to pacemaker. I have ordered 60 mg a site Medrol IV every 12 hours. The patient will be evaluated by Dr. Padilla later today. Continue current care. Patient may ambulate with walker.
[2018-08-27] MEDS ORDERED: FERROUS SULFATE 325 MG TAB PO SCH (12:00)
[2018-08-27] MEDS: NOVOLIN R SQ SCH ×2 (12:24→17:16)
[2018-08-27] MEDS: methylPREDNISolone SOD SUCCI 125 MG/2 ML VIAL IV SCH ×2 (12:25→20:49)
[2018-08-27 12:30] LABS: Glucose,Whole Blood 262 mg/dL (75-99)
[2018-08-27] MEDS ORDERED: NOVOLIN R SQ ONE (12:46)
[2018-08-27] MEDS: ASPIRIN 81 MG PO SCH (12:51)
[2018-08-27] MEDS: APIXABAN 5 MG TAB PO SCH ×2 (12:51→20:49)
--- NOTE | 2018-08-27 13:41 | P.PN ---
Progress Note - Text [facility] interrogation of pacemaker revels normal function and battery life. No acute arrhythmia or events noted. Mode switch occurring 77 times.
[2018-08-27 14:18] LABS: Hemoglobin A1C 9.6 % (4.0-6.0)
--- NOTE | 2018-08-27 16:22 | P.PN ---
Progress Note - Text Progress Note Date: 08/27/18 A referral was given to our pain medicine office to evaluate this patient as an inpatient for a lumbar epidural steroid injection. She was admitted to the hospital for dizziness and a fall in which she hit her head and passed out. She is currently taking eliquis. Given the non-pain centered reason for her admission as well as her current status as taking a blood thinner, she is an inappropriate candidate for injection therapy at this time. We would be happy to see her as an outpatient in our facility once her other medical issues are stabilized. Please feel free to contact our office with any questions or concerns.
[2018-08-27 17:00] LABS: Glucose,Whole Blood 386 mg/dL (75-99)
[2018-08-27 20:22] LABS: Glucose,Whole Blood 366 mg/dL (75-99)
[2018-08-27] MEDS: diphenhydrAMINE 50 MG CAP PO SCH (20:49)
[2018-08-27] MEDS ORDERED: INSULIN ISOPHANE SQ SCH (21:00)
--- NOTE | 2018-08-27 21:46 | P.PN ---
Subjective Progress Note Date: 08/27/18 Isabel Herrera is a 78-year-old female who was seen in neurology consultation yesterday for chronic low back pain. Patient was admitted after sustaining a fall at home and developing intractable low back pain. She was seen in neurology consultation yesterday and her CAT scan of the lumbar spine was reviewed with her in detail. We requested a consultation from orthopedic spine surgery for further evaluation of the lumbar spine CAT scan results. The patient has been complaining of severe back pain radiating into the legs. Her findings are highly suggestive of severe lumbar radiculopathy. She was seen by orthopedic spine surgery today and Dr. Padilla has given his recommendations. His consultation is appreciated today and we have reviewed his recommendations today with the patient. Dr. Padilla feels that pain management would be the best treatment option for the patient and to consider possibility of epidural injections to the back. Her overall MRI results indicate significant degenerative changes in multiple levels of the lumbar spine. These symptoms have been worsened after her recent fall. He has started her on IV steroid therapy which she' will be switched over to oral steroids for ongoing treatment for that her condition. The patient was seen today by pain management and Dr. Coley reviewed her case. Unfortunately she is on Eliquis and is not a candidate for any epidural injections at this time due to the anticoagulation. She is also not able to go for MRI of the lumbar spine that she has a pacemaker. We will await further recommendations from orthopedic spine surgery regarding her overall chronic low back pain symptoms. The patient is resting comfortably today and does not seem to be in severe pain. We have recommended physical therapy to continue evaluation for this patient. She may also benefit from a short course of inpatient rehab. We will continue to follow the patient closely during this admission. Her overall prognosis at this time remains guarded. Objective - Vital Signs Vital signs: Vital Signs Temp 98.1 F 08/27/18 19:59 Pulse 77 08/27/18 19:59 Resp 18 08/27/18 19:59 BP 167/80 08/27/18 19:59 Pulse Ox 97 08/27/18 19:59 Intake & Output 08/27/18 08/27/18 08/28/18 06:59 18:59 06:59 Intake Total 200 856 Balance 200 856 Intake: Oral 200 656 Other 200 Other: # Voids 1 1 - Exam Physical Examination: PHYSICAL EXAMINATION: Patient is resting comfortably in bed. VITAL SIGNS: Blood pressure is [167/74]. Heart rate is [79]. Respiration is [18] . Temperature is [98.3]. HEENT: Head is atraumatic, neck is supple, there were no carotid bruits. CHEST: Lungs are clear to auscultation and percussion. CARDIAC: S1, S2 normal rate and rhythm. There is no murmur. ABDOMEN: Soft and nontender. Bowel sounds are present. EXTREMITIES: There is no pedal edema. Peripheral pulses are present. Neurological examination: Patient's neurological examination is unchanged from yesterday. She continues to demonstrate evidence of bilateral lower extremity weakness 3+/5 bilaterally. Plantar responses flexor bilaterally. Her remaining neurological examination is unchanged from yesterday. - Labs CBC & Chem 7: 08/26/18 12:00 08/26/18 12:00 Labs: Abnormal Lab Results - Last 24 Hours (Table) 08/26/18 08/26/18 08/27/18 Range/Units 12:00 21:08 06:50 POC Glucose (mg/dL) 312 H 113 H (75-99) mg/dL Hemoglobin A1c 9.6 H (4.0-6.0) % 08/27/18 08/27/18 08/27/18 Range/Units 12:16 16:58 20:19 POC Glucose (mg/dL) 262 H 386 H 366 H (75-99) mg/dL Hemoglobin A1c (4.0-6.0) % Assessment and Plan (1) Chronic low back pain Current Visit: Yes Status: Acute Code(s): M54.5 - LOW BACK PAIN; G89.29 - OTHER CHRONIC PAIN SNOMED Code(s): 888913325 (2) Lumbar radiculopathy, acute Current Visit: Yes Status: Acute Code(s): M54.16 - RADICULOPATHY, LUMBAR REGION SNOMED Code(s): 528860232 (3) Lumbar spondylosis Current Visit: Yes Status: Acute Code(s): M47.816 - SPONDYLOSIS W/O MYELOPATHY OR RADICULOPATHY, LUMBAR REGION SNOMED Code(s): 349764919 (4) Fall Current Visit: Yes Status: Acute Code(s): W19.XXXA - UNSPECIFIED FALL, INITIAL ENCOUNTER SNOMED Code(s): 3648642 (5) Syncope Current Visit: Yes Status: Acute Code(s): R55 - SYNCOPE AND COLLAPSE SNOMED Code(s): 794715166 Plan: This patient is a 78-year-old female who was admitted to [facility] after sustaining a fall and having worsening low back pain symptoms. She was sent for computed tomography scan of the lumbar spine yesterday which was reviewed. There was evidence on her CAT scan of the lumbar spine indicating severe arthritis and degenerative changes of the lumbar spine. For this reason a consultation was obtained today from Dr. Padilla for orthopedic spine surgery recommendations. Dr. Fletcher does not feel the patient requires any surgical intervention at this time. He is recommending pain management for further treatment of her pain condition. She was seen today by Dr. Coley and unfortunately she is not a candidate for epidural injections as she is currently on Eliquis. We have reviewed these findings from Dr. Padilla and Doris Amato with the patient in detail today. We will await further recommendations from orthopedic spine surgery. Her overall prognosis at this time remains guarded.
[2018-08-28] MEDS: LEVOTHYROXINE 137 MCG TAB PO SCH (06:30)
[2018-08-28 06:52] LABS: Glucose,Whole Blood 328 mg/dL (75-99)
--- NOTE | 2018-08-28 06:58 | PN ---
PROGRESS NOTE DATE OF SERVICE: 08/27/2018 PRESENTING COMPLAINT: Neck pain. INTERVAL HISTORY: This patient was seen by me yesterday on 08/27/2018. The patient presented with fall with neck pain. Patient was seen by Neurology who did order Orthopedic Spine. They did order a pain consultation. Because of nonlocalized, patient not a candidate for any local pain injection. Otherwise, patient is feeling better. Did tolerate a diet. Patient did get up to go to the bathroom. is present. REVIEW OF SYSTEMS: Done for constitutional, cardiovascular, GI, pulmonary, musculoskeletal; relevant findings as above. CURRENT MEDICATIONS: Current medications are reviewed that include IV Solu-Medrol. PHYSICAL EXAMINATION: On examination, temperature 98.1, pulse 77, respiration 18, blood pressure 167/80, pulse ox 97% on room air. GENERAL APPEARANCE: Lying in bed, comfortable. EYES: Pupils equal. Conjunctivae normal. NECK: JVD unable to assess. Mass not palpable. RESPIRATORY: Effort normal. LUNGS: Distant breath sounds. CARDIOVASCULAR: First and second sounds muffled. Mild edema. ABDOMEN: Soft, nontender. Liver and spleen not palpable. PSYCHIATRY: Alert and oriented x3. Mood and affect normal. INVESTIGATIONS: Accu-Cheks are noted. ASSESSMENT: 1. Episode of dizziness with patient passing out, likely vasovagal, possible autonomic dysfunction. 2. Permanent pacemaker has been checked, found to be fine. 3. Chronic kidney disease, likely diabetic nephropathy. 4. Persistent atrial fibrillation. 5. Coronary artery disease, prior history of stent. 6. Chronic congestive heart failure, ejection fraction not known. 7. Diabetes mellitus type 2, chronically on insulin. 8. Chronic fibromyalgia. 9. Hyperlipidemia. 10.Essential hypertension. 11.Primary osteoarthritis. 12.Obstructive sleep apnea, does not use CPAP machine. 13.Hypothyroid. 14.History of sarcoidosis and lupus. 15.Autoimmune hepatitis, chronically on prednisone. 16.Chronic lower extremity deep venous thrombosis. 17.Permanent pacemaker. 18.Peripheral neuropathy from diabetes. 19.Morbid obesity, body mass index 44.9. 20.Chronic gait dysfunction, uses a walker. PLAN: Patient is able to get to the bathroom on her own, was put on IV steroids today. We will switch to oral prednisone tomorrow. All consultations input is noted and appreciated. Care was discussed with the at the bedside. We will also order a K-pad. MMODL / IJN: [id number] /
[2018-08-28] MEDS ORDERED: NOVOLIN N SQ SCH (07:30)
[2018-08-28] MEDS ORDERED: NOVOLIN R SQ SCH ×2 (07:30→12:00)
[2018-08-28 08:27] LABS: Calcium 9.3 mg/dL (8.4-10.2); Potassium 5.1 mmol/L (3.5-5.1)
[2018-08-28] MEDS ORDERED: predniSONE 20 MG TAB PO SCH (09:00)
[2018-08-28] MEDS: POTASSIUM CHLORIDE ER 10 MEQ TAB.ER.PRT PO SCH (09:16)
[2018-08-28] MEDS: METOPROLOL SUCCINATE (ER) 50 MG TAB.ER.24H PO SCH (09:16)
[2018-08-28] MEDS: PANTOPRAZOLE 40 MG TABLET PO SCH (09:17)
[2018-08-28] MEDS: GABAPENTIN 300 MG CAP PO SCH ×2 (09:17→15:35)
[2018-08-28] MEDS: FENOFIBRATE 160 MG TAB PO SCH (09:18)
[2018-08-28] MEDS: ASPIRIN 81 MG PO SCH (09:18)
[2018-08-28] MEDS: APIXABAN 5 MG TAB PO SCH (09:18)
[2018-08-28] MEDS: FUROSEMIDE 40 MG TAB PO SCH (09:18)
[2018-08-28] MEDS: SODIUM CHLORIDE 0.9% 1,000 ML IV SCH (09:19)
[2018-08-28] MEDS: CALCIUM CARBONATE 500 MG CHEWABLE PO SCH ×2 (09:19→12:16)
[2018-08-28 09:20] VITALS: BMI 44.9
[2018-08-28] MEDS: LOSARTAN 50 MG TAB PO SCH (09:31)
[2018-08-28 11:53] LABS: Glucose,Whole Blood 330 mg/dL (75-99)
[2018-08-28 12:10] VITALS: BP 162/86; PULSE 68; TEMP 97.6
[2018-08-28 17:06] LABS: Glucose,Whole Blood 280 mg/dL (75-99)
[2018-08-28] MEDS: NOVOLIN R SQ SCH (17:22)
--- NOTE | 2018-08-28 19:46 | P.PN ---
Subjective Progress Note Date: 08/28/18 Isabel Herrera is a 78-year-old female who was seen in neurology consultation yesterday for chronic low back pain. Patient was admitted after sustaining a fall at home and developing intractable low back pain. She was seen in neurology consultation yesterday and her CAT scan of the lumbar spine was reviewed with her in detail. We requested a consultation from orthopedic spine surgery for further evaluation of the lumbar spine CAT scan results. The patient has been complaining of severe back pain radiating into the legs. Her findings are highly suggestive of severe lumbar radiculopathy. She was seen by orthopedic spine surgery today and Dr. Padilla has given his recommendations. His consultation is appreciated today and we have reviewed his recommendations today with the patient. Dr. Padilla feels that pain management would be the best treatment option for the patient and to consider possibility of epidural injections to the back. Her overall MRI results indicate significant degenerative changes in multiple levels of the lumbar spine. These symptoms have been worsened after her recent fall. He has started her on IV steroid therapy which she' will be switched over to oral steroids for ongoing treatment for that her condition. The patient was seen today by pain management and Dr. Coley reviewed her case. Unfortunately she is on Eliquis and is not a candidate for any epidural injections at this time due to the anticoagulation. She is also not able to go for MRI of the lumbar spine that she has a pacemaker. We will await further recommendations from orthopedic spine surgery regarding her overall chronic low back pain symptoms. The patient is resting comfortably today and does not seem to be in severe pain. We have recommended physical therapy to continue evaluation for this patient. She may also benefit from a short course of inpatient rehab. The patient was able to ambulate today in her room and was up to her bathroom without any significant weakness or back pain. She is being considered for discharge home today with outpatient follow- up. We will continue to follow the patient closely during this admission. Her overall prognosis at this time remains guarded. Objective - Vital Signs Vital signs: Vital Signs Temp 97.6 F 08/28/18 12:00 Pulse 68 08/28/18 16:00 Resp 18 08/28/18 16:00 BP 162/86 08/28/18 12:00 Pulse Ox 99 08/28/18 12:00 Intake & Output 08/27/18 08/28/18 08/28/18 18:59 06:59 18:59 Intake Total 856 476 Balance 856 476 Weight 104.326 kg Intake: Oral 656 476 Other 200 Other: # Voids 1 2 1 # Bowel Movements 1 - Exam Physical Examination: PHYSICAL EXAMINATION: Patient is resting comfortably in bed. VITAL SIGNS: Blood pressure is [162/86]. Heart rate is [68]. Respiration is [18] . Temperature is [97.6]. HEENT: Head is atraumatic, neck is supple, there were no carotid bruits. CHEST: Lungs are clear to auscultation and percussion. CARDIAC: S1, S2 normal rate and rhythm. There is no murmur. ABDOMEN: Soft and nontender. Bowel sounds are present. EXTREMITIES: There is no pedal edema. Peripheral pulses are present. Neurological examination: Patient's neurological examination is unchanged from yesterday. She continues to demonstrate evidence of bilateral lower extremity weakness 3+/5 bilaterally. Plantar responses flexor bilaterally. Her remaining neurological examination is unchanged from yesterday. The patient was able to ambulate today without any significant back pain. - Labs CBC & Chem 7: 08/26/18 12:00 08/28/18 07:35 Labs: Abnormal Lab Results - Last 24 Hours (Table) 08/27/18 08/28/18 08/28/18 Range/Units 20:19 06:38 07:35 BUN 51 H (7-17) mg/dL Creatinine 1.39 H (0.52-1.04) mg/dL Glucose 333 H (74-99) mg/dL POC Glucose (mg/dL) 366 H 328 H (75-99) mg/dL 08/28/18 08/28/18 Range/Units 11:51 17:04 BUN (7-17) mg/dL Creatinine (0.52-1.04) mg/dL Glucose (74-99) mg/dL POC Glucose (mg/dL) 330 H 280 H (75-99) mg/dL Assessment and Plan (1) Chronic low back pain Status: Acute Code(s): M54.5 - LOW BACK PAIN; G89.29 - OTHER CHRONIC PAIN SNOMED Code(s): 024791339 (2) Lumbar radiculopathy, acute Status: Acute Code(s): M54.16 - RADICULOPATHY, LUMBAR REGION SNOMED Code(s) : 800023101 (3) Lumbar spondylosis Status: Acute Code(s): M47.816 - SPONDYLOSIS W/O MYELOPATHY OR RADICULOPATHY, LUMBAR REGION SNOMED Code(s): 314074269 (4) Fall Status: Acute Code(s): W19.XXXA - UNSPECIFIED FALL, INITIAL ENCOUNTER SNOMED Code(s): 8092355 (5) Syncope Status: Acute Code(s): R55 - SYNCOPE AND COLLAPSE SNOMED Code(s): 860484050 Plan: This patient is a 78-year-old female who was admitted to [facility] after sustaining a fall and having worsening low back pain symptoms. She was sent for computed tomography scan of the lumbar spine yesterday which was reviewed. There was evidence on her CAT scan of the lumbar spine indicating severe arthritis and degenerative changes of the lumbar spine. For this reason a consultation was obtained today from Dr. Padilla for orthopedic spine surgery recommendations. Dr. Fletcher does not feel the patient requires any surgical intervention at this time. He is recommending pain management for further treatment of her pain condition. She was seen today by Dr. Coley and unfortunately she is not a candidate for epidural injections as she is currently on Eliquis. We have reviewed these findings from Dr. Padilla and Doris Amato with the patient in detail today. We will await further recommendations from orthopedic spine surgery. The patient was able to ambulate much better today to the bathroom and seems to be making good progress. She is being considered for discharge home today and will follow-up with orthopedic surgeons in the outpatient clinic. Her overall prognosis at this time remains guarded.
--- NOTE | 2018-08-29 08:44 | DS ---
DISCHARGE SUMMARY DATE OF ADMISSION: 08/26/2018 DATE OF DISCHARGE: 08/28/2018 FINAL DIAGNOSES: 1. Syncope likely vasovagal, also could be from autonomic dysfunction. 2. Permanent pacemaker was checked, it was found to be fine. 3. Chronic kidney disease, likely diabetic nephropathy, stage 3. 4. Persistent atrial fibrillation. 5. Coronary artery disease, prior history of stent. 6. Chronic congestive heart failure, ejection fraction not known. 7. Diabetes mellitus type 2, chronically on insulin. 8. Chronic fibromyalgia. 9. Hyperlipidemia. 10.Essential hypertension. 11.Primary osteoarthritis. 12.Obstructive sleep apnea, does not use CPAP machine. 13.Hypothyroid. 14.History of sarcoidosis and lupus, controlled. 15.Autoimmune hepatitis, chronically on 10 mg of prednisone. 16.Chronic lower extremity deep venous thrombosis. 17.Permanent pacemaker. 18.Peripheral neuropathy from diabetes. 19.Morbid obesity, body mass index 44.9. 20.Chronic gait dysfunction, uses a walker next. CONSULTATIONS: Dr. Alison Hernández from Neurology, Dr. Burnett from Cardiology, Dr. Padilla from Orthopedic Spine. HOSPITAL COURSE: This patient presented with episodes of dizziness, passed out, had a pacemaker checked that was fine. The patient did have hip pelvic x-rays, lumbar spine CT, head and cervical spine CT scan. No fracture was present. The patient is having significant pain in the cervical region. The patient was given a burst of steroids. Patient's pain greatly improved. Today patient has been taking her walker and walking about. Per Cardiology no further workup. Patient also seen by the pain management service. Because the pain is not localized, no local injection would really help. Also patient is on blood thinners. Care was discussed with the patient. Questions were answered. PHYSICAL EXAMINATION: On examination, temperature 97.6, pulse 68, respiration 18, blood pressure 162/86, pulse ox 99% on room air. LUNGS: Distant breath sounds. LABS: BUN 51, creatinine 1.39. Potassium 5.1. DISCHARGE MEDICATIONS: 1. Vitamin D2, 50,000 units on Saturday. 2. Iron 325 p.o. every 48 hours. 3. Lasix 40 mg a day. 4. Synthroid 137 mcg a day. 5. Omeprazole 20 mg p.o. b.i.d. 6. Prednisone 10 mg after taper is done. 7. Tricor 160 mg a day. 8. Nitrostat 0.4 sublingual q.5 p.r.n. 9. Crestor 5 mg p.o. on Saturday. 10.Eliquis 5 mg p.o. b.i.d. 11.Toprol XL 50 mg p.o. daily. 12.Aspirin 81 mg a day. 13.Calcium 600 mg p.o. t.i.d. 14.Gabapentin 600 mg p.o. t.i.d. 15. . 16.Cozaar 50 mg p.o. daily. 17.Potassium 10 5 mEq p.o. daily. 18.Novolin N 30 units subcutaneous q.h.s. 19.Novolin N 80 units subcutaneous daily. 20.Novolin R 20 units subcutaneous daily. 21.Novolin R 22 units subcutaneous at noon and Novolin R 26 units subcutaneous a.c. supper. 22.Prednisone taper. Follow up with Dr. Snowden in 3 days. The patient to alternate K-pad and ice pack in the upper back. MMODL / IJN: [id number] /
[2018-08-29] MEDS ORDERED: predniSONE 10 MG TAB PO SCH (09:00)
== END 2018-08-28 17:40 | disposition home or self-care (01) ==
LOC: EC 10:35 → 1SOBS 13:59
PROVIDERS: ADMIT Hospitalist; ATTEND Hospitalist
DX: R55 Syncope and collapse (principal); W19.XXXA Unspecified fall, initial encounter; E03.9 Hypothyroidism, unspecified; E11.22 Type 2 diabetes mellitus with diabetic chronic kidney disease; E11.42 Type 2 diabetes mellitus with diabetic polyneuropathy; E11.65 Type 2 diabetes mellitus with hyperglycemia; E66.01 Morbid (severe) obesity due to excess calories; N18.3 Chronic kidney disease, stage 3 (moderate); M79.7 Fibromyalgia; G47.33 Obstructive sleep apnea (adult) (pediatric); R26.9 Unspecified abnormalities of gait and mobility; K75.4 Autoimmune hepatitis; Z68.41 Body mass index [BMI] 40.0-44.9, adult; I13.0 Hypertensive heart and chronic kidney disease with heart failure and stage 1 through stage 4 chronic kidney disease, or unspecified chronic kidney disease; I50.9 Heart failure, unspecified; I48.0 Paroxysmal atrial fibrillation; I34.1 Nonrheumatic mitral (valve) prolapse; I35.0 Nonrheumatic aortic (valve) stenosis; I82.509 Chronic embolism and thrombosis of unspecified deep veins of unspecified lower extremity; D86.9 Sarcoidosis, unspecified; I45.10 Unspecified right bundle-branch block; J45.909 Unspecified asthma, uncomplicated; M48.061 Spinal stenosis, lumbar region without neurogenic claudication; M51.06 Intervertebral disc disorders with myelopathy, lumbar region; M51.16 Intervertebral disc disorders with radiculopathy, lumbar region; R79.1 Abnormal coagulation profile; M19.91 Primary osteoarthritis, unspecified site; M51.35 Other intervertebral disc degeneration, thoracolumbar region; M43.15 Spondylolisthesis, thoracolumbar region; M47.816 Spondylosis without myelopathy or radiculopathy, lumbar region; E78.5 Hyperlipidemia, unspecified; I25.10 Atherosclerotic heart disease of native coronary artery without angina pectoris; I25.2 Old myocardial infarction; Z95.0 Presence of cardiac pacemaker; Z90.710 Acquired absence of both cervix and uterus; Z82.49 Family history of ischemic heart disease and other diseases of the circulatory system; Z79.82 Long term (current) use of aspirin; Z79.1 Long term (current) use of non-steroidal anti-inflammatories (NSAID); Z79.01 Long term (current) use of anticoagulants; Z79.84 Long term (current) use of oral hypoglycemic drugs; Z79.890 Hormone replacement therapy; Z79.4 Long term (current) use of insulin; Z79.52 Long term (current) use of systemic steroids; Z79.899 Other long term (current) drug therapy; Z95.5 Presence of coronary angioplasty implant and graft; Y92.009 Unspecified place in unspecified non-institutional (private) residence as the place of occurrence of the external cause; Z88.1 Allergy status to other antibiotic agents; Z91.018 Allergy to other foods; Z88.0 Allergy status to penicillin; Z88.2 Allergy status to sulfonamides; Z88.8 Allergy status to other drugs, medicaments and biological substances
CPT/HCPCS: 96374; 96375; 96361; 99285; 36415; 93005; 97161; 80053; 80048; 82550; 82553; 82009; 84484; 85025; 85610; 85730; 81001; 83036; 73521; 71046; 72125; 72131; 70450; G0378 ×3; J2930; J7512; 96365

== ENCOUNTER 2018-09-15 15:30 | Inpatient (IN) | payer MEDICARE ==
[2018-09-15] MEDS ORDERED: ASPIRIN 81 MG PO STA (16:08)
[2018-09-15] MEDS ORDERED: NITROGLYCERIN OINT 1 INCH/GM PACKET TOPICAL STA (16:08)
[2018-09-15 16:14] LABS: ABG HCO3 25 mmol/L (21-25); ABG Oxygen Saturation 98.4 % (94-97); ABG PCO2 34 mmHg (35-45); ABG PH 7.48 (7.35-7.45); ABG PO2 100 mmHg (83-108); ABG TCO2 27 mmol/L (19-24)
--- NOTE | 2018-09-15 16:19 | ED ---
General Adult HPI - General Source: patient, RN notes reviewed Mode of arrival: wheelchair Limitations: no limitations <Mike Ansari - Last Filed: 09/15/18 16:35> <Deshaun Helton - Last Filed: 09/15/18 18:38> - General Chief complaint: Chest Pain Stated complaint: Chest pain Time Seen by Provider: 09/15/18 15:35 - History of Present Illness Initial comments: This is a 78-year-old female presents emergency department with past medical history significant for congestive heart failure, [place], diabetes, high blood pressure. Patient comes in today complaining of chest pain since yesterday he states his been mostly constant but has on occasion was upper patient states she 's also extremely short of breath. Daughter states she soaked her but she can' t even get her to walk out of the car and a half an hour. There is been no recent fever chills or cough. The patient does not have any radiation of the pain. Patient denies any diaphoretic episodes. Patient has any nausea. Patient denies abdominal pain. Patient denies any headache patient denies any lightheadedness dizziness or near syncopal episode. Patient has bilateral edema which is chronic and unchanged according to the patient. Daughter also states that her mental status is been altered slowly over the last few weeks to the point where she is not answering all the questions normally however patient is aware she was she knew who she was and she knew why she was here. She was forgetful about Reyes past medical history but daughter states that is not her baseline (Mike Ansari) - Related Data Home Medications Medication Instructions Recorded Confirmed Furosemide 40 mg PO DAILY 02/09/14 09/15/18 Levothyroxine Sodium [Synthroid] 137 mcg PO DAILY 02/09/14 09/15/18 Omeprazole 20 mg PO BID 02/09/14 09/15/18 Fenofibrate 160 mg PO DAILY 12/14/17 09/15/18 Nitroglycerin Sl Tabs [Nitrostat] 0.4 mg SUBLINGUAL Q5M PRN 12/14/17 09/15/18 Rosuvastatin Calcium [Crestor] 5 mg PO WE 12/14/17 09/15/18 Aspirin EC [Ecotrin Low Dose] 81 mg PO DAILY 08/26/18 09/15/18 Calcium Carbonate [Calcium] 600 mg PO TID 08/26/18 09/15/18 Gabapentin 600 mg PO TID 08/26/18 09/15/18 Losartan [Cozaar] 50 mg PO DAILY 08/26/18 09/15/18 Potassium Chloride [Klor-Con 10] 5 meq PO DAILY 08/26/18 09/15/18 Insulin NPH Human Isophane 30 unit SQ HS 08/27/18 09/15/18 [NovoLIN N] Insulin NPH Human Isophane 80 unit SQ DAILY 08/27/18 09/15/18 [NovoLIN N] Insulin Regular, Human [NovoLIN R] 20 units SQ DAILY 08/27/18 09/15/18 Insulin Regular, Human [NovoLIN R] 22 unit SQ DAILY@1200 08/27/18 09/15/18 Insulin Regular, Human [NovoLIN R] 26 unit SQ AC-SUPPER 08/27/18 09/15/18 HYDROcodone/APAP 5-325MG [Joshua 1 tab PO DAILY 09/15/18 09/15/18 5-325] Previous Rx's Medication Instructions Recorded Metoprolol Succinate (ER) [Toprol 50 mg PO DAILY #30 tab.er.24h 12/17/17 XL] Allergies Allergy/AdvReac Type Severity Reaction Status Date / Time levofloxacin [From Levaquin] Allergy Intermediate Unknown Verified 09/15/18 17: 01 Penicillins Allergy Intermediate Rash/Hives Verified 09/15/18 17:01 Sulfa (Sulfonamide Allergy Intermediate Rash/Hives Verified 09/15/18 17:01 Antibiotics) cephalexin monohydrate Allergy Unknown Unknown Verified 09/15/18 17:01 [From Keflex] erythromycin base Allergy Unknown Rash/Hives Verified 09/15/18 17:01 [From E-Mycin] gatifloxacin [From Tequin] Allergy Unknown Unknown Verified 09/15/18 17:01 nitrofurantoin Allergy Unknown Unknown Verified 09/15/18 17:01 macrocrystalline [From Macrodantin] [place] Allergy Unknown Verified 09/15/18 17:01 apricot Allergy Unknown Verified 09/15/18 17:01 asparagus Allergy Unknown Verified 09/15/18 17:01 banana [Banana] Allergy Unknown Verified 09/15/18 17:01 cabbage Allergy Unknown Verified 09/15/18 17:01 carrot Allergy Unknown Verified 09/15/18 17:01 ciprofloxacin [From Cipro] Allergy Unknown Verified 09/15/18 17:01 ciprofloxacin HCl Allergy Unknown Verified 09/15/18 17:01 [From Cipro] Coconut Allergy Unknown Verified 09/15/18 17:01 coffee (Coffea arabica) Allergy Unknown Verified 09/15/18 17:01 [coffee] cucumber Allergy Unknown Verified 09/15/18 17:01 flaxseed Allergy Unknown Verified 09/15/18 17:01 sam Allergy Unknown Verified 09/15/18 17:01 grapefruit [Grapefruit] Allergy Unknown Verified 09/15/18 17:01 insulin lispro [From Humalog] Allergy Rash/Hives Verified 09/15/18 17:01 insulin NPH human isophane Allergy Rash/Hives Verified 09/15/18 17:01 [From Humulin 70/30] insulin regular, human Allergy Rash/Hives Verified 09/15/18 17:01 [From Humulin 70/30] mustard Allergy Unknown Verified 09/15/18 17:01 onion Allergy Unknown Verified 09/15/18 17:01 orange juice [Ward] Allergy Unknown Verified 09/15/18 17:01 Pepper Allergy Unknown Verified 09/15/18 17:01 rice Allergy Unknown Verified 09/15/18 17:01 spinach Allergy Unknown Verified 09/15/18 17:01 Squash Allergy Unknown Verified 09/15/18 17:01 tree nut [Pecan] Allergy Unknown Verified 09/15/18 17:01 walnut Allergy Unknown Verified 09/15/18 17:01 cantaloupe Allergy Unknown Uncoded 09/15/18 15:37 cottonseed Allergy Unknown Uncoded 09/15/18 15:37 green beans Allergy Unknown Uncoded 09/15/18 15:37 nuts Allergy Unknown Uncoded 09/15/18 15:37 tea Allergy Unknown Uncoded 09/15/18 15:37 Review of Systems ROS Other: All systems not noted in ROS Statement are negative. <Mike Ansari - Last Filed: 09/15/18 16:35> ROS Other: All systems not noted in ROS Statement are negative. <Deshaun Helton - Last Filed: 09/15/18 18:38> ROS Statement: Those systems with pertinent positive or pertinent negative responses have been documented in the HPI. 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 DATE AT TIME OF ADMIT-PLEASE F/U IN AMNEUROPATHY, SARCOIDOSIS, LUPUS, AUTOIMMUNE ISSUES HEART MURMUR, autoimmune HEPATITIS with prednisone dependence, IRREGULAR HEART RATE, LEFT FEMUR FRACTURE , NO CPAP USE, right ankle fracture, left lower extremity DVT, left rotator cuff tear, HX COMPLETE HEART BLOCK/PACEMAKER IMPLANTED History of Any Multi-Drug Resistant Organisms: C-DIFF Date of last positivie culture/infection: 12/2014 MDRO Source:: stool Past Surgical History: Adenoidectomy, Appendectomy, Cholecystectomy, Heart Catheterization With Stent, Hysterectomy, Pacemaker, Tonsillectomy Additional Past Surgical History / Comment(s): COLONOSCOPY, EGD, Zena filter, bronchoscopy Past Anesthesia/Blood Transfusion Reactions: No Reported Reaction Additional Past Anesthesia/Blood Transfusion Reaction / Comment(s): PT STATED SHE HAS NEVER RECEIVED ANY BLOOD TRANSFUSIONS Date of Last Stent Placement:: 2012 Type of Cardiac Device: Permanent Pacemaker Device Placement Date:: 2017 Past Psychological History: No Psychological Hx Reported Smoking Status: Never smoker - Past Family History Mother Family Medical History: Coronary Artery Disease (CAD) Father Family Medical History: Coronary Artery Disease (CAD) <Mike Ansari - Last Filed: 09/15/18 16:35> General Exam Limitations: no limitations <Mike Ansari - Last Filed: 09/15/18 16:35> <Deshaun Helton - Last Filed: 09/15/18 18:38> - General Exam Comments Initial Comments: GENERAL: Patient is well-developed and well-nourished. Patient is nontoxic and well- hydrated and is in mild distress. ENT: Neck is soft and supple. No significant lymphadenopathy is noted. Oropharynx is clear. Moist mucous membranes. Neck has full range of motion without eliciting any pain. EYES: The sclera were anicteric and conjunctiva were pink and moist. Extraocular movements were intact and pupils were equal round and reactive to light. Eyelids were unremarkable. PULMONARY: Patient is very dyspneic but lungs are clear CARDIOVASCULAR: There is a regular rate and rhythm without any murmurs gallops or rubs. ABDOMEN: Soft and nontender with normal bowel sounds. No palpable organomegaly was noted. There is no palpable pulsatile mass. SKIN: Skin is clear with no lesions or rashes and otherwise unremarkable. NEUROLOGIC: Patient is alert and oriented x3. Cranial nerves II through XII are grossly intact. Motor and sensory are also intact. Normal speech, volume and content. Symmetrical smile. MUSCULOSKELETAL: Normal extremities with adequate strength and full range of motion. LYMPHATICS: No significant lymphadenopathy is noted PSYCHIATRIC: Normal psychiatric evaluation. (Mike Ansari) Vital Signs 09/15/18 09/15/18 09/15/18 15:33 16:24 17:00 Temperature 98.1 F Pulse Rate 48 L 87 87 Respiratory 18 18 15 Rate Blood Pressure 98/48 146/64 154/66 O2 Sat by Pulse 93 L 99 100 Oximetry Medical Decision Making <Mike Ansari - Last Filed: 09/15/18 16:35> - Lab Data Result diagrams: 09/15/18 16:18 09/15/18 16:18 <Deshaun Helton - Last Filed: 09/15/18 18:38> - Medical Decision Making EKG shows a ventricular rhythm at 118 beats a minute QRS is 1:30 QT interval 4: 30 for QT C is 609. Patient's EKG is read as a paced rhythm though I don't see consistent pacer spikes Dr. Briones taking over the care of this patient at 5 PM (Mike Ansari) The patient was seen and examined. Case was discussed with Dr. Ansari from previous shift. The patient's laboratory came back showing that her d-dimer is slightly elevated. Her renal function also was off so it is not felt as though she could obtain a CTA of chest rule out PE. On recheck, she is sleeping and in no distress after receiving 4 modems of morphine IV. The family is quite concerned. They state that she has had a gradual decline over the past 2 weeks. She seems to be more forgetful and having some mental status changes. She has never been definitively diagnosed with any dementia. Today is when she started having the chest pain and shortness of breath which happened just shortly prior to arrival. Her chest x-ray shows a degree of memory fibrosis which is unchanged. It is felt as though she would require admission for further workup. Case management likely will need to be involved for further evaluation for adequacy of her home living situation. Her is also quite elderly and it seems difficult for him to take care of her. The case will be discussed with internal medicine shortly. (Deshaun Helton) - Lab Data Lab Results 09/15/18 09/15/18 09/15/18 Range/Units 16:08 16:18 16:18 WBC 9.8 (3.8-10.6) k/uL RBC 4.48 (3.80-5.40) m/uL Hgb 12.2 (11.4-16.0) gm/dL Hct 40.6 (34.0-46.0) % MCV 90.5 (80.0-100.0) fL MCH 27.1 (25.0-35.0) pg MCHC 30.0 L (31.0-37.0) g/dL RDW 14.9 (11.5-15.5) % Plt Count 144 L (150-450) k/uL Neutrophils % 83 % Lymphocytes % 7 % Monocytes % 7 % Eosinophils % 1 % Basophils % 0 % Neutrophils # 8.2 H (1.3-7.7) k/uL Lymphocytes # 0.7 L (1.0-4.8) k/uL Monocytes # 0.7 (0-1.0) k/uL Eosinophils # 0.1 (0-0.7) k/uL Basophils # 0.0 (0-0.2) k/uL Hypochromasia Slight PT (9.0-12.0) sec INR (<1.2) APTT (22.0-30.0) sec D-Dimer (<0.60) mg/L FEU Sample Site r brac ABG pH 7.48 H (7.35-7.45) ABG pCO2 34 L (35-45) mmHg ABG pO2 100 (83-108) mmHg ABG HCO3 25 (21-25) mmol/L ABG Total CO2 27 H (19-24) mmol/L ABG O2 Saturation 98.4 H (94-97) % ABG Base Excess 2.0 mmol/L Trung Test Yes FiO2 32 % Sodium (137-145) mmol/L Potassium (3.5-5.1) mmol/L Chloride (98-107) mmol/L Carbon Dioxide (22-30) mmol/L Anion Gap mmol/L BUN (7-17) mg/dL Creatinine (0.52-1.04) mg/dL Est GFR (CKD-EPI)AfAm (>60 ml/min/1.73 sqM) Est GFR (CKD-EPI)NonAf (>60 ml/min/1.73 sqM) Glucose (74-99) mg/dL Calcium (8.4-10.2) mg/dL Magnesium (1.6-2.3) mg/dL Total Bilirubin (0.2-1.3) mg/dL AST (14-36) U/L ALT (9-52) U/L Alkaline Phosphatase (38-126) U/L Total Creatine Kinase 41 (30-135) U/L CK-MB (CK-2) 0.8 (0.0-2.4) ng/mL CK-MB (CK-2) Rel Index 2.0 Troponin I <0.012 (0.000-0.034) ng/mL Total Protein (6.3-8.2) g/dL Albumin (3.5-5.0) g/dL 09/15/18 09/15/18 09/15/18 Range/Units 16:18 16:18 16:18 WBC (3.8-10.6) k/uL RBC (3.80-5.40) m/uL Hgb (11.4-16.0) gm/dL Hct (34.0-46.0) % MCV (80.0-100.0) fL MCH (25.0-35.0) pg MCHC (31.0-37.0) g/dL RDW (11.5-15.5) % Plt Count (150-450) k/uL Neutrophils % % Lymphocytes % % Monocytes % % Eosinophils % % Basophils % % Neutrophils # (1.3-7.7) k/uL Lymphocytes # (1.0-4.8) k/uL Monocytes # (0-1.0) k/uL Eosinophils # (0-0.7) k/uL Basophils # (0-0.2) k/uL Hypochromasia PT 12.8 H (9.0-12.0) sec INR 1.2 H (<1.2) APTT 25.7 (22.0-30.0) sec D-Dimer 1.40 H (<0.60) mg/L FEU Sample Site ABG pH (7.35-7.45) ABG pCO2 (35-45) mmHg ABG pO2 (83-108) mmHg ABG HCO3 (21-25) mmol/L ABG Total CO2 (19-24) mmol/L ABG O2 Saturation (94-97) % ABG Base Excess mmol/L Trung Test FiO2 % Sodium 140 (137-145) mmol/L Potassium 5.4 H (3.5-5.1) mmol/L Chloride 109 H (98-107) mmol/L Carbon Dioxide 23 (22-30) mmol/L Anion Gap 8 mmol/L BUN 52 H (7-17) mg/dL Creatinine 1.63 H (0.52-1.04) mg/dL Est GFR (CKD-EPI)AfAm 35 (>60 ml/min/1.73 sqM) Est GFR (CKD-EPI)NonAf 31 (>60 ml/min/1.73 sqM) Glucose 159 H (74-99) mg/dL Calcium 9.3 (8.4-10.2) mg/dL Magnesium 2.2 (1.6-2.3) mg/dL Total Bilirubin 1.8 H (0.2-1.3) mg/dL AST 81 H (14-36) U/L ALT 40 (9-52) U/L Alkaline Phosphatase 98 (38-126) U/L Total Creatine Kinase (30-135) U/L CK-MB (CK-2) (0.0-2.4) ng/mL CK-MB (CK-2) Rel Index Troponin I (0.000-0.034) ng/mL Total Protein 6.7 (6.3-8.2) g/dL Albumin 3.1 L (3.5-5.0) g/dL Disposition <Mike Ansari - Last Filed: 09/15/18 16:35> Is patient prescribed a controlled substance at d/c from ED?: No Time of Disposition: 18:38 Decision Date: 09/15/18 Decision Time: 18:38 <Deshaun Helton - Last Filed: 09/15/18 18:38> Clinical Impression: Chest pain, Change in mental status, Dyspnea, Elevated d-dimer, Renal insufficiency, Hypertension Disposition: ADMITTED IP TO THIS HOSP Condition: Fair
[2018-09-15 16:36] LABS: Basophils % (A) 0 %; Eosinophils # (A) 0.1 k/uL (0-0.7); Eosinophils % (A) 1 %; HCT 40.6 % (34.0-46.0); HGB 12.2 gm/dL (11.4-16.0); Hypochromasia Slight; Lymphocytes # (A) 0.7 k/uL (1.0-4.8); Lymphocytes % (A) 7 %; MCH 27.1 pg (25.0-35.0); MCV 90.5 fL (80.0-100.0); Mean Platelet Volume 7.9; Monocytes # (A) 0.7 k/uL (0-1.0); Monocytes % (A) 7 %; Neutrophils # (A) 8.2 k/uL (1.3-7.7); Neutrophils % (A) 83 %; Platelet Count 144 k/uL (150-450); RBC 4.48 m/uL (3.80-5.40); RDW 14.9 % (11.5-15.5); WBC 9.8 k/uL (3.8-10.6)
[2018-09-15 16:56] LABS: Creatine Kinase 41 U/L (30-135); INR 1.2 (<1.2); Partial Thromboplastin Time 25.7 sec (22.0-30.0); Prothrombin Time 12.8 sec (9.0-12.0)
--- NOTE | 2018-09-15 16:57 | XR ---
EXAMINATION TYPE: XR chest 2V DATE OF EXAM: 09/15/2018 COMPARISON: 08/26/2018 HISTORY: Chest pain TECHNIQUE: Frontal and lateral views of the chest are obtained. FINDINGS: There is no heart failure nor confluent pneumonic infiltrate. There is some coarsening of the lung markings. Heart appears enlarged. There is no pleural effusion. There is left axillary pacem cortes with the lead tip over the right ventricle. IMPRESSION: Mild pulmonary fibrosis. Cardiomegaly. No change compared to last exam.
[2018-09-15 17:06] LABS: Albumin 3.1 g/dL (3.5-5.0); Calcium 9.3 mg/dL (8.4-10.2); Magnesium 2.2 mg/dL (1.6-2.3); Potassium 5.4 mmol/L (3.5-5.1); Total Bilirubin 1.8 mg/dL (0.2-1.3); Total Protein 6.7 g/dL (6.3-8.2)
[2018-09-15 17:09] LABS: Creatine Kinase MB 0.8 ng/mL (0.0-2.4); Troponin I <0.012 ng/mL (0.000-0.034)
[2018-09-15] MEDS ORDERED: MORPHINE SULFATE 4 MG/ML SYRINGE IVP STA (17:21)
[2018-09-15] MEDS ORDERED: HEPARIN SODIUM,PORCINE 5,000 UNIT/ML 1 ML VIAL IV PRN (18:39)
[2018-09-15] MEDS ORDERED: HEPARIN SODIUM,PORCINE 10,000 UNIT/ML 1 ML VIAL IV ONE ×2 (18:39→18:45)
[2018-09-15] MEDS: HEPARIN SOD,PORK IN 0.45% NACL 25,000 UNIT in 0.45% NACL 1 250ML.BAG IV SCH (19:09)
[2018-09-15] MEDS ORDERED: NITROGLYCERIN SL TABS 0.4 MG TAB SUBLINGUAL PRN ×2 (19:25→19:29)
[2018-09-15 20:41] LABS: Glucose,Whole Blood 129 mg/dL (75-99)
[2018-09-15] MEDS ORDERED: INSULIN NPH 300 UNIT/3 ML VIAL SQ SCH (21:00)
[2018-09-15] MEDS: IPRATROPIUM-ALBUTEROL 3 ML NEB INHALATION SCH (21:34)
[2018-09-15 22:54] LABS: Basophils % (A) 0 %; Eosinophils # (A) 0.1 k/uL (0-0.7); Eosinophils % (A) 1 %; HCT 37.2 % (34.0-46.0); HGB 11.4 gm/dL (11.4-16.0); Hypochromasia Moderate; Lymphocytes # (A) 0.7 k/uL (1.0-4.8); Lymphocytes % (A) 8 %; MCH 27.8 pg (25.0-35.0); MCHC 30.6 g/dL (31.0-37.0); MCV 90.8 fL (80.0-100.0); Mean Platelet Volume 8.6; Monocytes # (A) 0.7 k/uL (0-1.0); Monocytes % (A) 8 %; Neutrophils # (A) 7.3 k/uL (1.3-7.7); Neutrophils % (A) 82 %; Platelet Count 113 k/uL (150-450); RDW 14.7 % (11.5-15.5); WBC 8.9 k/uL (3.8-10.6)
[2018-09-15] MEDS: GABAPENTIN 300 MG CAP PO SCH (22:59)
[2018-09-15] MEDS: PANTOPRAZOLE 40 MG TABLET PO SCH (23:02)
[2018-09-15] MEDS: CALCIUM CARBONATE 500 MG CHEWABLE PO SCH (23:03)
[2018-09-15 23:30] LABS: Creatine Kinase MB 3.5 ng/mL (0.0-2.4); Troponin I 0.02 ng/mL (0.000-0.034)
[2018-09-16] MEDS: NITROGLYCERIN OINT 1 INCH/GM PACKET TOPICAL SCH ×3 (00:22→15:59)
[2018-09-16] MEDS: IPRATROPIUM-ALBUTEROL 3 ML NEB INHALATION SCH ×7 (00:39→23:51)
[2018-09-16] MEDS: MORPHINE SULFATE 4 MG/ML SYRINGE IVP PRN ×2 (00:46→21:36)
[2018-09-16 05:31] LABS: Basophils % (A) 0 %; Eosinophils # (A) 0.1 k/uL (0-0.7); Eosinophils % (A) 1 %; HCT 37.6 % (34.0-46.0); HGB 11.5 gm/dL (11.4-16.0); Hypochromasia Marked; Lymphocytes # (A) 0.7 k/uL (1.0-4.8); Lymphocytes % (A) 8 %; MCH 28.3 pg (25.0-35.0); MCHC 30.5 g/dL (31.0-37.0); MCV 92.7 fL (80.0-100.0); Mean Platelet Volume 8.6; Monocytes # (A) 0.7 k/uL (0-1.0); Monocytes % (A) 8 %; Neutrophils # (A) 7.3 k/uL (1.3-7.7); Neutrophils % (A) 81 %; Platelet Count 111 k/uL (150-450); RBC 4.06 m/uL (3.80-5.40); RDW 14.7 % (11.5-15.5)
[2018-09-16 05:59] LABS: Creatine Kinase MB 6.3 ng/mL (0.0-2.4); Troponin I 0.032 ng/mL (0.000-0.034)
[2018-09-16 06:15] LABS: Cholesterol 102 mg/dL (<200); HDL Cholesterol 46 mg/dL (40-60); LDL Cholesterol,Calculated 37 mg/dL (0-99); Triglycerides 95 mg/dL (<150)
[2018-09-16 06:50] LABS: Glucose,Whole Blood 133 mg/dL (75-99)
[2018-09-16 08:28] LABS: Calcium 9.1 mg/dL (8.4-10.2); Potassium 5.2 mmol/L (3.5-5.1)
[2018-09-16] MEDS ORDERED: LOSARTAN 50 MG TAB PO SCH (09:00)
[2018-09-16] MEDS ORDERED: FUROSEMIDE 40 MG TAB PO SCH (09:00)
[2018-09-16] MEDS ORDERED: INSULIN REGULAR 100 UNIT/ML VIAL SQ SCH ×3 (09:00→17:30)
[2018-09-16] MEDS ORDERED: INSULIN NPH 300 UNIT/3 ML VIAL SQ SCH (09:00)
--- NOTE | 2018-09-16 09:23 | CONS ---
CONSULTATION This is a 78-year-old lady with a known diagnosis of CAD, type 2 diabetes with mild CKD, hypertension, hypercholesterolemia and sick sinus syndrome who had a permanent pacemaker placed sometime in November of this year for a second-degree AV block with symptoms. She was recently discharged from the hospital. She also carries a diagnosis of paroxysmal atrial fibrillation and she was on Eliquis 5 mg b.i.d. She came into the hospital mainly because of episodes of what she describes as a sensation of chest discomfort and tightness. Apparently she came in with her pain in the chest that has been constant, pretty much all day on and off and also some shortness of breath that seemed to have gotten worse. Her daughter seems to have brought her in and she had difficulty walking out of the car. However after arrival she did not complain of any fever or chills and any diaphoretic episodes. Her initial 2 troponins are unremarkable. She also has some altered mental status changes as well. D- dimer was elevated, but CT angio was not performed, mainly because of her elevated creatinine. However, she has been on Eliquis, although it is not clear and I do not see it on the note from today in the ER, but it is on the discharge note when she went home about 3 weeks ago or less. Patient is not a good historian. Does not communicate much with me. Denies any chest pain. She seems to be resting comfortably. Oxygen saturation is good. She is in a ventricular paced rhythm at this time and therefore, it is unclear what her underlying rhythm is at this time. PAST MEDICAL HISTORY: Patient has history of CAD, previous circumflex PCI. The details of the procedure are not available. She was last here on August 27 and at that time, based on the note, it appears that she has a history of being on Eliquis 5 mg b.i.d. when she came in and echo from November revealed good systolic function with a 55%-60% ejection fraction , mild gradient across the aortic valve. Her last Lexiscan stress test did not reveal ischemia in April of this year. She had a stent of her ostium of the circumflex marginal that was performed in 2012, the details of which are not available. She usually sees Dr. Lynn Ortiz in the office. MEDICATIONS: At home, she is on apixaban 5 mg b.i.d. but that was not recorded. She takes her rosuvastatin 5 mg daily, omeprazole, metoprolol succinate 50 mg daily, Cozaar 50 mg daily, insulin, [place], fenofibrate, and aspirin 81 mg daily. ALLERGIES: She is allergic to a number of medications including CIPRO, PENICILLIN and SULFA and ERYTHROMYCIN. On examination, blood pressure is 108/70, pulse rate is 78 per minute, appears to be paced rhythm. HEENT: Limited exam is unremarkable. Fundus was not examined by me. Neck is supple, there is JVD. There is no carotid bruit. Heart exam reveals S1, S2 with a short systolic murmur at the base. Lungs reveal diminished air entry. Abdomen is soft, nontender. Lower extremities reveal trace edema, diminished pulses. Central nervous system grossly within normal limits of but a detailed exam was not performed. EKG revealed a ventricular paced rhythm at a rate of about 118 beats per minute. LABORATORY DATA: Revealed that 2 sets of troponins are unremarkable. Her D-dimer was elevated. Creatinine is 1.63, hemoglobin and platelet counts are normal. IMPRESSION: 1. Episode of shortness of breath of unclear etiology. Pulmonary embolism seems less likely. Patient apparently was on Eliquis. 2. Chest pain syndrome. Pain is atypical. She has 2 sets of troponins are normal. 3. Hypertension. 4. Type 2 diabetes mellitus. 5. Hyperlipidemia. 6. Chronic CKD with a creatinine in the range of 1.6. RECOMMENDATIONS: I am recommending that we resume her Eliquis but at a lower dose in view of renal function at 2.5 mg b.i.d., check an additional troponin. Patient also probably has obstructive sleep apnea syndrome and we should consider using a BiPAP for this lady if necessary. I do not believe we are dealing with any acute myocardial ischemia at this time, but we will get additional troponin. I will await input from Dr. Eid from a pulmonary standpoint to see patient has any underlying COPD as well. Thank you very much for the consult. MMODL / IJN: [id number] / MANDY
--- NOTE | 2018-09-16 10:24 | P.CNPUL ---
History of Present Illness Consult date: 09/16/18 Requesting physician: Natalio Schmidt Chief complaint: Shortness of breath, critical care management History of present illness: This is a 78-year-old female patient who follows with Dr. Snowden as her primary care physician. She has a history of atrial fibrillation anticoagulated with Eliquis, complete heart block status post permanent pacemaker implantation , coronary artery disease with previous stent placement in 2012, diabetes mellitus Type II, morbid obesity, obstructive sleep apnea, hyperlipidemia, hypertension,lupus, autoimmune hepatitis. She also follows with Dr. Lester in our office for history of sarcoidosis and chronic bronchial asthma. She is a lifelong nonsmoker.she presented here to the emergency room yesterday with complaints of chest pain since 1 day prior the pain is mostly constant she was also having significant shortness of breath at the time. No diaphoresis, nausea or vomiting.. Her daughter stated she did have some altered mental status over the last few weeks and not answering all questions appropriately. Chest x-ray shows mild evidence of pulmonary fibrosis, cardiomegaly. No change compared to previous in July 2018. EKG reveals ventricular pacing.prominence are negative 2.white count 9.0. Hemoglobin 11.5. Platelet count 111,000. Potassium 5.2. Creatinine 2.40.She is seen today in the intensive care unit. She is currently resting in bed. She is somewhat difficult to arouse. Once awake she is answering yes no questions. She denies any chest pain currently. She denies any shortness of breath. She is currently on a heparin until able to take Eliquis. Review of Systems ROS unobtainable: due to mental status Past Medical History Past Medical History: Atrial Fibrillation, Asthma, Coronary Artery Disease (CAD) , Heart Failure, Diabetes Mellitus, Fibromyalgia, GI Bleed, Hyperlipidemia, Hypertension, Mitral Valve Prolapse (MVP), Osteoarthritis (OA), Pneumonia, Sleep Apnea/CPAP/BIPAP, Syncope, Thyroid Disorder Additional Past Medical History / Comment(s): PT STATED HAS HAD A PNE VACCINE LESS THAN 5 YEARS AGO,ANNEALER UNABLE TO VERIFY DATE AT TIME OF ADMIT-PLEASE F/U IN AM. NEUROPATHY, SARCOIDOSIS, LUPUS, AUTOIMMUNE ISSUES HEART MURMUR, autoimmune HEPATITIS with prednisone dependence, IRREGULAR HEART RATE, LEFT FEMUR FRACTURE, NO CPAP USE, right ankle fracture, left lower extremity DVT, left rotator cuff tear, HX COMPLETE HEART BLOCK/PACEMAKER IMPLANTED History of Any Multi-Drug Resistant Organisms: None Reported Date of last positivie culture/infection: None MDRO Source:: None Past Surgical History: Adenoidectomy, Appendectomy, Cholecystectomy, Heart Catheterization With Stent, Hysterectomy, Pacemaker, Tonsillectomy Additional Past Surgical History / Comment(s): COLONOSCOPY, EGD, Zena filter, bronchoscopy Past Anesthesia/Blood Transfusion Reactions: No Reported Reaction Additional Past Anesthesia/Blood Transfusion Reaction / Comment(s): PT STATED SHE HAS NEVER RECEIVED ANY BLOOD TRANSFUSIONS Date of Last Stent Placement:: 2012 Type of Cardiac Device: Permanent Pacemaker Device Placement Date:: 2017 Smoking Status: Never smoker - Past Family History Mother Family Medical History: Coronary Artery Disease (CAD) Father Family Medical History: Coronary Artery Disease (CAD) Medications and Allergies Home Medications Medication Instructions Recorded Confirmed Type Furosemide 40 mg PO DAILY 02/09/14 09/15/18 History Levothyroxine Sodium [Synthroid] 137 mcg PO DAILY 02/09/14 09/15/18 History Omeprazole 20 mg PO BID 02/09/14 09/15/18 History Fenofibrate 160 mg PO DAILY 12/14/17 09/15/18 History Nitroglycerin Sl Tabs [Nitrostat] 0.4 mg SUBLINGUAL Q5M PRN 12/14/17 09/15/18 History Rosuvastatin Calcium [Crestor] 5 mg PO WE 12/14/17 09/15/18 History Metoprolol Succinate (ER) [Toprol 50 mg PO DAILY #30 tab.er.24h 12/17/17 Rx XL] Aspirin EC [Ecotrin Low Dose] 81 mg PO DAILY 08/26/18 09/15/18 History Calcium Carbonate [Calcium] 600 mg PO TID 08/26/18 09/15/18 History Gabapentin 600 mg PO TID 08/26/18 09/15/18 History Losartan [Cozaar] 50 mg PO DAILY 08/26/18 09/15/18 History Potassium Chloride [Klor-Con 10] 5 meq PO DAILY 08/26/18 09/15/18 History Insulin NPH Human Isophane 30 unit SQ HS 08/27/18 09/15/18 History [NovoLIN N] Insulin NPH Human Isophane 80 unit SQ DAILY 08/27/18 09/15/18 History [NovoLIN N] Insulin Regular, Human [NovoLIN R] 20 units SQ DAILY 08/27/18 09/15/18 History Insulin Regular, Human [NovoLIN R] 22 unit SQ DAILY@1200 08/27/18 09/15/18 History Insulin Regular, Human [NovoLIN R] 26 unit SQ AC-SUPPER 08/27/18 09/15/18 History HYDROcodone/APAP 5-325MG [[place] 1 tab PO DAILY 09/15/18 09/15/18 History 5-325] Allergies Allergy/AdvReac Type Severity Reaction Status Date / Time levofloxacin [From Levaquin] Allergy Intermediate Unknown Verified 09/15/18 17: 01 Penicillins Allergy Intermediate Rash/Hives Verified 09/15/18 17:01 Sulfa (Sulfonamide Allergy Intermediate Rash/Hives Verified 09/15/18 17:01 Antibiotics) cephalexin monohydrate Allergy Unknown Unknown Verified 09/15/18 17:01 [From Keflex] erythromycin base Allergy Unknown Rash/Hives Verified 09/15/18 17:01 [From E-Mycin] gatifloxacin [From Tequin] Allergy Unknown Unknown Verified 09/15/18 17:01 nitrofurantoin Allergy Unknown Unknown Verified 09/15/18 17:01 macrocrystalline [From Macrodantin] [place] Allergy Unknown Verified 09/15/18 17:01 apricot Allergy Unknown Verified 09/15/18 17:01 asparagus Allergy Unknown Verified 09/15/18 17:01 banana [Banana] Allergy Unknown Verified 09/15/18 17:01 cabbage Allergy Unknown Verified 09/15/18 17:01 carrot Allergy Unknown Verified 09/15/18 17:01 ciprofloxacin [From Cipro] Allergy Unknown Verified 09/15/18 17:01 ciprofloxacin HCl Allergy Unknown Verified 09/15/18 17:01 [From Cipro] Coconut Allergy Unknown Verified 09/15/18 17:01 coffee (Coffea arabica) Allergy Unknown Verified 09/15/18 17:01 [coffee] cucumber Allergy Unknown Verified 09/15/18 17:01 flaxseed Allergy Unknown Verified 09/15/18 17:01 sam Allergy Unknown Verified 09/15/18 17:01 grapefruit [Grapefruit] Allergy Unknown Verified 09/15/18 17:01 insulin lispro [From Humalog] Allergy Rash/Hives Verified 09/15/18 17:01 insulin NPH human isophane Allergy Rash/Hives Verified 09/15/18 17:01 [From Humulin 70/30] insulin regular, human Allergy Rash/Hives Verified 09/15/18 17:01 [From Humulin 70/30] mustard Allergy Unknown Verified 09/15/18 17:01 onion Allergy Unknown Verified 09/15/18 17:01 orange juice [[place]] Allergy Unknown Verified 09/15/18 17:01 Pepper Allergy Unknown Verified 09/15/18 17:01 rice Allergy Unknown Verified 09/15/18 17:01 spinach Allergy Unknown Verified 09/15/18 17:01 Squash Allergy Unknown Verified 09/15/18 17:01 tree nut [Pecan] Allergy Unknown Verified 09/15/18 17:01 walnut Allergy Unknown Verified 09/15/18 17:01 cantaloupe Allergy Unknown Uncoded 09/15/18 15:37 cottonseed Allergy Unknown Uncoded 09/15/18 15:37 green beans Allergy Unknown Uncoded 09/15/18 15:37 nuts Allergy Unknown Uncoded 09/15/18 15:37 tea Allergy Unknown Uncoded 09/15/18 15:37 Physical Exam Vitals: Vital Signs Temp Pulse Resp BP Pulse Ox 09/16/18 07:27 88 09/16/18 07:19 89 100 09/16/18 07:00 72 7 L 106/60 95 09/16/18 06:00 68 11 L 90/58 96 09/16/18 05:00 72 9 L 104/53 94 L 09/16/18 04:00 98.8 F 93 9 L 99/62 95 09/16/18 03:00 70 8 L 111/51 94 L 09/16/18 02:00 67 8 L 119/62 97 09/16/18 01:00 90 10 L 121/70 96 09/16/18 00:26 98.9 F 95 16 121/71 96 09/16/18 00:00 92 14 127/59 96 09/15/18 23:00 88 15 111/62 97 09/15/18 22:04 99.4 F 86 14 110/58 09/15/18 21:41 87 09/15/18 21:36 100 09/15/18 21:34 86 12/17/18 20:00 98.7 F 89 11 L 109/53 100 09/15/18 19:00 90 9 L 154/66 100 09/15/18 17:00 87 15 154/66 100 09/15/18 16:24 87 18 146/64 99 09/15/18 15:33 98.1 F 48 L 18 98/48 93 L Intake and Output 09/15/18 09/16/18 09/16/18 22:59 06:59 14:59 Intake Total 100 345.619 Output Total 0 0 Balance 100 345.619 Intake: Intake, IV Titration 145.619 Amount Heparin Sod,Pork in 0.45% 145.619 NaCl 25,000 unit In 0.45 % NaCl 1 250ml.bag @ 18 UNITS/KG/HR 19.59 mls/hr IV .[id number] [facility] Rx#: [id number] Blood Product 100 200 Output: Urine 0 0 Other: Voiding Method Bedpan Weight 108.862 kg 110.6 kg GENERAL EXAM: Morbid obesity. Difficult to arouse. HEAD: Normocephalic. EYES: Normal reaction of pupils, equal size. NOSE: Clear with pink turbinates. THROAT: Crowding of the posterior pharynx. No erythema or exudates. NECK: Short. No masses, no JVD. CHEST: No chest wall deformity. LUNGS: Equal air entry with coarse crackles in the bilateral bases otherwise clear. CVS: S1 and S2 normal with no audible murmur, regular rhythm. ABDOMEN: No hepatosplenomegaly, normal bowel sounds, no guarding or rigidity. SPINE: No scoliosis or deformity SKIN: Chronic changes of venous stasis in lower extremities. CENTRAL NERVOUS SYSTEM: No focal deficits, tone is normal in all 4 extremities. EXTREMITIES: There is to 1-2+ peripheral edema. No clubbing, no cyanosis. Peripheral pulses are intact. Results - Laboratory Findings CBC and BMP: 09/16/18 04:17 09/16/18 04:17 ABG ABG pH 7.48 (7.35-7.45) H 09/15/18 16:08 ABG pCO2 34 mmHg (35-45) L 09/15/18 16:08 ABG pO2 100 mmHg (83-108) 09/15/18 16:08 ABG O2 Saturation 98.4 % (94-97) H 09/15/18 16:08 PT/INR, D-dimer PT 12.8 sec (9.0-12.0) H 09/15/18 16:18 INR 1.2 (<1.2) H 09/15/18 16:18 D-Dimer 1.40 mg/L FEU (<0.60) H 09/15/18 16:18 Abnormal lab findings: Abnormal Labs 09/15/18 09/15/18 09/15/18 16:08 16:18 16:18 MCHC 30.0 L Plt Count 144 L Neutrophils # 8.2 H Lymphocytes # 0.7 L PT INR APTT D-Dimer ABG pH 7.48 H ABG pCO2 34 L ABG Total CO2 27 H ABG O2 Saturation 98.4 H Potassium 5.4 H Chloride 109 H BUN 52 H Creatinine 1.63 H Glucose 159 H POC Glucose (mg/dL) Total Bilirubin 1.8 H AST 81 H Total Creatine Kinase CK-MB (CK-2) Albumin 3.1 L 09/15/18 09/15/1818 16:18 16:18 20:38 MCHC Plt Count Neutrophils # Lymphocytes # PT 12.8 H INR 1.2 H APTT D-Dimer 1.40 H ABG pH ABG pCO2 ABG Total CO2 ABG O2 Saturation Potassium Chloride BUN Creatinine Glucose POC Glucose (mg/dL) 129 H Total Bilirubin AST Total Creatine Kinase CK-MB (CK-2) Albumin 09/15/18 09/15/18 09/16/18 22:39 22:39 01:05 MCHC 30.6 L Plt Count 113 L Neutrophils # Lymphocytes # 0.7 L PT INR APTT >200.0 H* D-Dimer ABG pH ABG pCO2 ABG Total CO2 ABG O2 Saturation Potassium Chloride BUN Creatinine Glucose POC Glucose (mg/dL) Total Bilirubin AST Total Creatine Kinase 393 H CK-MB (CK-2) 3.5 H Albumin 09/16/1818 09/16/18 04:17 04:17 04:17 MCHC 30.5 L Plt Count 111 L Neutrophils # Lymphocytes # 0.7 L PT INR APTT D-Dimer ABG pH ABG pCO2 ABG Total CO2 ABG O2 Saturation Potassium 5.2 H Chloride 110 H BUN 59 H Creatinine 2.40 H Glucose 127 H POC Glucose (mg/dL) Total Bilirubin AST Total Creatine Kinase 979 H CK-MB (CK-2) 6.3 H Albumin 09/16/18 09/16/18 06:19 06:39 MCHC Plt Count Neutrophils # Lymphocytes # PT INR APTT 84.8 H D-Dimer ABG pH ABG pCO2 ABG Total CO2 ABG O2 Saturation Potassium Chloride BUN Creatinine Glucose POC Glucose (mg/dL) 133 H Total Bilirubin AST Total Creatine Kinase CK-MB (CK-2) Albumin - Diagnostic Findings Chest x-ray: image reviewed Assessment and Plan Assessment: Impression: #1 Altered mental status of unclear etiology. The patient did have a fall prior to her symptoms. #2 Chest pain, no acute coronary syndrome. #3 Chronic atrial fibrillation, anticoagulated with Eliquis in the outpatient setting. #4 History of complete heart block, status post permanent pacemaker implantation. #5 Coronary artery disease with previous stent placement. #6 Morbid obesity. Suspect obesity/hypoventilation syndrome. #7 Obstructive sleep apnea unclear of compliance in the outpatient setting. #8 Pulmonary sarcoidosis without recent acute exacerbations. #9 Fibromyalgia. #10 Hypothyroidism. #11 Hypertension. #12 Hyperlipidemia. #13 Diabetes mellitus, type II. #14 Lupus erythematosus. #15 Autoimmune hepatitis. Plan: The patient was seen and evaluated by Dr. Eid. She is quite difficult to arouse morning. We'll order computed tomography scan of the brain without contrast. Dopplers of the lower extremity. Arterial blood gases. Rule out hypercapnic respiratory failure. Probable need for BiPaP. Continue bronchodilators. Continue heparin drip until able to take oral Eliquis. We will continue to follow make further recommendations based on her clinical status. I, the cosigning physician, performed a history & physical examination of the patient. Lungs sounds with coarse crackles in the posterior basesr. Maintaining good O2 saturations in the 90s on 3 liters per minute per nasal cannula. I discussed the assessment and plan of care with my nurse practitioner , Alia Paulino. I attest to the above consultation as dictated by her.
[2018-09-16 10:25] LABS: ABG HCO3 26 mmol/L (21-25); ABG Oxygen Saturation 99.5 % (94-97); ABG PCO2 42 mmHg (35-45); ABG PO2 133 mmHg (83-108); ABG TCO2 27 mmol/L (19-24)
[2018-09-16 11:26] LABS: Amorphous Sediment,Urine Moderate /hpf; Appearance,Urine Cloudy (Clear); Bacteria,Urine Few /hpf; Bilirubin,Urine Negative (Negative); Blood,Urine Negative (Negative); Color,Urine Yellow; Glucose,Urine (UA) Negative (Negative); Hyaline Casts,Urine 41 /lpf (0-2); Ketones,Urine Trace (Negative); Leukocyte Esterase,Urine Small (Negative); Mucus,Urine Rare /hpf; Nitrite,Urine Negative (Negative); Protein,Urine Trace (Negative); Specific Gravity,Urine 1.018 (1.001-1.035)
[2018-09-16] MEDS: HEPARIN SOD,PORK IN 0.45% NACL 25,000 UNIT in 0.45% NACL 1 250ML.BAG IV SCH (11:54)
--- NOTE | 2018-09-16 12:09 | CT ---
EXAMINATION TYPE: CT brain wo con DATE OF EXAM: 09/16/2018 COMPARISON: 08/26/2018 HISTORY: mental status changes CT DLP: 1209.4 mGycm Automated exposure control for dose reduction was used. TECHNIQUE: CT scan of the head is performed without contrast. FINDINGS: There is no acute intracranial hemorrhage or midline shift identified. There is mild vent ricular and sulcal prominence consistent with diffuse age-related cerebral atrophy. There are few ar eas of low-attenuation in the periventricular white matter consistent with chronic small vessel ische leona change. The globes are intact and the visualized sinuses are clear. IMPRESSION: No acute intracranial hemorrhage or midline shift. Mild age-related cerebral atrophy and nonspecific white matter change, most commonly on the basis of chronic microangiopathy.
[2018-09-16 12:11] LABS: Glucose,Whole Blood 155 mg/dL (75-99)
--- NOTE | 2018-09-16 12:15 | ECHOF ---
Referral Reason:cp MEASUREMENTS -------- HEIGHT: 154.9 cm WEIGHT: 110.2 kg BP: 106/60 IVSd: 1.3 cm (0.6 - 1.1) LVIDd: 2.8 cm (3.9 - 5.3) LVPWd: 1.4 cm (0.6 - 1.1) IVSs: 1.4 cm LVIDs: 1.0 cm LVPWs: 1.9 cm Ao Diam: 3.0 cm (2.0 - 3.7) AV Cusp: 1.4 cm (1.5 - 2.6) LA Diam: 2.8 cm (2.7 - 3.8) MV E Abhay: 1.09 m/s MV DecT: 145 ms MV A Abhay: 0.29 m/s MV E/A Ratio: 3.78 AV maxP.12 mmHg AV meanP.14 mmHg RAP: 5.00 mmHg RVSP: 17.86 mmHg FINDINGS -------- Undetermined rhythm. This was a technically difficult study with suboptimal views. The left ventricular size is normal. There is mild concentric left ventricular hypertrophy. Overa ll left ventricular systolic function is normal with, an EF between 55 - 60 %. The right ventricle is normal in size and function. The left atrium is normal in size. The right atrium is normal in size. Lumason used Aortic valve is trileaflet and is mildly thickened. There is mild aortic stenosis present. The mitral valve leaflets are mildly thickened. There is trace mitral regurgitation. Mild tricuspid regurgitation present. The right ventricular systolic pressure, as measured by Doppl er, is 17.86mmHg. The pulmonic valve was not well visualized. The aortic root size is normal. There is amild to moderate, generalized pericardial effusion present. CONCLUSIONS -------- 1. Undetermined rhythm. 2. This was a technically difficult study with suboptimal views. 3. The left ventricular size is normal. 4. There is mild concentric left ventricular hypertrophy. 5. Overall left ventricular systolic function is normal with, an EF between 55 - 60 %. 6. The right ventricle is normal in size and function. 7. The left atrium is normal in size. 8. The right atrium is normal in size. 9. Lumason used 10. Aortic valve is trileaflet and is mildly thickened. 11. There is mild aortic stenosis present. 12. The mitral valve leaflets are mildly thickened. 13. There is trace mitral regurgitation. 14. Mild tricuspid regurgitation present. 15. The right ventricular systolic pressure, as measured by Doppler, is 17.86mmHg. 16. The pulmonic valve was not well visualized. 17. The aortic root size is normal. 18. There is amild to moderate, generalized pericardial effusion present. MIDWIFE: Doris Royal RDCS
[2018-09-16] MEDS ORDERED: SODIUM CHLORIDE 0.9% 1,000 ML IV ONE (13:18)
[2018-09-16] MEDS ORDERED: SODIUM CHLORIDE 0.9% 1,000 ML IV SCH (13:30)
[2018-09-16 14:42] LABS: Lactic Acid, Venous 1.7 mmol/L (0.7-2.0)
[2018-09-16] MEDS ORDERED: SODIUM CHLORIDE 0.9% 500 ML 500 ML IV ONE (15:13)
[2018-09-16] MEDS: PANTOPRAZOLE 40 MG TABLET PO SCH ×2 (15:16→21:28)
[2018-09-16] MEDS: POTASSIUM CHLORIDE ER 10 MEQ TAB.ER.PRT PO SCH (15:16)
[2018-09-16] MEDS: LEVOTHYROXINE 137 MCG TAB PO SCH (15:16)
[2018-09-16] MEDS: ASPIRIN 325 MG TAB PO SCH (15:17)
[2018-09-16] MEDS: APIXABAN 2.5 MG TABLET PO SCH ×2 (15:17→21:24)
[2018-09-16] MEDS: CALCIUM CARBONATE 500 MG CHEWABLE PO SCH ×3 (15:19→21:28)
[2018-09-16] MEDS: GABAPENTIN 300 MG CAP PO SCH ×3 (15:19→21:27)
[2018-09-16] MEDS: FENOFIBRATE 160 MG TAB PO SCH (15:19)
[2018-09-16] MEDS: METOPROLOL SUCCINATE (ER) 50 MG TAB.ER.24H PO SCH (15:20)
--- NOTE | 2018-09-16 16:37 | CT ---
EXAMINATION TYPE: CT angio chest DATE OF EXAM: 09/16/2018 COMPARISON: 10/20/2013 HISTORY: 78-year-old female shortness of breath R/O PE TECHNIQUE: Contiguous axial scanning of the chest performed with IV Contrast, patient injected with 8 0 mL of Isovue 370. Coronal/sagittal MIP reconstructions performed. CT DLP: 860.4 mGycm Automated exposure control for dose reduction was used. FINDINGS: Heart borderline enlarged with small anterior basilar pericardial fluid. There is no flattening of th e interventricular septum or reflux of contrast into the hepatic veins. There is breathing motion artifact throughout. Aorta normal caliber with mild cardiac arch calcifications and conventional arch vessel branching brien cristhian. Scattered nonenlarged mediastinal lymph nodes. No thoracic lymphadenopathy by CT size criteria. Satisfactory opacification of the pulmonary arterial system. Allowing for respiratory motion artifact no definite pulmonary embolus is seen. Segmental and more distal arterial branches of the lower lung s are limited Subpleural reticular changes in the lower lungs mild bronchiectasis at the lung bases, new from 2013 Mild perihepatic ascites visualized in the upper abdomen. There is nodular contour of the liver sugge sting cirrhosis and possible vague areas of enhancement suggests left liver lobe axial image 121 and inferior right liver lobe axial image 134. Bones: Subacute, healing left-sided rib fractures involving eighth, ninth, 10th ribs. Old healed frac ture deformity proximal right humerus. Moderately advanced degenerative disc disease throughout the t horacic spine. IMPRESSION: 1. RESPIRATORY MOTION ARTIFACTS. SEGMENTAL AND SUBSEGMENTAL BRANCHES OF THE LOWER LUNGS ARE LIMITED. NO DEFINITE PULMONARY EMBOLUS. 2. FIBROTIC CHANGES IN THE LOWER LUNGS WITH MILD BIBASILAR BRONCHIECTASIS, NEW/PROGRESSED FROM 2013. 3. SUBACUTE, HEALING FRACTURES OF THE LEFT EIGHTH, NINTH, AND 10TH RIBS. 4. CIRRHOSIS WITH MILD PERIHEPATIC ASCITES. A COUPLE VAGUE AREAS OF ENHANCEMENT ARE PRESENT IN THE LI PHYLLIS. LIVER MRI COULD FURTHER ASSESS FOR POTENTIAL HCC.
[2018-09-16 16:58] LABS: Glucose,Whole Blood 142 mg/dL (75-99)
[2018-09-16] MEDS: SODIUM CHLORIDE 0.9% 1,000 ML IV SCH ×2 (17:13→21:39)
[2018-09-16] MEDS ORDERED: MD COMMUNICATION TO PHARMACY 1 EACH MISC PO PRN (18:04)
--- NOTE | 2018-09-16 20:56 | P.HPIM ---
History of Present Illness H&P Date: 09/16/18 Chief Complaint: Chest pain History of presenting complaint: This is a [address] Snowden. Chronic stable medical conditions include atrial fibrillation, asthma, coronary artery disease, congestive heart failure, diabetes, fibromyalgia, hyperlipidemia, hypertension, osteoarthritis. He should also does have a pacemaker and has chronic peripheral neuropathy. Patient reported to the ER. According to the daughter in the ER she stated progressively patient is becoming more confused. Weak and tired. Normally able to get about with a walker but unable to do so much. Also been complaining of chest pain. Patient couldn't really could not quantify the chest pain. Also short of breath. Tired and run down. No fever or chills. Patient was hypotensive in the floor, and rather lethargic. I did today had ordered fluid boluses. Review of systems: GEN.: Weak tired and lethargic EYES: None HEENT: None NECK: None RESPIRATORY: Short of breath CARDIOVASCULAR: Chest pain GASTROINTESTINAL: None GENITOURINARY: None MUSCULOSKELETAL: Pain in the joints LYMPHATICS: None HEMATOLOGICAL: None PSYCHIATRY: Anxious NEUROLOGICAL: GEN denies weakness Past medical history: Atrial fibrillation, asthma, coronary artery disease, congestive heart failure, diabetes, fibromyalgia, hyperlipidemia, hypertension, mitral valve prolapse, osteoarthritis, sleep apnea, hypothyroid, sarcoidosis, lupus, autoimmune hepatitis with prednisone dependence, right ankle fracture, left lower extremity DVT, left rotator cuff tear, complete heart block with a pacemaker. 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 EYES: Pupils equal. Conjunctiva normal. HEENT: External appearance of nose and ears normal, oral cavity dry mucous membrane. NECK: JVD not raised; masses not palpable. HEART: First and second heart sounds are normal; no edema. LUNGS: Respiratory rate normal; decreased breath sounds. ABDOMEN: Soft, nontender, liver spleen not palpable, no masses palpable. LYMPHATICS: No lymph nodes palpable in the axilla and neck. PSYCH: Lethargic but arousablel. NEUROLOGICAL: Cranial nerves grossly intact; no facial asymmetry, power and sensation grossly intact. Labs: Reviewed in the clinical context White count 9.8, hemoglobin 12.2, platelets 144, Potassium 5.4, BUN 52, creatinine 1.63, repeat BUN and creatinine was 59 and 2.4 Chest [id number] reviewed by me, shows some cardiomegaly and nonspecific findings EKG personally reviewed by me shows paced rhythm CT brain-shows nonspecific findings chronic changes 2-D echocardiogram shows preserved LV function EF at 50% Assessment: -Acute metabolic encephalopathy, possibly from renal failure -Acute renal failure likely prerenal from decreased oral intake -Hyperkalemia in the setting of renal failure -Persistent atrial fibrillation patient not a pacemaker -Coronary artery disease -Chronic congestive heart failure from diastolic dysfunction EF at 55-60% -Hyperlipidemia -Primary osteoarthritis -Hypothyroid -Chronic autoimmune hepatitis with prednisone dependence -Chronic kidney 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 Baseline creatinine was 1.39 on August 28 -Chronic medical debility at her baseline uses a walker Plan: Patient was started on IV fluids. Oral medications were initially held because the patient and rather lethargic. Aspiration precautions were done. Consultation was done put cardiology and pulmonary. Prognosis guarded. Follow electrolytes closely. 2. Hold off patient's losartan and Lasix. Currently no family the bedside. 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 NEUROPATHY, SARCOIDOSIS, LUPUS, AUTOIMMUNE ISSUES HEART MURMUR, autoimmune HEPATITIS with prednisone dependence, IRREGULAR HEART RATE, LEFT FEMUR FRACTURE, NO CPAP USE, right ankle fracture, left lower extremity DVT, left rotator cuff tear, HX COMPLETE HEART BLOCK/PACEMAKER IMPLANTED History of Any Multi-Drug Resistant Organisms: None Reported Date of last positivie culture/infection: None MDRO Source:: None Past Surgical History: Adenoidectomy, Appendectomy, Cholecystectomy, Heart Catheterization With Stent, Hysterectomy, Pacemaker, Tonsillectomy Additional Past Surgical History / Comment(s): COLONOSCOPY, EGD, Zena filter, bronchoscopy Past Anesthesia/Blood Transfusion Reactions: No Reported Reaction Additional Past Anesthesia/Blood Transfusion Reaction / Comment(s): PT STATED SHE HAS NEVER RECEIVED ANY BLOOD TRANSFUSIONS Date of Last Stent Placement:: 2012 Type of Cardiac Device: Permanent Pacemaker Device Placement Date:: 2017 Smoking Status: Never smoker - Past Family History Mother Family Medical History: Coronary Artery Disease (CAD) Father Family Medical History: Coronary Artery Disease (CAD) Medications and Allergies Home Medications Medication Instructions Recorded Confirmed Type Furosemide 40 mg PO DAILY 02/09/14 09/15/18 History Levothyroxine Sodium [Synthroid] 137 mcg PO DAILY 02/09/14 09/15/18 History Omeprazole 20 mg PO BID 02/09/14 09/15/18 History Fenofibrate 160 mg PO DAILY 12/14/17 09/15/18 History Nitroglycerin Sl Tabs [Nitrostat] 0.4 mg SUBLINGUAL Q5M PRN 12/14/17 09/15/18 History Rosuvastatin Calcium [Crestor] 5 mg PO WE 12/14/17 09/15/18 History Metoprolol Succinate (ER) [Toprol 50 mg PO DAILY #30 tab.er.24h 12/17/17 Rx XL] Aspirin EC [Ecotrin Low Dose] 81 mg PO DAILY 08/26/18 09/15/18 History Calcium Carbonate [Calcium] 600 mg PO TID 08/26/18 09/15/18 History Gabapentin 600 mg PO TID 08/26/18 09/15/18 History Losartan [Cozaar] 50 mg PO DAILY 08/26/18 09/15/18 History Potassium Chloride [Klor-Con 10] 5 meq PO DAILY 08/26/18 09/15/18 History Insulin NPH Human Isophane 46 unit SQ 0730 08/27/18 09/16/18 History [NovoLIN N] Insulin Regular, Human [NovoLIN R] 20 units SQ 0730 08/27/18 09/16/18 History Insulin Regular, Human [NovoLIN R] 22 unit SQ DAILY@1200 08/27/18 09/15/18 History Insulin Regular, Human [NovoLIN R] 26 unit SQ AC-SUPPER 08/27/18 09/15/18 History HYDROcodone/APAP 5-325MG [[place] 1 tab PO DAILY 09/15/18 09/15/18 History 5-325] Insulin Regular, Human [NovoLIN R] See Protocol 09/16/18 History Allergies Allergy/AdvReac Type Severity Reaction Status Date / Time levofloxacin [From Levaquin] Allergy Intermediate Unknown Verified 09/15/18 17: 01 Penicillins Allergy Intermediate Rash/Hives Verified 09/15/18 17:01 Sulfa (Sulfonamide Allergy Intermediate Rash/Hives Verified 09/15/18 17:01 Antibiotics) cephalexin monohydrate Allergy Unknown Unknown Verified 09/15/18 17:01 [From Keflex] erythromycin base Allergy Unknown Rash/Hives Verified 09/15/18 17:01 [From E-Mycin] gatifloxacin [From Tequin] Allergy Unknown Unknown Verified 09/15/18 17:01 nitrofurantoin Allergy Unknown Unknown Verified 09/15/18 17:01 macrocrystalline [From Macrodantin] [place] Allergy Unknown Verified 09/15/18 17:01 apricot Allergy Unknown Verified 09/15/18 17:01 asparagus Allergy Unknown Verified 09/15/18 17:01 banana [Banana] Allergy Unknown Verified 09/15/18 17:01 cabbage Allergy Unknown Verified 09/15/18 17:01 carrot Allergy Unknown Verified 09/15/18 17:01 ciprofloxacin [From Cipro] Allergy Unknown Verified 09/15/18 17:01 ciprofloxacin HCl Allergy Unknown Verified 09/15/18 17:01 [From Cipro] [place] Allergy Unknown Verified 09/15/18 17:01 coffee (Coffea arabica) Allergy Unknown Verified 09/15/18 17:01 [coffee] cucumber Allergy Unknown Verified 09/15/18 17:01 flaxseed Allergy Unknown Verified 09/15/18 17:01 sam Allergy Unknown Verified 09/15/18 17:01 grapefruit [Grapefruit] Allergy Unknown Verified 09/15/18 17:01 insulin lispro [From Humalog] Allergy Rash/Hives Verified 09/15/18 17:01 insulin NPH human isophane Allergy Rash/Hives Verified 09/15/18 17:01 [From Humulin 70/30] insulin regular, human Allergy Rash/Hives Verified 09/15/18 17:01 [From Humulin 70/30] mustard Allergy Unknown Verified 09/15/18 17:01 onion Allergy Unknown Verified 09/15/18 17:01 orange juice [[place]] Allergy Unknown Verified 09/15/18 17:01 Pepper Allergy Unknown Verified 09/15/18 17:01 rice Allergy Unknown Verified 09/15/18 17:01 spinach Allergy Unknown Verified 09/15/18 17:01 Squash Allergy Unknown Verified 09/15/18 17:01 tree nut [Pecan] Allergy Unknown Verified 09/15/18 17:01 walnut Allergy Unknown Verified 09/15/18 17:01 cantaloupe Allergy Unknown Uncoded 09/15/18 15:37 cottonseed Allergy Unknown Uncoded 09/15/18 15:37 green beans Allergy Unknown Uncoded 09/15/18 15:37 nuts Allergy Unknown Uncoded 09/15/18 15:37 tea Allergy Unknown Uncoded 09/15/18 15:37 Physical Exam Vitals: Vital Signs Temp Pulse Resp BP Pulse Ox 09/16/18 15:39 82 09/16/18 15:28 84 09/16/18 14:00 82 9 L 112/41 100 09/16/18 13:00 81 6 L 108/48 99 09/16/18 12:00 98.5 F 82 6 L 113/53 99 09/16/18 11:00 83 6 L 110/50 100 09/16/18 10:00 85 7 L 84/36 99 09/16/18 09:00 85 7 L 98/83 96 09/16/18 08:00 87 7 L 111/60 98 09/16/18 07:27 88 09/16/18 07:19 89 100 09/16/18 07:00 72 7 L 106/60 95 09/16/18 06:00 68 11 L 90/58 96 09/16/18 05:00 72 9 L 104/53 94 L 09/16/18 04:00 98.8 F 93 9 L 99/62 95 09/16/18 03:00 70 8 L 111/51 94 L 09/16/18 02:00 67 8 L 119/62 97 09/16/18 01:00 90 10 L 121/70 96 09/16/18 00:26 98.9 F 95 16 121/71 96 09/16/18 00:00 92 14 127/59 96 09/15/18 23:00 88 15 111/62 97 09/15/18 22:04 99.4 F 86 14 110/58 09/15/18 21:41 87 09/15/18 21:36 100 09/15/18 21:34 86 09/15/18 20:00 98.7 F 89 11 L 109/53 100 09/15/18 19:00 90 9 L 154/66 100 Intake and Output 09/16/18 09/16/18 09/16/18 06:59 14:59 22:59 Intake Total 345.619 124.191 Output Total 0 Balance 345.619 124.191 Intake: Intake, IV Titration 145.619 124.191 Amount Heparin Sod,Pork in 0.45% 145.619 124.191 NaCl 25,000 unit In 0.45 % NaCl 1 250ml.bag @ 18 UNITS/KG/HR 19.59 mls/hr IV .[id number] [facility] Rx#: [id number] Blood Product 200 Output: Urine 0 Other: Voiding Method Bedpan Indwelling Catheter Indwelling Catheter Weight 110.6 kg Results CBC & Chem 7: 09/16/18 04:17 09/16/18 04:17 Labs: Abnormal Lab Results - Last 24 Hours (Table) 09/15/18 09/15/18 09/15/18 Range/Units 16:18 20:38 22:39 MCHC 30.6 L (31.0-37.0) g/dL Plt Count 113 L (150-450) k/uL Lymphocytes # 0.7 L (1.0-4.8) k/uL APTT (22.0-30.0) sec D-Dimer 1.40 H (<0.60) mg/L FEU ABG pO2 (83-108) mmHg ABG HCO3 (21-25) mmol/L ABG Total CO2 (19-24) mmol/L ABG O2 Saturation (94-97) % Potassium (3.5-5.1) mmol/L Chloride (98-107) mmol/L BUN (7-17) mg/dL Creatinine (0.52-1.04) mg/dL Glucose (74-99) mg/dL POC Glucose (mg/dL) 129 H (75-99) mg/dL Ammonia (<30) umol/L Total Creatine Kinase (30-135) U/L CK-MB (CK-2) (0.0-2.4) ng/mL Urine Appearance (Clear) Urine Protein (Negative) Urine Ketones (Negative) Ur Leukocyte Esterase (Negative) Amorphous Sediment (None) /hpf Urine Bacteria (None) /hpf Hyaline Casts (0-2) /lpf Urine Mucus (None) /hpf 09/15/18 09/16/18 09/16/18 Range/Units 22:39 01:05 04:17 MCHC 30.5 L (31.0-37.0) g/dL Plt Count 111 L (150-450) k/uL Lymphocytes # 0.7 L (1.0-4.8) k/uL APTT >200.0 H* (22.0-30.0) sec D-Dimer (<0.60) mg/L FEU ABG pO2 (83-108) mmHg ABG HCO3 (21-25) mmol/L ABG Total CO2 (19-24) mmol/L ABG O2 Saturation (94-97) % Potassium (3.5-5.1) mmol/L Chloride (98-107) mmol/L BUN (7-17) mg/dL Creatinine (0.52-1.04) mg/dL Glucose (74-99) mg/dL POC Glucose (mg/dL) (75-99) mg/dL Ammonia (<30) umol/L Total Creatine Kinase 393 H (30-135) U/L CK-MB (CK-2) 3.5 H (0.0-2.4) ng/mL Urine Appearance (Clear) Urine Protein (Negative) Urine Ketones (Negative) Ur Leukocyte Esterase (Negative) Amorphous Sediment (None) /hpf Urine Bacteria (None) /hpf Hyaline Casts (0-2) /lpf Urine Mucus (None) /hpf 09/16/18 09/16/18 09/16/18 Range/Units 04:17 04:17 06:19 MCHC (31.0-37.0) g/dL Plt Count (150-450) k/uL Lymphocytes # (1.0-4.8) k/uL APTT 84.8 H (22.0-30.0) sec D-Dimer (<0.60) mg/L FEU ABG pO2 (83-108) mmHg ABG HCO3 (21-25) mmol/L ABG Total CO2 (19-24) mmol/L ABG O2 Saturation (94-97) % Potassium 5.2 H (3.5-5.1) mmol/L Chloride 110 H (98-107) mmol/L BUN 59 H (7-17) mg/dL Creatinine 2.40 H (0.52-1.04) mg/dL Glucose 127 H (74-99) mg/dL POC Glucose (mg/dL) (75-99) mg/dL Ammonia (<30) umol/L Total Creatine Kinase 979 H (30-135) U/L CK-MB (CK-2) 6.3 H (0.0-2.4) ng/mL Urine Appearance (Clear) Urine Protein (Negative) Urine Ketones (Negative) Ur Leukocyte Esterase (Negative) Amorphous Sediment (None) /hpf Urine Bacteria (None) /hpf Hyaline Casts (0-2) /lpf Urine Mucus (None) /hpf 09/16/18 09/16/18 09/16/18 Range/Units 06:39 10:12 10:16 MCHC (31.0-37.0) g/dL Plt Count (150-450) k/uL Lymphocytes # (1.0-4.8) k/uL APTT (22.0-30.0) sec D-Dimer (<0.60) mg/L FEU ABG pO2 133 H (83-108) mmHg ABG HCO3 26 H (21-25) mmol/L ABG Total CO2 27 H (19-24) mmol/L ABG O2 Saturation 99.5 H (94-97) % Potassium (3.5-5.1) mmol/L Chloride (98-107) mmol/L BUN (7-17) mg/dL Creatinine (0.52-1.04) mg/dL Glucose (74-99) mg/dL POC Glucose (mg/dL) 133 H (75-99) mg/dL Ammonia (<30) umol/L Total Creatine Kinase (30-135) U/L CK-MB (CK-2) (0.0-2.4) ng/mL Urine Appearance Cloudy H (Clear) Urine Protein Trace H (Negative) Urine Ketones Trace H (Negative) Ur Leukocyte Esterase Small H (Negative) Amorphous Sediment Moderate H (None) /hpf Urine Bacteria Few H (None) /hpf Hyaline Casts 41 H (0-2) /lpf Urine Mucus Rare H (None) /hpf 12/18/18 12/18/18 12/18/18 Range/Units 12:00 13:02 13:53 MCHC (31.0-37.0) g/dL Plt Count (150-450) k/uL Lymphocytes # (1.0-4.8) k/uL APTT >200.0 H* (22.0-30.0) sec D-Dimer (<0.60) mg/L FEU ABG pO2 (83-108) mmHg ABG HCO3 (21-25) mmol/L ABG Total CO2 (19-24) mmol/L ABG O2 Saturation (94-97) % Potassium (3.5-5.1) mmol/L Chloride (98-107) mmol/L BUN (7-17) mg/dL Creatinine (0.52-1.04) mg/dL Glucose (74-99) mg/dL POC Glucose (mg/dL) 155 H (75-99) mg/dL Ammonia 39 H (<30) umol/L Total Creatine Kinase (30-135) U/L CK-MB (CK-2) (0.0-2.4) ng/mL Urine Appearance (Clear) Urine Protein (Negative) Urine Ketones (Negative) Ur Leukocyte Esterase (Negative) Amorphous Sediment (None) /hpf Urine Bacteria (None) /hpf Hyaline Casts (0-2) /lpf Urine Mucus (None) /hpf 09/16/18 Range/Units 16:47 MCHC (31.0-37.0) g/dL Plt Count (150-450) k/uL Lymphocytes # (1.0-4.8) k/uL APTT (22.0-30.0) sec D-Dimer (<0.60) mg/L FEU ABG pO2 (83-108) mmHg ABG HCO3 (21-25) mmol/L ABG Total CO2 (19-24) mmol/L ABG O2 Saturation (94-97) % Potassium (3.5-5.1) mmol/L Chloride (98-107) mmol/L BUN (7-17) mg/dL Creatinine (0.52-1.04) mg/dL Glucose (74-99) mg/dL POC Glucose (mg/dL) 142 H (75-99) mg/dL Ammonia (<30) umol/L Total Creatine Kinase (30-135) U/L CK-MB (CK-2) (0.0-2.4) ng/mL Urine Appearance (Clear) Urine Protein (Negative) Urine Ketones (Negative) Ur Leukocyte Esterase (Negative) Amorphous Sediment (None) /hpf Urine Bacteria (None) /hpf Hyaline Casts (0-2) /lpf Urine Mucus (None) /hpf Thrombosis Risk Factor Assmnt - Choose All That Apply Each Factor Represents 1 point: Heart failure (<1month), Obesity (BMI >25), Swollen legs (current) Each Risk Factor Represents 2 Points: Patient confined to bed Each Risk Factor Represents 3 Points: Age 75 years or older Thrombosis Risk Factor Assessment Total Risk Factor Score: 8 Thrombosis Risk Factor Assessment Level: High Risk
[2018-09-16 23:49] LABS: Glucose,Whole Blood 153 mg/dL (75-99)
[2018-09-17] MEDS: IPRATROPIUM-ALBUTEROL 3 ML NEB INHALATION SCH ×5 (03:29→20:23)
[2018-09-17 06:13] LABS: Basophils % (A) 0 %; Eosinophils # (A) 0.1 k/uL (0-0.7); Eosinophils % (A) 1 %; HCT 34.7 % (34.0-46.0); HGB 10.5 gm/dL (11.4-16.0); Hypochromasia Marked; Lymphocytes # (A) 0.4 k/uL (1.0-4.8); Lymphocytes % (A) 6 %; MCH 27.9 pg (25.0-35.0); MCHC 30.3 g/dL (31.0-37.0); MCV 92.1 fL (80.0-100.0); Mean Platelet Volume 8.2; Monocytes # (A) 0.4 k/uL (0-1.0); Monocytes % (A) 6 %; Neutrophils # (A) 5.2 k/uL (1.3-7.7); Neutrophils % (A) 85 %; Platelet Count 103 k/uL (150-450); RBC 3.76 m/uL (3.80-5.40); RDW 14.8 % (11.5-15.5); WBC 6.1 k/uL (3.8-10.6)
[2018-09-17] MEDS: NOVOLIN R SQ SCH ×3 (08:12→17:20)
[2018-09-17] MEDS: NOVOLIN N SQ SCH (08:12)
[2018-09-17 08:18] LABS: Glucose,Whole Blood 155 mg/dL (75-99)
--- NOTE | 2018-09-17 08:18 | XR ---
EXAMINATION TYPE: XR chest 1V portable DATE OF EXAM: 09/17/2018 COMPARISON: 09/17/2018 HISTORY: Shortness of breath TECHNIQUE: Single frontal view of the chest is obtained. FINDINGS: There are low lung volumes accentuating the pulmonary vasculature and cardiomegaly seen. D ual lead left-sided cardiac device is similar in position. As seen on the prior CT reticular peripher al opacities representing the known pulmonary fibrosis. Pulmonary vasculature appears mildly engorged . No sizable pleural effusion or pneumothorax. IMPRESSION: Mild engorgement of the pulmonary vasculature represent minimal pulmonary vascular conge stion that in combination with cardiomegaly likely is on the basis of decompensated congestive heart failure.
--- NOTE | 2018-09-17 08:49 | P.PN ---
Subjective Progress Note Date: 09/17/18 Principal diagnosis: Shortness of breath, critical care management This is a 78-year-old female patient who follows with Dr. Snowden as her primary care physician. She has a history of atrial fibrillation anticoagulated with Eliquis, complete heart block status post permanent pacemaker implantation , coronary artery disease with previous stent placement in 2012, diabetes mellitus Type II, morbid obesity, obstructive sleep apnea, hyperlipidemia, hypertension,lupus, autoimmune hepatitis. She also follows with Dr. Lester in our office for history of sarcoidosis and chronic bronchial asthma. She is a lifelong nonsmoker.she presented here to the emergency room yesterday with complaints of chest pain since 1 day prior the pain is mostly constant she was also having significant shortness of breath at the time. No diaphoresis, nausea or vomiting.. Her daughter stated she did have some altered mental status over the last few weeks and not answering all questions appropriately. Chest x-ray shows mild evidence of pulmonary fibrosis, cardiomegaly. No change compared to previous in July 2018. EKG reveals ventricular pacing.prominence are negative 2.white count 9.0. Hemoglobin 11.5. Platelet count 111,000. Potassium 5.2. Creatinine 2.40.She is seen today in the intensive care unit. She is currently resting in bed. She is somewhat difficult to arouse. Once awake she is answering yes no questions. She denies any chest pain currently. She denies any shortness of breath. She is currently on a heparin until able to take Eliquis. On 09/17/2018 patient seen in follow-up in the intensive care unit, she is somnolent, but easily arousable, denies any distress, denies any worsening dyspnea or chest pain. Currently on 3 L per nasal cannula and her pulse ox is 100%. Afebrile, hemodynamically stable, CT angios of the chest did not show any definite pulmonary embolus, fibrotic changes were noted in the lower lungs with mild basilar bronchiectasis, seems to be progressed from 2013, that showed subacute healing fractures of the left eighth, ninth and 10th ribs, cirrhosis with mild perihepatic ascites with a couple of vague areas of enhancement in the liver. Lung sounds are diminished, with the bibasilar crackles in the lower lobes. Today's chest x-ray was reviewed by Dr. Zamora, shows a engorgement of the pulmonary vasculature and minimal pulmonary vascular congestion, related to decompensated congestive heart failure. Labs were reviewed. CBC was done, BMP has not resulted yet. Patient wakes up and answers questions appropriately. Patient remains in A. fib, she is on Eliquis. Brain CT showed no acute findings, showed mild age-related cerebral atrophy and nonspecific white matter change. Echocardiogram showed preserved left ventricular systolic function with an EF of 55-60%, trace mitral regurgitation, tricuspid regurgitation. Mild aortic stenosis. Still awaiting results of the electrolytes and renal profile, patient is nonoliguric, she is producing urine in the order of 65 to 115 ML per hour. Objective - Vital Signs Vital signs: Vital Signs Temp 98.5 F 09/17/18 04:00 Pulse 99 09/17/18 08:00 Resp 11 L 09/17/18 08:00 BP 136/43 09/17/18 08:00 Pulse Ox 100 09/17/18 08:00 Intake & Output 09/16/18 09/17/18 09/17/18 18:59 06:59 18:59 Intake Total 2544.191 1500 Output Total 339 440 Balance 2205.191 1060 Weight 116.3 kg Intake: IV 120 Normal Saline as a 120 carrier Intake, IV Titration 2424.191 1500 Amount Heparin Sod,Pork in 0.45% 124.191 NaCl 25,000 unit In 0.45 % NaCl 1 250ml.bag @ 18 UNITS/KG/HR 19.59 mls/hr IV .[id number] ENZO Rx#: [id number] Sodium Chloride 0.9% 1, 500 1500 000 ml @ 125 mls/hr IV . Q8H ENZO Rx#:[id number] Sodium Chloride 0.9% 1, 300 0 000 ml @ 75 mls/hr IV . [id number] ENZO Rx#:[id number] Sodium Chloride 0.9% 1, 1500 000 ml @ 999 mls/hr IV . Q1H1M ONE Rx#:[id number] Output: Urine 339 440 Other: Voiding Method Indwelling Catheter Indwelling Catheter - Exam GENERAL EXAM: Morbid obesity. Somnolent, but easily arousable, answering questions appropriately, moving all 4 extremities HEAD: Normocephalic. EYES: Normal reaction of pupils, equal size. NOSE: Clear with pink turbinates. THROAT: Crowding of the posterior pharynx. No erythema or exudates. NECK: Short. No masses, no JVD. CHEST: No chest wall deformity. LUNGS: Equal air entry with coarse crackles in the bilateral bases CVS: S1 and S2 normal with no audible murmur, regular rhythm. ABDOMEN: No hepatosplenomegaly, normal bowel sounds, no guarding or rigidity. SPINE: No scoliosis or deformity SKIN: Chronic changes of venous stasis in lower extremities. CENTRAL NERVOUS SYSTEM: No focal deficits, tone is normal in all 4 extremities. EXTREMITIES: There is to 1-2+ peripheral edema. No clubbing, no cyanosis. Peripheral pulses are intact. - Labs CBC & Chem 7: 09/17/18 06:00 09/16/18 04:17 Labs: Abnormal Lab Results - Last 24 Hours (Table) 09/16/18 09/16/18 09/16/18 Range/Units 10:12 10:16 12:00 RBC (3.80-5.40) m/uL Hgb (11.4-16.0) gm/dL MCHC (31.0-37.0) g/dL Plt Count (150-450) k/uL Lymphocytes # (1.0-4.8) k/uL APTT (22.0-30.0) sec ABG pO2 133 H (83-108) mmHg ABG HCO3 26 H (21-25) mmol/L ABG Total CO2 27 H (19-24) mmol/L ABG O2 Saturation 99.5 H (94-97) % POC Glucose (mg/dL) 155 H (75-99) mg/dL Ammonia (<30) umol/L Urine Appearance Cloudy H (Clear) Urine Protein Trace H (Negative) Urine Ketones Trace H (Negative) Ur Leukocyte Esterase Small H (Negative) Amorphous Sediment Moderate H (None) /hpf Urine Bacteria Few H (None) /hpf Hyaline Casts 41 H (0-2) /lpf Urine Mucus Rare H (None) /hpf 09/16/18 09/16/18 09/16/18 Range/Units 13:02 13:53 16:47 RBC (3.80-5.40) m/uL Hgb (11.4-16.0) gm/dL MCHC (31.0-37.0) g/dL Plt Count (150-450) k/uL Lymphocytes # (1.0-4.8) k/uL APTT >200.0 H* (22.0-30.0) sec ABG pO2 (83-108) mmHg ABG HCO3 (21-25) mmol/L ABG Total CO2 (19-24) mmol/L ABG O2 Saturation (94-97) % POC Glucose (mg/dL) 142 H (75-99) mg/dL Ammonia 39 H (<30) umol/L Urine Appearance (Clear) Urine Protein (Negative) Urine Ketones (Negative) Ur Leukocyte Esterase (Negative) Amorphous Sediment (None) /hpf Urine Bacteria (None) /hpf Hyaline Casts (0-2) /lpf Urine Mucus (None) /hpf 09/16/18 09/17/18 09/17/18 Range/Units 23:38 06:00 08:06 RBC 3.76 L (3.80-5.40) m/uL Hgb 10.5 L (11.4-16.0) gm/dL MCHC 30.3 L (31.0-37.0) g/dL Plt Count 103 L (150-450) k/uL Lymphocytes # 0.4 L (1.0-4.8) k/uL APTT (22.0-30.0) sec ABG pO2 (83-108) mmHg ABG HCO3 (21-25) mmol/L ABG Total CO2 (19-24) mmol/L ABG O2 Saturation (94-97) % POC Glucose (mg/dL) 153 H 155 H (75-99) mg/dL Ammonia (<30) umol/L Urine Appearance (Clear) Urine Protein (Negative) Urine Ketones (Negative) Ur Leukocyte Esterase (Negative) Amorphous Sediment (None) /hpf Urine Bacteria (None) /hpf Hyaline Casts (0-2) /lpf Urine Mucus (None) /hpf Microbiology - Last 24 Hours (Table) 09/16/18 10:12 Urine Culture - Preliminary Urine,Catheterized Assessment and Plan Plan: #1 Altered mental status of unclear etiology. The patient did have a fall prior to her symptoms. #2 Chest pain, no acute coronary syndrome. #3 Chronic atrial fibrillation, anticoagulated with Eliquis in the outpatient setting. #4 History of complete heart block, status post permanent pacemaker implantation. #5 Coronary artery disease with previous stent placement. #6 Morbid obesity. Suspect obesity/hypoventilation syndrome. #7 Obstructive sleep apnea unclear of compliance in the outpatient setting. #8 Pulmonary sarcoidosis without recent acute exacerbations. #9 Fibromyalgia. #10 Hypothyroidism. #11 Hypertension. #12 Hyperlipidemia. #13 Diabetes mellitus, type II. #14 Lupus erythematosus. #15 Autoimmune hepatitis. Plan: Awaiting the results of the electrolytes and renal profile, today's chest x-ray was reviewed by Dr. Eid, and shows changes consistent with congestive heart failure, will likely cut back to IV fluids, if the renal profile is improving. And is more responsive today more alert, answering questions appropriately. Afebrile, denies any dyspnea. Hemodynamically stable. Nonoliguric. Brain CT, chest CT angios, chest x-ray have all been reviewed, echocardiogram results were reviewed. I performed a history & physical examination of the patient and discussed their management with my nurse practitioner, Radha Knutson. I reviewed the nurse practitioner's note and agree with the documented findings and plan of care. Lung sounds are positive for diffuse crackles over bilateral posterior bases. The findings and the impression was discussed with the patient. I attest to the documentation by the nurse practitioner. Time with Patient: Greater than 30
[2018-09-17] MEDS ORDERED: ATORVASTATIN 10 MG TAB PO SCH (09:00)
[2018-09-17] MEDS: SODIUM CHLORIDE 0.9% 1,000 ML IV SCH ×2 (09:16→15:54)
[2018-09-17] MEDS: CALCIUM CARBONATE 500 MG CHEWABLE PO SCH ×3 (10:11→20:47)
[2018-09-17] MEDS: APIXABAN 2.5 MG TABLET PO SCH ×2 (10:11→20:43)
[2018-09-17] MEDS: LEVOTHYROXINE 137 MCG TAB PO SCH (10:11)
[2018-09-17] MEDS: ASPIRIN 325 MG TAB PO SCH (10:11)
[2018-09-17] MEDS: GABAPENTIN 300 MG CAP PO SCH ×3 (10:12→21:07)
[2018-09-17] MEDS: FENOFIBRATE 160 MG TAB PO SCH (10:12)
[2018-09-17] MEDS: METOPROLOL SUCCINATE (ER) 50 MG TAB.ER.24H PO SCH (10:12)
[2018-09-17] MEDS: POTASSIUM CHLORIDE ER 10 MEQ TAB.ER.PRT PO SCH (10:12)
[2018-09-17] MEDS: PANTOPRAZOLE 40 MG TABLET PO SCH ×2 (10:12→20:45)
[2018-09-17 12:35] LABS: Glucose,Whole Blood 239 mg/dL (75-99)
--- NOTE | 2018-09-17 12:57 | PN ---
PROGRESS NOTE Mrs Herrera is a lady admitted to the hospital with very atypical chest pain and also has underlying COPD. Her D-dimer was elevated, CT angiogram did not reveal any evidence of pulmonary embolism. Her troponin profile does not suggest any myocardial injury. She is hemodynamically stable, has on some bronchodilators. From a cardiac standpoint, no aggressive intervention is necessary for this lady. I would recommend that we continue current medications and no aggressive intervention is necessary. Her troponin levels are normal. Her renal function needs to be monitored. She has been fairly well hydrated after her CT angiography. S1, S2 heard normally but distantly short systolic murmur is evident. Lungs reveal diminished air entry. Abdomen and lower extremity exam is unchanged. I will continue to see the patient as needed during the hospitalization. MMODL / IJN: [id number] /
[2018-09-17] MEDS: MORPHINE SULFATE 4 MG/ML SYRINGE IVP PRN (13:59)
[2018-09-17 17:16] LABS: Glucose,Whole Blood 241 mg/dL (75-99)
[2018-09-17 22:09] LABS: Glucose,Whole Blood 179 mg/dL (75-99)
--- NOTE | 2018-09-17 22:30 | PN ---
PROGRESS NOTE DATE OF SERVICE: 09/17/2018. PRESENTING COMPLAINT: Chest pain, tired. INTERVAL HISTORY: This is a patient admitted with acute renal failure, likely prerenal hyperkalemia, and metabolic encephalopathy. The patient is on free fluids. Looking better today, tired. This morning the nurse had called me. He was fed at bedside with applesauce. The patient was able to tolerate that. Responding a bit better. REVIEW OF SYSTEMS: Attempted for constitutional, cardiovascular, GI, pulmonary; relevant findings as above. CURRENT MEDICATIONS: Reviewed, that include Eliquis, DuoNeb, Synthroid, Toprol-XL, saline. PHYSICAL EXAMINATION: VITAL SIGNS: Temperature 99.1, pulse 87, respiratory rate 12, blood pressure 99/50, pulse ox 98% on 2 L. GENERAL APPEARANCE: Lying in bed, more awake today, though still tired eyes. EYES: Pupils equal. Conjunctivae normal. JVD unable to assess. Mass not palpable. Respiratory effort normal. LUNGS: Decreased breath sounds. CARDIOVASCULAR: 1st and 2nd sounds normal. No edema. ABDOMEN: Soft, nontender. Liver and spleen not palpable. PSYCHIATRY: Answering some occasional questions, more arousable than yesterday. INVESTIGATIONS: White count 6.1, hemoglobin 10.5. ASSESSMENT: 1. Acute metabolic encephalopathy, possibly from renal failure, slow to respond. 2. Acute renal failure, likely prerenal from decreased oral intake. 3. Hyperkalemia in a setting of renal failure. 4. Persistent atrial fibrillation. The patient has a pacemaker. 5. Coronary artery disease. 6. Chronic congestive heart failure from diastolic dysfunction. Ejection fraction 55% to 60%. 7. Hyperlipidemia. 8. Primary osteoarthritis. 9. Hypothyroidism. 10.Chronic autoimmune hepatitis with prednisone dependence. 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 Baseline creatinine 1.39 on August 29. 12.Chronic medical debility, at baseline uses a walker. PLAN: Continue with hydration. Repeat electrolytes. Prognosis remains guarded. Follow closely. MMODL / IJN: [id number] /
[2018-09-17 23:35] LABS: Glucose,Whole Blood 160 mg/dL (75-99)
[2018-09-17 23:52] LABS: Calcium 8.7 mg/dL (8.4-10.2)
[2018-09-17 23:57] LABS: Potassium 5.5 mmol/L (3.5-5.1)
[2018-09-18] MEDS: IPRATROPIUM-ALBUTEROL 3 ML NEB INHALATION SCH ×6 (00:19→21:29)
[2018-09-18 05:10] LABS: Basophils % (A) 0 %; Eosinophils # (A) 0.1 k/uL (0-0.7); Eosinophils % (A) 2 %; HCT 33.2 % (34.0-46.0); HGB 9.8 gm/dL (11.4-16.0); Hypochromasia Marked; Lymphocytes # (A) 0.4 k/uL (1.0-4.8); Lymphocytes % (A) 7 %; MCH 27.3 pg (25.0-35.0); MCHC 29.5 g/dL (31.0-37.0); MCV 92.7 fL (80.0-100.0); Mean Platelet Volume 8.6; Monocytes # (A) 0.4 k/uL (0-1.0); Monocytes % (A) 7 %; Neutrophils # (A) 4.7 k/uL (1.3-7.7); Neutrophils % (A) 82 %; Platelet Count 107 k/uL (150-450); RBC 3.58 m/uL (3.80-5.40); RDW 14.7 % (11.5-15.5); WBC 5.7 k/uL (3.8-10.6)
[2018-09-18 05:27] LABS: Calcium 8.7 mg/dL (8.4-10.2); Potassium 5.1 mmol/L (3.5-5.1)
[2018-09-18 05:42] LABS: Glucose,Whole Blood 107 mg/dL (75-99)
--- NOTE | 2018-09-18 07:38 | XR ---
EXAMINATION TYPE: XR chest 1V portable DATE OF EXAM: 09/18/2018 CLINICAL HISTORY: Difficulty breathing progress study. TECHNIQUE: Single AP portable upright view of the chest is obtained. COMPARISON: Chest x-ray from one day earlier. CTA chest 2 days ago. FINDINGS: Exam is suboptimal due to portable technique and patient's large body habitus. There is pe rsistent cardiomegaly with dual lead pacemaker. There is chronic parenchymal change with by basilar s carring and/or atelectasis. No new focal airspace opacity, pleural effusion, or pneumothorax is prese nt. Osseous structures are intact. IMPRESSION: Overall stable findings, cardiomegaly with perhaps mild central vascular congestion, ca nnot exclude persistent CHF exacerbation. Correlate clinically.
[2018-09-18 07:43] LABS: Glucose,Whole Blood 109 mg/dL (75-99)
[2018-09-18] MEDS: LEVOTHYROXINE 137 MCG TAB PO SCH (07:55)
[2018-09-18] MEDS: NOVOLIN N SQ SCH (07:57)
[2018-09-18] MEDS: NOVOLIN R SQ SCH ×3 (07:58→17:32)
[2018-09-18] MEDS ORDERED: FUROSEMIDE 10 MG/ML 4 ML VIAL IV STA (08:23)
[2018-09-18] MEDS: APIXABAN 2.5 MG TABLET PO SCH ×2 (08:34→19:51)
[2018-09-18] MEDS: FENOFIBRATE 160 MG TAB PO SCH (08:34)
[2018-09-18] MEDS: GABAPENTIN 300 MG CAP PO SCH ×3 (08:34→19:51)
[2018-09-18] MEDS: CALCIUM CARBONATE 500 MG CHEWABLE PO SCH ×3 (08:34→19:51)
[2018-09-18] MEDS: ASPIRIN 325 MG TAB PO SCH (08:34)
[2018-09-18] MEDS: METOPROLOL SUCCINATE (ER) 50 MG TAB.ER.24H PO SCH (08:35)
[2018-09-18] MEDS: PANTOPRAZOLE 40 MG TABLET PO SCH ×2 (08:35→19:51)
[2018-09-18] MEDS: POTASSIUM CHLORIDE ER 10 MEQ TAB.ER.PRT PO SCH (08:35)
--- NOTE | 2018-09-18 09:31 | P.PN ---
Subjective Progress Note Date: 09/18/18 Principal diagnosis: Altered mental status of unclear etiology. This is a 78-year-old female patient who follows with Dr. Snowden as her primary care physician. She has a history of atrial fibrillation anticoagulated with Eliquis, complete heart block status post permanent pacemaker implantation , coronary artery disease with previous stent placement in 2012, diabetes mellitus Type II, morbid obesity, obstructive sleep apnea, hyperlipidemia, hypertension,lupus, autoimmune hepatitis. She also follows with Dr. Lester in our office for history of sarcoidosis and chronic bronchial asthma. She is a lifelong nonsmoker.she presented here to the emergency room yesterday with complaints of chest pain since 1 day prior the pain is mostly constant she was also having significant shortness of breath at the time. No diaphoresis, nausea or vomiting.. Her daughter stated she did have some altered mental status over the last few weeks and not answering all questions appropriately. Chest x-ray shows mild evidence of pulmonary fibrosis, cardiomegaly. No change compared to previous in July 2018. EKG reveals ventricular pacing.prominence are negative 2.white count 9.0. Hemoglobin 11.5. Platelet count 111,000. Potassium 5.2. Creatinine 2.40.She is seen today in the intensive care unit. She is currently resting in bed. She is somewhat difficult to arouse. Once awake she is answering yes no questions. She denies any chest pain currently. She denies any shortness of breath. She is currently on a heparin until able to take Eliquis. The patient is seen today 09/18/2018 in follow-up in the intensive care unit. She is a bit more awake and alert today. Still drifts off easily. Continue good O2 saturations in the high 90s on 2 L/m per nasal cannula. Chest x-ray reveals stable findings. Still evidence of cardiomegaly and some mild central vascular congestion. She has a 0.9 normal saline at 75 mL per hour. White count 5.7. Hemoglobin 9.8. Creatinine 1.40. She began Lasix 40 mg IVP 1 today. Oral Lasix starting tomorrow. She is anticoagulated with Eliquis. Objective - Vital Signs Vital signs: Vital Signs Temp 98.6 F 09/17/18 16:00 Pulse 63 09/18/18 08:12 Resp 12 09/18/18 06:00 BP 126/59 09/18/18 05:00 Pulse Ox 99 09/18/18 06:00 Intake & Output 09/17/18 09/18/18 09/18/18 18:59 06:59 18:59 Intake Total 1640 900 280 Output Total 580 390 200 Balance 1060 510 80 Weight 119 kg Intake: IV 40 Sodium Chloride 0.9% 1, 40 000 ml @ 40 mls/hr IV . Q24H [facility] Rx#:[id number] Intake, IV Titration 1400 850 Amount Sodium Chloride 0.9% 1, 1400 850 000 ml @ 40 mls/hr IV . Q24H ENZO Rx#:[id number] Oral 240 50 240 Output: Urine 580 390 200 Other: Voiding Method Indwelling Catheter Indwelling Catheter Indwelling Catheter - Exam GENERAL EXAM: Morbid obesity. More awake and alert. On 2 L/m per nasal cannula.. HEAD: Normocephalic. EYES: Normal reaction of pupils, equal size. NOSE: Clear with pink turbinates. THROAT: Crowding of the posterior pharynx. No erythema or exudates. NECK: Short. No masses, no JVD. CHEST: No chest wall deformity. LUNGS: Equal air entry with coarse crackles in the bilateral bases otherwise clear. CVS: S1 and S2 normal with no audible murmur, regular rhythm. ABDOMEN: No hepatosplenomegaly, normal bowel sounds, no guarding or rigidity. SPINE: No scoliosis or deformity SKIN: Chronic changes of venous stasis in lower extremities. CENTRAL NERVOUS SYSTEM: No focal deficits, tone is normal in all 4 extremities. EXTREMITIES: There is to 1-2+ peripheral edema. No clubbing, no cyanosis. Peripheral pulses are intact. - Labs CBC & Chem 7: 09/18/18 04:11 09/18/18 04:11 Labs: Abnormal Lab Results - Last 24 Hours (Table) 09/17/18 09/17/18 09/17/18 Range/Units 12:24 17:05 21:58 RBC (3.80-5.40) m/uL Hgb (11.4-16.0) gm/dL Hct (34.0-46.0) % MCHC (31.0-37.0) g/dL Plt Count (150-450) k/uL Lymphocytes # (1.0-4.8) k/uL Potassium (3.5-5.1) mmol/L Chloride (98-107) mmol/L Carbon Dioxide (22-30) mmol/L BUN (7-17) mg/dL Creatinine (0.52-1.04) mg/dL Glucose (74-99) mg/dL POC Glucose (mg/dL) 239 H 241 H 179 H (75-99) mg/dL 09/17/18 09/17/18 09/18/18 Range/Units 22:53 23:23 04:11 RBC 3.58 L (3.80-5.40) m/uL Hgb 9.8 L (11.4-16.0) gm/dL Hct 33.2 L (34.0-46.0) % MCHC 29.5 L (31.0-37.0) g/dL Plt Count 107 L (150-450) k/uL Lymphocytes # 0.4 L (1.0-4.8) k/uL Potassium 5.5 H (3.5-5.1) mmol/L Chloride 117 H (98-107) mmol/L Carbon Dioxide 21 L (22-30) mmol/L BUN 54 H (7-17) mg/dL Creatinine 1.47 H (0.52-1.04) mg/dL Glucose 172 H (74-99) mg/dL POC Glucose (mg/dL) 160 H (75-99) mg/dL 09/18/18 09/18/18 09/18/18 Range/Units 04:11 05:30 07:33 RBC (3.80-5.40) m/uL Hgb (11.4-16.0) gm/dL Hct (34.0-46.0) % MCHC (31.0-37.0) g/dL Plt Count (150-450) k/uL Lymphocytes # (1.0-4.8) k/uL Potassium (3.5-5.1) mmol/L Chloride 117 H (98-107) mmol/L Carbon Dioxide (22-30) mmol/L BUN 52 H (7-17) mg/dL Creatinine 1.40 H (0.52-1.04) mg/dL Glucose 123 H (74-99) mg/dL POC Glucose (mg/dL) 107 H 109 H (75-99) mg/dL Microbiology - Last 24 Hours (Table) 09/16/18 10:12 Urine Culture - Preliminary Urine,Catheterized Assessment and Plan Assessment: Impression: #1 Altered mental status of unclear etiology. The patient did have a fall prior to her symptoms. Computed tomography scan of the brain revealed no acute intracranial abnormalities. #2 Chest pain, no acute coronary syndrome. #3 Chronic atrial fibrillation, anticoagulated with Eliquis. #4 History of complete heart block, status post permanent pacemaker implantation. #5 Coronary artery disease with previous stent placement. #6 Morbid obesity. Suspect obesity/hypoventilation syndrome. #7 Obstructive sleep apnea unclear of compliance in the outpatient setting. #8 Pulmonary sarcoidosis without recent acute exacerbations. #9 Fibromyalgia. #10 Hypothyroidism. #11 Hypertension. #12 Hyperlipidemia. #13 Diabetes mellitus, type II. #14 Lupus erythematosus. #15 Autoimmune hepatitis. Plan: The patient was seen and evaluated by Dr. Eid. His x-ray and labs were reviewed. We'll give Lasix 40 mg IV push today 1. Oral Lasix tomorrow. Decrease IV fluids to 40 mL per hour. She continues to maintain good O2 saturations in the upper 90s on 2 L/m per nasal cannula. She is a bit more awake and alert today. Continue current treatment plan. We will continue to follow make further recommendations based on her clinical status. I, the cosigning physician, performed a history & physical examination of the patient. Lungs sounds with coarse crackles in the posterior basesr. Maintaining good O2 saturations in the 90s on 3 liters per minute per nasal cannula. I discussed the assessment and plan of care with my nurse practitioner , Alia Paulino. I attest to the above consultation as dictated by her. Time with Patient: Greater than 30
[2018-09-18 11:18] LABS: Glucose,Whole Blood 165 mg/dL (75-99)
[2018-09-18] MEDS: SODIUM CHLORIDE 0.9% 1,000 ML IV SCH ×2 (12:34)
[2018-09-18] MEDS: MORPHINE SULFATE 4 MG/ML SYRINGE IVP PRN (14:01)
[2018-09-18 16:16] LABS: Glucose,Whole Blood 124 mg/dL (75-99)
[2018-09-18 20:44] LABS: Glucose,Whole Blood 72 mg/dL (75-99)
[2018-09-18 21:33] LABS: Glucose,Whole Blood 90 mg/dL (75-99)
--- NOTE | 2018-09-19 00:07 | PN ---
PROGRESS NOTE DATE OF SERVICE: September 18, 2018. PRESENTING COMPLAINT: Tired. INTERVAL HISTORY: Patient admitted with acute renal failure, likely prerenal, hyperkalemia and metabolic encephalopathy. Did receive fluids. Did eat a bit better today. Lying in bed. at the bedside, more responding. REVIEW OF SYSTEMS: Done for constitutional, cardiovascular, GI, pulmonary; relevant findings as above. CURRENT MEDICATIONS: Reviewed. PHYSICAL EXAMINATION: VITAL SIGNS: Temperature 98, pulse 80, respiration 20, blood pressure 92/42, pulse ox 94 percent on room air. GENERAL APPEARANCE: Lying in bed, tired but awake. EYES: Pupils equal. Conjunctivae normal. JVD unable to assess. Mass not palpable. RESPIRATORY: Effort normal. LUNGS: Decreased breath sounds. CARDIOVASCULAR: 1st and 2nd sounds normal. Minimal edema. ABDOMEN: Soft, nontender. Liver and spleen not palpable. PSYCHIATRY: Does answer questions. INVESTIGATIONS: White count 5.7, hemoglobin 9.8, platelets 107, potassium 5.1, BUN 52, creatinine 1.40. ASSESSMENT: 1. Acute metabolic encephalopathy from renal failure slow to respond. 2. Acute renal failure likely prerenal with decreased oral intake with some improvement. 3. Hyperkalemia from renal failure improving. 4. Persistent atrial fibrillation, has a pacemaker. 5. Coronary artery disease. 6. Chronic congestive heart failure from diastolic dysfunction. Ejection fraction 55- 60 percent. 7. Hyperlipidemia. 8. Primary osteoarthritis. 9. Hypothyroidism. 10.Chronic autoimmune hepatitis with prednisone dependence. 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 Baseline creatinine is 1.39. 12.Chronic medical debility, patient at baseline uses a walker. PLAN: Continue current medication and treatment plan. Care was discussed with the at the bedside. Continue with gentle hydration. Follow electrolytes closely. MMODL / IJN: [id number] /
[2018-09-19] MEDS: IPRATROPIUM-ALBUTEROL 3 ML NEB INHALATION SCH ×7 (00:17→23:44)
[2018-09-19 05:58] LABS: Glucose,Whole Blood 79 mg/dL (75-99)
[2018-09-19] MEDS: LEVOTHYROXINE 137 MCG TAB PO SCH (06:20)
[2018-09-19 06:38] LABS: Basophils % (A) 0 %; Eosinophils # (A) 0.1 k/uL (0-0.7); Eosinophils % (A) 2 %; HCT 32.5 % (34.0-46.0); HGB 9.7 gm/dL (11.4-16.0); Hypochromasia Marked; Lymphocytes # (A) 0.4 k/uL (1.0-4.8); Lymphocytes % (A) 10 %; MCH 27.3 pg (25.0-35.0); MCHC 29.8 g/dL (31.0-37.0); MCV 91.7 fL (80.0-100.0); Monocytes # (A) 0.3 k/uL (0-1.0); Monocytes % (A) 8 %; Neutrophils # (A) 3.3 k/uL (1.3-7.7); Neutrophils % (A) 77 %; Platelet Count 122 k/uL (150-450); RBC 3.55 m/uL (3.80-5.40); RDW 14.7 % (11.5-15.5); WBC 4.2 k/uL (3.8-10.6)
[2018-09-19 06:57] LABS: Calcium 8.9 mg/dL (8.4-10.2); Potassium 4.9 mmol/L (3.5-5.1)
[2018-09-19] MEDS: NOVOLIN N SQ SCH (08:50)
[2018-09-19] MEDS: POTASSIUM CHLORIDE ER 10 MEQ TAB.ER.PRT PO SCH (09:39)
[2018-09-19] MEDS: PANTOPRAZOLE 40 MG TABLET PO SCH ×2 (09:39→20:01)
[2018-09-19] MEDS: FENOFIBRATE 160 MG TAB PO SCH (09:40)
[2018-09-19] MEDS: APIXABAN 2.5 MG TABLET PO SCH ×2 (09:40→20:01)
[2018-09-19] MEDS: ASPIRIN 325 MG TAB PO SCH (09:40)
[2018-09-19] MEDS: GABAPENTIN 300 MG CAP PO SCH ×3 (09:40→20:02)
[2018-09-19] MEDS: FUROSEMIDE 40 MG TAB PO SCH (09:40)
[2018-09-19] MEDS: METOPROLOL SUCCINATE (ER) 50 MG TAB.ER.24H PO SCH (09:40)
[2018-09-19] MEDS: CALCIUM CARBONATE 500 MG CHEWABLE PO SCH ×3 (09:40→20:02)
[2018-09-19] MEDS: ACETAMINOPHEN TAB 325 MG TAB PO PRN ×2 (09:41→21:00)
[2018-09-19] MEDS: NOVOLIN R SQ SCH ×3 (09:46→17:39)
[2018-09-19 12:22] LABS: Glucose,Whole Blood 165 mg/dL (75-99)
[2018-09-19] MEDS: SODIUM CHLORIDE 0.9% 1,000 ML IV SCH (13:01)
--- NOTE | 2018-09-19 15:29 | P.PN ---
Subjective Progress Note Date: 09/19/18 Principal diagnosis: Shortness of breath, critical care management This is a 78-year-old female patient who follows with Dr. Snowden as her primary care physician. She has a history of atrial fibrillation anticoagulated with Eliquis, complete heart block status post permanent pacemaker implantation , coronary artery disease with previous stent placement in 2012, diabetes mellitus Type II, morbid obesity, obstructive sleep apnea, hyperlipidemia, hypertension,lupus, autoimmune hepatitis. She also follows with Dr. Lester in our office for history of sarcoidosis and chronic bronchial asthma. She is a lifelong nonsmoker.she presented here to the emergency room yesterday with complaints of chest pain since 1 day prior the pain is mostly constant she was also having significant shortness of breath at the time. No diaphoresis, nausea or vomiting.. Her daughter stated she did have some altered mental status over the last few weeks and not answering all questions appropriately. Chest x-ray shows mild evidence of pulmonary fibrosis, cardiomegaly. No change compared to previous in July 2018. EKG reveals ventricular pacing.prominence are negative 2.white count 9.0. Hemoglobin 11.5. Platelet count 111,000. Potassium 5.2. Creatinine 2.40.She is seen today in the intensive care unit. She is currently resting in bed. She is somewhat difficult to arouse. Once awake she is answering yes no questions. She denies any chest pain currently. She denies any shortness of breath. She is currently on a heparin until able to take Eliquis. On 09/17/2018 patient seen in follow-up in the intensive care unit, she is somnolent, but easily arousable, denies any distress, denies any worsening dyspnea or chest pain. Currently on 3 L per nasal cannula and her pulse ox is 100%. Afebrile, hemodynamically stable, CT angios of the chest did not show any definite pulmonary embolus, fibrotic changes were noted in the lower lungs with mild basilar bronchiectasis, seems to be progressed from 2013, that showed subacute healing fractures of the left eighth, ninth and 10th ribs, cirrhosis with mild perihepatic ascites with a couple of vague areas of enhancement in the liver. Lung sounds are diminished, with the bibasilar crackles in the lower lobes. Today's chest x-ray was reviewed by Dr. Zamora, shows a engorgement of the pulmonary vasculature and minimal pulmonary vascular congestion, related to decompensated congestive heart failure. Labs were reviewed. CBC was done, BMP has not resulted yet. Patient wakes up and answers questions appropriately. Patient remains in A. fib, she is on Eliquis. Brain CT showed no acute findings, showed mild age-related cerebral atrophy and nonspecific white matter change. Echocardiogram showed preserved left ventricular systolic function with an EF of 55-60%, trace mitral regurgitation, tricuspid regurgitation. Mild aortic stenosis. Still awaiting results of the electrolytes and renal profile, patient is nonoliguric, she is producing urine in the order of 65 to 115 ML per hour. On 09/19/2018 patient seen in follow-up on selective care unit, lethargic today , a bit more than yesterday, but easily arousable, per nursing staff she had just eaten lunch, but prior to that she was quite awake and alert, interactive, she denies any distress, denies any shortness of breath. Her mentation is appropriate. history of chest x-ray was reviewed by Dr. Dr. Edi, showed overall stable findings, cardiomegaly, with mild central vascular congestion. room air pulse ox is 94%. afebrile, hemodynamic stable, today's labs were reviewed, and the ABCDs 4.2, hemoglobin is 9.7, renal profile is improving, BUN is down to 47 and creatinine 1.38, chloride is 119, the rest of her electrolytes are within normal limits. urine culture was positive for Citrobacter koseri, she has multiple ALLERGIES, with consent patient on some doxycycline. otherwise no difficulty breathing, no chest pain, receiving nebulized bronchodilators. Objective - Vital Signs Vital signs: Vital Signs Temp 98.7 F 09/19/18 11:05 Pulse 79 09/19/18 12:37 Resp 18 09/19/18 12:27 BP 116/53 09/19/18 11:05 Pulse Ox 94 L 09/19/18 11:05 Intake & Output 09/18/18 09/19/18 09/19/18 18:59 06:59 18:59 Intake Total 1260 120 218 Output Total 950 1000 Balance 310 -880 218 Weight 120.5 kg Intake: IV 480 Sodium Chloride 0.9% 1, 480 000 ml @ 40 mls/hr IV . Q24H [facility] Rx#:[id number] Oral 780 120 218 Output: Urine 950 1000 Other: Voiding Method Indwelling Catheter Indwelling Catheter Indwelling Catheter # Voids 1 - Exam GENERAL EXAM: Morbid obesity. Somnolent, but easily arousable, answering questions appropriately, moving all 4 extremities HEAD: Normocephalic. EYES: Normal reaction of pupils, equal size. NOSE: Clear with pink turbinates. THROAT: Crowding of the posterior pharynx. No erythema or exudates. NECK: Short. No masses, no JVD. CHEST: No chest wall deformity. LUNGS: Equal air entry with coarse crackles in the bilateral bases CVS: S1 and S2 normal with no audible murmur, regular rhythm. ABDOMEN: No hepatosplenomegaly, normal bowel sounds, no guarding or rigidity. SPINE: No scoliosis or deformity SKIN: Chronic changes of venous stasis in lower extremities. CENTRAL NERVOUS SYSTEM: No focal deficits, tone is normal in all 4 extremities. EXTREMITIES: There is to 1-2+ peripheral edema. No clubbing, no cyanosis. Peripheral pulses are intact. - Labs CBC & Chem 7: 09/19/18 06:06 09/19/18 06:06 Labs: Abnormal Lab Results - Last 24 Hours (Table) 09/18/18 09/18/18 09/19/18 Range/Units 16:14 20:42 06:06 RBC 3.55 L (3.80-5.40) m/uL Hgb 9.7 L (11.4-16.0) gm/dL Hct 32.5 L (34.0-46.0) % MCHC 29.8 L (31.0-37.0) g/dL Plt Count 122 L (150-450) k/uL Lymphocytes # 0.4 L (1.0-4.8) k/uL Chloride (98-107) mmol/L BUN (7-17) mg/dL Creatinine (0.52-1.04) mg/dL POC Glucose (mg/dL) 124 H 72 L (75-99) mg/dL 09/19/18 09/19/18 Range/Units 06:06 12:19 RBC (3.80-5.40) m/uL Hgb (11.4-16.0) gm/dL Hct (34.0-46.0) % MCHC (31.0-37.0) g/dL Plt Count (150-450) k/uL Lymphocytes # (1.0-4.8) k/uL Chloride 119 H (98-107) mmol/L BUN 47 H (7-17) mg/dL Creatinine 1.38 H (0.52-1.04) mg/dL POC Glucose (mg/dL) 165 H (75-99) mg/dL Microbiology - Last 24 Hours (Table) 09/16/18 10:12 Urine Culture - Final Urine,Catheterized Citrobacter koseri Assessment and Plan Plan: #1 Altered mental status of possibly related to underlying urinary tract infection, urinary cultures positive for Citrobacter koseri #2 Chest pain, no acute coronary syndrome. #3 Chronic atrial fibrillation, anticoagulated with Eliquis in the outpatient setting. #4 History of complete heart block, status post permanent pacemaker implantation. #5 Coronary artery disease with previous stent placement. #6 Morbid obesity. Suspect obesity/hypoventilation syndrome. #7 Obstructive sleep apnea unclear of compliance in the outpatient setting. #8 Pulmonary sarcoidosis without recent acute exacerbations. #9 Fibromyalgia. #10 Hypothyroidism. #11 Hypertension. #12 Hyperlipidemia. #13 Diabetes mellitus, type II. #14 Lupus erythematosus. #15 Autoimmune hepatitis. Plan: Patient is still somewhat somnolent, but mentation is appropriate, she is answering questions appropriately. We arousable to verbal stimuli, vital signs remain stable, urine culture was positive for Citrobacter, patient has multiple ALLERGIES, we'll start patient on doxycycline. No difficulty breathing or chest pain. we'll follow with the patient on as-needed basis. I performed a history & physical examination of the patient and discussed their management with my nurse practitioner, Radha Knutson. I reviewed the nurse practitioner's note and agree with the documented findings and plan of care. Lung sounds are positive for diminished breath sounds at the basis. The findings and the impression was discussed with the patient. I attest to the documentation by the nurse practitioner. Time with Patient: Less than 30
[2018-09-19 15:47] VITALS: BMI 51.8
[2018-09-19 17:11] LABS: Glucose,Whole Blood 206 mg/dL (75-99)
[2018-09-19 20:57] LABS: Glucose,Whole Blood 212 mg/dL (75-99)
[2018-09-19] MEDS: DOXYCYCLINE 100 MG CAP PO SCH (21:01)
[2018-09-20] MEDS: IPRATROPIUM-ALBUTEROL 3 ML NEB INHALATION SCH ×6 (04:47→23:51)
[2018-09-20 06:28] LABS: Glucose,Whole Blood 181 mg/dL (75-99)
[2018-09-20] MEDS: NOVOLIN N SQ SCH (06:28)
[2018-09-20] MEDS: NOVOLIN R SQ SCH ×4 (06:28→21:54)
[2018-09-20 06:54] LABS: Basophils % (A) 0 %; Eosinophils # (A) 0.1 k/uL (0-0.7); Eosinophils % (A) 3 %; HCT 32.6 % (34.0-46.0); HGB 9.8 gm/dL (11.4-16.0); Hypochromasia Moderate; Lymphocytes # (A) 0.4 k/uL (1.0-4.8); Lymphocytes % (A) 10 %; MCH 27.6 pg (25.0-35.0); MCHC 30.2 g/dL (31.0-37.0); MCV 91.5 fL (80.0-100.0); Mean Platelet Volume 7.9; Monocytes # (A) 0.3 k/uL (0-1.0); Monocytes % (A) 7 %; Neutrophils # (A) 3.3 k/uL (1.3-7.7); Neutrophils % (A) 77 %; Platelet Count 136 k/uL (150-450); RBC 3.56 m/uL (3.80-5.40); RDW 14.8 % (11.5-15.5); WBC 4.3 k/uL (3.8-10.6)
[2018-09-20 07:06] LABS: Calcium 8.6 mg/dL (8.4-10.2); Potassium 4.8 mmol/L (3.5-5.1)
--- NOTE | 2018-09-20 08:02 | PN ---
PROGRESS NOTE DATE OF SERVICE: September 19, 2018. PRESENTING COMPLAINT: Tired. INTERVAL HISTORY: Patient presented with acute renal failure, prerenal, hyperkalemia and metabolic encephalopathy. The patient is more awake, does answer questions. Does doze off. Creatinine to come back to her baseline. Did tolerate some diet. REVIEW OF SYSTEMS: Done for constitutional, cardiovascular, GI, pulmonary; relevant findings as above. CURRENT MEDICATIONS: Reviewed. PHYSICAL EXAMINATION: VITAL SIGNS: Temperature 98.7, pulse 79, respiratory 20, blood pressure 130/44, pulse ox 97% on room air. GENERAL APPEARANCE: Lying in bed, lethargic, but arousable more so answering questions. EYES: Pupils equal. Conjunctivae normal. NECK: JVD unable to assess. Mass not palpable. RESPIRATORY: Effort normal. LUNGS: Decreased breath sounds. CARDIOVASCULAR: 1st and 2nd sounds normal. Some edema. ABDOMEN: Soft, nontender. Liver and spleen not palpable. PSYCHIATRY: Answering questions more appropriately, but still lethargic. INVESTIGATIONS: White count 4.2, hemoglobin 9.7, potassium 4.9, BUN 47, creatinine 1.38. Accu-Cheks are noted. ASSESSMENT: 1. Acute metabolic encephalopathy from renal failure with some improvement. The patient probably may be held with cutting back on the Neurontin dose which can build up renal failure. 2. Acute renal failure prerenal from decreased oral intake much improved. 3. Hyperkalemia from renal failure improved. 4. Persistent atrial fibrillation, has a pacemaker. 5. Coronary artery disease. 6. Chronic congestive heart failure from diastolic dysfunction. Ejection fraction 55- 60 percent. 7. Hyperlipidemia. 8. Primary osteoarthritis. 9. Hypothyroidism. 10.Chronic autoimmune hepatitis with prednisone dependence. 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 12.Chronic medical debility patient at baseline with a walker. PLAN: At this time, we will hold off patient's couple of doses of Neurontin. Start the patient on 200 mg starting tomorrow night. The patient has been put back on Lasix. Follow. MMODL / IJN: [id number] /
[2018-09-20] MEDS: POTASSIUM CHLORIDE ER 10 MEQ TAB.ER.PRT PO SCH (08:24)
[2018-09-20] MEDS: DOXYCYCLINE 100 MG CAP PO SCH ×2 (08:24→20:34)
[2018-09-20] MEDS: LEVOTHYROXINE 137 MCG TAB PO SCH (08:24)
[2018-09-20] MEDS: FENOFIBRATE 160 MG TAB PO SCH (08:25)
[2018-09-20] MEDS: ASPIRIN 325 MG TAB PO SCH (08:25)
[2018-09-20] MEDS: APIXABAN 2.5 MG TABLET PO SCH ×2 (08:25→20:34)
[2018-09-20] MEDS: METOPROLOL SUCCINATE (ER) 50 MG TAB.ER.24H PO SCH (08:25)
[2018-09-20] MEDS: CALCIUM CARBONATE 500 MG CHEWABLE PO SCH ×3 (08:25→20:34)
[2018-09-20] MEDS: FUROSEMIDE 40 MG TAB PO SCH (08:25)
[2018-09-20] MEDS: PANTOPRAZOLE 40 MG TABLET PO SCH ×2 (08:25→20:33)
[2018-09-20] MEDS: ACETAMINOPHEN TAB 325 MG TAB PO PRN ×2 (08:31→21:31)
[2018-09-20 12:29] LABS: Glucose,Whole Blood 145 mg/dL (75-99)
[2018-09-20 17:48] LABS: Glucose,Whole Blood 192 mg/dL (75-99)
[2018-09-20] MEDS: GABAPENTIN 100 MG CAP PO SCH ×2 (20:34→20:37)
[2018-09-20 21:13] LABS: Glucose,Whole Blood 244 mg/dL (75-99)
[2018-09-20] MEDS ORDERED: FUROSEMIDE 10 MG/ML 10 ML VIAL IV STA (22:03)
--- NOTE | 2018-09-21 00:18 | PN ---
PROGRESS NOTE DATE OF SERVICE: 09/20/2018. PRESENTING COMPLAINT: Tired. INTERVAL HISTORY: Patient presented with acute renal failure, prerenal, hyperkalemia, metabolic encephalopathy. Doing much better today. Communicating. Actually sat up in a chair. Did tolerate a diet. Overall feeling much better. REVIEW OF SYSTEMS: For constitutional, cardiovascular, GI, pulmonary; relevant findings as above. CURRENT MEDICATIONS: Reviewed. PHYSICAL EXAMINATION: Temperature 98.5 pulse 81, respirations 16, blood pressure 120/60, pulse ox 97% on room air. GENERAL APPEARANCE: Lying in bed, awake, talking. EYES: Pupils equal. Conjunctivae normal. NECK: JVD unable to assess. Mass not palpable. Respiratory effort normal. LUNGS: Decreased breath sounds. CARDIOVASCULAR: 1st and 2nd sounds normal. Edema present. ABDOMEN: Soft, nontender. Liver and spleen not palpable. PSYCHIATRY: Awake, answering questions appropriately. INVESTIGATIONS: White count 4.3, hemoglobin 9.8, potassium 4.8, BUN 45, creatinine 1.31. ASSESSMENT: 1. Acute metabolic encephalopathy complicating renal failure. The patient has been on on Neurontin. Gradually improved after Neurontin dose was held yesterday. 2. Acute renal failure, prerenal, from decreased oral intake, much improved. 3. Hyperkalemia from renal failure, corrected. 4. Persistent atrial fibrillation, has a pacemaker. 5. Coronary artery disease. 6. Chronic congestive heart failure from diastolic dysfunction. Ejection fraction 55% to 60%. 7. Hyperlipidemia. 8. Primary osteoarthritis. 9. Hypothyroidism. 10.Chronic autoimmune hepatitis. 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 12.Chronic medical debility, patient at baseline. PLAN: We will keep the patient on the current dose of Neurontin. Will give one dose of IV Lasix. Ballard catheter will be discontinued in the morning. Overall doing much better. MMODL / IJN: [id number] /
[2018-09-21] MEDS: IPRATROPIUM-ALBUTEROL 3 ML NEB INHALATION SCH ×6 (03:50→23:20)
[2018-09-21] MEDS: ACETAMINOPHEN TAB 325 MG TAB PO PRN ×3 (05:31→23:00)
[2018-09-21 06:14] LABS: Basophils % (A) 1 %; Eosinophils # (A) 0.2 k/uL (0-0.7); Eosinophils % (A) 5 %; HCT 33.1 % (34.0-46.0); Hypochromasia Moderate; Lymphocytes # (A) 0.5 k/uL (1.0-4.8); Lymphocytes % (A) 10 %; MCH 27.3 pg (25.0-35.0); MCHC 30.3 g/dL (31.0-37.0); MCV 90.1 fL (80.0-100.0); Mean Platelet Volume 7.8; Monocytes # (A) 0.4 k/uL (0-1.0); Monocytes % (A) 8 %; Neutrophils # (A) 3.7 k/uL (1.3-7.7); Neutrophils % (A) 74 %; Platelet Count 142 k/uL (150-450); RBC 3.67 m/uL (3.80-5.40); RDW 14.6 % (11.5-15.5); WBC 5.1 k/uL (3.8-10.6)
[2018-09-21 06:28] LABS: Calcium 8.6 mg/dL (8.4-10.2); Potassium 4.3 mmol/L (3.5-5.1)
[2018-09-21 06:52] LABS: Glucose,Whole Blood 133 mg/dL (75-99)
[2018-09-21] MEDS: LEVOTHYROXINE 137 MCG TAB PO SCH (07:30)
[2018-09-21] MEDS: NOVOLIN N SQ SCH (07:30)
[2018-09-21] MEDS: NOVOLIN R SQ SCH ×3 (08:07→17:29)
[2018-09-21] MEDS: FENOFIBRATE 160 MG TAB PO SCH (09:16)
[2018-09-21] MEDS: POTASSIUM CHLORIDE ER 10 MEQ TAB.ER.PRT PO SCH (09:16)
[2018-09-21] MEDS: APIXABAN 2.5 MG TABLET PO SCH ×2 (09:16→20:50)
[2018-09-21] MEDS: METOPROLOL SUCCINATE (ER) 50 MG TAB.ER.24H PO SCH (09:16)
[2018-09-21] MEDS: GABAPENTIN 100 MG CAP PO SCH ×3 (09:16→20:50)
[2018-09-21] MEDS: CALCIUM CARBONATE 500 MG CHEWABLE PO SCH ×3 (09:16→20:50)
[2018-09-21] MEDS: ASPIRIN 325 MG TAB PO SCH (09:16)
[2018-09-21] MEDS: PANTOPRAZOLE 40 MG TABLET PO SCH ×2 (09:16→20:50)
[2018-09-21] MEDS: FUROSEMIDE 40 MG TAB PO SCH (09:16)
[2018-09-21] MEDS: DOXYCYCLINE 50 MG CAP PO SCH ×2 (09:16→20:50)
[2018-09-21 12:23] LABS: Glucose,Whole Blood 141 mg/dL (75-99)
[2018-09-21 16:39] LABS: Glucose,Whole Blood 112 mg/dL (75-99)
[2018-09-21 21:27] LABS: Glucose,Whole Blood 146 mg/dL (75-99)
--- NOTE | 2018-09-21 22:52 | PN ---
PROGRESS NOTE DATE OF SERVICE: 09/21/2018 PRESENTING COMPLAINT: Tired. INTERVAL HISTORY: This patient with acute renal failure, prerenal, hyperkalemia, metabolic encephalopathy, doing much better. Dose of Neurontin was cut back. Tolerating a diet. No new issues. REVIEW OF SYSTEMS: Done for constitutional, cardiovascular, GI, pulmonary; relevant findings as above. CURRENT MEDICATIONS: Reviewed. EXAMINATION: Temperature 97, pulse 72, respirations 18, blood pressure 136/67, pulse ox 99% on room air. GENERAL APPEARANCE: Sitting up in bed, awake. EYES: Pupils equal. Conjunctivae normal. NECK: JVD unable to assess. Mass not palpable. Respiratory effort normal. LUNGS: decreased breath sounds. CARDIOVASCULAR: First and second sounds, some edema. ABDOMEN: Soft, nontender. Liver and spleen not palpable. PSYCHIATRY: Answering questions appropriately. INVESTIGATIONS: White count 5.1, hemoglobin 10, potassium 4.3, BUN 45, creatinine 1.41. ASSESSMENT: 1. Acute metabolic encephalopathy, complicated, renal failure, probably from Neurontin in the setting of renal failure, much better after Neurontin dose was cut back. 2. Acute renal failure prerenal from decreased oral intake, much improved. 3. Hyperkalemia from renal failure, corrected. 4. Persistent atrial fibrillation, has a pacemaker. 5. Coronary artery disease. 6. Chronic congestive heart failure from diastolic dysfunction. Ejection fraction 55- 60 percent. 7. Hyperlipidemia. 8. Primary osteoarthritis. 9. Hypothyroidism. 10.Chronic autoimmune hepatitis. 11.Chronic kidney disease, stage 3, combination diabetic nephropathy and hypertensive nephrosclerosis. 12.Chronic medical debility, patient at baseline. PLAN: Patient to go down to the [facility], hopefully should happen tomorrow. Ballard catheter was removed. We will have the patient use Jamel wraps. MMODL / IJN: [id number] /
[2018-09-22] MEDS: IPRATROPIUM-ALBUTEROL 3 ML NEB INHALATION SCH ×3 (03:55→13:39)
[2018-09-22] MEDS: ACETAMINOPHEN TAB 325 MG TAB PO PRN (05:39)
[2018-09-22 05:48] LABS: Glucose,Whole Blood 124 mg/dL (75-99)
[2018-09-22] MEDS: NOVOLIN R SQ SCH ×2 (06:08→12:43)
[2018-09-22] MEDS: LEVOTHYROXINE 137 MCG TAB PO SCH (07:15)
[2018-09-22] MEDS: NOVOLIN N SQ SCH (07:15)
[2018-09-22 07:56] LABS: Calcium 8.8 mg/dL (8.4-10.2)
[2018-09-22 08:05] LABS: Potassium 4.6 mmol/L (3.5-5.1)
[2018-09-22] MEDS: PANTOPRAZOLE 40 MG TABLET PO SCH (08:40)
[2018-09-22] MEDS: CALCIUM CARBONATE 500 MG CHEWABLE PO SCH (08:40)
[2018-09-22] MEDS: GABAPENTIN 100 MG CAP PO SCH (08:40)
[2018-09-22] MEDS: FUROSEMIDE 40 MG TAB PO SCH (08:41)
[2018-09-22] MEDS: APIXABAN 2.5 MG TABLET PO SCH (08:41)
[2018-09-22] MEDS: FENOFIBRATE 160 MG TAB PO SCH (08:41)
[2018-09-22] MEDS: METOPROLOL SUCCINATE (ER) 50 MG TAB.ER.24H PO SCH (08:41)
[2018-09-22] MEDS: POTASSIUM CHLORIDE ER 10 MEQ TAB.ER.PRT PO SCH (08:42)
[2018-09-22] MEDS: DOXYCYCLINE 50 MG CAP PO SCH (08:42)
[2018-09-22 11:39] LABS: Glucose,Whole Blood 145 mg/dL (75-99)
[2018-09-22] MEDS ORDERED: HYDROcodone/APAP 5-325MG 1 EACH TAB PO SCH (13:00)
--- NOTE | 2018-09-22 15:30 | XR ---
EXAMINATION TYPE: XR lumbosacral spine min 4V DATE OF EXAM: 09/22/2018 COMPARISON: 08/31/2013 HISTORY: 78-year-old female low back pain TECHNIQUE: 5 views FINDINGS: Degenerative levoconvex curvature. IVC filter is present. Cholecystectomy clips. Osteopenia. Hypertro phic facet arthropathy throughout. There are new grade 1 anterolistheses at L3-L4 and L4-L5. Relative ly severe discogenic degenerative change at L3-L4 with marked endplate spondylosis. Vertebral body he ights are maintained. IMPRESSION: 1. Marked hypertrophic facet arthropathy throughout. New grade 1 anterolisthesis at L3-L4 and L4-L5. 2. Progression to severe disc/endplate degenerative change at L3-L4. 3. No vertebral compression collapse.
--- NOTE | 2018-09-22 16:25 | DS ---
DISCHARGE SUMMARY DATE OF ADMISSION: 09/15/2018 DATE OF DISCHARGE: 09/22/2018 FINAL DIAGNOSES: 1. Acute metabolic encephalopathy complicating renal failure, probably from Neurontin, dose was cut back, patient is improved, present on admission. 2. Acute renal failure prerenal from decreased oral intake, improved. 3. Hyperkalemia from renal failure, corrected. 4. Persistent atrial fibrillation, has a pacemaker. 5. Coronary artery disease. 6. Chronic congestive heart failure from diastolic dysfunction. Ejection fraction 55% to 60%. 7. Hyperlipidemia. 8. Primary osteoarthritis. 9. Acute flare up of osteoarthritis of the lumbar spine. 10.Hypothyroidism. 11.Chronic autoimmune hepatitis. 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 13.Chronic medical debility. HOSPITAL COURSE: This patient presented with lethargy, tired, found to be in acute renal failure. Creatinine was up to 2.40. By the time of discharge did come back what is presumed to baseline 1.46. The patient's dose of Neurontin was come back. Patient did wake up and turned around. The patient also had a lumbar spine x-ray. I looked at it, appearance of severe osteoarthritis. Because of renal failure, patient cannot take NSAIDs. The patient may take Williams p.r.n. and baclofen p.r.n. INVESTIGATION: Patient did have a chest CTA that showed some chronic changes and possible cirrhosis. CT scan of the brain did show some age-related changes. A 2D echocardiogram, EF showed 55% to 60%. CONSULTATION: Dr. Eid from Pulmonary; Dr. Harris Nice from Cardiology. DISCHARGE MEDICATIONS: 1. Lasix 40 mg a day. 2. Synthroid 137 mcg a day. 3. Omeprazole 20 mg b.i.d. 4. TriCor 160 mg a day. 5. Nitrostat 0.4 sublingual q.5 p.r.n. 6. Crestor 5 mg p.o. on Wednesdays. 7. Toprol XL 50 mg a day. 8. Aspirin 81 mg a day. 9. Calcium 600 mg t.i.d. 10.Klor-Con 5 mEq p.o. daily. 11.Eliquis 2.5 mg p.o. b.i.d. 12.Doxycycline 100 mg p.o. b.i.d. 13.Neurontin 300 mg p.o. t.i.d., new dose reduced. 14.Williams 5 one tablet q.8 p.r.n. for back pain. 15.Novolin 70/30 five units before lunch and 15 units before breakfast and supper. 16.DuoNeb t.i.d. 17.Also baclofen 5 mg q.8 p.r.n. Accu-Cheks q.a.c. and at bedtime with sliding scale insulin. DISPOSITION: [facility]. Follow up with Dr. Carvalho at [facility]. Follow up with Dr. Snowden after DC from [facility]. Follow up with Dr. Sweeney for possible cirrhosis in 2 weeks. Prognosis is guarded. MMODL / IJN: [id number] /
[2018-09-22 17:16] VITALS: BP 114/63; PULSE 72; RESP 18; TEMP 98.4
== END 2018-09-22 16:00 | disposition home or self-care (01) | DRG 682 ==
LOC: EC 15:30 → 2SICU 19:30 → 3SCARD 09-18 09:59
PROVIDERS: ADMIT Hospitalist; ATTEND Hospitalist
DX: N17.9 Acute kidney failure, unspecified (principal); G92 Toxic encephalopathy; I50.32 Chronic diastolic (congestive) heart failure; I13.0 Hypertensive heart and chronic kidney disease with heart failure and stage 1 through stage 4 chronic kidney disease, or unspecified chronic kidney disease; R18.8 Other ascites; Z68.42 Body mass index [BMI] 45.0-49.9, adult; E66.01 Morbid (severe) obesity due to excess calories; R07.89 Other chest pain; R79.1 Abnormal coagulation profile; I10 Essential (primary) hypertension; D86.0 Sarcoidosis of lung; E03.9 Hypothyroidism, unspecified; E11.22 Type 2 diabetes mellitus with diabetic chronic kidney disease; E78.00 Pure hypercholesterolemia, unspecified; E78.5 Hyperlipidemia, unspecified; E87.5 Hyperkalemia; G47.33 Obstructive sleep apnea (adult) (pediatric); E11.42 Type 2 diabetes mellitus with diabetic polyneuropathy; M19.91 Primary osteoarthritis, unspecified site; I48.0 Paroxysmal atrial fibrillation; I25.10 Atherosclerotic heart disease of native coronary artery without angina pectoris; J44.9 Chronic obstructive pulmonary disease, unspecified; J84.10 Pulmonary fibrosis, unspecified; K74.60 Unspecified cirrhosis of liver; K75.4 Autoimmune hepatitis; I95.9 Hypotension, unspecified; L93.0 Discoid lupus erythematosus; M47.816 Spondylosis without myelopathy or radiculopathy, lumbar region; M79.7 Fibromyalgia; N18.3 Chronic kidney disease, stage 3 (moderate); R53.81 Other malaise; I08.3 Combined rheumatic disorders of mitral, aortic and tricuspid valves; T42.6X5A Adverse effect of other antiepileptic and sedative-hypnotic drugs, initial encounter; Z95.5 Presence of coronary angioplasty implant and graft; Z79.01 Long term (current) use of anticoagulants; Z79.4 Long term (current) use of insulin; Z79.890 Hormone replacement therapy; Z79.899 Other long term (current) drug therapy; Z95.0 Presence of cardiac pacemaker; Z82.49 Family history of ischemic heart disease and other diseases of the circulatory system; Z86.718 Personal history of other venous thrombosis and embolism; Z90.710 Acquired absence of both cervix and uterus
CPT/HCPCS: 36415; 36600; 70450; 71045; 71046; 71275; 72110; 80048; 80053; 80061; 81001; 82140; 82550; 82553; 82805; 83605; 83735; 83880; 84484; 85025; 85379; 85610; 85730; 87077; 87086; 87186; 93005; 93306; 94640; 94760; 96365; 96375; 96376; 99285

== ENCOUNTER 2018-09-25 12:45 | Emergency (ER) | payer MEDICARE ==
[2018-09-25 12:53] VITALS: TEMP 98
--- NOTE | 2018-09-25 14:04 | ED ---
Skin/Abscess/FB HPI - General Chief complaint: Allergic Reaction Stated complaint: ALLERGIC REACTION Time Seen by Provider: 09/25/18 13:08 Source: EMS, RN notes reviewed, old records reviewed Mode of arrival: EMS Limitations: no limitations - History of Present Illness Initial comments: This is a 78-year-old female presenting for possible probable ALLERGIC reaction , rash. Patient has extensive medical history, severely debilitated with dementia versus delirium medically induced. Patient comes in for evaluation regarding increased rash and concern for rash. She has been on antibiotics per staff for urinary tract infection. Family states that they think this urinary tract infection antibiotic is causing her rash although patient does have multiple medication ALLERGIES to multiple different antibiotics - Related Data Home Medications Medication Instructions Recorded Confirmed Furosemide 40 mg PO DAILY 02/09/14 09/25/18 Levothyroxine Sodium [Synthroid] 137 mcg PO DAILY 02/09/14 09/25/18 Omeprazole 20 mg PO BID 02/09/14 09/25/18 Fenofibrate 160 mg PO DAILY 12/14/17 09/25/18 Nitroglycerin Sl Tabs [Nitrostat] 0.4 mg SUBLINGUAL Q5M PRN 12/14/17 09/25/18 Rosuvastatin Calcium [Crestor] 5 mg PO WE 12/14/17 09/25/18 Aspirin EC [Ecotrin Low Dose] 81 mg PO DAILY 08/26/18 09/25/18 Calcium Carbonate [Calcium] 600 mg PO TID 08/26/18 09/25/18 Potassium Chloride [Klor-Con 10] 5 meq PO DAILY 08/26/18 09/25/18 Bisacodyl [Dulcolax] 10 mg RECTAL DAILY PRN 09/25/18 09/25/18 Famotidine 20 mg PO DAILY 09/25/18 09/25/18 Insuln Asp Prt/Insulin Aspart 15 unit SQ AC-BID 09/25/18 09/25/18 [NovoLOG MIX 70-30 VIAL] Ipratropium-Albuterol Nebulize 3 ml INHALATION RT-TID 09/25/18 09/25/18 [Duoneb 0.5 mg-3 mg/3 ml Soln] Magnesium Hydroxide [Milk of 2,400 mg PO DAILY PRN 09/25/18 09/25/18 Magnesia] Na Phos,M-B/Na Phos,Di-Ba [Fleet 133 ml RECTAL ONCE PRN 09/25/18 09/25/18 Adult] Previous Rx's Medication Instructions Recorded Metoprolol Succinate (ER) [Toprol 50 mg PO DAILY #30 tab.er.24h 12/17/17 XL] Apixaban [Eliquis] 2.5 mg PO BID tablet 09/22/18 Doxycycline [Vibramycin] 100 mg PO BID #10 cap 09/22/18 Gabapentin 300 mg PO TID #0 09/22/18 HYDROcodone/APAP 5-325MG [[place] 1 tab PO Q8H PRN #9 tab 09/22/18 5-325] Allergies Allergy/AdvReac Type Severity Reaction Status Date / Time levofloxacin [From Levaquin] Allergy Intermediate Unknown Verified 09/25/18 13: 36 Penicillins Allergy Intermediate Rash/Hives Verified 09/25/18 13:36 Sulfa (Sulfonamide Allergy Intermediate Rash/Hives Verified 09/25/18 13:36 Antibiotics) cephalexin monohydrate Allergy Unknown Unknown Verified 09/25/18 13:36 [From Keflex] erythromycin base Allergy Unknown Rash/Hives Verified 09/25/18 13:36 [From E-Mycin] gatifloxacin [From Tequin] Allergy Unknown Unknown Verified 09/25/18 13:36 nitrofurantoin Allergy Unknown Unknown Verified 09/25/18 13:36 macrocrystalline [From Macrodantin] apricot Allergy Unknown Verified 09/25/18 13:36 asparagus Allergy Unknown Verified 09/25/18 13:36 banana [Banana] Allergy Unknown Verified 09/25/18 13:36 cabbage Allergy Unknown Verified 09/25/18 13:36 carrot Allergy Unknown Verified 09/25/18 13:36 ciprofloxacin [From Cipro] Allergy Unknown Verified 09/25/18 13:36 ciprofloxacin HCl Allergy Unknown Verified 09/25/18 13:36 [From Cipro] coffee (Coffea arabica) Allergy Unknown Verified 09/25/18 13:36 [coffee] cucumber Allergy Unknown Verified 09/25/18 13:36 sam Allergy Unknown Verified 09/25/18 13:36 insulin lispro [From Humalog] Allergy Rash/Hives Verified 09/25/18 13:36 insulin NPH human isophane Allergy Rash/Hives Verified 09/25/18 13:36 [From Humulin 70/30] insulin regular, human Allergy Rash/Hives Verified 09/25/18 13:36 [From Humulin 70/30] mustard Allergy Unknown Verified 09/25/18 13:36 onion Allergy Unknown Verified 09/25/18 13:36 orange juice [[place]] Allergy Unknown Verified 09/25/18 13:36 Pepper Allergy Unknown Verified 09/25/18 13:36 rice Allergy Unknown Verified 09/25/18 13:36 spinach Allergy Unknown Verified 09/25/18 13:36 Squash Allergy Unknown Verified 09/25/18 13:36 tree nut [Pecan] Allergy Unknown Verified 09/25/18 13:36 walnut Allergy Unknown Verified 09/25/18 13:36 cantaloupe Allergy Unknown Uncoded 09/15/18 15:37 cottonseed Allergy Unknown Uncoded 09/15/18 15:37 green beans Allergy Unknown Uncoded 09/15/18 15:37 tea Allergy Unknown Uncoded 09/15/18 15:37 Review of Systems ROS Statement: Those systems with pertinent positive or pertinent negative responses have been documented in the HPI. ROS Other: All systems not noted in ROS Statement are negative. 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 NEUROPATHY, SARCOIDOSIS, LUPUS, AUTOIMMUNE ISSUES HEART MURMUR, autoimmune HEPATITIS with prednisone dependence, IRREGULAR HEART RATE, LEFT FEMUR FRACTURE, NO CPAP USE, right ankle fracture, left lower extremity DVT, left rotator cuff tear, HX COMPLETE HEART BLOCK/PACEMAKER IMPLANTED History of Any Multi-Drug Resistant Organisms: None Reported Date of last positivie culture/infection: None MDRO Source:: None Past Surgical History: Adenoidectomy, Appendectomy, Cholecystectomy, Heart Catheterization With Stent, Hysterectomy, Pacemaker, Tonsillectomy Additional Past Surgical History / Comment(s): COLONOSCOPY, EGD, [place] filter, bronchoscopy Past Anesthesia/Blood Transfusion Reactions: No Reported Reaction Additional Past Anesthesia/Blood Transfusion Reaction / Comment(s): PT STATED SHE HAS NEVER RECEIVED ANY BLOOD TRANSFUSIONS Date of Last Stent Placement:: 2012 Type of Cardiac Device: Permanent Pacemaker Device Placement Date:: 2017 Past Psychological History: No Psychological Hx Reported Smoking Status: Never smoker - Past Family History Mother Family Medical History: Coronary Artery Disease (CAD) Father Family Medical History: Coronary Artery Disease (CAD) General Exam - General Exam Comments Initial Comments: Rashes noted to right flank left arm right arm abdomen and right leg mildly erythematous, patient also complains of itching and pruritus Limitations: no limitations General appearance: alert, in no apparent distress, obese Head exam: Present: atraumatic, normocephalic, normal inspection Eye exam: Present: normal appearance, PERRL, EOMI. Absent: scleral icterus, conjunctival injection, periorbital swelling ENT exam: Present: normal exam, mucous membranes moist Neck exam: Present: normal inspection. Absent: tenderness, meningismus, lymphadenopathy Respiratory exam: Present: normal lung sounds bilaterally. Absent: respiratory distress, wheezes, rales, rhonchi, stridor Cardiovascular Exam: Present: regular rate, normal rhythm, normal heart sounds. Absent: systolic murmur, diastolic murmur, rubs, gallop, clicks GI/Abdominal exam: Present: soft, normal bowel sounds. Absent: distended, tenderness, guarding, rebound, rigid Extremities exam: Present: normal inspection, full ROM, normal capillary refill. Absent: tenderness, pedal edema, joint swelling, calf tenderness Back exam: Present: normal inspection Neurological exam: Present: alert, oriented X3, CN II-XII intact Psychiatric exam: Present: normal affect, normal mood Skin exam: Present: warm, dry, intact, normal color. Absent: rash Course Vital Signs 09/25/18 09/25/18 12:49 12:53 Temperature 98.0 F Pulse Rate 70 Respiratory 18 18 Rate Blood Pressure 128/55 O2 Sat by Pulse 99 Oximetry Medical Decision Making - Medical Decision Making 78 female the ER for evaluation of ALLERGIC rash, patient will stop current antibiotic use, will follow-up on cultures of urine to see further need for UTI treatment - Lab Data Lab Results 09/25/18 Range/Units 15:00 Urine Color Yellow Urine Appearance Cloudy H (Clear) Urine pH 5.0 (5.0-8.0) Ur Specific [place] 1.011 (1.001-1.035) Urine Protein Negative (Negative) Urine Glucose (UA) Negative (Negative) Urine Ketones Negative (Negative) Urine Blood Negative (Negative) Urine Nitrite Negative (Negative) Urine Bilirubin Negative (Negative) Urine Urobilinogen 2.0 (<2.0) mg/dL Ur Leukocyte Esterase Large H (Negative) Urine RBC 2 (0-5) /hpf Urine WBC 47 H (0-5) /hpf Urine WBC Clumps Few H (None) /hpf Urine Bacteria Many H (None) /hpf Hyaline Casts 11 H (0-2) /lpf Urine Mucus Rare H (None) /hpf Urine Yeast (Budding) Occasional H (None) /hpf Disposition Clinical Impression: Allergic reaction, Adverse reaction to drug Disposition: HOME SELF-CARE Condition: Good Instructions: Urticaria (ED) Additional Instructions: Patient will have doxycycline. Here in the emergency room, to stop taking medication at [facility] follow-up with cultures of urine here in the emergency room to see if there is further need for antibiotic administration. Is patient prescribed a controlled substance at d/c from ED?: No Referrals: John Snowden DO [Primary Care Provider] - 1-2 days
[2018-09-25 15:41] LABS: Appearance,Urine Cloudy (Clear); Bacteria,Urine Many /hpf; Bilirubin,Urine Negative (Negative); Blood,Urine Negative (Negative); Budding Yeast,Urine Occasional /hpf; Color,Urine Yellow; Glucose,Urine (UA) Negative (Negative); Hyaline Casts,Urine 11 /lpf (0-2); Ketones,Urine Negative (Negative); Leukocyte Esterase,Urine Large (Negative); Mucus,Urine Rare /hpf; Nitrite,Urine Negative (Negative); Protein,Urine Negative (Negative); RBC,Urine 2 /hpf (0-5); Specific Gravity,Urine 1.011 (1.001-1.035); WBC,Urine 47 /hpf (0-5)
[2018-09-25] MEDS ORDERED: HYDROcodone/APAP 5-325MG 1 EACH TAB PO STA (15:53)
[2018-09-25 15:57] VITALS: BP 108/66; PULSE 71; RESP 16
== END 2018-09-25 17:08 | disposition home or self-care (01) ==
LOC: EC 12:45
DX: L29.9 Pruritus, unspecified (principal); T50.905A Adverse effect of unspecified drugs, medicaments and biological substances, initial encounter; I48.91 Unspecified atrial fibrillation; J45.909 Unspecified asthma, uncomplicated; I25.10 Atherosclerotic heart disease of native coronary artery without angina pectoris; I11.0 Hypertensive heart disease with heart failure; I50.9 Heart failure, unspecified; E11.40 Type 2 diabetes mellitus with diabetic neuropathy, unspecified; E78.5 Hyperlipidemia, unspecified; I34.1 Nonrheumatic mitral (valve) prolapse; E07.9 Disorder of thyroid, unspecified; G47.30 Sleep apnea, unspecified; Z95.5 Presence of coronary angioplasty implant and graft; Z95.0 Presence of cardiac pacemaker; Z79.82 Long term (current) use of aspirin; Z79.4 Long term (current) use of insulin; Z79.899 Other long term (current) drug therapy; Z88.1 Allergy status to other antibiotic agents; Z88.0 Allergy status to penicillin; Z88.2 Allergy status to sulfonamides; Z88.8 Allergy status to other drugs, medicaments and biological substances; Z91.018 Allergy to other foods
CPT/HCPCS: 81001; 99284

== ENCOUNTER 2018-09-29 13:47 | Inpatient (IN) | payer MEDICARE ==
[2018-09-29 14:32] LABS: Basophils # (A) 0.1 k/uL (0-0.2); Basophils % (A) 1 %; Eosinophils # (A) 0.2 k/uL (0-0.7); Eosinophils % (A) 4 %; HCT 35.2 % (34.0-46.0); HGB 10.9 gm/dL (11.4-16.0); Hypochromasia Slight; Lymphocytes # (A) 0.7 k/uL (1.0-4.8); Lymphocytes % (A) 14 %; MCH 27.5 pg (25.0-35.0); MCHC 31.1 g/dL (31.0-37.0); MCV 88.5 fL (80.0-100.0); Mean Platelet Volume 7.5; Monocytes # (A) 0.4 k/uL (0-1.0); Monocytes % (A) 8 %; Neutrophils # (A) 3.5 k/uL (1.3-7.7); Neutrophils % (A) 71 %; Platelet Count 218 k/uL (150-450); RBC 3.98 m/uL (3.80-5.40); RDW 15.8 % (11.5-15.5)
--- NOTE | 2018-09-29 14:37 | ED ---
General Adult HPI - General Chief complaint: Recheck/Abnormal Lab/Rx Stated complaint: rash Time Seen by Provider: 09/29/18 14:00 Source: patient, family, EMS, RN notes reviewed Mode of arrival: EMS Limitations: no limitations - History of Present Illness Initial comments: This is a 78-year-old female with past medical history significant for renal failure and congestive heart failure and anasarca. Patient was sent in today because she was slightly confused in she had significantly increased swelling according to staff. Patient denies any shortness of breath or chest pain. Patient currently has no complaints aside from feeling overall weak. Patient denies any headache patient denies any numbness or focal weakness. Patient denies any recent fever chills. Patient denies any abdominal pain patient denies nausea vomiting or any diarrhea. Patient states she was treated for urinary tract infection recently. Patient's family states she is a little bit more confused than normal but not that far off her baseline currently. - Related Data Home Medications Medication Instructions Recorded Confirmed Furosemide 40 mg PO DAILY@0600 02/09/14 09/29/18 Levothyroxine Sodium [Synthroid] 137 mcg PO DAILY@0600 02/09/14 09/29/18 Omeprazole 20 mg PO BID@0800,1700 02/09/14 09/29/18 Fenofibrate 160 mg PO DAILY@2100 12/14/17 09/29/18 Nitroglycerin Sl Tabs [Nitrostat] 0.4 mg SUBLINGUAL Q5M PRN 12/14/17 09/29/18 Rosuvastatin Calcium [Crestor] 5 mg PO WE 12/14/17 09/29/18 Aspirin EC [Ecotrin Low Dose] 81 mg PO DAILY@1700 08/26/18 09/29/18 Calcium Carbonate [Calcium] 600 mg PO TID@0800,1200,1700 08/26/18 09/29/18 Potassium Chloride [Klor-Con 10] 5 meq PO DAILY@1700 08/26/18 09/29/18 Bisacodyl [Dulcolax] 10 mg RECTAL DAILY PRN 09/25/18 09/29/18 Famotidine 20 mg PO DAILY@0600 09/25/18 09/29/18 Insuln Asp Prt/Insulin Aspart 15 unit SQ AC-BID@0700,1730 09/25/18 09/29/18 [NovoLOG MIX 70-30 VIAL] Ipratropium-Albuterol Nebulize 3 ml INHALATION RT-TID@06,14,21 09/25/18 09/29/18 [Duoneb 0.5 mg-3 mg/3 ml Soln] Magnesium Hydroxide [Milk of 2,400 mg PO DAILY PRN 09/25/18 09/25/18 Magnesia] Na Phos,M-B/Na Phos,Di-Ba [Fleet 133 ml RECTAL ONCE PRN 09/25/18 09/29/18 Adult] Apixaban [Eliquis] 2.5 mg PO BID@0800,1700 09/29/18 09/29/18 Gabapentin 600 mg PO DAILY@0800 09/29/18 09/29/18 Metoprolol Succinate (ER) [Toprol 50 mg PO DAILY@0800 09/29/18 09/29/18 XL] Previous Rx's Medication Instructions Recorded HYDROcodone/APAP 5-325MG [[place] 1 tab PO Q8H PRN #9 tab 09/22/18 5-325] Allergies Allergy/AdvReac Type Severity Reaction Status Date / Time levofloxacin [From Levaquin] Allergy Intermediate Unknown Verified 09/29/18 14: 43 Penicillins Allergy Intermediate Rash/Hives Verified 09/29/18 14:43 Sulfa (Sulfonamide Allergy Intermediate Rash/Hives Verified 09/29/18 14:43 Antibiotics) cephalexin monohydrate Allergy Unknown Unknown Verified 09/29/18 14:43 [From Keflex] erythromycin base Allergy Unknown Rash/Hives Verified 09/29/18 14:43 [From E-Mycin] gatifloxacin [From Tequin] Allergy Unknown Unknown Verified 09/29/18 14:43 nitrofurantoin Allergy Unknown Unknown Verified 09/29/18 14:43 macrocrystalline [From Macrodantin] apricot Allergy Unknown Verified 09/29/18 14:43 asparagus Allergy Unknown Verified 09/29/18 14:43 banana [Banana] Allergy Unknown Verified 09/29/18 14:43 cabbage Allergy Unknown Verified 09/29/18 14:43 carrot Allergy Unknown Verified 09/29/18 14:43 ciprofloxacin [From Cipro] Allergy Unknown Verified 09/29/18 14:43 ciprofloxacin HCl Allergy Unknown Verified 09/29/18 14:43 [From Cipro] coffee (Coffea arabica) Allergy Unknown Verified 09/29/18 14:43 [coffee] cucumber Allergy Unknown Verified 09/29/18 14:43 doxycycline Allergy Rash/Hives Verified 09/29/18 14:43 sam Allergy Unknown Verified 09/29/18 14:43 insulin lispro [From Humalog] Allergy Rash/Hives Verified 09/29/18 14:43 insulin NPH human isophane Allergy Rash/Hives Verified 09/29/18 14:43 [From Humulin 70/30] insulin regular, human Allergy Rash/Hives Verified 09/29/18 14:43 [From Humulin 70/30] mustard Allergy Unknown Verified 09/29/18 14:43 onion Allergy Unknown Verified 09/29/18 14:43 orange juice [[place]] Allergy Unknown Verified 09/29/18 14:43 Pepper Allergy Unknown Verified 09/29/18 14:43 rice Allergy Unknown Verified 09/29/18 14:43 spinach Allergy Unknown Verified 09/29/18 14:43 Squash Allergy Unknown Verified 09/29/18 14:43 tree nut [Pecan] Allergy Unknown Verified 09/29/18 14:43 walnut Allergy Unknown Verified 09/29/18 14:43 cantaloupe Allergy Unknown Uncoded 09/29/18 13:59 cottonseed Allergy Unknown Uncoded 09/29/18 13:59 green beans Allergy Unknown Uncoded 09/29/18 13:59 tea Allergy Unknown Uncoded 09/29/18 13:59 Review of Systems ROS Statement: Those systems with pertinent positive or pertinent negative responses have been documented in the HPI. ROS Other: All systems not noted in ROS Statement are negative. 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 NEUROPATHY, SARCOIDOSIS, LUPUS, AUTOIMMUNE ISSUES HEART MURMUR, autoimmune HEPATITIS with prednisone dependence, IRREGULAR HEART RATE, LEFT FEMUR FRACTURE, NO CPAP USE, right ankle fracture, left lower extremity DVT, left rotator cuff tear, HX COMPLETE HEART BLOCK/PACEMAKER IMPLANTED History of Any Multi-Drug Resistant Organisms: None Reported Date of last positivie culture/infection: None MDRO Source:: None Past Surgical History: Adenoidectomy, Appendectomy, Cholecystectomy, Heart Catheterization With Stent, Hysterectomy, Pacemaker, Tonsillectomy Additional Past Surgical History / Comment(s): COLONOSCOPY, EGD, [place] filter, bronchoscopy Past Anesthesia/Blood Transfusion Reactions: No Reported Reaction Additional Past Anesthesia/Blood Transfusion Reaction / Comment(s): PT STATED SHE HAS NEVER RECEIVED ANY BLOOD TRANSFUSIONS Date of Last Stent Placement:: 2012 Type of Cardiac Device: Permanent Pacemaker Device Placement Date:: 2017 Past Psychological History: No Psychological Hx Reported Smoking Status: Never smoker Past Alcohol Use History: None Reported Past Drug Use History: None Reported - Past Family History Mother Family Medical History: Coronary Artery Disease (CAD) Father Family Medical History: Coronary Artery Disease (CAD) General Exam - General Exam Comments Initial Comments: GENERAL: Patient is well-developed and well-nourished. Patient is nontoxic and well- hydrated and is in no acute distress. ENT: Neck is soft and supple. No significant lymphadenopathy is noted. Oropharynx is clear. Moist mucous membranes. Neck has full range of motion without eliciting any pain. EYES: The sclera were anicteric and conjunctiva were pink and moist. Extraocular movements were intact and pupils were equal round and reactive to light. Eyelids were unremarkable. PULMONARY: Unlabored respirations. Good breath sounds bilaterally. No audible rales rhonchi or wheezing was noted. CARDIOVASCULAR: There is a regular rate and rhythm without any murmurs gallops or rubs. ABDOMEN: Soft and nontender with normal bowel sounds. No palpable organomegaly was noted. There is no palpable pulsatile mass. SKIN: Skin is clear with no lesions or rashes and otherwise unremarkable. NEUROLOGIC: Patient is alert and oriented x3. Cranial nerves II through XII are grossly intact. Motor and sensory are also intact. Normal speech, volume and content. Symmetrical smile. MUSCULOSKELETAL: Normal extremities with adequate strength and full range of motion. Patient has anasarca LYMPHATICS: No significant lymphadenopathy is noted PSYCHIATRIC: Normal psychiatric evaluation. Limitations: no limitations Course Vital Signs 09/29/18 09/29/18 09/29/18 13:59 15:20 15:56 Temperature 98.5 F Pulse Rate 69 70 70 Respiratory 20 18 18 Rate Blood Pressure 119/64 99/64 102/68 O2 Sat by Pulse 99 100 100 Oximetry 09/29/18 09/29/18 17:05 17:26 Temperature Pulse Rate 96 88 Respiratory 18 18 Rate Blood Pressure 90/57 111/72 O2 Sat by Pulse 98 98 Oximetry Medical Decision Making - Medical Decision Making EKG shows normal sinus rhythm at 70 bpm QRS 160 QT interval 470 QTC is 507. Chest x-ray shows early pulmonary edema - Lab Data Result diagrams: 09/29/18 14:09 09/29/18 14:09 Lab Results 09/29/18 09/29/18 09/29/18 Range/Units 14:09 14:09 14:09 WBC 5.0 (3.8-10.6) k/uL RBC 3.98 (3.80-5.40) m/uL Hgb 10.9 L (11.4-16.0) gm/dL Hct 35.2 (34.0-46.0) % MCV 88.5 (80.0-100.0) fL MCH 27.5 (25.0-35.0) pg MCHC 31.1 (31.0-37.0) g/dL RDW 15.8 H (11.5-15.5) % Plt Count 218 (150-450) k/uL Neutrophils % 71 % Lymphocytes % 14 % Monocytes % 8 % Eosinophils % 4 % Basophils % 1 % Neutrophils # 3.5 (1.3-7.7) k/uL Lymphocytes # 0.7 L (1.0-4.8) k/uL Monocytes # 0.4 (0-1.0) k/uL Eosinophils # 0.2 (0-0.7) k/uL Basophils # 0.1 (0-0.2) k/uL Hypochromasia Slight PT (9.0-12.0) sec INR (<1.2) APTT (22.0-30.0) sec Sodium 137 (137-145) mmol/L Potassium 4.3 (3.5-5.1) mmol/L Chloride 106 (98-107) mmol/L Carbon Dioxide 26 (22-30) mmol/L Anion Gap 5 mmol/L BUN 45 H (7-17) mg/dL Creatinine 1.46 H (0.52-1.04) mg/dL Est GFR (CKD-EPI)AfAm 40 (>60 ml/min/1.73 sqM) Est GFR (CKD-EPI)NonAf 35 (>60 ml/min/1.73 sqM) Glucose 111 H (74-99) mg/dL Calcium 9.2 (8.4-10.2) mg/dL Magnesium 2.1 (1.6-2.3) mg/dL Total Bilirubin 1.7 H (0.2-1.3) mg/dL AST 76 H (14-36) U/L ALT 33 (9-52) U/L Alkaline Phosphatase 160 H (38-126) U/L Total Creatine Kinase 61 (30-135) U/L CK-MB (CK-2) 1.0 (0.0-2.4) ng/mL CK-MB (CK-2) Rel Index 1.6 Troponin I <0.012 (0.000-0.034) ng/mL NT-Pro-B Natriuret Pep pg/mL Total Protein 5.7 L (6.3-8.2) g/dL Albumin 2.3 L (3.5-5.0) g/dL Urine Color Urine Appearance (Clear) Urine pH (5.0-8.0) Ur Specific [place] (1.001-1.035) Urine Protein (Negative) Urine Glucose (UA) (Negative) Urine Ketones (Negative) Urine Blood (Negative) Urine Nitrite (Negative) Urine Bilirubin (Negative) Urine Urobilinogen (<2.0) mg/dL Ur Leukocyte Esterase (Negative) Urine WBC (0-5) /hpf Ur Squamous Epith Cells (0-4) /hpf Amorphous Sediment (None) /hpf Hyaline Casts (0-2) /lpf Urine Mucus (None) /hpf 09/29/18 09/29/18 09/29/18 Range/Units 14:09 14:09 17:25 WBC (3.8-10.6) k/uL RBC (3.80-5.40) m/uL Hgb (11.4-16.0) gm/dL Hct (34.0-46.0) % MCV (80.0-100.0) fL MCH (25.0-35.0) pg MCHC (31.0-37.0) g/dL RDW (11.5-15.5) % Plt Count (150-450) k/uL Neutrophils % % Lymphocytes % % Monocytes % % Eosinophils % % Basophils % % Neutrophils # (1.3-7.7) k/uL Lymphocytes # (1.0-4.8) k/uL Monocytes # (0-1.0) k/uL Eosinophils # (0-0.7) k/uL Basophils # (0-0.2) k/uL Hypochromasia PT 13.8 H (9.0-12.0) sec INR 1.4 H (<1.2) APTT 32.1 H (22.0-30.0) sec Sodium (137-145) mmol/L Potassium (3.5-5.1) mmol/L Chloride (98-107) mmol/L Carbon Dioxide (22-30) mmol/L Anion Gap mmol/L BUN (7-17) mg/dL Creatinine (0.52-1.04) mg/dL Est GFR (CKD-EPI)AfAm (>60 ml/min/1.73 sqM) Est GFR (CKD-EPI)NonAf (>60 ml/min/1.73 sqM) Glucose (74-99) mg/dL Calcium (8.4-10.2) mg/dL Magnesium (1.6-2.3) mg/dL Total Bilirubin (0.2-1.3) mg/dL AST (14-36) U/L ALT (9-52) U/L Alkaline Phosphatase (38-126) U/L Total Creatine Kinase (30-135) U/L CK-MB (CK-2) (0.0-2.4) ng/mL CK-MB (CK-2) Rel Index Troponin I (0.000-0.034) ng/mL NT-Pro-B Natriuret Pep 760 pg/mL Total Protein (6.3-8.2) g/dL Albumin (3.5-5.0) g/dL Urine Color Yellow Urine Appearance Cloudy H (Clear) Urine pH 8.0 (5.0-8.0) Ur Specific [place] 1.008 (1.001-1.035) Urine Protein Negative (Negative) Urine Glucose (UA) Negative (Negative) Urine Ketones Negative (Negative) Urine Blood Negative (Negative) Urine Nitrite Positive H (Negative) Urine Bilirubin Negative (Negative) Urine Urobilinogen <2.0 (<2.0) mg/dL Ur Leukocyte Esterase Large H (Negative) Urine WBC 6 H (0-5) /hpf Ur Squamous Epith Cells 1 (0-4) /hpf Amorphous Sediment Rare H (None) /hpf Hyaline Casts 10 H (0-2) /lpf Urine Mucus Rare H (None) /hpf Disposition Clinical Impression: Anasarca, Altered mental status, Renal insufficiency Disposition: ADMITTED IP TO THIS HOSP Referrals: John Snowden DO [Primary Care Provider] - 1-2 days Time of Disposition: 17:48
[2018-09-29 14:40] LABS: INR 1.4 (<1.2); Partial Thromboplastin Time 32.1 sec (22.0-30.0); Prothrombin Time 13.8 sec (9.0-12.0)
[2018-09-29 14:42] LABS: Albumin 2.3 g/dL (3.5-5.0); Calcium 9.2 mg/dL (8.4-10.2); Magnesium 2.1 mg/dL (1.6-2.3); Potassium 4.3 mmol/L (3.5-5.1); Total Bilirubin 1.7 mg/dL (0.2-1.3); Total Protein 5.7 g/dL (6.3-8.2)
--- NOTE | 2018-09-29 14:48 | XR ---
EXAMINATION TYPE: XR chest 2V DATE OF EXAM: 09/29/2018 COMPARISON: 09/18/2018 HISTORY: 78-year-old female with chest pain TECHNIQUE: AP and lateral views FINDINGS: Left anterior chest wall pacemaker generator with right atrial and right ventricular leads. Heart mil dly enlarged. Diffuse interstitial and vascular prominence. No sizable effusion on the lateral view. Low lung volumes. IMPRESSION: Cardiomegaly and interstitial changes. Correlate for fluid overload state with pulmonary vascular con gestion.
[2018-09-29 14:54] LABS: Creatine Kinase 61 U/L (30-135)
[2018-09-29 15:06] LABS: Troponin I <0.012 ng/mL (0.000-0.034)
[2018-09-29] MEDS ORDERED: KETOROLAC 30 MG/ML 1 ML VIAL IVP STA (16:14)
[2018-09-29] MEDS ORDERED: HYDROmorphone 1 MG/ML 1 ML SYRINGE IVP STA (16:27)
[2018-09-29 17:35] LABS: Amorphous Sediment,Urine Rare /hpf; Appearance,Urine Cloudy (Clear); Bilirubin,Urine Negative (Negative); Blood,Urine Negative (Negative); Color,Urine Yellow; Glucose,Urine (UA) Negative (Negative); Hyaline Casts,Urine 10 /lpf (0-2); Ketones,Urine Negative (Negative); Leukocyte Esterase,Urine Large (Negative); Mucus,Urine Rare /hpf; Nitrite,Urine Positive (Negative); Protein,Urine Negative (Negative); Specific Gravity,Urine 1.008 (1.001-1.035); Squamous Epithelial Cell,Urine 1 /hpf (0-4); Urobilinogen,Urine <2.0 mg/dL (<2.0); WBC,Urine 6 /hpf (0-5)
[2018-09-29] MEDS ORDERED: SODIUM CHLORIDE 0.9% 1,000 ML IV ONE (17:53)
[2018-09-29] MEDS ORDERED: FUROSEMIDE 10 MG/ML 4 ML VIAL IV STA (19:22)
[2018-09-29] MEDS ORDERED: LORazepam 2 MG/ML INJ IV STA (21:03)
[2018-09-30] MEDS: FUROSEMIDE 10 MG/ML 4 ML VIAL IV SCH ×4 (03:08→23:02)
[2018-09-30 07:11] LABS: Glucose,Whole Blood 85 mg/dL (75-99)
[2018-09-30 12:01] VITALS: BMI 50.9
[2018-09-30 12:04] LABS: Glucose,Whole Blood 101 mg/dL (75-99)
[2018-09-30] MEDS: HYDROmorphone 0.5 MG/0.5 ML SYRINGE IVP PRN ×2 (13:16→18:22)
[2018-09-30] MEDS ORDERED: HYDROcodone/APAP 5-325MG 1 EACH TAB PO PRN (17:03)
[2018-09-30] MEDS ORDERED: NA PHOS,M-B/NA PHOS,DI-BA 133 ML ENEMA RECTAL PRN (17:03)
[2018-09-30] MEDS ORDERED: NITROGLYCERIN SL TABS 0.4 MG TAB SUBLINGUAL PRN (17:03)
[2018-09-30] MEDS ORDERED: BISACODYL 10 MG SUPP RECTAL PRN (17:03)
[2018-09-30 17:30] LABS: Glucose,Whole Blood 102 mg/dL (75-99)
[2018-09-30] MEDS: INSULN ASP PRT/INSULIN ASPART 100 UNIT/ML 10 ML VIAL SQ SCH (17:47)
[2018-09-30] MEDS: IPRATROPIUM-ALBUTEROL 3 ML NEB INHALATION SCH (19:34)
[2018-09-30 20:03] LABS: Glucose,Whole Blood 100 mg/dL (75-99)
--- NOTE | 2018-09-30 20:10 | HP ---
HISTORY AND PHYSICAL CHIEF COMPLAINTS: Shortness of breath as well as confusion. HISTORY OF PRESENT ILLNESS: This 78-year-old woman with a past medical history of atrial fibrillation, history of asthma, history of CAD, CHF, diabetes type 2, fibromyalgia, GERD, GI bleed, hypertension and hyperlipidemia, mitral prolapse being followed by Dr. Mary Ann Snowden in the outpatient setting was recently admitted to [facility] with acute metabolic encephalopathy which was thought to be multifactorial. Subsequently, patient was sent to rehab. In the rehab, the patient was found to have increased shortness of breath, diffuse aches and pains and confusion and the patient taken to [facility] and admitted for further evaluation and treatment. The white count was found to be five. Hemoglobin 10.9. Patient is slightly incoherent at this time. Cultures are pending at this time. A chest x-ray done at the time of admission which was reviewed personally by me showed cardiomegaly and interstitial changes. IV Lasix has been initiated. There is no history of any fever, rigors or chills. No history of trauma at this time. A detailed history could not be taken. Most of the history taken from my discussion with staff as well as review of chart at this time. PAST MEDICAL HISTORY: History of atrial fibrillation, history of asthma, CAD, CHF, diabetes type 2, GERD, history of hypertension, hyperlipidemia, history of mitral valve prolapse, history of DJD, history of CAD/stent. MEDICATIONS: Prior to admission include home medications are: 1. [place] 5 mg q.8h p.r.n. 2. Nitrostat 0.4 sublingual p.r.n. 3. Fleets enema. 4. DuoNeb q.i.d. and p.r.n. 5. Dulcolax 10 mg daily. 6. Calcium 600 mg p.o. t.i.d. 7. Omeprazole 20 mg p.o. b.i.d. 8. NovoLog mix 70/30 15 units subcu b.i.d. 9. Synthroid 137 mcg p.o. daily. 10.Eliquis 2.5 mg p.o. b.i.d. 11.Crestor 5 mg p.o. daily Saturday. 12.Pepcid 20 mg p.o. daily. 13.Klor-Con 5 mg p.o. daily. 14.Toprol-XL 50 mg p.o. daily. 15.Gabapentin 600 mg p.o. daily. 16.Lasix 40 mg. 17.Fenofibrate 160 mg. 18.Aspirin/Ecotrin 81 mg p.o. daily. 19.Magnesium oxide 2.4 g p.o. daily. ALLERGIES: MULTIPLE ALLERGIES INCLUDE LEVAQUIN, PENICILLIN, SULFA, CEPHALEXIN, ERYTHROMYCIN , GATIFLOXACIN, NITROFURANTOIN, APRICOT, BANANA, CABBAGE, CARROTS, CIPROFLOXACIN , COFFEE, CUCUMBER, DOXYCYCLINE, POLA, INSULIN LISPRO NPH, MUSTARD, ORANGE JUICE, PEPPER, RICE, SPINACH, SQUASH, TREE NUTS, WALNUTS, CANTALOUPE, COTTON SEED, GREEN BEANS AND TEA. REVIEW OF SYMPTOMS: Family history, social history and review of systems could not be taken because the patient is confused at this time. No history of smoking, alcohol per chart. PHYSICAL EXAM: VITAL SIGNS: Pulse is 67, blood pressure 140/50, respirations 16, temperature 98.9, pulse ox 98% on room air. HEENT conjunctivae normal. Oral mucosa moist. NECK is no jugular venous distention. No carotid bruit. No lymph enlargement. CARDIOVASCULAR: S1, S2 muffled. RESPIRATORY: Breath sounds diminished in the bases. Bilateral scattered rhonchi and crackles. ABDOMEN: Soft, obese, nontender. No mass palpable. LEGS: Bilateral leg edema. NERVOUS SYSTEM: Higher functions as mentioned earlier. Moves all four extremities. Mild diffuse weakness. Lymphatics: No lymph nodes palpable in the neck, axillae or groin. SKIN: No ulcer, rash or bleeding. LAB STUDIES: WBC 5, hemoglobin is 10.9. INR is 1.4. Sodium 137, potassium 4.2, creatinine is 1.46 and total bilirubin is 1.7. UA noted. ASSESSMENT: 1. Congestive heart failure acute exacerbation with acute on chronic diastolic dysfunction, ejection fraction 50-60 percent. 2. Rule out bilateral pneumonia. 3. Change in mental status, metabolic encephalopathy, multifactorial. 4. Increased creatinine with chronic kidney stage III. 5. Increased bilirubin. 6. Increased AST. Possible mild hepatitis. 7. Hypoalbuminemia. 8. Rule out urinary tract infection. 9. History of atrial fibrillation. 10.History of asthma. 11.History of coronary artery disease. 12.Congestive heart failure. 13.Diabetes mellitus type 2. 14.Fibromyalgia. 15.Gastroesophageal reflux disease. 16.History of gastrointestinal bleed. 17.Hyperlipidemia. 18.Hypertension. 19.History of mitral valve prolapse. 20.History of degenerative joint disease. 21.History of pneumonia. 22.History of renal disease. 23.History of sleep apnea. 24.History of syncope. 25.Hypothyroidism. 26.History of sarcoidosis. 27.Lupus. 28.Autoimmune disease. 29.History of hepatitis. 30.History of coronary artery disease, stent. RECOMMENDATIONS AND DISCUSSION: In this 78-year-old woman who presented with multiple complex medical issues, we will monitor the patient closely, continue the current medications, management and symptomatic treatment. Otherwise, I would recommend cardiology and pulmonary evaluation. Obtain cultures. Continue with the diuretics. Guarded prognosis because of multiple complex medical issues. Further recommendations to follow. Symptomatic treatment of the pain also will be offered. Copy of dictation being forwarded to Dr. John Snowden who is the primary care physician. MARITA / YOKON: [id number] / [id number]
[2018-09-30] MEDS: FENOFIBRATE 160 MG TAB PO SCH (23:02)
[2018-10-01] MEDS: HYDROmorphone 0.5 MG/0.5 ML SYRINGE IVP PRN ×3 (00:51→19:51)
[2018-10-01] MEDS: LEVOTHYROXINE 137 MCG TAB PO SCH (05:12)
[2018-10-01 06:50] LABS: Glucose,Whole Blood 124 mg/dL (75-99)
[2018-10-01] MEDS: IPRATROPIUM-ALBUTEROL 3 ML NEB INHALATION SCH ×3 (08:04→19:52)
[2018-10-01 08:21] LABS: HCT 34.2 % (34.0-46.0); HGB 10.1 gm/dL (11.4-16.0); Hypochromasia Marked; MCHC 29.5 g/dL (31.0-37.0); MCV 91.6 fL (80.0-100.0); Mean Platelet Volume 7.5; Platelet Count 226 k/uL (150-450); RBC 3.74 m/uL (3.80-5.40); RDW 15.9 % (11.5-15.5); WBC 5.9 k/uL (3.8-10.6)
[2018-10-01] MEDS: INSULN ASP PRT/INSULIN ASPART 100 UNIT/ML 10 ML VIAL SQ SCH ×2 (08:21→17:52)
[2018-10-01 08:29] LABS: Albumin 2.3 g/dL (3.5-5.0); Calcium 9.2 mg/dL (8.4-10.2); Potassium 4.9 mmol/L (3.5-5.1); Total Bilirubin 1.7 mg/dL (0.2-1.3); Total Protein 5.6 g/dL (6.3-8.2)
[2018-10-01] MEDS: METOPROLOL SUCCINATE (ER) 50 MG TAB.ER.24H PO SCH (08:36)
[2018-10-01] MEDS: APIXABAN 2.5 MG TABLET PO SCH ×2 (08:36→17:02)
[2018-10-01] MEDS: ATORVASTATIN 10 MG TAB PO SCH (08:36)
[2018-10-01] MEDS: GABAPENTIN 300 MG CAP PO SCH (08:37)
[2018-10-01] MEDS: CALCIUM CARB-VIT D 500MG-200UN 1 EACH TAB PO SCH ×3 (08:37→17:01)
[2018-10-01] MEDS: PANTOPRAZOLE 40 MG TABLET PO SCH ×2 (08:39→17:02)
[2018-10-01] MEDS: FUROSEMIDE 10 MG/ML 4 ML VIAL IV SCH (08:40)
[2018-10-01 08:47] LABS: Basophils # (M) 0.06 k/uL (0-0.2); Eosinophils # (M) 0.24 k/uL (0-0.7); Lymphocytes # (M) 0.47 k/uL (1.0-4.8); Monocytes # (M) 0.65 k/uL (0-1.0); Neutrophils # (M) 4.48 k/uL (1.3-7.7); Neutrophils % (M) 76 %; Nucleated Red Blood Cells 0 /100 WBC (0-0); Total Cells Counted 100
[2018-10-01 08:48] LABS: Poikilocytosis (M) Present
--- NOTE | 2018-10-01 10:43 | XR ---
EXAMINATION TYPE: XR chest 1V portable DATE OF EXAM: 10/01/2018 COMPARISON: 09/29/2018 HISTORY: Shortness of breath TECHNIQUE: Single frontal view of the chest is obtained. FINDINGS: There is resolved pulmonary vascular congestion. No new focal consolidation is seen. Left costophrenic angle is obscured by patient body habitus. Cardiomegaly remains with dual lead left-side d cardiac device. No sizable pleural effusion or pneumothorax. IMPRESSION: Resolved ulnar vascular congestion. Cardiomegaly without acute cardiopulmonary process.
[2018-10-01] MEDS: HYDROCORTISONE SUCCINATE 100 MG/2 ML VIAL IV SCH ×2 (11:35→17:05)
[2018-10-01 11:44] LABS: Glucose,Whole Blood 114 mg/dL (75-99)
--- NOTE | 2018-10-01 12:26 | P.CNPUL ---
History of Present Illness Consult date: 10/01/18 Requesting physician: Hellen Chaidez Reason for consult: dyspnea, abnormal CXR/CT Chief complaint: Altered mental status, pulmonary edema, increased swelling History of present illness: This is a 78-year-old white female patient of Dr. Mary Ann Snowden, who was brought in to the emergency department on 09/29/2018 per EMS for altered mental status, confusion, increased swelling in upper and lower extremities, and weakness. Patient is a poor historian, at the time of my evaluation patient is continuously moaning, and unable to provide any history. According to the chart patient was negative for any fever or chills in the recent past, no shortness of breath, or chest pain. No nausea, vomiting or diarrhea. Patient had a recent hospitalization for a urinary tract infection with Citrobacter koseri was treated with doxycycline, however subsequent urine culture with Proteus mirabilis showed resistance to tetracycline. Patient has multiple ALLERGIES to medications including antibiotics. Past medical history includes chronic atrial fibrillation on Eliquis, history of complete heart block with permanent pacemaker implantation, CAD with stenting, morbid obesity, obstructive sleep apnea, pulmonary sarcoidosis, fibromyalgia, hypothyroidism, hypertension, hyperlipidemia, diabetes mellitus type 2, lupus and autoimmune hepatitis. Initial chest x-ray showed cardiomegaly and interstitial and vascular prominence, low lung volumes suggesting volume fluid overload. EKG showed normal sinus rhythm possible right ventricular hypertrophy, and inferior and anterolateral infarct of undetermined age. Initial labs showed WBC of 5.0, hemoglobin is 10.9, INR is 1.4, electrolytes were within normal limits, BUN was 45, creatinine is 1.46, troponin was negative 1, proBNP was 760, urinalysis showed large amount of leuks, positive nitrites, white blood cells. Patient was started on IV Lasix, today's chest x-ray showed resolved vascular congestion. Review of Systems All systems: negative Constitutional: Denies chills, Denies fever Eyes: denies blurred vision, denies pain Ears, nose, mouth and throat: Denies headache, Denies sore throat Cardiovascular: Denies chest pain, Denies shortness of breath Respiratory: Denies cough Gastrointestinal: Denies abdominal pain, Denies diarrhea, Denies nausea, Denies vomiting Genitourinary: Denies dysuria, Denies hematuria Musculoskeletal: Denies myalgias Musculoskeletal: bilateral: ankle swelling Integumentary: Denies pruritus, Denies rash Neurological: Reports confusion, Denies numbness, Denies weakness Psychiatric: Denies anxiety, Denies depression Endocrine: Denies fatigue, Denies weight change Past Medical History Past Medical History: Atrial Fibrillation, Asthma, Coronary Artery Disease (CAD) , Heart Failure, Diabetes Mellitus, Fibromyalgia, GERD/Reflux, GI Bleed, Hyperlipidemia, Hypertension, Mitral Valve Prolapse (MVP), Osteoarthritis (OA), Pneumonia, Renal Disease, Sleep Apnea/CPAP/BIPAP, Syncope, Thyroid Disorder Additional Past Medical History / Comment(s): HAD A PNE VACCINE LESS THAN 5 YEARS AGO,CLOTH [employer]ULER UNABLE TO VERIFY DATE AT TIME OF ADMIT-PLEASE F/U IN AM. NEUROPATHY, SARCOIDOSIS, LUPUS, AUTOIMMUNE ISSUES HEART MURMUR, autoimmune HEPATITIS with prednisone dependence, IRREGULAR HEART RATE, LEFT FEMUR FRACTURE , NO CPAP USE, right ankle fracture, left lower extremity DVT, left rotator cuff tear, HX COMPLETE HEART BLOCK/PACEMAKER IMPLANTED,uti's ,incont of urine/ stool History of Any Multi-Drug Resistant Organisms: None Reported Date of last positivie culture/infection: None MDRO Source:: None Past Surgical History: Adenoidectomy, Appendectomy, Cholecystectomy, Heart Catheterization With Stent, Hysterectomy, Pacemaker, Tonsillectomy Additional Past Surgical History / Comment(s): COLONOSCOPY, EGD, Zena filter, bronchoscopy Past Anesthesia/Blood Transfusion Reactions: No Reported Reaction Additional Past Anesthesia/Blood Transfusion Reaction / Comment(s): HAS NEVER RECEIVED ANY BLOOD TRANSFUSIONS Date of Last Stent Placement:: 2012 Type of Cardiac Device: Permanent Pacemaker Device Placement Date:: 2017 Past Psychological History: No Psychological Hx Reported Additional Psychological History / Comment(s): pt resides at [facility]. daughter stated pt has'nt been ambulatory for last few weeks. Smoking Status: Never smoker Past Alcohol Use History: None Reported Additional Past Alcohol Use History / Comment(s): Patient is a lifelong nonsmoker. pt is but pt currently resides at [facility]. 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 Past Drug Use History: None Reported - Past Family History Mother Family Medical History: Coronary Artery Disease (CAD) Father Family Medical History: Coronary Artery Disease (CAD) Medications and Allergies Home Medications Medication Instructions Recorded Confirmed Type Furosemide 40 mg PO DAILY@0600 02/09/14 09/29/18 History Levothyroxine Sodium [Synthroid] 137 mcg PO DAILY@0600 02/09/14 09/29/18 History Omeprazole 20 mg PO BID@0800,1700 02/09/14 09/29/18 History Fenofibrate 160 mg PO DAILY@2100 12/14/17 09/29/18 History Nitroglycerin Sl Tabs [Nitrostat] 0.4 mg SUBLINGUAL Q5M PRN 12/14/17 09/29/18 History Rosuvastatin Calcium [Crestor] 5 mg PO WE 12/14/17 09/29/18 History Aspirin EC [Ecotrin Low Dose] 81 mg PO DAILY@1700 08/26/18 09/29/18 History Calcium Carbonate [Calcium] 600 mg PO TID@0800,1200,1700 08/26/18 09/29/18 History Potassium Chloride [Klor-Con 10] 5 meq PO DAILY@1700 08/26/18 09/29/18 History HYDROcodone/APAP 5-325MG [[place] 1 tab PO Q8H PRN #9 tab 09/22/18 09/29/18 Rx 5-325] Bisacodyl [Dulcolax] 10 mg RECTAL DAILY PRN 09/25/18 09/29/18 History Famotidine 20 mg PO DAILY@0600 09/25/18 09/29/18 History Insuln Asp Prt/Insulin Aspart 15 unit SQ AC-BID@0700,1730 09/25/18 09/29/18 History [NovoLOG MIX 70-30 VIAL] Ipratropium-Albuterol Nebulize 3 ml INHALATION RT-TID@06,14,21 09/25/18 History [Duoneb 0.5 mg-3 mg/3 ml Soln] Magnesium Hydroxide [Milk of 2,400 mg PO DAILY PRN 09/25/18 09/25/18 History Magnesia] Na Phos,M-B/Na Phos,Di-Ba [Fleet 133 ml RECTAL ONCE PRN 09/25/18 09/29/18 History Adult] Apixaban [Eliquis] 2.5 mg PO BID@0800,1700 09/29/18 09/29/18 History Gabapentin 600 mg PO DAILY@0800 09/29/18 09/29/18 History Metoprolol Succinate (ER) [Toprol 50 mg PO DAILY@0800 09/29/18 09/29/18 History XL] Allergies Allergy/AdvReac Type Severity Reaction Status Date / Time levofloxacin [From Levaquin] Allergy Intermediate Unknown Verified 09/29/18 14: 43 Penicillins Allergy Intermediate Rash/Hives Verified 09/29/18 14:43 Sulfa (Sulfonamide Allergy Intermediate Rash/Hives Verified 09/29/18 14:43 Antibiotics) cephalexin monohydrate Allergy Unknown Unknown Verified 09/29/18 14:43 [From Keflex] erythromycin base Allergy Unknown Rash/Hives Verified 09/29/18 14:43 [From E-Mycin] gatifloxacin [From Tequin] Allergy Unknown Unknown Verified 09/29/18 14:43 nitrofurantoin Allergy Unknown Unknown Verified 09/29/18 14:43 macrocrystalline [From Macrodantin] apricot Allergy Unknown Verified 09/29/18 14:43 asparagus Allergy Unknown Verified 09/29/18 14:43 banana [Banana] Allergy Unknown Verified 09/29/18 14:43 cabbage Allergy Unknown Verified 09/29/18 14:43 carrot Allergy Unknown Verified 09/29/18 14:43 ciprofloxacin [From Cipro] Allergy Unknown Verified 09/29/18 14:43 ciprofloxacin HCl Allergy Unknown Verified 09/29/18 14:43 [From Cipro] coffee (Coffea arabica) Allergy Unknown Verified 09/29/18 14:43 [coffee] cucumber Allergy Unknown Verified 09/29/18 14:43 doxycycline Allergy Rash/Hives Verified 09/29/18 14:43 sam Allergy Unknown Verified 09/29/18 14:43 insulin lispro [From Humalog] Allergy Rash/Hives Verified 09/29/18 14:43 insulin NPH human isophane Allergy Rash/Hives Verified 09/29/18 14:43 [From Humulin 70/30] insulin regular, human Allergy Rash/Hives Verified 09/29/18 14:43 [From Humulin 70/30] mustard Allergy Unknown Verified 09/29/18 14:43 onion Allergy Unknown Verified 09/29/18 14:43 orange juice [Lyndon] Allergy Unknown Verified 09/29/18 14:43 Pepper Allergy Unknown Verified 09/29/18 14:43 rice Allergy Unknown Verified 09/29/18 14:43 spinach Allergy Unknown Verified 09/29/18 14:43 Squash Allergy Unknown Verified 09/29/18 14:43 tree nut [Pecan] Allergy Unknown Verified 09/29/18 14:43 walnut Allergy Unknown Verified 09/29/18 14:43 cantaloupe Allergy Unknown Uncoded 09/29/18 13:59 cottonseed Allergy Unknown Uncoded 09/29/18 13:59 green beans Allergy Unknown Uncoded 09/29/18 13:59 tea Allergy Unknown Uncoded 09/29/18 13:59 Physical Exam Vitals: Vital Signs Temp Pulse Pulse Pulse Resp BP Pulse Ox 10/01/18 08:11 84 10/01/18 08:04 86 10/01/18 08:00 17 10/01/18 07:00 98.0 F 89 17 112/55 92 L 10/01/18 01:02 98.4 F 83 16 130/85 97 09/30/18 20:26 97.6 F 70 16 112/61 100 09/30/18 19:50 80 09/30/18 19:34 78 98 09/30/18 17:25 14 09/30/18 15:00 98 F 71 16 184/77 100 Intake and Output 09/30/18 10/01/18 10/01/18 22:59 06:59 14:59 Intake Total 712.5 Output Total 500 Balance -500 712.5 Intake: Intake, IV Titration 712.5 Amount Sodium Chloride 0.9% 1, 712.5 000 ml @ 75 mls/hr IV . [id number] Rx#:[id number] Output: Urine 500 Other: Voiding Method Diaper Diaper GENERAL EXAM: Alert, confused, continuously moaning. HEAD: Normocephalic/atraumatic. EYES: Normal reaction of pupils, equal size. Conjunctiva pink, sclera white. NOSE: Clear with pink turbinates. THROAT: No erythema or exudates. NECK: No masses, no JVD, no thyroid enlargement, no adenopathy. CHEST: No chest wall deformity. Symmetrical expansion. LUNGS: Equal air entry with no crackles, wheeze, rhonchi or dullness. CVS: Irregular rate and rhythm, normal S1 and S2, no gallops, no murmurs, no rubs ABDOMEN: Soft, nontender. No hepatosplenomegaly, normal bowel sounds, no guarding or rigidity. EXTREMITIES: No clubbing, upper and lower extremity edema nonpitting , no cyanosis, 2+ pulses and upper and lower extremities. MUSCULOSKELETAL: Muscle strength and tone normal. SPINE: No scoliosis or deformity SKIN: No rashes CENTRAL NERVOUS SYSTEM: Confused, not following commands, continuously moaning. No focal deficits, tone is normal in all 4 extremities. Results - Laboratory Findings CBC and BMP: 10/01/18 07:45 10/01/18 07:45 PT/INR, D-dimer PT 13.8 sec (9.0-12.0) H 09/29/18 14:09 INR 1.4 (<1.2) H 09/29/18 14:09 Abnormal lab findings: Abnormal Labs 09/29/18 09/29/18 09/29/18 14:09 14:09 14:09 RBC Hgb 10.9 L MCHC RDW 15.8 H Lymphocytes # 0.7 L Lymphocytes # (Manual) PT 13.8 H INR 1.4 H APTT 32.1 H Chloride Carbon Dioxide BUN 45 H Creatinine 1.46 H Glucose 111 H POC Glucose (mg/dL) Total Bilirubin 1.7 H AST 76 H Alkaline Phosphatase 160 H Ammonia Total Protein 5.7 L Albumin 2.3 L Urine Appearance Urine Nitrite Ur Leukocyte Esterase Urine WBC Amorphous Sediment Hyaline Casts Urine Mucus 09/29/18 09/30/18 09/30/18 17:25 11:53 17:17 RBC Hgb MCHC RDW Lymphocytes # Lymphocytes # (Manual) PT INR APTT Chloride Carbon Dioxide BUN Creatinine Glucose POC Glucose (mg/dL) 101 H 102 H Total Bilirubin AST Alkaline Phosphatase Ammonia Total Protein Albumin Urine Appearance Cloudy H Urine Nitrite Positive H Ur Leukocyte Esterase Large H Urine WBC 6 H Amorphous Sediment Rare H Hyaline Casts 10 H Urine Mucus Rare H 09/30/18 09/30/18 10/01/18 17:38 20:00 06:48 RBC Hgb MCHC RDW Lymphocytes # Lymphocytes # (Manual) PT INR APTT Chloride Carbon Dioxide BUN Creatinine Glucose POC Glucose (mg/dL) 100 H 124 H Total Bilirubin AST Alkaline Phosphatase Ammonia 41 H Total Protein Albumin Urine Appearance Urine Nitrite Ur Leukocyte Esterase Urine WBC Amorphous Sediment Hyaline Casts Urine Mucus 10/01/18 10/01/18 10/01/18 07:45 07:45 11:40 RBC 3.74 L Hgb 10.1 L MCHC 29.5 L RDW 15.9 H Lymphocytes # Lymphocytes # (Manual) 0.47 L PT INR APTT Chloride 109 H Carbon Dioxide 21 L BUN 55 H Creatinine 1.85 H Glucose 112 H POC Glucose (mg/dL) 114 H Total Bilirubin 1.7 H AST 100 H Alkaline Phosphatase 152 H Ammonia Total Protein 5.6 L Albumin 2.3 L Urine Appearance Urine Nitrite Ur Leukocyte Esterase Urine WBC Amorphous Sediment Hyaline Casts Urine Mucus - Diagnostic Findings Chest x-ray: report reviewed, image reviewed Additional studies: EKG reviewed Assessment and Plan Plan: Assessment: #1. Altered mental status possibly related to an underlying urinary tract infection, urine cultures pending #2. Pulmonary edema, responded to diuretics. Initial chest x-ray showed interstitial prominence and vascular congestion, follow up chest x-ray today on 10/01/2018 showed resolution of vascular prominence #3. Chronic kidney disease stage III #4. Chronic atrial fibrillation on Eliquis #5. Chronic congestive heart failure with diastolic dysfunction, EF of 55-60% #6. Hypertension, hyperlipidemia #7. Sleep apnea #8. Hypothyroidism #9. Diabetes mellitus type 2 #10. Morbid obesity #11. History of complete heart block status post permanent pacemaker implantation #12. Systemic Lupus erythematosus #13. Coronary artery disease with previous stenting #14. History of pulmonary sarcoidosis, vitamin D deficiency, fibromyalgia and autoimmune hepatitis Plan: Today's chest x-ray has been reviewed by Dr. Engel, shows resolution of the vascular congestion, volume status improvement in response to diuretics, IV Lasix will be cut back to once daily. We'll send a urine culture, will hold off on antibiotics for now, continue Eliquis,maintain aspiration precautions. Continue to closely follow I performed a history & physical examination of the patient and discussed their management with my nurse practitioner, Radha Knutson. I reviewed the nurse practitioner's note and agree with the documented findings and plan of care. Lung sounds are positive for clear breath sounds, diminished at the bases. The findings and the impression was discussed with the patient. I attest to the documentation by the nurse practitioner. Time with Patient: Greater than 30
[2018-10-01 13:44] LABS: Appearance,Urine Cloudy (Clear); Bilirubin,Urine Negative (Negative); Blood,Urine Large (Negative); Color,Urine Yellow; Glucose,Urine (UA) Negative (Negative); Hyaline Casts,Urine 17 /lpf (0-2); Ketones,Urine Negative (Negative); Leukocyte Esterase,Urine Large (Negative); Mucus,Urine Rare /hpf; Nitrite,Urine Negative (Negative); Protein,Urine Trace (Negative); RBC,Urine 31 /hpf (0-5); Specific Gravity,Urine 1.009 (1.001-1.035); Squamous Epithelial Cell,Urine <1 /hpf (0-4); Urobilinogen,Urine <2.0 mg/dL (<2.0); WBC,Urine 155 /hpf (0-5)
--- NOTE | 2018-10-01 14:26 | P.CRDCN ---
History of Present Illness History of present illness: This is a pleasant 78-year-old female past medical history significant for coronary artery disease, paroxysmal atrial fibrillation acute myocardial infarction 2012 with stent to ostial OM, complete heart block s/p permanent pacemaker implantation, aortic stenosis hypertension and dyslipidemia. She follows with Dr. Ortiz in the office we've been asked to see her in consultation for possible heart failure. She presented to the hospital 2 days ago secondary to confusion and increased swelling. At the time of my exam she is seen resting comfortably laying flat in bed in no acute distress. She is quite lethargic and difficult to arouse. Per the nursing staff assist in her baseline since admission. She is unable to contribute to the conversation or give any pertinent history. Information is obtained from nursing staff and medical record. She apparently was recently treated for urinary tract infection, the nurse states he obtained a straight cath sample earlier today which had a very foul odor with pus noted in the urine. Cultures currently pending. Most recent echocardiogram obtained in November 2017 reveals preserved left ventricular systolic function with ejection fraction 55-60%, moderately dilated left atrium, mild aortic valve sclerosis with moderate stenosis with mean gradient across the valve of 15 mmHg. She recently underwent a stress test in the office April 2018 which was negative for reversible cardiac ischemia. She is currently being treated with IV steroids as well as IV Lasix. EKG reveals sinus mechanism with first-degree heart block with nonspecific intraventricular block with wide QRS. Chest x-ray shows evidence of fluid overload with pulmonary vascular congestion noted. Laboratory data reviewed, WBC 5.9, hemoglobin 10.1, platelets 226, sodium 139, potassium 4.9, creatinine 1.85, GFR 26, NT proBNP 760, cardiac enzymes negative 1, magnesium 2.1, total bilirubin 1.7, AST 100, ammonia level 41. Earlier this year she underwent an ultrasound of the liver which revealed evidence of cirrhotic liver with nonspecific left hepatic lobe lesion seen. Current cardiac medications include aspirin 81 mg daily, fenofibrate 160 mg daily, Lasix 40 mg daily, Toprol 50 mg daily, potassium supplementation, rosuvastatin 5 mg on Wednesdays, Eliquis 2.5 mg twice a day. Unable to obtain accurate review of systems secondary to mental status. Blood pressure 112/55 heart rate 89 afebrile maintaining oxygen saturation on room air GENERAL: This is a 78-year-old female in no apparent distress at the time of my examination. Morbidly obese. HEENT: Head is atraumatic, normocephalic. Pupils are equal, round. Sclerae anicteric. Conjunctivae are clear. Mucous membranes of the mouth are moist. Neck is supple. Unable to visualize for JVD due to body habitus. No carotid bruit is heard. LUNGS: Clear to auscultation no wheezes, rales or rhonchi. No chest wall tenderness is noted on palpation or with deep breathing. HEART: Regular rate and rhythm with systolic ejection murmur at the base, no rubs or gallops. S1 and S2 heard. ABDOMEN: Soft, nontender. Bowel sounds are heard. No organomegaly noted. EXTREMITIES: Bilateral upper and lower extremity nonpitting edema, no calf tenderness noted. VASCULAR: Radial and dorsalis pedis pulses palpated, no evidence of clubbing. NEUROLOGIC: Lethargic and confused unable to follow commands or answer questions appropriately. ASSESSMENT Altered mental status secondary to underlying urinary tract infection Urinary tract infection History of cirrhosis History of coronary artery disease status post angioplasty Paroxysmal atrial fibrillation on long-term anticoagulation Hypertension Dyslipidemia Sick sinus syndrome status post permanent pacemaker implantation Chronic kidney disease PLAN Currently she does not seem to be in heart failure, she continues to have diffuse swelling to all 4 extremities. Diuretics are being managed by pulmonary medicine and have been decreased to daily dosing. Ongoing medical management. We will continue to follow as needed. Thank you kindly for this consultation. Nurse Practitioner note has been reviewed, I agree with a documented findings and plan of care. Patient was seen and examined. 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 NEUROPATHY, SARCOIDOSIS, LUPUS, AUTOIMMUNE ISSUES HEART MURMUR, autoimmune HEPATITIS with prednisone dependence, IRREGULAR HEART RATE, LEFT FEMUR FRACTURE , NO CPAP USE, right ankle fracture, left lower extremity DVT, left rotator cuff tear, HX COMPLETE HEART BLOCK/PACEMAKER IMPLANTED,uti's ,incont of urine/ stool History of Any Multi-Drug Resistant Organisms: None Reported Date of last positivie culture/infection: None MDRO Source:: None Past Surgical History: Adenoidectomy, Appendectomy, Cholecystectomy, Heart Catheterization With Stent, Hysterectomy, Pacemaker, Tonsillectomy Additional Past Surgical History / Comment(s): COLONOSCOPY, EGD, Zena filter, bronchoscopy Past Anesthesia/Blood Transfusion Reactions: No Reported Reaction Additional Past Anesthesia/Blood Transfusion Reaction / Comment(s): HAS NEVER RECEIVED ANY BLOOD TRANSFUSIONS Date of Last Stent Placement:: 2012 Type of Cardiac Device: Permanent Pacemaker Device Placement Date:: 2017 Past Psychological History: No Psychological Hx Reported Additional Psychological History / Comment(s): pt resides at [facility]. daughter stated pt has'nt been ambulatory for last few weeks. Smoking Status: Never smoker Past Alcohol Use History: None Reported Additional Past Alcohol Use History / Comment(s): Patient is a lifelong nonsmoker. pt is but pt currently resides at [facility]. 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 Past Drug Use History: None Reported - Past Family History Mother Family Medical History: Coronary Artery Disease (CAD) Father Family Medical History: Coronary Artery Disease (CAD) Medications and Allergies Home Medications Medication Instructions Recorded Confirmed Type Furosemide 40 mg PO DAILY@0600 02/09/14 09/29/18 History Levothyroxine Sodium [Synthroid] 137 mcg PO DAILY@0600 02/09/14 09/29/18 History Omeprazole 20 mg PO BID@0800,1700 02/09/14 09/29/18 History Fenofibrate 160 mg PO DAILY@2100 12/14/17 09/29/18 History Nitroglycerin Sl Tabs [Nitrostat] 0.4 mg SUBLINGUAL Q5M PRN 12/14/17 09/29/18 History Rosuvastatin Calcium [Crestor] 5 mg PO WE 12/14/17 09/29/18 History Aspirin EC [Ecotrin Low Dose] 81 mg PO DAILY@1700 08/26/18 09/29/18 History Calcium Carbonate [Calcium] 600 mg PO TID@0800,1200,1700 08/26/18 09/29/18 History Potassium Chloride [Klor-Con 10] 5 meq PO DAILY@1700 08/26/18 09/29/18 History HYDROcodone/APAP 5-325MG [[place] 1 tab PO Q8H PRN #9 tab 12/24/18 12/31/18 Rx 5-325] Bisacodyl [Dulcolax] 10 mg RECTAL DAILY PRN 09/25/18 09/29/18 History Famotidine 20 mg PO DAILY@0600 09/25/18 09/29/18 History Insuln Asp Prt/Insulin Aspart 15 unit SQ AC-BID@0700,1730 09/25/18 09/29/18 History [NovoLOG MIX 70-30 VIAL] Ipratropium-Albuterol Nebulize 3 ml INHALATION RT-TID@06,14,21 09/25/18 History [Duoneb 0.5 mg-3 mg/3 ml Soln] Magnesium Hydroxide [Milk of 2,400 mg PO DAILY PRN 09/25/18 09/25/18 History Magnesia] Na Phos,M-B/Na Phos,Di-Ba [Fleet 133 ml RECTAL ONCE PRN 09/25/18 09/29/18 History Adult] Apixaban [Eliquis] 2.5 mg PO BID@0800,1700 09/29/18 09/29/18 History Gabapentin 600 mg PO DAILY@0800 09/29/18 09/29/18 History Metoprolol Succinate (ER) [Toprol 50 mg PO DAILY@0800 09/29/18 09/29/18 History XL] Allergies Allergy/AdvReac Type Severity Reaction Status Date / Time levofloxacin [From Levaquin] Allergy Intermediate Unknown Verified 09/29/18 14: 43 Penicillins Allergy Intermediate Rash/Hives Verified 09/29/18 14:43 Sulfa (Sulfonamide Allergy Intermediate Rash/Hives Verified 09/29/18 14:43 Antibiotics) cephalexin monohydrate Allergy Unknown Unknown Verified 09/29/18 14:43 [From Keflex] erythromycin base Allergy Unknown Rash/Hives Verified 09/29/18 14:43 [From E-Mycin] gatifloxacin [From Tequin] Allergy Unknown Unknown Verified 09/29/18 14:43 nitrofurantoin Allergy Unknown Unknown Verified 09/29/18 14:43 macrocrystalline [From Macrodantin] apricot Allergy Unknown Verified 09/29/18 14:43 asparagus Allergy Unknown Verified 09/29/18 14:43 banana [Banana] Allergy Unknown Verified 09/29/18 14:43 cabbage Allergy Unknown Verified 09/29/18 14:43 carrot Allergy Unknown Verified 09/29/18 14:43 ciprofloxacin [From Cipro] Allergy Unknown Verified 09/29/18 14:43 ciprofloxacin HCl Allergy Unknown Verified 09/29/18 14:43 [From Cipro] coffee (Coffea arabica) Allergy Unknown Verified 09/29/18 14:43 [coffee] cucumber Allergy Unknown Verified 09/29/18 14:43 doxycycline Allergy Rash/Hives Verified 09/29/18 14:43 sam Allergy Unknown Verified 09/29/18 14:43 insulin lispro [From Humalog] Allergy Rash/Hives Verified 09/29/18 14:43 insulin NPH human isophane Allergy Rash/Hives Verified 09/29/18 14:43 [From Humulin 70/30] insulin regular, human Allergy Rash/Hives Verified 09/29/18 14:43 [From Humulin 70/30] mustard Allergy Unknown Verified 09/29/18 14:43 onion Allergy Unknown Verified 09/29/18 14:43 orange juice [[place]] Allergy Unknown Verified 09/29/18 14:43 Pepper Allergy Unknown Verified 09/29/18 14:43 rice Allergy Unknown Verified 09/29/18 14:43 spinach Allergy Unknown Verified 09/29/18 14:43 Squash Allergy Unknown Verified 09/29/18 14:43 tree nut [Pecan] Allergy Unknown Verified 09/29/18 14:43 walnut Allergy Unknown Verified 09/29/18 14:43 cantaloupe Allergy Unknown Uncoded 09/29/18 13:59 cottonseed Allergy Unknown Uncoded 09/29/18 13:59 green beans Allergy Unknown Uncoded 09/29/18 13:59 tea Allergy Unknown Uncoded 09/29/18 13:59 Physical Exam Vitals: Vital Signs Temp Pulse Pulse Pulse Resp BP Pulse Ox 10/01/18 12:15 84 10/01/18 12:05 80 10/01/18 08:11 84 10/01/18 08:04 86 10/01/18 08:00 17 10/01/18 07:00 98.0 F 89 17 112/55 92 L 10/01/18 01:02 98.4 F 83 16 130/85 97 09/30/18 20:26 97.6 F 70 16 112/61 100 09/30/18 19:50 80 09/30/18 19:34 78 98 09/30/18 17:25 14 09/30/18 15:00 98 F 71 16 184/77 100 Intake and Output 09/30/18 10/01/18 10/01/18 22:59 06:59 14:59 Intake Total 712.5 Output Total 500 Balance -500 712.5 Intake: Intake, IV Titration 712.5 Amount Sodium Chloride 0.9% 1, 712.5 000 ml @ 75 mls/hr IV . [id number] ONE Rx#:[id number] Output: Urine 500 Other: Voiding Method Diaper Diaper Results 10/01/18 07:45 10/01/18 07:45 Cardiac Enzymes 10/01/18 Range/Units 07:45 AST 100 H (14-36) U/L CBC 10/01/18 Range/Units 07:45 WBC 5.9 (3.8-10.6) k/uL RBC 3.74 L (3.80-5.40) m/uL Hgb 10.1 L (11.4-16.0) gm/dL Hct 34.2 (34.0-46.0) % Plt Count 226 (150-450) k/uL Comprehensive Metabolic Panel 10/01/18 Range/Units 07:45 Sodium 139 (137-145) mmol/L Potassium 4.9 (3.5-5.1) mmol/L Chloride 109 H (98-107) mmol/L Carbon Dioxide 21 L (22-30) mmol/L BUN 55 H (7-17) mg/dL Creatinine 1.85 H (0.52-1.04) mg/dL Glucose 112 H (74-99) mg/dL Calcium 9.2 (8.4-10.2) mg/dL AST 100 H (14-36) U/L ALT 30 (9-52) U/L Alkaline Phosphatase 152 H (38-126) U/L Total Protein 5.6 L (6.3-8.2) g/dL Albumin 2.3 L (3.5-5.0) g/dL Current Medications Generic Name Dose Route Start Last Admin Trade Name Freq PRN Reason Stop Dose Admin Hydrocodone Bitart/Acetaminophen 1 each 09/30/18 17:03 [place] 5-325 PO Q8H PRN Pain Albuterol/Ipratropium 3 ml 09/30/18 21:00 10/01/18 12:05 Duoneb 0.5 Mg-3 Mg/3 Ml Soln INHALATION 3 ml RT-TID@06,14,21 [facility] Administration Apixaban 2.5 mg 10/01/18 08:00 10/01/18 08:36 Eliquis PO 2.5 mg BID@0800,1700 [facility] Administration Aspirin 81 mg 10/01/18 17:00 Aspirin PO DAILY@1700 [facility] Atorvastatin Calcium 10 mg 10/01/18 09:00 10/01/18 08:36 Lipitor PO 10 mg WE [facility] Administration Bisacodyl 10 mg 09/30/18 17:03 Dulcolax RECTAL DAILY PRN Constipation Calcium Carbonate 1 each 10/01/18 08:00 10/01/18 11:38 Oscal 500+D PO Not Given TID@0800,1200,1700 [facility] Fenofibrate 160 mg 09/30/18 21:00 09/30/18 23:02 Lofibra PO Not Given DAILY@2100 [facility] Furosemide 40 mg 10/02/18 09:00 Lasix IV DAILY [facility] Gabapentin 600 mg 10/01/18 08:00 10/01/18 08:37 Neurontin PO 600 mg DAILY@0800 [facility] Administration Hydrocortisone Sodium Succinate 100 mg 10/01/18 11:00 10/01/18 11:35 Solu-Cortef IV 100 mg Q8HR [facility] Administration Hydromorphone HCl 0.5 mg 09/30/18 12:59 10/01/18 10:02 Dilaudid IVP 0.5 mg Q4HR PRN Administration Pain Insulin Aspart 15 unit 09/30/18 17:30 10/01/18 08:21 Novolog Mix 70-30 Vial SQ Not Given AC-BID@0700,1730 [facility] Levothyroxine Sodium 137 mcg 10/01/18 06:00 10/01/18 05:12 Synthroid PO Not Given DAILY@0600 [facility] Metoprolol Succinate 50 mg 10/01/18 08:00 10/01/18 08:36 Toprol Xl PO 50 mg DAILY@0800 [facility] Administration Nitroglycerin 0.4 mg 09/30/18 17:03 Nitrostat SUBLINGUAL Q5M PRN Chest Pain Pantoprazole Sodium 40 mg 10/01/18 08:00 10/01/18 08:39 Protonix PO Not Given BID@0800,1700 [facility] Potassium Chloride 10 meq 10/01/18 17:00 K-Dur 10 PO DAILY@1700 [facility] Sodium Biphosphate/Sodium Phosphate 133 ml 09/30/18 17:03 Fleet Adult RECTAL ONCE PRN Constipation Intake and Output 09/30/18 10/01/18 10/01/18 22:59 06:59 14:59 Intake Total 712.5 Output Total 500 Balance -500 712.5 Intake: Intake, IV Titration 712.5 Amount Sodium Chloride 0.9% 1, 712.5 000 ml @ 75 mls/hr IV . [id number] ONE Rx#:[id number] Output: Urine 500 Other: Voiding Method Diaper Diaper 10/01/18 07:45 10/01/18 07:45
[2018-10-01] MEDS: ASPIRIN 81 MG PO SCH (17:02)
[2018-10-01] MEDS: POTASSIUM CHLORIDE ER 10 MEQ TAB.ER.PRT PO SCH (17:02)
[2018-10-01] MEDS: AZTREONAM 1 GM in SODIUM CHLORIDE 0.9% 50 ML IVPB SCH (17:06)
[2018-10-01 17:18] LABS: Glucose,Whole Blood 143 mg/dL (75-99)
[2018-10-01 20:24] LABS: Glucose,Whole Blood 231 mg/dL (75-99)
[2018-10-01] MEDS: FENOFIBRATE 160 MG TAB PO SCH (21:47)
[2018-10-02] MEDS: HYDROCORTISONE SUCCINATE 100 MG/2 ML VIAL IV SCH ×4 (00:09→23:05)
--- NOTE | 2018-10-02 00:24 | CONS ---
CONSULTATION DATE OF SERVICE: 10/01/2018. REASON FOR CONSULTATION: Urinary tract infection with multiple antibiotic allergy. HISTORY OF PRESENT ILLNESS: The patient is a 78-year-old, female with a past medical history significant for recurrent urinary tract infection, also with lower extremity cellulitis and has had multiple admissions to this facility. The patient's last urine culture has been Proteus mirabilis, culture prior to that was Citrobacter. Apparently the patient was brought from [facility] for evaluation of mental status changes and generalized weakness, also with progressive swelling into lower extremities. The patient was evaluated by the ER physician. On presentation, the patient has been afebrile since her admission. She did have a normal white count. Her urine was positive with large and 155 WBC. That prompted this infectious disease consultation as the patient has multiple antibiotic allergies. At the time of my evaluation, the patient herself was sleeping and most of the information has been provided by the daughter present at bedside, though she did mention the patient seemed to be waking up more compared to when she was brought to the hospital. No clear history of any nausea, vomiting, diarrhea, or any seizure activity. REVIEW OF SYSTEMS: Could not be reliably obtained. The positive points have been mentioned in HPI. PAST MEDICAL HISTORY: Recurrent urinary tract infection, lower extremity cellulitis, atrial fibrillation, coronary artery disease, heart failure, diabetes mellitus, fibromyalgia, hypertension, hyperlipidemia, polyps. PS HISTORY: Adenoidectomy, appendectomy, cholecystectomy, heart catheterization with stent, hysterectomy, pacemaker placement tonsillectomy, . SOCIAL HISTORY: No history of smoking, drinking or drug use. FAMILY HISTORY: Both parents with history of coronary artery disease. ALLERGIES: Multiple medications including PENICILLIN, SULFA, LEVOFLOXACIN, CEPHALEXIN, ERYTHROMYCIN. MEDICATIONS: The patient is currently on: 1. [place]. 2. DuoNeb. 3. Eliquis. 4. Aspirin. 5. Lipitor. 6. Dulcolax. 7. Os-José Luis. 8. Lofibra. 9. Lasix. 10.Neurontin. 11.Solu-Cortef. 12.Dilaudid. 13.NovoLog. 14.Toprol-XL. 15.Synthroid XL. 16.Protonix. EXAMINATION: Blood pressure 98/62 with a pulse of 73, temperature 97.3. She is 100% on room air. GENERAL DESCRIPTION: An elderly female lying in bed in no distress. No tachypnea or accessory muscle of respiration use. HEENT: Pallor. No scleral icterus. Oral mucosa slightly dry. No erythema or thrush. NECK: Trachea central. No thyromegaly. LUNGS: Unlabored breathing. Clear to auscultation. No wheeze or crackle. HEART: S1, S2. Regular rate and rhythm. ABDOMEN: Soft. EXTREMITIES: 2+ chronic swelling. No significant redness or skin breakdown. SKIN EXAMINATION: No rash or mass palpable. NEUROLOGIC: The patient opens eyes to name, however, did not answer any questions or . LABS: Hemoglobin is 10.1, white count 5.7 with a BUN of 55, creatinine 1.5. Electrolytes have been normal. Liver enzymes are mildly elevated. Urine culture currently pending. The last urine culture has been Proteus mirabilis obtained on September 28, that was sensitive pathogen. DIAGNOSTIC IMPRESSION AND PLAN: Patient admitted to the hospital with mental status change, which is likely multifactorial in this patient who has possible component of urinary tract infection in view of the positive history and recurrent urinary tract infections. Last urine culture has been Proteus that was sensitive pathogen, however, the patient did have multiple antibiotic allergies that limits the number of antibiotics that could be safely used. Currently no evidence of any cellulitis and abdomen was soft. Examination of lungs are clear to auscultation. Her 02 sat has been 100% on room air. PLAN: 1. We will start the patient on Azactam 1 g every 12 hours. 2. We will follow up on clinical condition and repeat cultures to further adjust medication if needed. Thank you for this consultation. Will follow this patient with you. Family present at bedside. Their questions were answered. MMODL / IJN: [id number] /
[2018-10-02] MEDS: HYDROmorphone 0.5 MG/0.5 ML SYRINGE IVP PRN ×2 (04:00→21:54)
[2018-10-02] MEDS: AZTREONAM 1 GM in SODIUM CHLORIDE 0.9% 50 ML IVPB SCH ×2 (04:03→16:46)
[2018-10-02] MEDS: LEVOTHYROXINE 137 MCG TAB PO SCH (05:23)
[2018-10-02 07:30] LABS: Glucose,Whole Blood 214 mg/dL (75-99)
[2018-10-02] MEDS: IPRATROPIUM-ALBUTEROL 3 ML NEB INHALATION SCH ×4 (08:07→20:57)
[2018-10-02 09:06] LABS: Anisocytosis Slight; Basophils % (A) 0 %; Eosinophils % (A) 0 %; HCT 37.7 % (34.0-46.0); HGB 10.8 gm/dL (11.4-16.0); Hypochromasia Marked; Lymphocytes # (A) 0.4 k/uL (1.0-4.8); Lymphocytes % (A) 9 %; MCH 26.4 pg (25.0-35.0); MCHC 28.6 g/dL (31.0-37.0); MCV 92.6 fL (80.0-100.0); Mean Platelet Volume 7.3; Monocytes # (A) 0.2 k/uL (0-1.0); Monocytes % (A) 5 %; Neutrophils # (A) 3.9 k/uL (1.3-7.7); Neutrophils % (A) 84 %; Platelet Count 251 k/uL (150-450); RBC 4.07 m/uL (3.80-5.40); RDW 16.2 % (11.5-15.5); WBC 4.7 k/uL (3.8-10.6)
[2018-10-02] MEDS: FUROSEMIDE 10 MG/ML 4 ML VIAL IV SCH (09:16)
[2018-10-02] MEDS: METOPROLOL SUCCINATE (ER) 50 MG TAB.ER.24H PO SCH (09:19)
[2018-10-02] MEDS: CALCIUM CARB-VIT D 500MG-200UN 1 EACH TAB PO SCH ×3 (09:19→16:48)
[2018-10-02] MEDS: PANTOPRAZOLE 40 MG TABLET PO SCH ×2 (09:19→16:48)
[2018-10-02] MEDS: GABAPENTIN 300 MG CAP PO SCH ×2 (09:19→09:27)
[2018-10-02] MEDS: APIXABAN 2.5 MG TABLET PO SCH ×2 (09:20→16:48)
[2018-10-02] MEDS: INSULN ASP PRT/INSULIN ASPART 100 UNIT/ML 10 ML VIAL SQ SCH ×2 (09:27→18:38)
[2018-10-02 09:28] LABS: Albumin 2.7 g/dL (3.5-5.0); Calcium 8.9 mg/dL (8.4-10.2); Potassium 5.6 mmol/L (3.5-5.1); Total Bilirubin 1.7 mg/dL (0.2-1.3); Total Protein 6.4 g/dL (6.3-8.2)
[2018-10-02 12:46] LABS: Glucose,Whole Blood 215 mg/dL (75-99)
--- NOTE | 2018-10-02 13:39 | P.PN ---
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 Mary Ann Snowden, who was brought in to the emergency department on 09/29/2018 per EMS for altered mental status, confusion, increased swelling in upper and lower extremities, and weakness. Patient is a poor historian, at the time of my evaluation patient is continuously moaning, and unable to provide any history. According to the chart patient was negative for any fever or chills in the recent past, no shortness of breath, or chest pain. No nausea, vomiting or diarrhea. Patient had a recent hospitalization for a urinary tract infection with Citrobacter koseri was treated with doxycycline, however subsequent urine culture with Proteus mirabilis showed resistance to tetracycline. Patient has multiple ALLERGIES to medications including antibiotics. Past medical history includes chronic atrial fibrillation on Eliquis, history of complete heart block with permanent pacemaker implantation, CAD with stenting, morbid obesity, obstructive sleep apnea, pulmonary sarcoidosis, fibromyalgia, hypothyroidism, hypertension, hyperlipidemia, diabetes mellitus type 2, lupus and autoimmune hepatitis. Initial chest x-ray showed cardiomegaly and interstitial and vascular prominence, low lung volumes suggesting volume fluid overload. EKG showed normal sinus rhythm possible right ventricular hypertrophy, and inferior and anterolateral infarct of undetermined age. Initial labs showed WBC of 5.0, hemoglobin is 10.9, INR is 1.4, electrolytes were within normal limits, BUN was 45, creatinine is 1.46, troponin was negative 1, proBNP was 760, urinalysis showed large amount of leuks, positive nitrites, white blood cells. Patient was started on IV Lasix, today's chest x-ray showed resolved vascular congestion. On 10/02/2018, patient seen again in follow-up on medical surgical floor. Resting quietly in bed, she is able to provide simple 1 word answers, denies any distress, she is more cooperative, no moaning, or agitation today. No fever or chills, room air pulse ox is 96%, she denies any dyspnea, denies any pain. Dynamically she stable, repeat urinalysis showed cloudy urine, with large RBCs, and white blood cells, large amount of leuks. Culture was sent and is pending at this time, patient was started on Azactam by ID service. Yesterday we started the patient on stress doses of hydrocortisone for a suspicion of secondary adrenal insufficiency. These labs have been reviewed, showed a PVC of 4.7, hemoglobin of 10.8, sodium is 140, potassium is 5.6, chloride is 109, CO2 is 19, B1 is 65 and creatinine is 1.89. We'll cut the patient's Lasix back to once a day. Denies any dyspnea, sounds are clear, diminished at the bases. No distress noted. And has significant amount of upper and lower extremity edema, cellulitis in right lower extremity, and right upper extremity. Objective - Vital Signs Vital signs: Vital Signs Temp 98.1 F 10/02/18 07:00 Pulse 80 10/02/18 12:54 Resp 16 10/02/18 07:00 BP 143/78 10/02/18 07:00 Pulse Ox 96 10/02/18 07:00 Intake & Output 10/01/18 10/02/18 10/02/18 18:59 06:59 18:59 Intake Total 700 0 Output Total 300 Balance 400 0 Intake: Intake, IV Titration 700 Amount Aztreonam 1 gm In Sodium 700 Chloride 0.9% 50 ml @ 100 mls/hr IVPB Q12H [facility] Rx# :[id number] Oral 0 Output: Urine 300 Other: Voiding Method Diaper # Bowel Movements 1 - Exam GENERAL EXAM: Sleepy, but easily arousable, able to give simple answers, denies any acute distress. HEAD: Normocephalic/atraumatic. EYES: Normal reaction of pupils, equal size. Conjunctiva pink, sclera white. NOSE: Clear with pink turbinates. THROAT: No erythema or exudates. NECK: No masses, no JVD, no thyroid enlargement, no adenopathy. CHEST: No chest wall deformity. Symmetrical expansion. LUNGS: Equal air entry with no crackles, wheeze, rhonchi or dullness. CVS: Irregular rate and rhythm, normal S1 and S2, no gallops, no murmurs, no rubs ABDOMEN: Soft, nontender. No hepatosplenomegaly, normal bowel sounds, no guarding or rigidity. EXTREMITIES: No clubbing, upper and lower extremity edema nonpitting with cellulitis type changes in right upper and lower extremity, no cyanosis, 2+ pulses and upper and lower extremities. MUSCULOSKELETAL: Muscle strength and tone normal. SPINE: No scoliosis or deformity SKIN: No rashes CENTRAL NERVOUS SYSTEM: No focal deficits, tone is normal in all 4 extremities. - Labs CBC & Chem 7: 10/02/18 07:39 10/02/18 07:39 Labs: Abnormal Lab Results - Last 24 Hours (Table) 10/01/18 10/01/18 10/01/18 Range/Units 10:10 16:54 20:12 Hgb (11.4-16.0) gm/dL MCHC (31.0-37.0) g/dL RDW (11.5-15.5) % Lymphocytes # (1.0-4.8) k/uL Potassium (3.5-5.1) mmol/L Chloride (98-107) mmol/L Carbon Dioxide (22-30) mmol/L BUN (7-17) mg/dL Creatinine (0.52-1.04) mg/dL Glucose (74-99) mg/dL POC Glucose (mg/dL) 143 H 231 H (75-99) mg/dL Total Bilirubin (0.2-1.3) mg/dL AST (14-36) U/L Alkaline Phosphatase (38-126) U/L Albumin (3.5-5.0) g/dL Urine Appearance Cloudy H (Clear) Urine Protein Trace H (Negative) Urine Blood Large H (Negative) Ur Leukocyte Esterase Large H (Negative) Urine RBC 31 H (0-5) /hpf Urine WBC 155 H (0-5) /hpf Urine WBC Clumps Rare H (None) /hpf Hyaline Casts 17 H (0-2) /lpf Urine Mucus Rare H (None) /hpf 10/02/18 10/02/18 10/02/18 Range/Units 07:18 07:39 07:39 Hgb 10.8 L (11.4-16.0) gm/dL MCHC 28.6 L (31.0-37.0) g/dL RDW 16.2 H (11.5-15.5) % Lymphocytes # 0.4 L (1.0-4.8) k/uL Potassium 5.6 H (3.5-5.1) mmol/L Chloride 109 H (98-107) mmol/L Carbon Dioxide 19 L (22-30) mmol/L BUN 65 H (7-17) mg/dL Creatinine 1.89 H (0.52-1.04) mg/dL Glucose 235 H (74-99) mg/dL POC Glucose (mg/dL) 214 H (75-99) mg/dL Total Bilirubin 1.7 H (0.2-1.3) mg/dL AST 111 H (14-36) U/L Alkaline Phosphatase 170 H (38-126) U/L Albumin 2.7 L (3.5-5.0) g/dL Urine Appearance (Clear) Urine Protein (Negative) Urine Blood (Negative) Ur Leukocyte Esterase (Negative) Urine RBC (0-5) /hpf Urine WBC (0-5) /hpf Urine WBC Clumps (None) /hpf Hyaline Casts (0-2) /lpf Urine Mucus (None) /hpf 10/02/18 Range/Units 12:34 Hgb (11.4-16.0) gm/dL MCHC (31.0-37.0) g/dL RDW (11.5-15.5) % Lymphocytes # (1.0-4.8) k/uL Potassium (3.5-5.1) mmol/L Chloride (98-107) mmol/L Carbon Dioxide (22-30) mmol/L BUN (7-17) mg/dL Creatinine (0.52-1.04) mg/dL Glucose (74-99) mg/dL POC Glucose (mg/dL) 215 H (75-99) mg/dL Total Bilirubin (0.2-1.3) mg/dL AST (14-36) U/L Alkaline Phosphatase (38-126) U/L Albumin (3.5-5.0) g/dL Urine Appearance (Clear) Urine Protein (Negative) Urine Blood (Negative) Ur Leukocyte Esterase (Negative) Urine RBC (0-5) /hpf Urine WBC (0-5) /hpf Urine WBC Clumps (None) /hpf Hyaline Casts (0-2) /lpf Urine Mucus (None) /hpf Microbiology - Last 24 Hours (Table) 09/30/18 17:38 Blood Culture - Preliminary Blood No Growth after 24 hours 10/01/18 10:10 Urine Culture - Preliminary Urine,Catheterized Assessment and Plan Plan: Assessment: #1. Altered mental status possibly related to an underlying urinary tract infection, urine cultures pending #2. Suspected secondary adrenal insufficiency, patient was started on stress doses of hydrocortisone #3. Pulmonary edema, responded to diuretics. Initial chest x-ray showed interstitial prominence and vascular congestion, follow up chest x-ray today on 10/01/2018 showed resolution of vascular prominence #4. Chronic kidney disease stage III #5. Chronic atrial fibrillation on Eliquis #6. Chronic congestive heart failure with diastolic dysfunction, EF of 55-60% #7. Hypertension, hyperlipidemia #8. Sleep apnea #9 Hypothyroidism #10. Diabetes mellitus type 2 #11. Morbid obesity #12. History of complete heart block status post permanent pacemaker implantation #13. Systemic Lupus erythematosus #14. Coronary artery disease with previous stenting #15. History of pulmonary sarcoidosis, vitamin D deficiency, fibromyalgia and autoimmune hepatitis Plan: Awaiting final urine culture, continue with hydrocortisone, patient's mentation is improving. ID service is managing the antibiotics, current antibiotic coverage includes Azactam. She is less agitated and confused on today's exam. Has any difficulty breathing, denies any acute distress. Continue with once daily dose of Lasix. Monitor electrolytes and renal profile. I performed a history & physical examination of the patient and discussed their management with my nurse practitioner, Radha Knutson. I reviewed the nurse practitioner's note and agree with the documented findings and plan of care. Lung sounds are positive for clear breath sounds, diminished at the bases. The findings and the impression was discussed with the patient. I attest to the documentation by the nurse practitioner. Time with Patient: Less than 30
--- NOTE | 2018-10-02 13:48 | P.PN ---
Subjective This is a pleasant 78-year-old female past medical history significant for coronary artery disease, paroxysmal atrial fibrillation acute myocardial infarction 2012 with stent to ostial OM, complete heart block s/p permanent pacemaker implantation, aortic stenosis hypertension and dyslipidemia. She follows with Dr. Ortiz in the office we've been asked to see her in consultation for possible heart failure. She presented to the hospital 2 days ago secondary to confusion and increased swelling. She has been diagnosed with a urinary tract infection and started on azactam per infectious disease. She continues to be obtunded and is not responding or conversing normally. She is seen and examined laying flat in bed in no acute distress. HEENT: Head is atraumatic, normocephalic. Pupils are equal, round. Sclerae anicteric. Conjunctivae are clear. Mucous membranes of the mouth are moist. Neck is supple. Unable to visualize for JVD due to body habitus. No carotid bruit is heard. LUNGS: Clear to auscultation no wheezes, rales or rhonchi. No chest wall tenderness is noted on palpation or with deep breathing. HEART: Regular rate and rhythm with systolic ejection murmur at the base, no rubs or gallops. S1 and S2 heard. EXTREMITIES: Bilateral upper and lower extremity nonpitting edema, no calf tenderness noted. ASSESSMENT Altered mental status secondary to underlying urinary tract infection Urinary tract infection History of cirrhosis History of coronary artery disease status post angioplasty Paroxysmal atrial fibrillation on long-term anticoagulation Hypertension Dyslipidemia Sick sinus syndrome status post permanent pacemaker implantation Chronic kidney disease PLAN Ongoing medical management. We will continue to follow as needed please of free to call with further questions or concerns. Follow-up with Dr. Ortiz upon discharge. Nurse Practitioner note has been reviewed, I agree with a documented findings and plan of care. Patient was seen and examined. Objective - Vital Signs Vital signs: Vital Signs Temp 98.1 F 10/02/18 07:00 Pulse 80 10/02/18 12:54 Resp 16 10/02/18 07:00 BP 143/78 10/02/18 07:00 Pulse Ox 96 10/02/18 07:00 Intake & Output 10/01/18 10/02/18 10/02/18 18:59 06:59 18:59 Intake Total 700 0 Output Total 300 Balance 400 0 Intake: Intake, IV Titration 700 Amount Aztreonam 1 gm In Sodium 700 Chloride 0.9% 50 ml @ 100 mls/hr IVPB Q12H [facility] Rx# :[id number] Oral 0 Output: Urine 300 Other: Voiding Method Diaper # Bowel Movements 1 - Labs CBC & Chem 7: 10/02/18 07:39 10/02/18 07:39 Labs: Abnormal Lab Results - Last 24 Hours (Table) 10/01/18 10/01/18 10/02/18 Range/Units 16:54 20:12 07:18 Hgb (11.4-16.0) gm/dL MCHC (31.0-37.0) g/dL RDW (11.5-15.5) % Lymphocytes # (1.0-4.8) k/uL Potassium (3.5-5.1) mmol/L Chloride (98-107) mmol/L Carbon Dioxide (22-30) mmol/L BUN (7-17) mg/dL Creatinine (0.52-1.04) mg/dL Glucose (74-99) mg/dL POC Glucose (mg/dL) 143 H 231 H 214 H (75-99) mg/dL Total Bilirubin (0.2-1.3) mg/dL AST (14-36) U/L Alkaline Phosphatase (38-126) U/L Albumin (3.5-5.0) g/dL 10/02/18 10/02/18 10/02/18 Range/Units 07:39 07:39 12:34 Hgb 10.8 L (11.4-16.0) gm/dL MCHC 28.6 L (31.0-37.0) g/dL RDW 16.2 H (11.5-15.5) % Lymphocytes # 0.4 L (1.0-4.8) k/uL Potassium 5.6 H (3.5-5.1) mmol/L Chloride 109 H (98-107) mmol/L Carbon Dioxide 19 L (22-30) mmol/L BUN 65 H (7-17) mg/dL Creatinine 1.89 H (0.52-1.04) mg/dL Glucose 235 H (74-99) mg/dL POC Glucose (mg/dL) 215 H (75-99) mg/dL Total Bilirubin 1.7 H (0.2-1.3) mg/dL AST 111 H (14-36) U/L Alkaline Phosphatase 170 H (38-126) U/L Albumin 2.7 L (3.5-5.0) g/dL Microbiology - Last 24 Hours (Table) 09/30/18 17:38 Blood Culture - Preliminary Blood No Growth after 24 hours 10/01/18 10:10 Urine Culture - Preliminary Urine,Catheterized
--- NOTE | 2018-10-02 15:01 | PN ---
PROGRESS NOTE DATE OF SERVICE: 10/02/2018 REASON FOR FOLLOWUP: Urinary tract infection with multiple antibiotic allergies. INTERVAL HISTORY: The patient is currently afebrile. She has previously been lethargic. However, the granddaughter did mention she open eyes to her was able to recognize her and also some hard question. No nausea, vomiting, or any diarrhea. Reported by the nursing staff. PHYSICAL EXAMINATION: Blood pressure 143/78 with a pulse of 66, temperature 98.1, she is 96% on room air. General description is an elderly female, lying in bed in no distress. RESPIRATORY SYSTEM: Unlabored breathing, clear to auscultation anteriorly. HEART: S1, S2. Regular rate and rhythm. ABDOMEN: Soft, no tenderness. Bilateral legs with some swelling, minimal redness. LABS: Hemoglobin is 10.1 4.7, BUN of 55, creatinine 1.89. Urine culture currently pending. DIAGNOSTIC IMPRESSION AND PLAN: 1. Patient admitted to the hospital with mental status changes likely multifactorial with possible component of urinary tract infection. 2. Patient last sputum culture was 47 with a repeat a pending. Patient currently on Azactam because of multiple antibiotic allergies. 3. Patient has swelling in her legs with minimal redness. Will advise Jamel wrap to keep some of the swelling down. Continue supportive care. MMODL / IJN: [id number] /
[2018-10-02] MEDS: POTASSIUM CHLORIDE ER 10 MEQ TAB.ER.PRT PO SCH (16:48)
[2018-10-02 17:03] LABS: Glucose,Whole Blood 199 mg/dL (75-99)
[2018-10-02] MEDS: ASPIRIN 81 MG PO SCH (17:04)
[2018-10-02] MEDS: FENOFIBRATE 160 MG TAB PO SCH (19:52)
[2018-10-02] MEDS: HYDROcodone/APAP 5-325MG 1 EACH TAB PO PRN (19:53)
[2018-10-02 20:08] LABS: Glucose,Whole Blood 246 mg/dL (75-99)
[2018-10-02 23:40] LABS: Hemoglobin A1C 7.9 % (4.0-6.0)
--- NOTE | 2018-10-02 23:48 | PN ---
PROGRESS NOTE DATE OF SERVICE: 10/02/2018. HISTORY: This 78-year-old woman who was admitted with multiple medical problems including shortness of breath and confusion, is being closely monitored at this time. The patient also has CHF acute exacerbation. The patient also had features of UTI also. Multiple consultants are following the patient closely including Dr. Lester, Cardiology, as well as Infectious Disease. Sodium is slightly improved, otherwise the patient is being closely monitored. Patient is also on Azactam because of multiple antibiotic allergies at this time. PAST MEDICAL HISTORY: Reviewed. REVIEW OF SYSTEMS: Could not be taken, the patient is confused. CURRENT MEDICATIONS: Reviewed, include: 1. [place] 0.5 mg every 8 hours p.r.n. 2. DuoNeb q.i.d. and p.r.n. 3. Eliquis 2.5 mg b.i.d. 4. Aspirin 81 mg p.o. daily. 5. Lipitor 10 mg p.o. daily. 7. Os-José Luis with vitamin D low-fiber. 8. Lasix 40 mg IV. 9. Neurontin. 10.Solu-Cortef 100 mg IV every 8 hours. 11.Dilaudid. 12.Synthroid. 13.Toprol-XL. 14.K-Dur. PHYSICAL EXAMINATION: The patient is alert, oriented x1. Pulse 71, blood pressure 130/60, respirations 16, temperature 97.8, pulse ox 98% on room air. HEENT: Conjunctivae normal. NECK: Supple. No JVD. CARDIOVASCULAR: S1 and S2 muffled. LUNGS: Breath sounds diminished at the bases. Scattered rhonchi and crackles. ABDOMEN: Abdomen is soft, obese, nontender. LEGS: No edema. NERVOUS SYSTEM: Diffusely weak. LABS: WBC 4.2, hemoglobin 10.8, sodium 140, potassium 5.6, creatinine is 1.89. ASSESSMENT: 1. Congestive heart failure acute exacerbation with acute on chronic diastolic dysfunction, ejection fraction 50% to 60%. 2. Change in mental status secondary to chronic metabolic encephalopathy with possibly acute urinary tract infection with sepsis. 3. Rule out bilateral pneumonia. 4. Change in mental status, metabolic encephalopathy, multifactorial. 5. Increased creatinine with chronic kidney disease stage III. 6. Increased bilirubin. 7. Increased AST, possible mild hepatitis and hypoalbuminemia. 8. History of atrial fibrillation, history of asthma. 9. History of coronary artery disease. 10.Congestive heart failure. 11.Diabetes mellitus type 2. 12.Multiple allergies to antibiotics. 13.Fibromyalgia. 14.Gastroesophageal reflux disease. 15.History of gastrointestinal bleed. 16.Hyperlipidemia. 17.Hypertension. 18.Mitral valve prolapse. 19.History of degenerative joint disease. 20.History of pneumonia. 21.History of renal disease. 22.History of sleep apnea. 23.History of syncope. 24.Hypothyroidism. 25.History of sarcoidosis glucose. 26.Lupus. 27.Autoimmune disease. 28.History of hepatitis. 29.History of coronary artery disease with stent. RECOMMENDATIONS: Recommend to continue current management and symptomatic treatment. Otherwise at this time I would recommend continue with broad-spectrum IV antibiotics. We will monitor the renal function closely. We will cut down the dose of Lasix. Closely follow with multiple consultants. Continue with bronchodilators. The prognosis is guarded because of multiple complex medical issues. Further recommendations to follow. See orders for details. Medication reconciliation was done. Prognosis guarded. A small dose of pain medication may be used. Blood sugars will be monitored. Home dose of insulin may be initiated once the patient is taking p.o. fluids. PT/OT evaluation. Avoid sedatives. Further management to follow. MMODL / IJN: [id number] / MTDD
--- NOTE | 2018-10-02 23:58 | PN ---
PROGRESS NOTE DATE OF SERVICE: 10/01/2018. HISTORY: This 78-year-old woman who was admitted initially with CHF acute exacerbation, also was suspected to have bilateral pneumonia and UTI also. Patient with change in mental status. Patient is complaining of severe pain. Patient is moaning and groaning. Pain medication has been recommended at this time, small doses. Multiple consultants are following the patient closely. Patient was started on hydrocortisone also. PAST MEDICAL HISTORY: Reviewed. REVIEW OF SYSTEMS: Could not be taken, the patient is stuporous. CURRENT MEDICATIONS: Reviewed, include: 1. [place] 5 mg. 2. DuoNeb q.i.d. 3. Lipitor. 4. Dulcolax. 5. Os-José Luis with Lofibra. 6. Neurontin. 7. Solu-Cortef. 8. Dilaudid. 9. Synthroid. 10.Toprol-XL. 11.Nitrostat. 12.Protonix. PHYSICAL EXAM: Pulse is 73, blood pressure is 98/62, respirations 20, temperature 97.3, pulse ox 100 percent on room air. HEENT: Conjunctivae normal. NECK: Supple. No JVD. CARDIOVASCULAR: S1 and S2 muffled. LUNGS: Breath sounds diminished at the bases. Few scattered rhonchi and crackles. ABDOMEN: Soft, nontender. No mass palpable. LEGS: No edema, no swelling. NERVOUS SYSTEM: Diffusely weak. LABS: WBC 5.1, hemoglobin 10.1, creatinine is 1.85. ASSESSMENT: 1. Possible congestive heart failure acute exacerbation with acute on chronic diastolic dysfunction, ejection fraction 50 to 60%, present on admission. 2. Rule out bilateral pneumonia. 3. Change in mental status metabolic encephalopathy multifactorial. 4. Increased BUN with chronic kidney stage III. 5. Increased bilirubin. 6. Increased AST, possible mild hepatitis. 7. Hypoalbuminemia. 8. Rule out urinary tract infection. 9. History of atrial fibrillation. 10.History of coronary artery disease. 11.History of congestive heart failure. 12.Diabetes mellitus type 2. 13.Fibromyalgia. 14.Gastroesophageal reflux disease. 15.History of gastrointestinal bleed. 16.Hyperlipidemia. 17.Hypertension. 18.History of mitral valve prolapse. 19.History of pneumonia. 20.History of renal disease. 21.Sleep apnea. 22.Syncope. 23.Hypothyroidism. 24.History of sarcoidosis. 25.Lupus. 26.Autoimmune deficiency. 27.Hepatitis. 28.History of CAD with stent. RECOMMENDATIONS: Continue current medications, continue with monitoring and symptomatic treatment. Otherwise obtain Infectious Disease for possible antibiotics. Otherwise cultures pending. We will monitor the fluid and electrolytes closely. Small dose of pain medication may be initiated. Prognosis extremely guarded because of multiple complex issues. Further recommendations to follow. Cardiology consultation has also been sought. Would also recommend a 2D echo with Doppler because of multiple symptomatology as well. Further recommendations to follow. MMODL / IJN: [id number] /
[2018-10-03] MEDS: HYDROcodone/APAP 5-325MG 1 EACH TAB PO PRN (05:33)
[2018-10-03] MEDS: AZTREONAM 1 GM in SODIUM CHLORIDE 0.9% 50 ML IVPB SCH ×2 (05:33→17:39)
[2018-10-03] MEDS: LEVOTHYROXINE 137 MCG TAB PO SCH (05:33)
[2018-10-03] MEDS: HYDROmorphone 0.5 MG/0.5 ML SYRINGE IVP PRN ×2 (06:58→16:51)
[2018-10-03 07:13] LABS: Glucose,Whole Blood 279 mg/dL (75-99)
[2018-10-03] MEDS: HYDROCORTISONE SUCCINATE 100 MG/2 ML VIAL IV SCH ×2 (07:31→17:43)
[2018-10-03] MEDS: FUROSEMIDE 10 MG/ML 4 ML VIAL IV SCH (07:31)
[2018-10-03] MEDS: GABAPENTIN 300 MG CAP PO SCH ×2 (07:32→07:45)
[2018-10-03] MEDS: METOPROLOL SUCCINATE (ER) 50 MG TAB.ER.24H PO SCH (07:32)
[2018-10-03] MEDS: APIXABAN 2.5 MG TABLET PO SCH ×2 (07:32→17:39)
[2018-10-03] MEDS: PANTOPRAZOLE 40 MG TABLET PO SCH ×2 (07:32→17:36)
[2018-10-03] MEDS: CALCIUM CARB-VIT D 500MG-200UN 1 EACH TAB PO SCH ×3 (07:32→17:36)
[2018-10-03 08:15] LABS: Anisocytosis Slight; Basophils % (A) 0 %; Eosinophils % (A) 0 %; HCT 33.2 % (34.0-46.0); HGB 10.1 gm/dL (11.4-16.0); Hypochromasia Moderate; Lymphocytes # (A) 0.3 k/uL (1.0-4.8); Lymphocytes % (A) 5 %; MCH 27.3 pg (25.0-35.0); MCHC 30.5 g/dL (31.0-37.0); MCV 89.6 fL (80.0-100.0); Mean Platelet Volume 7.6; Monocytes # (A) 0.2 k/uL (0-1.0); Monocytes % (A) 4 %; Neutrophils # (A) 5.4 k/uL (1.3-7.7); Neutrophils % (A) 91 %; Platelet Count 206 k/uL (150-450); RDW 16.1 % (11.5-15.5)
[2018-10-03 08:34] LABS: Albumin 2.4 g/dL (3.5-5.0); Calcium 8.5 mg/dL (8.4-10.2); Potassium 4.5 mmol/L (3.5-5.1); Total Bilirubin 1.4 mg/dL (0.2-1.3); Total Protein 5.7 g/dL (6.3-8.2)
[2018-10-03] MEDS ORDERED: traMADol 50 MG TAB PO SCH (09:00)
[2018-10-03] MEDS: IPRATROPIUM-ALBUTEROL 3 ML NEB INHALATION SCH ×3 (09:02→19:50)
[2018-10-03] MEDS: traMADol 50 MG TAB PO PRN (11:57)
[2018-10-03 12:06] LABS: Glucose,Whole Blood 288 mg/dL (75-99)
--- NOTE | 2018-10-03 15:59 | PN ---
PROGRESS NOTE DATE OF SERVICE: 10/03/2018 REASON FOR FOLLOWUP: Urinary tract infection with MULTIPLE ANTIBIOTIC ALLERGIES. INTERVAL HISTORY: The patient is afebrile. She seems to be more awake, alert. She was being helped from the bed to the chair. The patient has been complaining of pain all over. No nausea, vomiting or any diarrhea reported by the nursing staff. Oral intake remains poor. PHYSICAL EXAMINATION: Blood pressure 151/73 with a pulse of 77, temperature 98.2. She is 99% on room air. General description is an elderly female lying in bed in no distress. RESPIRATORY SYSTEM: Unlabored breathing. Clear to auscultation anteriorly. HEART: S1, S2. Regular rate and rhythm. ABDOMEN: Soft. No tenderness. Bilateral legs with swelling, minimal redness. LABS: Hemoglobin is 10.1, white count 6.0, BUN of 68, creatinine 1.87. Urine with E coli and proteus, both of them sensitive to Azactam, which patient is currently on. DIAGNOSTIC IMPRESSION AND PLAN: Patient admitted to hospital with mental status change which is likely multifactorial. This patient did have a component of UTI. Urine is currently showing Proteus mirabilis and E coli in a patient who has MULTIPLE ANTIBIOTIC ALLERGIES. Patient is currently covered with Azactam. To continue at this point while watching her clinical course closely. RN has been advised to apply Jamel wraps to the legs to keep some of the swelling down. Continue with supportive care. MMODL / YOKON: [id number] /
--- NOTE | 2018-10-03 16:34 | P.PN ---
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 Mary Ann Snowden, who was brought in to the emergency department on 09/29/2018 per EMS for altered mental status, confusion, increased swelling in upper and lower extremities, and weakness. Patient is a poor historian, at the time of my evaluation patient is continuously moaning, and unable to provide any history. According to the chart patient was negative for any fever or chills in the recent past, no shortness of breath, or chest pain. No nausea, vomiting or diarrhea. Patient had a recent hospitalization for a urinary tract infection with Citrobacter koseri was treated with doxycycline, however subsequent urine culture with Proteus mirabilis showed resistance to tetracycline. Patient has multiple ALLERGIES to medications including antibiotics. Past medical history includes chronic atrial fibrillation on Eliquis, history of complete heart block with permanent pacemaker implantation, CAD with stenting, morbid obesity, obstructive sleep apnea, pulmonary sarcoidosis, fibromyalgia, hypothyroidism, hypertension, hyperlipidemia, diabetes mellitus type 2, lupus and autoimmune hepatitis. Initial chest x-ray showed cardiomegaly and interstitial and vascular prominence, low lung volumes suggesting volume fluid overload. EKG showed normal sinus rhythm possible right ventricular hypertrophy, and inferior and anterolateral infarct of undetermined age. Initial labs showed WBC of 5.0, hemoglobin is 10.9, INR is 1.4, electrolytes were within normal limits, BUN was 45, creatinine is 1.46, troponin was negative 1, proBNP was 760, urinalysis showed large amount of leuks, positive nitrites, white blood cells. Patient was started on IV Lasix, today's chest x-ray showed resolved vascular congestion. On 10/02/2018, patient seen again in follow-up on medical surgical floor. Resting quietly in bed, she is able to provide simple 1 word answers, denies any distress, she is more cooperative, no moaning, or agitation today. No fever or chills, room air pulse ox is 96%, she denies any dyspnea, denies any pain. Dynamically she stable, repeat urinalysis showed cloudy urine, with large RBCs, and white blood cells, large amount of leuks. Culture was sent and is pending at this time, patient was started on Azactam by ID service. Yesterday we started the patient on stress doses of hydrocortisone for a suspicion of secondary adrenal insufficiency. These labs have been reviewed, showed a PVC of 4.7, hemoglobin of 10.8, sodium is 140, potassium is 5.6, chloride is 109, CO2 is 19, B1 is 65 and creatinine is 1.89. We'll cut the patient's Lasix back to once a day. Denies any dyspnea, sounds are clear, diminished at the bases. No distress noted. And has significant amount of upper and lower extremity edema, cellulitis in right lower extremity, and right upper extremity. The patient is seen today 10/03/2018 in follow-up on the regular medical floor. She is currently resting in bed. Opens her eyes to verbal stimuli. Some moaning. No agitation currently. Maintaining O2 saturations up to 100% on room air. She's afebrile. Hemodynamically stable. Urine culture positive for E. coli and Proteus mirabilis. Blood culture shows no growth. Currently on aztreonam. Objective - Vital Signs Vital signs: Vital Signs Temp 98 F 10/03/18 15:00 Pulse 65 10/03/18 15:00 Resp 16 10/03/18 15:00 BP 122/71 10/03/18 15:00 Pulse Ox 100 10/03/18 15:00 Intake & Output 10/02/18 10/03/18 10/03/18 18:59 06:59 18:59 Intake Total 50 70 80 Output Total 400 Balance 50 -330 80 Weight 118.297 kg Intake: IV 50 80 Aztreonam 1 gm In Sodium 50 80 Chloride 0.9% 50 ml @ 100 mls/hr IVPB Q12H [facility] Rx# :[id number] Intake, IV Titration 70 Amount Aztreonam 1 gm In Sodium 70 Chloride 0.9% 50 ml @ 100 mls/hr IVPB Q12H [facility] Rx# :[id number] Oral 0 Output: Urine 400 Other: Voiding Method Incontinent # Voids 1 1 # Bowel Movements 1 - Exam GENERAL EXAM: Sleepy, but easily arousable, able to give simple answers, denies any acute distress. On room air. HEAD: Normocephalic/atraumatic. EYES: Normal reaction of pupils, equal size. Conjunctiva pink, sclera white. NOSE: Clear with pink turbinates. THROAT: No erythema or exudates. NECK: No masses, no JVD, no thyroid enlargement, no adenopathy. CHEST: No chest wall deformity. Symmetrical expansion. LUNGS: Equal air entry with no crackles, wheeze, rhonchi or dullness. CVS: Irregular rate and rhythm, normal S1 and S2, no gallops, no murmurs, no rubs ABDOMEN: Soft, nontender. No hepatosplenomegaly, normal bowel sounds, no guarding or rigidity. EXTREMITIES: No clubbing, upper and lower extremity edema nonpitting with cellulitis type changes in right upper and lower extremity, no cyanosis, 2+ pulses and upper and lower extremities. MUSCULOSKELETAL: Muscle strength and tone normal. SPINE: No scoliosis or deformity SKIN: No rashes CENTRAL NERVOUS SYSTEM: No focal deficits, tone is normal in all 4 extremities. - Labs CBC & Chem 7: 10/03/18 07:29 10/03/18 07:29 Labs: Abnormal Lab Results - Last 24 Hours (Table) 10/02/18 10/02/18 10/02/18 Range/Units 07:39 16:51 20:07 RBC (3.80-5.40) m/uL Hgb (11.4-16.0) gm/dL Hct (34.0-46.0) % MCHC (31.0-37.0) g/dL RDW (11.5-15.5) % Lymphocytes # (1.0-4.8) k/uL Chloride (98-107) mmol/L BUN (7-17) mg/dL Creatinine (0.52-1.04) mg/dL Glucose (74-99) mg/dL POC Glucose (mg/dL) 199 H 246 H (75-99) mg/dL Hemoglobin A1c 7.9 H (4.0-6.0) % Total Bilirubin (0.2-1.3) mg/dL AST (14-36) U/L Alkaline Phosphatase (38-126) U/L Total Protein (6.3-8.2) g/dL Albumin (3.5-5.0) g/dL 10/03/18 10/03/18 10/03/18 Range/Units 07:11 07:29 07:29 RBC 3.70 L (3.80-5.40) m/uL Hgb 10.1 L (11.4-16.0) gm/dL Hct 33.2 L (34.0-46.0) % MCHC 30.5 L (31.0-37.0) g/dL RDW 16.1 H (11.5-15.5) % Lymphocytes # 0.3 L (1.0-4.8) k/uL Chloride 109 H (98-107) mmol/L BUN 68 H (7-17) mg/dL Creatinine 1.87 H (0.52-1.04) mg/dL Glucose 283 H (74-99) mg/dL POC Glucose (mg/dL) 279 H (75-99) mg/dL Hemoglobin A1c (4.0-6.0) % Total Bilirubin 1.4 H (0.2-1.3) mg/dL AST 86 H (14-36) U/L Alkaline Phosphatase 155 H (38-126) U/L Total Protein 5.7 L (6.3-8.2) g/dL Albumin 2.4 L (3.5-5.0) g/dL 10/03/18 Range/Units 11:54 RBC (3.80-5.40) m/uL Hgb (11.4-16.0) gm/dL Hct (34.0-46.0) % MCHC (31.0-37.0) g/dL RDW (11.5-15.5) % Lymphocytes # (1.0-4.8) k/uL Chloride (98-107) mmol/L BUN (7-17) mg/dL Creatinine (0.52-1.04) mg/dL Glucose (74-99) mg/dL POC Glucose (mg/dL) 288 H (75-99) mg/dL Hemoglobin A1c (4.0-6.0) % Total Bilirubin (0.2-1.3) mg/dL AST (14-36) U/L Alkaline Phosphatase (38-126) U/L Total Protein (6.3-8.2) g/dL Albumin (3.5-5.0) g/dL Microbiology - Last 24 Hours (Table) 10/01/18 10:10 Urine Culture - Final Urine,Catheterized Escherichia coli Proteus mirabilis 09/30/18 17:38 Blood Culture - Preliminary Blood No Growth after 48 hours Assessment and Plan Assessment: Assessment: #1. Altered mental status possibly related to urinary tract infection secondary to Proteus mirabilis an E. coli. Currently on aztreonam. #2. Suspected secondary adrenal insufficiency, patient was started on stress doses of hydrocortisone #3. Pulmonary edema, responded to diuretics. Initial chest x-ray showed interstitial prominence and vascular congestion, follow up chest x-ray today on 10/01/2018 showed resolution of vascular prominence #4. Chronic kidney disease stage III #5. Chronic atrial fibrillation on Eliquis #6. Chronic congestive heart failure with diastolic dysfunction, EF of 55-60% #7. Hypertension, hyperlipidemia #8. Sleep apnea #9 Hypothyroidism #10. Diabetes mellitus type 2 #11. Morbid obesity #12. History of complete heart block status post permanent pacemaker implantation #13. Systemic Lupus erythematosus #14. Coronary artery disease with previous stenting #15. History of pulmonary sarcoidosis, vitamin D deficiency, fibromyalgia and autoimmune hepatitis Plan: The patient was seen and evaluated by Dr. Lester. She is currently stable from the pulmonary standpoint. Maintaining O2 saturations up to 100% on room air. Continue current treatment plan. We'll continue to follow. I, the cosigning physician, performed a history & physical examination of the patient. Lungs sounds are clear. Maintaining good O2 saturations in the 90s on room air. I discussed the assessment and plan of care with my nurse practitioner, Alia Paulino. I attest to the above note as dictated by her.
[2018-10-03 17:27] LABS: Glucose,Whole Blood 355 mg/dL (75-99)
[2018-10-03] MEDS: POTASSIUM CHLORIDE ER 10 MEQ TAB.ER.PRT PO SCH (17:36)
[2018-10-03] MEDS: ASPIRIN 81 MG PO SCH (17:36)
[2018-10-03] MEDS: [UNRECOGNIZED DRUG - OTHER] SQ SCH (17:58)
[2018-10-03] MEDS: INSULIN ISOPHANE SQ SCH (19:12)
[2018-10-03 20:17] LABS: Glucose,Whole Blood 378 mg/dL (75-99)
[2018-10-03] MEDS: FENOFIBRATE 160 MG TAB PO SCH (21:34)
[2018-10-03] MEDS: NOVOLIN R SQ SCH (21:34)
--- NOTE | 2018-10-03 22:02 | PN ---
PROGRESS NOTE DATE OF SERVICE: 10/03/2018 This 78-year-old woman who was admitted with CHF acute exacerbation also had possible bilateral pneumonia. The patient also had a change in mental status, renal failure also. The patient is complaining of severe pain at this time. Multiple consultants are following the patient. Pain medication adjusted. The urine culture showed E coli and Proteus mirabilis. PAST MEDICAL HISTORY: Reviewed. REVIEW OF SYSTEMS: Could not be taken the patient is confused. CURRENT MEDICATIONS: Reviewed and include: 1. Coamo 5 mg daily q8h p.r.n. 2. DuoNeb q.i.d. p.r.n. 3. Eliquis 2.5 mg b.i.d. 4. Aspirin 81 mg daily. 5. Lipitor 10 mg. 6. Aztreonam 1 g b.i.d. 7. Dulcolax 10 mg p.o. daily. 8. Os-José Luis with Vitamin D. 9. Lofibra. 10.Lasix 40 mg IV daily. 11.Neurontin 600 mg daily. 12.Solu-Cortef 50 mg IV q.i.d. 13.Dilaudid 0.25 mg q.4h p.r.n. 14.Synthroid 100 mcg daily. 15.Toprol-XL 50 mg. 16.Nitrostat. 17.Protonix 40 mg b.i.d. 18.K-Dur 10 mEq. 19.Fleets enema. 20.Ultram 50 mg p.o. q.i.d. p.r.n. PHYSICAL EXAM: Patient is conscious, confused. Pulse 65, blood pressure 119/64, respirations 12, temperature 98.4, pulse ox 98% on room air. The patient is moaning and complaining of pain. HEENT: Conjunctivae normal. NECK: No jugular venous distention. CARDIOVASCULAR: S1, S2 muffled. RESPIRATORY: Breath sounds diminished in the bases. Scattered rhonchi and crackles. ABDOMEN: Soft, nontender. No mass palpable. LEGS: No edema. No swelling. NERVOUS SYSTEM: Higher functions as mentioned earlier. Moves all four extremities. No focal deficits. LYMPHATICS: No lymph nodes palpable in the neck, axillae or groin. SKIN: No ulcer, rash or bleeding. LAB STUDIES: WBC 6, hemoglobin 10.1, creatinine is 1.487, glucose noted. Albumin is 2.4, total protein is 5.7. Other labs are reviewed personally by me. ASSESSMENT: 1. Congestive heart failure exacerbation with acute on chronic diastolic dysfunction, ejection fraction 50 to 60%, present on admission. 2. Pneumonia unlikely per Dr. Lester. 3. Acute urinary tract infection E coli and Proteus mirabilis. 4. Change in mental status with metabolic encephalopathy multifactorial. 5. Increased BUN with chronic kidney stage III. 6. Increased bilirubin. 7. Increase AST. Possible mild hepatitis. 8. Hypoalbuminemia. 9. History of atrial fibrillation. 10.History of coronary artery disease. 11.History of congestive heart failure. 12.Diabetes type 2. 13.Fibromyalgia. 14.Gastroesophageal reflux disease. 15.History of gastrointestinal bleed. 16.Hyperlipidemia. 17.Hypertension. 18.History mitral valve prolapse. 19.History of pneumonia. 20.History of renal disease. 21.Sleep apnea. 22.Syncope. 23.History of hypothyroidism. 24.History of sarcoidosis. 25.Lupus. 27.History of hepatitis. 28.History of coronary artery disease with stent. RECOMMENDATIONS AND DISCUSSION: Recommend to continue current medications and continue with monitoring, symptomatic treatment. Otherwise, at this time, I recommend continue with broad-spectrum IV antibiotics. The blood sugar is elevated. Accu-Cheks a.c. and q.h.s. ALLERGY TO MULTIPLE INSULIN. Insulin regular scale is recommended. Discussed with staff. Further recommendations to follow. MMODL / YOKON: [id number] / MTDD
[2018-10-04] MEDS: HYDROCORTISONE SUCCINATE 100 MG/2 ML VIAL IV SCH ×3 (01:18→18:39)
[2018-10-04] MEDS: HYDROmorphone 0.5 MG/0.5 ML SYRINGE IVP PRN ×5 (01:21→22:14)
[2018-10-04] MEDS: LEVOTHYROXINE 137 MCG TAB PO SCH (05:46)
[2018-10-04] MEDS: AZTREONAM 1 GM in SODIUM CHLORIDE 0.9% 50 ML IVPB SCH ×2 (05:46→18:40)
[2018-10-04 07:43] LABS: Glucose,Whole Blood 276 mg/dL (75-99)
[2018-10-04] MEDS: traMADol 50 MG TAB PO PRN ×2 (08:29→18:38)
[2018-10-04] MEDS: IPRATROPIUM-ALBUTEROL 3 ML NEB INHALATION SCH ×3 (08:38→20:29)
[2018-10-04] MEDS: [UNRECOGNIZED DRUG - OTHER] SQ SCH ×3 (08:39→19:01)
[2018-10-04] MEDS: NOVOLIN R SQ SCH ×4 (08:40→20:23)
[2018-10-04] MEDS: INSULIN ISOPHANE SQ SCH (08:44)
[2018-10-04] MEDS: CALCIUM CARB-VIT D 500MG-200UN 1 EACH TAB PO SCH ×3 (09:02→18:39)
[2018-10-04] MEDS: GABAPENTIN 300 MG CAP PO SCH (09:02)
[2018-10-04] MEDS: FUROSEMIDE 10 MG/ML 4 ML VIAL IV SCH (09:02)
[2018-10-04] MEDS: METOPROLOL SUCCINATE (ER) 50 MG TAB.ER.24H PO SCH (09:03)
[2018-10-04] MEDS: APIXABAN 2.5 MG TABLET PO SCH ×2 (09:03→18:39)
[2018-10-04] MEDS: PANTOPRAZOLE 40 MG TABLET PO SCH ×2 (09:03→18:39)
[2018-10-04 09:43] LABS: Albumin 2.4 g/dL (3.5-5.0); Calcium 8.6 mg/dL (8.4-10.2); Potassium 5.3 mmol/L (3.5-5.1); Total Bilirubin 1.4 mg/dL (0.2-1.3); Total Protein 5.8 g/dL (6.3-8.2)
[2018-10-04 10:49] LABS: Anisocytosis Slight; Basophils % (A) 0 %; Eosinophils % (A) 0 %; HCT 36.7 % (34.0-46.0); HGB 11.2 gm/dL (11.4-16.0); Hypochromasia Moderate; Lymphocytes # (A) 0.4 k/uL (1.0-4.8); Lymphocytes % (A) 6 %; MCH 27.5 pg (25.0-35.0); MCHC 30.6 g/dL (31.0-37.0); MCV 89.8 fL (80.0-100.0); Mean Platelet Volume 8.7; Monocytes # (A) 0.3 k/uL (0-1.0); Monocytes % (A) 5 %; Neutrophils # (A) 5.7 k/uL (1.3-7.7); Neutrophils % (A) 87 %; Platelet Count 184 k/uL (150-450); RBC 4.08 m/uL (3.80-5.40); RDW 16.4 % (11.5-15.5); WBC 6.6 k/uL (3.8-10.6)
[2018-10-04] MEDS: HYDROcodone/APAP 5-325MG 1 EACH TAB PO PRN ×2 (11:02→20:16)
[2018-10-04 12:09] LABS: Glucose,Whole Blood 281 mg/dL (75-99)
[2018-10-04 17:59] LABS: Glucose,Whole Blood 258 mg/dL (75-99)
[2018-10-04] MEDS: POTASSIUM CHLORIDE ER 10 MEQ TAB.ER.PRT PO SCH (18:39)
[2018-10-04] MEDS: ASPIRIN 81 MG PO SCH (18:39)
[2018-10-04 19:24] LABS: Glucose,Whole Blood 247 mg/dL (75-99)
[2018-10-04] MEDS: FENOFIBRATE 160 MG TAB PO SCH (20:16)
[2018-10-05] MEDS: HYDROCORTISONE SUCCINATE 100 MG/2 ML VIAL IV SCH ×3 (00:17→15:59)
[2018-10-05] MEDS: HYDROmorphone 0.5 MG/0.5 ML SYRINGE IVP PRN ×2 (04:22→19:02)
[2018-10-05] MEDS: AZTREONAM 1 GM in SODIUM CHLORIDE 0.9% 50 ML IVPB SCH ×2 (04:22→17:24)
[2018-10-05] MEDS: LEVOTHYROXINE 137 MCG TAB PO SCH (05:21)
[2018-10-05 07:23] LABS: Glucose,Whole Blood 182 mg/dL (75-99)
[2018-10-05] MEDS: IPRATROPIUM-ALBUTEROL 3 ML NEB INHALATION SCH ×3 (07:54→20:51)
--- NOTE | 2018-10-05 07:57 | PN ---
PROGRESS NOTE DATE OF SERVICE: 10/04/2018 This 78-year-old woman who was admitted CHF acute exacerbation also had bilateral pneumonia. The patient has been closely monitored. The sensorium is improved significantly. Patient has complained of some generalized aches and pains. The pain medication does make the patient drowsy and confused. PAST MEDICAL HISTORY: Reviewed. REVIEW OF SYSTEMS: Could not be taken. The patient is mildly confused at this time. PHYSICAL EXAMINATION: Pulse is 65, blood pressure 164/79, respirations 16, temperature 97.4, pulse ox 94% on room air. HEENT: Conjunctivae normal. NECK: No jugular venous distention. CARDIOVASCULAR: S1, S2 muffled. RESPIRATORY: Breath sounds diminished in the bases. A few scattered rhonchi and crackles. ABDOMEN: Soft, obese, nontender. LEGS: Bilateral leg edema. NERVOUS SYSTEM: Diffusely weak. LAB INVESTIGATIONS: The urine culture showed E coli and Proteus mirabilis. Other labs are WBC 6.6, hemoglobin 11.2. Creatinine is 1.46. ASSESSMENT: 1. Congestive heart failure with acute exacerbation with acute on chronic diastolic dysfunction, ejection fraction 50 to 60%, present on admission. 2. Pneumonia unlikely per Dr. Lester. 3. Acute urinary tract infection with E coli and Proteus mirabilis. 4. Change in mental status acute metabolic encephalopathy multifactorial. 5. Increased BUN with chronic kidney stage III. 6. Increased bilirubin. 7. Increased AST, possible mild hepatitis. 8. Hypoalbuminemia. 9. Acute on chronic pain syndrome. 10.History atrial fibrillation. 11.Generalized anasarca. 12.History of coronary artery disease. 13.History of congestive heart failure. 14.Diabetes mellitus type 2. 15.Fibromyalgia. 16.History of gastroesophageal reflux disease. 17.History of gastrointestinal bleed. 18.Hyperlipidemia. 19.Hypertension. 20.History of mitral valve prolapse. 21.History of pneumonia. 22.History of renal disease. 23.History of sleep apnea. 24.History of syncope. 25.History of hypothyroidism. 26.History of sarcoidosis. 27.History of lupus. 28.History of hepatitis. 29.History of coronary artery disease, stent. 30.NO CODE, NO CPR, NO VENT. RECOMMENDATIONS AND DISCUSSION: I recommend to continue current management and symptomatic treatment. Otherwise prognosis extremely guarded because of multiple complex medical issues as mentioned earlier. Repeat labs. Continue the antibiotics. Follow closely. PT, OT evaluation. Pain medications sparingly. Otherwise, the eventually PT, OT evaluation and possible ECF rehab. Further recommendations to follow. MMODL / IJN: [id number] /
--- NOTE | 2018-10-05 08:19 | US ---
EXAMINATION TYPE: US abdomen complete DATE OF EXAM: 10/05/2018 COMPARISON: Previous study dated 04/08/2018. CLINICAL HISTORY: elevated liver enzymes and recurrent UTI. pt does not respond to questions just moa ns, large body habitus, would not move EXAM MEASUREMENTS: CBD: 0.8 cm Unable to assess measurements of other internal organs due to obese patient with edematous tissue and bowel gas that limited penetrate severely. Pancreas: limited views seen Liver: nodular, heterogeneous appearance with free fluid noted at dome Gallbladder: surgically absent Evidence for sonographic Coronel's sign: unknown CBD: wnl Spleen: not seen due to reasons stated above Right Kidney: only small portion seen, unable to fully assess. Left Kidney: not seen due to reasons stated above Upper IVC: wnl Abd Aorta: not seen due to reasons stated above Limited views of the pancreas are unremarkable. Liver size was not measured. The liver is heterogenous, compatible with the patient's known history o f cirrhosis. There is a small amount of free fluid at the level of the dome of the liver. The gallbladder is been removed. The distal common hepatic duct measures 8 mm. The spleen was not visualized. Neither kidney was well seen. Limited views of the IVC are unremarkable. The aorta was not visualized. IMPRESSION: 1. GROSSLY LIMITED EXAMINATION. 2. HETEROGENOUS SLIGHTLY TO THE LIVER MAY REFLECT CIRRHOSIS. 3. SURGICALLY ABSENT GALLBLADDER.
[2018-10-05] MEDS: APIXABAN 2.5 MG TABLET PO SCH ×2 (08:25→15:59)
[2018-10-05] MEDS: GABAPENTIN 300 MG CAP PO SCH (08:25)
[2018-10-05] MEDS: HYDROcodone/APAP 5-325MG 1 EACH TAB PO PRN ×2 (08:25→15:56)
[2018-10-05] MEDS: CALCIUM CARB-VIT D 500MG-200UN 1 EACH TAB PO SCH ×3 (08:25→15:59)
[2018-10-05] MEDS: PANTOPRAZOLE 40 MG TABLET PO SCH ×2 (08:25→15:59)
[2018-10-05] MEDS: METOPROLOL SUCCINATE (ER) 50 MG TAB.ER.24H PO SCH (08:25)
[2018-10-05] MEDS: FUROSEMIDE 10 MG/ML 4 ML VIAL IV SCH (08:26)
[2018-10-05] MEDS: [UNRECOGNIZED DRUG - OTHER] SQ SCH ×3 (08:37→17:27)
[2018-10-05] MEDS: NOVOLIN R SQ SCH ×4 (08:38→21:23)
[2018-10-05] MEDS: INSULIN ISOPHANE SQ SCH (08:45)
--- NOTE | 2018-10-05 09:27 | PN ---
PROGRESS NOTE DATE OF SERVICE: 10/04/2018 REASON FOR FOLLOWUP: Urinary tract infection with multiple antibiotic allergies. INTERVAL HISTORY: The patient is currently afebrile. She has been breathing comfortably. However, the patient has been moaning and could not answer any questions. No nausea, vomiting or diarrhea reported by nursing staff. PHYSICAL EXAMINATION: Blood pressure 164/79 with a pulse of 75, temperature 97.4, she is 95% on room air. General description is an elderly female lying in bed in no distress. Respiratory system: Unlabored breathing, clear to auscultation anteriorly. Heart S1, S2. Regular rate and rhythm. Abdomen soft. LABS: Hemoglobin 9.8, white count 6.6, BUN of 37, creatinine 1.46. Urine with the E coli, Proteus mirabilis. DIAGNOSTIC IMPRESSION AND PLAN: 1. Patient admitted to hospital with mental status changes. The patient did have a component of urinary tract infection with multiple antibiotic coverages. The patient is currently covered with Azactam. 2. The patient did have elevated liver enzymes. We will check an ultrasound of the liver and gallbladder area. Continue supportive care. MMODL / IJN: [id number] /
[2018-10-05 10:48] LABS: Anisocytosis Slight; Basophils % (A) 0 %; Eosinophils % (A) 0 %; HCT 41.4 % (34.0-46.0); HGB 11.8 gm/dL (11.4-16.0); Hypochromasia Marked; Lymphocytes # (A) 0.4 k/uL (1.0-4.8); Lymphocytes % (A) 5 %; MCH 27.9 pg (25.0-35.0); MCHC 28.6 g/dL (31.0-37.0); Macrocytosis Slight; Mean Platelet Volume 7.4; Monocytes # (A) 0.6 k/uL (0-1.0); Monocytes % (A) 8 %; Neutrophils # (A) 6.8 k/uL (1.3-7.7); Neutrophils % (A) 86 %; Platelet Count 182 k/uL (150-450); RBC 4.24 m/uL (3.80-5.40); RDW 16.1 % (11.5-15.5); WBC 7.9 k/uL (3.8-10.6)
[2018-10-05 10:50] LABS: Albumin 2.6 g/dL (3.5-5.0); Calcium 8.8 mg/dL (8.4-10.2); Total Bilirubin 1.7 mg/dL (0.2-1.3); Total Protein 6.4 g/dL (6.3-8.2)
[2018-10-05 10:52] LABS: Potassium 5.5 mmol/L (3.5-5.1)
[2018-10-05 10:56] LABS: MCV 97.7 fL (80.0-100.0)
[2018-10-05 11:29] LABS: Glucose,Whole Blood 205 mg/dL (75-99)
[2018-10-05 12:57] LABS: Poikilocytosis (M) Present
[2018-10-05] MEDS: ASPIRIN 81 MG PO SCH (15:59)
[2018-10-05] MEDS: POTASSIUM CHLORIDE ER 10 MEQ TAB.ER.PRT PO SCH (15:59)
[2018-10-05 17:14] LABS: Glucose,Whole Blood 195 mg/dL (75-99)
[2018-10-05 19:49] LABS: Glucose,Whole Blood 200 mg/dL (75-99)
[2018-10-05] MEDS: FENOFIBRATE 160 MG TAB PO SCH (21:20)
[2018-10-06] MEDS: HYDROCORTISONE SUCCINATE 100 MG/2 ML VIAL IV SCH ×3 (00:15→15:58)
--- NOTE | 2018-10-06 00:19 | PN ---
PROGRESS NOTE DATE OF SERVICE: 10/05/2018 REASON FOR FOLLOWUP: Urinary tract infection. INTERVAL HISTORY: The patient is afebrile. She is breathing comfortably. Hemodynamically stable. The patient remains to be pleasantly confused and moaning and did not answer any questions. No diarrhea reported by the nursing staff. PHYSICAL EXAMINATION: Blood pressure 117/67 with a pulse of 74, temperature 97.4, she is 99% on room air. General description is an elderly female lying in bed in no distress. Respiratory system: Unlabored breathing. Clear to auscultation anteriorly. Heart S1, S2. Regular rate and rhythm. Abdomen soft, no tenderness. LABS: Hemoglobin 11.8, white count 7.8. BUN of 78, creatinine 1.44. DIAGNOSTIC IMPRESSION AND PLAN: 1. Patient with Proteus mirabilis E coli UTI. The patient does have MULTIPLE ANTIBIOTIC ALLERGIES. Current on Azactam. 2. Elevated liver enzymes. Ultrasound did not show any acute findings. Continue to monitor the patient closely. Continue supportive care. MMODL / IJN: [id number] /
[2018-10-06] MEDS: HYDROmorphone 0.5 MG/0.5 ML SYRINGE IVP PRN ×5 (01:18→21:00)
[2018-10-06] MEDS: HYDROcodone/APAP 5-325MG 1 EACH TAB PO PRN (01:59)
[2018-10-06] MEDS: AZTREONAM 1 GM in SODIUM CHLORIDE 0.9% 50 ML IVPB SCH ×2 (04:16→18:00)
[2018-10-06] MEDS: LEVOTHYROXINE 137 MCG TAB PO SCH (04:17)
--- NOTE | 2018-10-06 04:49 | PN ---
PROGRESS NOTE DATE OF SERVICE: 10/05/2018 This 78-year-old woman was admitted with CHF acute exacerbation also had generalized anasarca. No chest pain or palpitation. Patient has diffuse aches and pains also. Abdominal ultrasound was performed today which showed grossly limited exam, heterogenous possibly cirrhosis. Otherwise, surgically absent gallbladder. No chest pain or palpitations. No fever. PHYSICAL EXAMINATION: On exam, alert and oriented x1. Pulse is 70, blood pressure 106/68, respiration 18, temperature 98.8, pulse ox 97% on room air. HEENT: Conjunctivae normal. NECK: No jugular venous distention. CARDIOVASCULAR: S1, S2 muffled. RESPIRATORY: Breath sounds diminished at the bases. A few scattered rhonchi and crackles. ABDOMEN: Soft obese. LEGS: No edema, no swelling. NERVOUS SYSTEM: No focal deficits. LABS: CBC within normal limits. Sodium 144, potassium 5.5, creatinine is 1.44. ASSESSMENT: 1. Congestive heart failure acute exacerbation with acute on chronic diastolic dysfunction, ejection fraction 50% to 60%, present on admission. 2. Pneumonia unlikely per Dr. Lester. 3. Acute urinary tract infection with Escherichia coli and Proteus mirabilis. 4. Change in mental status, acute metabolic encephalopathy, multifactorial. 5. Increased BUN with chronic kidney disease stage III. 6. Increased bilirubin. 7. Increased AST, possible mild hepatitis. 8. Hypoalbuminemia. 9. Acute on chronic pain syndrome. 10.History atrial fibrillation. 11.History of generalized anasarca. 12.History of coronary artery disease. 13.History of congestive heart failure. 14.Diabetes mellitus type 2. 15.Fibromyalgia. 16.History of gastroesophageal reflux disease. 17.History of gastrointestinal bleed. 18.Hyperlipidemia. 19.Hypertension. 20.History of mitral valve prolapse. 21.History of pneumonia. 22.History of renal disease. 23.History of sleep apnea. 24.History of syncope. 25.History of hypothyroidism. 26.History of sarcoidosis. 27.History of lupus. 28.History of hepatitis. 29.History of coronary artery disease, stent. 30.NO CODE, NO CPR, No Vent. RECOMMENDATIONS AND DISCUSSION: Recommend to continue current medications, continue with monitoring and symptomatic treatment. Otherwise at this time I would recommend continue with current medications. Continue with empiric antibiotics. Cultures are noted. Otherwise pain medications sparingly and PT, OT evaluation, possible ECF rehab. Guarded prognosis. Further recommendations to follow. MMODL / IJN: [id number] /
[2018-10-06 07:28] LABS: Glucose,Whole Blood 236 mg/dL (75-99)
[2018-10-06] MEDS: IPRATROPIUM-ALBUTEROL 3 ML NEB INHALATION SCH ×3 (07:45→21:31)
[2018-10-06 09:09] LABS: Basophils % (A) 0 %; Eosinophils % (A) 0 %; HCT 38.6 % (34.0-46.0); HGB 11.4 gm/dL (11.4-16.0); Hypochromasia Marked; Lymphocytes # (A) 0.4 k/uL (1.0-4.8); Lymphocytes % (A) 5 %; MCHC 29.5 g/dL (31.0-37.0); Mean Platelet Volume 7.5; Monocytes # (A) 0.4 k/uL (0-1.0); Monocytes % (A) 6 %; Neutrophils # (A) 5.8 k/uL (1.3-7.7); Neutrophils % (A) 88 %; Platelet Count 155 k/uL (150-450); RBC 4.22 m/uL (3.80-5.40); RDW 15.9 % (11.5-15.5); WBC 6.6 k/uL (3.8-10.6)
[2018-10-06 09:16] LABS: Albumin 2.4 g/dL (3.5-5.0); Calcium 8.4 mg/dL (8.4-10.2); Potassium 4.4 mmol/L (3.5-5.1); Total Bilirubin 1.4 mg/dL (0.2-1.3); Total Protein 5.7 g/dL (6.3-8.2)
[2018-10-06] MEDS: NOVOLIN R SQ SCH ×4 (09:18→22:29)
[2018-10-06] MEDS: [UNRECOGNIZED DRUG - OTHER] SQ SCH ×3 (09:20→18:00)
[2018-10-06] MEDS: INSULIN ISOPHANE SQ SCH ×2 (09:20→09:40)
[2018-10-06 09:21] LABS: MCV 91.6 fL (80.0-100.0)
[2018-10-06] MEDS: GABAPENTIN 300 MG CAP PO SCH (09:22)
[2018-10-06] MEDS: APIXABAN 2.5 MG TABLET PO SCH ×2 (09:23→17:59)
[2018-10-06] MEDS: PANTOPRAZOLE 40 MG TABLET PO SCH ×2 (09:23→17:59)
[2018-10-06] MEDS: CALCIUM CARB-VIT D 500MG-200UN 1 EACH TAB PO SCH ×3 (09:23→16:12)
[2018-10-06] MEDS: FUROSEMIDE 10 MG/ML 4 ML VIAL IV SCH (09:23)
[2018-10-06] MEDS: METOPROLOL SUCCINATE (ER) 50 MG TAB.ER.24H PO SCH (09:24)
[2018-10-06 12:05] LABS: Glucose,Whole Blood 217 mg/dL (75-99)
[2018-10-06] MEDS: SPIRONOLACTONE 25 MG TAB PO SCH (15:58)
[2018-10-06] MEDS: LACTULOSE 20 GM/30 ML CUP PO SCH ×2 (15:58→22:29)
[2018-10-06 16:51] LABS: Glucose,Whole Blood 221 mg/dL (75-99)
--- NOTE | 2018-10-06 17:43 | PN ---
PROGRESS NOTE DATE OF SERVICE: 10/06/2018 REASON FOR FOLLOWUP: E coli and Proteus mirabilis urinary tract infection. INTERVAL HISTORY: The patient is currently afebrile. The patient continues moaning and and unable to provide any reliable history. No nausea, vomiting or diarrhea reported by the nursing staff. PHYSICAL EXAMINATION: Blood pressure is 151/77 with a pulse of 72, temperature 98. She is 92% on room air. General description is an elderly female lying in bed in no distress. RESPIRATORY SYSTEM: Unlabored breathing. Clear to auscultation anteriorly. HEART: S1, S2. Regular rate and rhythm. ABDOMEN: Soft. No tenderness. LABS: Hemoglobin 11.4, white count 6.6, BUN of 75, creatinine 1.26. DIAGNOSTIC IMPRESSION AND PLAN: Patient with Escherichia coli and Proteus mirabilis urinary tract infection in a patient who has MULTIPLE ANTIBIOTIC ALLERGIES, currently on Azactam; received about 7 days of antibiotics. May discontinue the antibiotic on discharge. Continue with supportive care. MMODL / IJN: [id number] /
[2018-10-06] MEDS: ASPIRIN 81 MG PO SCH (17:59)
[2018-10-06] MEDS: POTASSIUM CHLORIDE ER 10 MEQ TAB.ER.PRT PO SCH (18:00)
[2018-10-06 19:43] LABS: Glucose,Whole Blood 195 mg/dL (75-99)
[2018-10-06] MEDS: FENOFIBRATE 160 MG TAB PO SCH (22:22)
[2018-10-07] MEDS: HYDROmorphone 0.5 MG/0.5 ML SYRINGE IVP PRN ×6 (00:19→22:50)
[2018-10-07] MEDS: HYDROCORTISONE SUCCINATE 100 MG/2 ML VIAL IV SCH ×4 (00:20→23:04)
--- NOTE | 2018-10-07 00:25 | PN ---
PROGRESS NOTE DATE OF SERVICE: 10/06/2018. PRESENTING COMPLAINT: Tired. INTERVAL HISTORY: This patient presented with multiple symptoms. Lying in bed, somewhat lethargic, but able answer some questions. Did not eat much. REVIEW OF SYSTEMS: Attempted for constitutional, cardiovascular, GI, pulmonary; relevant findings as above. CURRENT MEDICATIONS: Reviewed, that include IV aztreonam, IV Solu-Cortef. PHYSICAL EXAMINATION: Temperature 98, pulse 72, respirations 16, blood pressure 150/77, pulse 92% on room air. GENERAL APPEARANCE: Lying in bed, lethargic, but arousable. EYES: Pupils equal. Conjunctivae normal. NECK: JVD unable to assess. Mass not palpable. Respiratory effort normal. LUNGS: Decreased breath sounds. CARDIOVASCULAR: 1st and 2nd heart sounds normal. Edema. ABDOMEN: Soft, slightly distended. Liver and spleen not palpable. PSYCHIATRY: Lethargic, does answer questions slowly. INVESTIGATIONS: White count 6.6, hemoglobin 11.4, potassium 4.4, BUN 25, creatinine 1.26, albumin 2.4. The patient's creatinine was 1.46. The patient's creatinine was 1.46 back on 09/22/2018. ASSESSMENT: 1. Possible hepatic encephalopathy in the setting of underlying cirrhosis, cause unknown. 2. Persistent atrial fibrillation, has a pacemaker. 3. Coronary artery disease. 4. Acute on chronic congestive heart failure from diastolic dysfunction. Ejection fraction 55% to 60%. 5. Hyperlipidemia. 6. Primary osteoarthritis. 7. Hypothyroidism. 8. Chronic autoimmune hepatitis. 9. 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 10.Chronic medical debility at baseline. PLAN: At this point will add lactulose 20 g twice a day to titrate to 3 to 4 bowel movements a day. We will also add Aldactone. The patient's prognosis is guarded. Will also consult GI and see how the patient fares and go from there. MMODL / IJN: [id number] /
[2018-10-07] MEDS: AZTREONAM 1 GM in SODIUM CHLORIDE 0.9% 50 ML IVPB SCH (04:18)
[2018-10-07] MEDS: LEVOTHYROXINE 137 MCG TAB PO SCH (05:25)
[2018-10-07 07:22] LABS: Glucose,Whole Blood 211 mg/dL (75-99)
[2018-10-07] MEDS: INSULIN ISOPHANE SQ SCH (09:22)
[2018-10-07] MEDS: PANTOPRAZOLE 40 MG TABLET PO SCH ×2 (09:41→18:24)
[2018-10-07] MEDS: APIXABAN 2.5 MG TABLET PO SCH ×2 (09:41→18:24)
[2018-10-07] MEDS: METOPROLOL SUCCINATE (ER) 50 MG TAB.ER.24H PO SCH (09:44)
[2018-10-07] MEDS: FUROSEMIDE 10 MG/ML 4 ML VIAL IV SCH (09:46)
[2018-10-07] MEDS: IPRATROPIUM-ALBUTEROL 3 ML NEB INHALATION SCH ×3 (09:50→19:27)
[2018-10-07] MEDS: SPIRONOLACTONE 25 MG TAB PO SCH (10:09)
[2018-10-07] MEDS: NOVOLIN R SQ SCH ×4 (10:16→20:42)
[2018-10-07] MEDS: LACTULOSE 20 GM/30 ML CUP PO SCH ×2 (10:21→19:50)
[2018-10-07] MEDS: CALCIUM CARB-VIT D 500MG-200UN 1 EACH TAB PO SCH ×3 (10:21→18:26)
[2018-10-07] MEDS: [UNRECOGNIZED DRUG - OTHER] SQ SCH ×3 (10:21→19:46)
[2018-10-07] MEDS: GABAPENTIN 300 MG CAP PO SCH (10:21)
--- NOTE | 2018-10-07 11:34 | P.CONS ---
History of Present Illness - Reason for Consult Consult date: 10/07/18 Cirrhosis Requesting physician: Natalio Schmidt - Chief Complaint Shortness of breath confusion - History of Present Illness 78-year-old female admitted a week ago with shortness of breath confusion CHF exacerbation metabolic encephalopathy. Past medical history of autoimmune hepatitis, known to Dr. Gaby Sweeney service, biopsy-proven 1990 maintained on Imuran therapy until 2002 with biochemical remission, cholecystectomy, IVC filter, pacemaker, chronic kidney disease, atrial fibrillation, CAD, CHF, diabetes, GERD, hypertension, hyperlipidemia. Consult requested for cirrhosis. Ultrasound abdomen reported CBD 0.8 cm. Liver nodular heterogeneous appearance was free fluid noted at the dome. Liver size is not measured secondary to body habitus obesity. White count 4.7-7.9. Hemoglobin 10.1-11.8. MCV 88-97. Platelet 182-251. INR 1.4. Total bilirubin 1.4-1.7. AST 76-111. ALT 30-40. AP 129-160. Ammonia 41 on admission. Previous LFTs July 2018 within normal limits. No history of alcohol abuse. No history of known liver disorders. Review of Systems Constitutional: Denies fever, chills, sweats, weight gain, or loss. HEENT: Negative for migraines, blurred vision or loss, earaches, drainage, tinnitus, oral mucosal lesions, dysphagia, or odynophagia. CARDIAC: Negative for chest pain, arrhythmias, or palpitation. RESPIRATORY: Admitted with shortness of breath, denies hemoptysis, cough, or sputum production. GI: See HPI for pertinent findings. : Negative for hematuria, urgency, frequency, polyuria, or dysuria. GYNc: Denies possibility of . Negative vaginal discharge. MUSCULOSKELETAL: Negative for muscle aches, swelling, arthritis, and arthralgias. NEUROLOGIC: Negative for stroke or TIA. ENDOCRINE: Negative for thyroid problems. SKIN: Negative for rash or itching. 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 NEUROPATHY, SARCOIDOSIS, LUPUS, AUTOIMMUNE ISSUES HEART MURMUR, autoimmune HEPATITIS with prednisone dependence, IRREGULAR HEART RATE, LEFT FEMUR FRACTURE , NO CPAP USE, right ankle fracture, left lower extremity DVT, left rotator cuff tear, HX COMPLETE HEART BLOCK/PACEMAKER IMPLANTED,uti's ,incont of urine/ stool History of Any Multi-Drug Resistant Organisms: None Reported Year Discovered:: None MDRO Source:: None Past Surgical History: Adenoidectomy, Appendectomy, Cholecystectomy, Heart Catheterization With Stent, Hysterectomy, Pacemaker, Tonsillectomy Additional Past Surgical History / Comment(s): COLONOSCOPY, EGD, [place] filter, bronchoscopy Past Anesthesia/Blood Transfusion Reactions: No Reported Reaction Additional Past Anesthesia/Blood Transfusion Reaction / Comm: HAS NEVER RECEIVED ANY BLOOD TRANSFUSIONS Date of Last Stent Placement:: 2012 Type of Cardiac Device: Permanent Pacemaker Device Placement Date:: 2017 Past Psychological History: No Psychological Hx Reported Additional Psychological History / Comment(s): pt resides at [facility]. daughter stated pt has'nt been ambulatory for last few weeks. Smoking Status: Never smoker Past Alcohol Use History: None Reported Additional Past Alcohol Use History / Comment(s): Patient is a lifelong nonsmoker. pt is but pt currently resides at [facility]. 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 Past Drug Use History: None Reported - Past Family History Mother Family Medical History: Coronary Artery Disease (CAD) Father Family Medical History: Coronary Artery Disease (CAD) Medications and Allergies Home Medications Medication Instructions Recorded Confirmed Type Furosemide 40 mg PO DAILY@0600 02/09/14 09/29/18 History Levothyroxine Sodium [Synthroid] 137 mcg PO DAILY@0600 02/09/14 09/29/18 History Omeprazole 20 mg PO BID@0800,1700 02/09/14 09/29/18 History Fenofibrate 160 mg PO DAILY@2100 12/14/17 09/29/18 History Nitroglycerin Sl Tabs [Nitrostat] 0.4 mg SUBLINGUAL Q5M PRN 12/14/17 09/29/18 History Rosuvastatin Calcium [Crestor] 5 mg PO WE 12/14/17 09/29/18 History Aspirin EC [Ecotrin Low Dose] 81 mg PO DAILY@1700 18 09/29/18 History Calcium Carbonate [Calcium] 600 mg PO TID@0800,1200,1700 08/26/18 09/29/18 History Potassium Chloride [Klor-Con 10] 5 meq PO DAILY@1700 08/26/18 09/29/18 History HYDROcodone/APAP 5-325MG [[place] 1 tab PO Q8H PRN #9 tab 09/22/18 09/29/18 Rx 5-325] Bisacodyl [Dulcolax] 10 mg RECTAL DAILY PRN 09/25/18 09/29/18 History Famotidine 20 mg PO DAILY@0600 09/25/18 09/29/18 History Insuln Asp Prt/Insulin Aspart 15 unit SQ AC-BID@0700,1730 09/25/18 09/29/18 History [NovoLOG MIX 70-30 VIAL] Ipratropium-Albuterol Nebulize 3 ml INHALATION RT-TID@06,14,21 09/25/18 History [Duoneb 0.5 mg-3 mg/3 ml Soln] Magnesium Hydroxide [Milk of 2,400 mg PO DAILY PRN 09/25/18 09/25/18 History Magnesia] Na Phos,M-B/Na Phos,Di-Ba [Fleet 133 ml RECTAL ONCE PRN 09/25/18 09/29/18 History Adult] Apixaban [Eliquis] 2.5 mg PO BID@0800,1700 09/29/18 09/29/18 History Gabapentin 600 mg PO DAILY@0800 09/29/18 09/29/18 History Metoprolol Succinate (ER) [Toprol 50 mg PO DAILY@0800 09/29/18 09/29/18 History XL] Insulin NPH Human Isophane 46 units AC-BRKFST 10/02/18 10/02/18 History [NovoLIN N] Insulin Regular, Human [NovoLIN R] 20 units SQ AC-BRKFST 10/02/18 10/02/18 History Insulin Regular, Human [NovoLIN R] 22 units AC-LUNCH 10/02/18 10/02/18 History Insulin Regular, Human [NovoLIN R] 26 units SQ AC-SUPPER 10/02/18 10/02/18 History Allergies Allergy/AdvReac Type Severity Reaction Status Date / Time levofloxacin [From Levaquin] Allergy Intermediate Unknown Verified 09/29/18 14: 43 Penicillins Allergy Intermediate Rash/Hives Verified 09/29/18 14:43 Sulfa (Sulfonamide Allergy Intermediate Rash/Hives Verified 09/29/18 14:43 Antibiotics) cephalexin monohydrate Allergy Unknown Unknown Verified 09/29/18 14:43 [From Keflex] erythromycin base Allergy Unknown Rash/Hives Verified 09/29/18 14:43 [From E-Mycin] gatifloxacin [From Tequin] Allergy Unknown Unknown Verified 09/29/18 14:43 nitrofurantoin Allergy Unknown Unknown Verified 09/29/18 14:43 macrocrystalline [From Macrodantin] apricot Allergy Unknown Verified 09/29/18 14:43 asparagus Allergy Unknown Verified 09/29/18 14:43 banana [Banana] Allergy Unknown Verified 09/29/18 14:43 cabbage Allergy Unknown Verified 09/29/18 14:43 carrot Allergy Unknown Verified 09/29/18 14:43 ciprofloxacin [From Cipro] Allergy Unknown Verified 09/29/18 14:43 ciprofloxacin HCl Allergy Unknown Verified 09/29/18 14:43 [From Cipro] coffee (Coffea arabica) Allergy Unknown Verified 09/29/18 14:43 [coffee] cucumber Allergy Unknown Verified 09/29/18 14:43 doxycycline Allergy Rash/Hives Verified 09/29/18 14:43 sam Allergy Unknown Verified 09/29/18 14:43 insulin lispro [From Humalog] Allergy Rash/Hives Verified 09/29/18 14:43 insulin NPH human isophane Allergy Rash/Hives Verified 09/29/18 14:43 [From Humulin 70/30] insulin regular, human Allergy Rash/Hives Verified 09/29/18 14:43 [From Humulin 70/30] mustard Allergy Unknown Verified 09/29/18 14:43 onion Allergy Unknown Verified 09/29/18 14:43 orange juice [[place]] Allergy Unknown Verified 09/29/18 14:43 Pepper Allergy Unknown Verified 09/29/18 14:43 rice Allergy Unknown Verified 09/29/18 14:43 spinach Allergy Unknown Verified 09/29/18 14:43 Squash Allergy Unknown Verified 09/29/18 14:43 tree nut [Pecan] Allergy Unknown Verified 09/29/18 14:43 walnut Allergy Unknown Verified 09/29/18 14:43 cantaloupe Allergy Unknown Uncoded 09/29/18 13:59 cottonseed Allergy Unknown Uncoded 09/29/18 13:59 green beans Allergy Unknown Uncoded 09/29/18 13:59 tea Allergy Unknown Uncoded 09/29/18 13:59 Physical Exam Vitals: Vital Signs Temp Pulse Pulse Resp BP Pulse Ox 10/07/18 07:36 98.5 F 70 18 137/83 97 10/07/18 00:02 98.1 F 70 16 160/80 97 10/06/18 23:30 98.3 F 70 14 126/78 95 10/06/18 19:30 98.1 F 70 16 151/75 94 L 10/06/18 14:50 98 F 72 16 151/77 92 L 10/06/18 12:07 74 10/06/18 12:02 72 Intake and Output 10/06/18 10/07/18 10/07/18 22:59 06:59 14:59 Intake Total 240 Output Total 400 Balance 240 -400 Intake: Oral 240 Output: Urine 400 Other: Voiding Method Incontinent Incontinent # Bowel Movements 1 General appearance: The patient is alert, oriented, in no acute distress. HET: Head is normocephalic and atraumatic. Pupils are equal and reactive. Oropharynx is clear without lesions. Neck: Supple without lymphadenopathy. Trachea midline. Heart: S1 S2. Regular rate and rhythm. Lungs: No crackles or wheezes are heard. Abdomen: Soft, nontender, nondistended with bowel sounds. No peritoneal signs. No palpable organomegaly or masses. Extremities: Normal skin color and turgor. No cyanosis, rash, ulceration, clubbing, or edema. Radial and pedal pulses are 2/4 bilaterally. Neurological: No focal deficits. Strength and sensation are grossly intact. Results CBC & Chem 7: 10/06/18 08:29 10/06/18 08:29 Labs: Abnormal Lab Results - Last 24 Hours (Table) 10/06/18 10/06/18 10/06/18 Range/Units 11:54 16:40 19:42 POC Glucose (mg/dL) 217 H 221 H 195 H (75-99) mg/dL 10/07/18 Range/Units 07:07 POC Glucose (mg/dL) 211 H (75-99) mg/dL Microbiology - Last 24 Hours (Table) 09/30/18 17:38 Blood Culture - Final Blood No Growth after 144 hours US - abdomen: report reviewed (Dr. Cheney) Assessment and Plan (1) Autoimmune hepatitis Narrative/Plan: 78 year old female with a history of autoimmune hepatitis biopsy-proven 1989 maintained on Imuran therapy to 2002 biochemical remission admitted with CHF exacerbation with mild elevation of liver function tests consistent with passive venous congestion CHF exacerbation. Ultrasound abdomen was limited reported a nodular liver without measurement possible cirrhosis. Current Visit: Yes Status: Acute Code(s): K75.4 - AUTOIMMUNE HEPATITIS SNOMED Code(s): 446539942 (2) Elevated liver enzymes Current Visit: Yes Status: Acute Code(s): R74.8 - ABNORMAL LEVELS OF OTHER SERUM ENZYMES SNOMED Code(s): 581157488 Plan: 1. LFTs are slowly improving no further workup at this time. We'll obtain an AFP marker. Ammonia level in a.m. Continue lactulose twice daily. Patient was advised to follow up with Dr. Sweeney in 2-3 weeks for reevaluation. CMP 1 week after discharge. Thank you for this kind referral and the opportunity to participate in the care of your patient. This consultation was discussed with Dr. Cheney. The impression and plan of care have been directed as dictated.
[2018-10-07 12:07] LABS: Glucose,Whole Blood 228 mg/dL (75-99)
[2018-10-07 16:58] LABS: Glucose,Whole Blood 171 mg/dL (75-99)
[2018-10-07] MEDS: AZTREONAM 0.5 GM in SODIUM CHLORIDE 0.9% 50 ML IVPB SCH (18:21)
[2018-10-07] MEDS: ASPIRIN 81 MG PO SCH (18:24)
[2018-10-07] MEDS: POTASSIUM CHLORIDE ER 10 MEQ TAB.ER.PRT PO SCH (18:24)
[2018-10-07] MEDS: FENOFIBRATE 160 MG TAB PO SCH ×2 (19:50→19:54)
[2018-10-07 20:27] LABS: Glucose,Whole Blood 175 mg/dL (75-99)
[2018-10-08] MEDS ORDERED: traMADol 50 MG TAB ONE (02:22)
--- NOTE | 2018-10-08 03:13 | PN ---
PROGRESS NOTE DATE OF SERVICE: 10/07/2018. REASON FOR FOLLOWUP: Urinary tract infection. INTERVAL HISTORY: The patient is afebrile. The patient remains to be pleasantly confused. No agitation has been noticed. She is unable to provide any history. No nausea, vomiting, or any diarrhea reported by the nursing staff. PHYSICAL EXAMINATION: Blood pressure is 137/79 with a pulse of 72, temperature 97.6. She is 95% on room air. GENERAL DESCRIPTION: An elderly female lying in bed in no distress. RESPIRATORY SYSTEM: Unlabored breathing. Clear to auscultation anteriorly. HEART: S1, S2. Regular rate and rhythm. ABDOMEN: Soft, no tenderness. LABS: No new labs have been obtained today. DIAGNOSTIC IMPRESSION AND PLAN: Patient with mental status changes, confused, which is likely multifactorial, possibly component of urinary tract infection. The patient did have multiple antibiotic allergies. Urine with Proteus and E coli, currently covered with Azactam which can be safely discontinued on discharge. Continue supportive care. MMODL / IJN: [id number] /
--- NOTE | 2018-10-08 03:13 | PN ---
PROGRESS NOTE DATE OF SERVICE: October 07, 2018. PRESENTING COMPLAINT: Tired, lethargic. INTERVAL HISTORY: Patient presented with multiple symptoms, remain still lethargic. Did take some of her medications. She did not take her lactulose earlier today. Really communicating, not eating much. REVIEW OF SYSTEMS: Was attempted but could not really be had. CURRENT MEDICATIONS: Reviewed and include IV aztreonam, IV Solu-Cortef and Aldactone. PHYSICAL EXAMINATION: VITAL SIGNS: Temperature 97.5, pulse 68, respiratory 20, blood pressure 165/70, pulse ox 96% on room air. GENERAL APPEARANCE: Lying in bed, lethargic, does answer occasional questions. EYES: Pupils equal. Conjunctivae normal. NECK: JVD unable to assess. Mass not palpable. RESPIRATORY: Effort increased. LUNGS: Decreased breath sounds. CARDIOVASCULAR: 1st and 2nd sounds normal. Some edema present. ABDOMEN: Soft, slightly distended. Liver and spleen not palpable. PSYCHIATRY: Lethargic, answering occasional questions. INVESTIGATIONS: Accu-Cheks are noted. ASSESSMENT: 1. Possible hepatic encephalopathy in the setting of underlying cirrhosis, cause unknown, slow to respond. The patient refusing some of his medications including lactulose. 2. Persistent atrial fibrillation, has a pacemaker. 3. Coronary artery disease. 4. Acute on chronic congestive heart failure from diastolic dysfunction. Ejection fraction 55-60 percent. 5. Hyperlipidemia. 6. Primary osteoarthritis. 7. Hypothyroid. 8. Chronic autoimmune hepatitis. 9. 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 10.Chronic medical debility at baseline. PLAN: Did speak to the nurse, if the patient does not take the lactulose, may have to use an NG tube. Did also speak to Dr. Cheney from GI. The patient is not doing too good. We will reach out to the family. Prognosis guarded. MMODL / IJN: [id number] /
[2018-10-08] MEDS: AZTREONAM 0.5 GM in SODIUM CHLORIDE 0.9% 50 ML IVPB SCH ×2 (04:32→18:42)
[2018-10-08] MEDS: HYDROcodone/APAP 5-325MG 1 EACH TAB PO PRN ×2 (05:24→22:29)
[2018-10-08 07:31] LABS: Glucose,Whole Blood 220 mg/dL (75-99)
[2018-10-08] MEDS: IPRATROPIUM-ALBUTEROL 3 ML NEB INHALATION SCH ×3 (07:46→21:23)
[2018-10-08] MEDS: HYDROCORTISONE SUCCINATE 100 MG/2 ML VIAL IV SCH ×2 (08:59→18:34)
[2018-10-08] MEDS: FUROSEMIDE 10 MG/ML 4 ML VIAL IV SCH (09:01)
[2018-10-08] MEDS: SPIRONOLACTONE 25 MG TAB PO SCH (09:03)
[2018-10-08] MEDS: APIXABAN 2.5 MG TABLET PO SCH ×2 (09:03→18:33)
[2018-10-08] MEDS: GABAPENTIN 300 MG CAP PO SCH (09:03)
[2018-10-08] MEDS: LEVOTHYROXINE 137 MCG TAB PO SCH (09:04)
[2018-10-08] MEDS: METOPROLOL SUCCINATE (ER) 50 MG TAB.ER.24H PO SCH (09:04)
[2018-10-08] MEDS: PANTOPRAZOLE 40 MG TABLET PO SCH ×2 (09:04→18:33)
[2018-10-08] MEDS: LACTULOSE 20 GM/30 ML CUP PO SCH ×2 (09:07→19:42)
[2018-10-08] MEDS: INSULIN ISOPHANE SQ SCH (09:09)
[2018-10-08] MEDS: [UNRECOGNIZED DRUG - OTHER] SQ SCH ×4 (09:11→18:42)
[2018-10-08] MEDS: NOVOLIN R SQ SCH ×4 (09:12→20:39)
[2018-10-08 09:58] LABS: Calcium 8.9 mg/dL (8.4-10.2)
[2018-10-08 10:00] LABS: Potassium 5.2 mmol/L (3.5-5.1)
[2018-10-08 12:06] LABS: Glucose,Whole Blood 217 mg/dL (75-99)
[2018-10-08] MEDS: ATORVASTATIN 10 MG TAB PO SCH (13:09)
--- NOTE | 2018-10-08 13:53 | P.PN ---
Subjective Progress Note Date: 10/08/18 Principal diagnosis: autoimmune hepatitis elevated liver enzymes confused yelling out loud moaning. Afebrile. AFP 18.6. LFTs pending. Ammonia 34. Objective - Vital Signs Vital signs: Vital Signs Temp 98.0 F 10/08/18 07:00 Pulse 69 10/08/18 07:00 Resp 20 10/07/18 19:52 BP 144/73 10/08/18 07:00 Pulse Ox 98 10/08/18 07:00 Intake & Output 10/07/18 10/08/18 10/08/18 18:59 06:59 18:59 Intake Total 530 120 Balance 530 120 Weight 118.297 kg Intake: Intake, IV Titration 50 Amount Aztreonam 0.5 gm In 50 Sodium Chloride 0.9% 50 ml @ 100 mls/hr IVPB Q12H [facility] Rx#:[id number] Oral 480 120 Other: Voiding Method Incontinent Incontinent # Voids 1 1 # Bowel Movements 1 - Constitutional General appearance: Present: morbidly obese - EENT Eyes: Present: normal appearance Ears: bilateral: normal - Neck Neck: Present: normal ROM - Respiratory Respiratory: bilateral: CTA - Cardiovascular Heart sounds: normal: S1, S2 - Gastrointestinal General gastrointestinal: Present: soft - Psychiatric Psychiatric Comment(s): confused yelling screaming out loud - Labs CBC & Chem 7: 10/06/18 08:29 10/08/18 08:22 Labs: Abnormal Lab Results - Last 24 Hours (Table) 10/06/18 10/07/18 10/07/18 Range/Units 08:29 16:46 20:26 Potassium (3.5-5.1) mmol/L Chloride (98-107) mmol/L Carbon Dioxide (22-30) mmol/L BUN (7-17) mg/dL Creatinine (0.52-1.04) mg/dL Glucose (74-99) mg/dL POC Glucose (mg/dL) 171 H 175 H (75-99) mg/dL Ammonia (<30) umol/L Tumor Marker AFP 18.7 H (0.0-7.9) ng/mL 10/08/18 10/08/18 10/08/18 Range/Units 07:29 08:00 08:22 Potassium 5.2 H (3.5-5.1) mmol/L Chloride 115 H (98-107) mmol/L Carbon Dioxide 21 L (22-30) mmol/L BUN 81 H (7-17) mg/dL Creatinine 1.31 H (0.52-1.04) mg/dL Glucose 232 H (74-99) mg/dL POC Glucose (mg/dL) 220 H (75-99) mg/dL Ammonia 34 H (<30) umol/L Tumor Marker AFP (0.0-7.9) ng/mL 10/08/18 Range/Units 12:04 Potassium (3.5-5.1) mmol/L Chloride (98-107) mmol/L Carbon Dioxide (22-30) mmol/L BUN (7-17) mg/dL Creatinine (0.52-1.04) mg/dL Glucose (74-99) mg/dL POC Glucose (mg/dL) 217 H (75-99) mg/dL Ammonia (<30) umol/L Tumor Marker AFP (0.0-7.9) ng/mL Assessment and Plan (1) Autoimmune hepatitis Narrative/Plan: 78 year old female with a history of autoimmune hepatitis biopsy-proven 1989 maintained on Imuran therapy to 2003 biochemical remission admitted with CHF exacerbation with mild elevation of liver function tests consistent with passive venous congestion CHF exacerbation. Ultrasound abdomen was limited reported a nodular liver without measurement possible cirrhosis. Current Visit: Yes Status: Acute Code(s): K75.4 - AUTOIMMUNE HEPATITIS SNOMED Code(s): 194662035 (2) Elevated liver enzymes Current Visit: Yes Status: Acute Code(s): R74.8 - ABNORMAL LEVELS OF OTHER SERUM ENZYMES SNOMED Code(s): 683495196 (3) Elevated alpha fetoprotein Current Visit: Yes Status: Acute Code(s): R77.2 - ABNORMALITY OF ALPHAFETOPROTEIN SNOMED Code(s): 682582971 (4) Change in mental status Current Visit: Yes Status: Acute Code(s): R41.82 - ALTERED MENTAL STATUS, UNSPECIFIED SNOMED Code(s): 856543461 Plan: 1. CMP pending. Appointment in 2-[address] Sweeney for reevaluation. Assessment and plan of care discussed with Dr. Cheney.
[2018-10-08 15:10] LABS: Albumin 3.1 g/dL (3.5-5.0); Bilirubin, Conjugated 0.3 mg/dL (0.0-0.3); Bilirubin, Delta 1.2 mg/dL (0.0-0.2); Bilirubin,Unconjugated 0.7 mg/dL (0.0-1.1); Total Bilirubin 2.2 mg/dL (0.2-1.3)
[2018-10-08 16:36] LABS: Glucose,Whole Blood 101 mg/dL (75-99)
--- NOTE | 2018-10-08 16:49 | PN ---
PROGRESS NOTE DATE OF SERVICE: 10/08/2018 REASON FOR FOLLOWUP: Urinary tract infection. INTERVAL HISTORY: The patient is afebrile. She is currently lying comfortably in no distress. No nausea or vomiting reported by the nursing staff or any diarrhea. She was unable to provide any history. PHYSICAL EXAMINATION: Her blood pressure is 131/68 with a pulse of 71, temperature 98.2. She is 96% on room air. General description is an elderly female lying in bed in no distress. RESPIRATORY SYSTEM: Unlabored breathing. Clear to auscultation anteriorly. HEART: S1, S2. Regular rate and rhythm. ABDOMEN: Soft. No tenderness. LABS: Creatinine is 1.31. Liver enzymes are mildly elevated. DIAGNOSTIC IMPRESSION AND PLAN: Patient with a urinary tract infection with Escherichia coli and Proteus mirabilis with MULTIPLE ANTIBIOTIC ALLERGIES. Underlying UTI has been adequately treated. Currently on Azactam. That can be safely discontinued. Continue with supportive care. MMODL / IJN: [id number] /
[2018-10-08] MEDS: POTASSIUM CHLORIDE ER 10 MEQ TAB.ER.PRT PO SCH (17:42)
[2018-10-08] MEDS: ASPIRIN 81 MG PO SCH (18:32)
[2018-10-08] MEDS: traMADol 50 MG TAB PO PRN (18:33)
[2018-10-08 20:30] LABS: Glucose,Whole Blood 103 mg/dL (75-99)
--- NOTE | 2018-10-08 23:36 | PN ---
PROGRESS NOTE DATE OF SERVICE: 10/08/2018. PRESENTING COMPLAINT: Lethargic, speak out. INTERVAL HISTORY: This patient presented with multiple symptoms, being treated for hepatic encephalopathy, has underlying cirrhosis. Also being treated for UTI and fluid overload. The patient did take a lactulose last night, had bowel movements, and did actually better last night as per the nurse I spoke to. Also did better this morning, though occasionally getting a bit delirious. REVIEW OF SYSTEMS: Difficult to do as patient does not answer questions all that appropriately. CURRENT MEDICATIONS: Reviewed, that include IV aztreonam, Solu-Cortef, Aldactone, lactulose. PHYSICAL EXAMINATION: Temperature 98.2, pulse 71, respirations 17, blood pressure 130/68, pulse ox 96% on room air. GENERAL: Lying in bed, does call out for help sometimes, lethargic. EYES: Pupils equal. Conjunctivae normal. NECK: JVD unable to assess. Mass not palpable. Respiratory effort increased. LUNGS: Decreased breath sounds. CARDIOVASCULAR: 1st and 2nd sounds normal. Some edema present. ABDOMEN: Distended, soft. Liver and spleen not palpable. PSYCHIATRY: Lethargic. Does speak out at times, occasionally makes sense. INVESTIGATIONS: Potassium 5.2, BUN 81, creatinine 1.31, ammonia 34. ASSESSMENT: 1. Acute hepatic and assessment acute hepatic encephalopathy in the setting of patient's underlying cirrhosis with known chronic autoimmune hepatitis with some response to lactulose. 2. Persistent atrial fibrillation, has a pacemaker. 3. Coronary artery disease. 4. Acute on chronic congestive heart failure from diastolic dysfunction. Ejection fraction 55% to 60%. 5. Hyperlipidemia. 6. Primary osteoarthritis. 7. Hypothyroidism. 8. 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 9. Chronic medical debility at baseline. PLAN: Patient's dose of IV Cortef has been cut back further. The patient did take lactulose. The patient's IV antibiotics has been discontinued. We will also discontinue the IV Lasix. Patient is already taking the Aldactone. I did ask for a family meeting this evening. ADVANCED CARE PLANNING: I did have a family meeting with the patient's daughter and the . I did explain overall poor prognosis given the cirrhosis and multiple medical problems including congestive heart failure and atrial fibrillation. They do understand patient's overall guarded prognosis and the fact the patient may be gradually declining. Did say that we will continue the treatment, she may get better, but do not expect her to do well in the long scheme of things. They do understand the same. Did talk briefly about hospice. The patient's code status is DO NOT RESUSCITATE. At this point, we will continue treatment and see how the patient does in the next couple of days and determine further plan of action. Advanced care planning additionally was spent, about more than 30 minutes on this aspect of the care. Prognosis guarded. MARITA / YOKON: [id number] /
[2018-10-09] MEDS: traMADol 50 MG TAB PO PRN ×2 (02:22→18:15)
[2018-10-09] MEDS: AZTREONAM 0.5 GM in SODIUM CHLORIDE 0.9% 50 ML IVPB SCH ×2 (04:34→18:19)
[2018-10-09] MEDS: GABAPENTIN 300 MG CAP PO SCH (07:32)
[2018-10-09] MEDS: METOPROLOL SUCCINATE (ER) 50 MG TAB.ER.24H PO SCH (07:33)
[2018-10-09] MEDS: SPIRONOLACTONE 25 MG TAB PO SCH (07:33)
[2018-10-09] MEDS: predniSONE 20 MG TAB PO SCH (07:33)
[2018-10-09] MEDS: PANTOPRAZOLE 40 MG TABLET PO SCH ×2 (07:33→18:15)
[2018-10-09 07:34] LABS: Glucose,Whole Blood 131 mg/dL (75-99)
[2018-10-09] MEDS: APIXABAN 2.5 MG TABLET PO SCH ×2 (07:34→18:15)
[2018-10-09] MEDS: [UNRECOGNIZED DRUG - OTHER] SQ SCH ×3 (07:34→19:01)
[2018-10-09] MEDS: LEVOTHYROXINE 137 MCG TAB PO SCH (07:34)
[2018-10-09] MEDS: NOVOLIN R SQ SCH ×4 (07:34→21:17)
[2018-10-09] MEDS: FUROSEMIDE 10 MG/ML 4 ML VIAL IV SCH (07:35)
[2018-10-09] MEDS: LACTULOSE 20 GM/30 ML CUP PO SCH ×3 (07:35→21:51)
[2018-10-09] MEDS: INSULIN ISOPHANE SQ SCH (07:38)
[2018-10-09 08:51] LABS: Albumin 2.4 g/dL (3.5-5.0); Calcium 8.8 mg/dL (8.4-10.2); Potassium 4.1 mmol/L (3.5-5.1); Total Bilirubin 2.6 mg/dL (0.2-1.3); Total Protein 5.6 g/dL (6.3-8.2)
[2018-10-09] MEDS: IPRATROPIUM-ALBUTEROL 3 ML NEB INHALATION SCH ×3 (09:16→20:31)
--- NOTE | 2018-10-09 11:01 | P.PN ---
Subjective Progress Note Date: 10/09/18 Principal diagnosis: autoimmune hepatitis elevated liver enzymes Quiet this morning. Afebrile. AFP 18.6. Total bilirubin increased 2.6. AST 211. ALT 87. AP 166. LFTs pending. Ammonia yesterday was 34. Passing bowel movements. Objective - Vital Signs Vital signs: Vital Signs Temp 98.3 F 10/09/18 07:43 Pulse 76 10/09/18 09:26 Resp 22 10/09/18 07:43 BP 178/77 10/09/18 07:43 Pulse Ox 96 10/09/18 07:43 Intake & Output 10/08/18 10/09/18 10/09/18 18:59 06:59 18:59 Intake Total 120 560 Balance 120 560 Weight 118.297 kg Intake: Oral 120 560 Other: Voiding Method Incontinent Incontinent Incontinent # Voids 1 2 # Bowel Movements 1 - Exam General appearance: The patient is alert, to self only quiet.. HET: Head is normocephalic and atraumatic. Pupils are equal and reactive. Oropharynx is clear without lesions. Neck: Supple without lymphadenopathy. Trachea midline. Heart: S1 S2. Regular rate and rhythm. Lungs: No crackles or wheezes are heard. Abdomen: Soft, obese, nontender, nondistended with bowel sounds. No peritoneal signs. No palpable organomegaly or masses. Extremities: Normal skin color and turgor. No cyanosis, rash, ulceration, clubbing, or edema. Radial and pedal pulses are 2/4 bilaterally. Neurological: No focal deficits. Strength and sensation are grossly intact. - Labs CBC & Chem 7: 10/06/18 08:29 10/09/18 07:53 Labs: Abnormal Lab Results - Last 24 Hours (Table) 10/08/18 10/08/18 10/08/18 Range/Units 08:00 08:22 12:04 Chloride (98-107) mmol/L BUN (7-17) mg/dL Creatinine (0.52-1.04) mg/dL Glucose (74-99) mg/dL POC Glucose (mg/dL) 217 H (75-99) mg/dL Total Bilirubin 2.2 H (0.2-1.3) mg/dL Delta Bilirubin 1.2 H (0.0-0.2) mg/dL AST 187 H (14-36) U/L ALT 81 H (9-52) U/L Alkaline Phosphatase 185 H (38-126) U/L Ammonia 34 H (<30) umol/L Total Protein (6.3-8.2) g/dL Albumin 3.1 L (3.5-5.0) g/dL 10/08/18 10/08/18 10/09/18 Range/Units 16:34 20:19 07:25 Chloride (98-107) mmol/L BUN (7-17) mg/dL Creatinine (0.52-1.04) mg/dL Glucose (74-99) mg/dL POC Glucose (mg/dL) 101 H 103 H 131 H (75-99) mg/dL Total Bilirubin (0.2-1.3) mg/dL Delta Bilirubin (0.0-0.2) mg/dL AST (14-36) U/L ALT (9-52) U/L Alkaline Phosphatase (38-126) U/L Ammonia (<30) umol/L Total Protein (6.3-8.2) g/dL Albumin (3.5-5.0) g/dL 10/09/18 Range/Units 07:53 Chloride 112 H (98-107) mmol/L BUN 79 H (7-17) mg/dL Creatinine 1.52 H (0.52-1.04) mg/dL Glucose 154 H (74-99) mg/dL POC Glucose (mg/dL) (75-99) mg/dL Total Bilirubin 2.6 H (0.2-1.3) mg/dL Delta Bilirubin (0.0-0.2) mg/dL AST 211 H (14-36) U/L ALT 87 H (9-52) U/L Alkaline Phosphatase 166 H (38-126) U/L Ammonia (<30) umol/L Total Protein 5.6 L (6.3-8.2) g/dL Albumin 2.4 L (3.5-5.0) g/dL Assessment and Plan (1) Autoimmune hepatitis Narrative/Plan: 78 year old female with a history of autoimmune hepatitis biopsy-proven 1989 maintained on Imuran therapy to 2003 biochemical remission admitted with CHF exacerbation with mild elevation of liver function tests initially thought to be consistent with passive venous congestion CHF exacerbation however LFTs have increased over the last few days raising the possibility of exacerbation of autoimmune hepatitis. Ultrasound abdomen was limited reported a nodular liver without measurement possible cirrhosis. Current Visit: Yes Status: Acute Code(s): K75.4 - AUTOIMMUNE HEPATITIS SNOMED Code(s): 977232142 (2) Elevated liver enzymes Current Visit: Yes Status: Acute Code(s): R74.8 - ABNORMAL LEVELS OF OTHER SERUM ENZYMES SNOMED Code(s): 551776637 (3) Elevated alpha fetoprotein Current Visit: Yes Status: Acute Code(s): R77.2 - ABNORMALITY OF ALPHAFETOPROTEIN SNOMED Code(s): 871966450 (4) Change in mental status Current Visit: Yes Status: Acute Code(s): R41.82 - ALTERED MENTAL STATUS, UNSPECIFIED SNOMED Code(s): 866425836 Plan: 1. CMP in a.m. Immunosuppressive therapy/abdominal imaging discussed, program manager environmental planning Dr. Cheney will advise later today. We'll continue to follow with you. Appointment in 2-[address] Sweeney for reevaluation. Assessment and plan of care discussed with Dr. Cheney.
[2018-10-09 12:46] LABS: Glucose,Whole Blood 171 mg/dL (75-99)
[2018-10-09] MEDS ORDERED: BENZOCAINE SPRAY 1 CAN MUCOUS MEM PRN (13:37)
[2018-10-09] MEDS: HYDROcodone/APAP 5-325MG 1 EACH TAB PO PRN (15:16)
[2018-10-09] MEDS: FLUCONAZOLE IN NACL,ISO-OSM 100 MG in SALINE 1 50ML.BAG IVPB SCH (15:22)
[2018-10-09] MEDS: ASPIRIN 81 MG PO SCH (18:15)
[2018-10-09] MEDS: POTASSIUM CHLORIDE ER 10 MEQ TAB.ER.PRT PO SCH (18:15)
[2018-10-09 18:25] LABS: Glucose,Whole Blood 230 mg/dL (75-99)
[2018-10-09] MEDS: MORPHINE SULFATE 4 MG/ML SYRINGE IVP PRN (18:51)
[2018-10-09 21:01] LABS: Glucose,Whole Blood 205 mg/dL (75-99)
--- NOTE | 2018-10-09 23:16 | PN ---
PROGRESS NOTE DATE OF SERVICE: 10/09/2018 REASON FOR FOLLOWUP: Urinary tract infection. INTERVAL HISTORY: The patient is currently afebrile. She has been breathing comfortably, hemodynamically stable. No nausea or vomiting has been reported or any diarrhea. PHYSICAL EXAMINATION: Blood pressure is 123/69 with a pulse of 70, temperature 98. She is 97% on room air. General description is an elderly female lying in bed in no distress. RESPIRATORY SYSTEM: Unlabored breathing. Clear to auscultation anteriorly. HEART: S1, S2. Regular rate and rhythm. ABDOMEN: Soft. No tenderness. LABS: BUN of 79 and creatinine is 1.52. DIAGNOSTIC IMPRESSION AND PLAN: Patient with urinary tract infection with MULTIPLE ANTIBIOTIC ALLERGIES. The patient is currently covered with Azactam. It is adequate antibiotic therapy and that can be discontinued on discharge. Continue with supportive care. MMELLIOTTL / YOKON: [id number] /
--- NOTE | 2018-10-09 23:31 | PN ---
PROGRESS NOTE DATE OF SERVICE: 10/09/2018 PRESENTING COMPLAINT: Lethargic, speaking out. INTERVAL HISTORY: Patient presented with multiple issues, including hepatic encephalopathy, underlying cirrhosis; also had UTI and completed antibiotics, fluid overload. She does answer questions but does keep speaking out, complaining of throat pain, generalized pain. REVIEW OF SYSTEMS: Difficult to ascertain. CURRENT MEDICATIONS: Include IV aztreonam, Neurontin, prednisone. PHYSICAL EXAMINATION: Temperature 98.3, pulse 71, respiration 16, blood pressure 139/78, pulse ox 99%. GENERAL APPEARANCE: Lying in bed, somewhat restless. Lethargic. EYES: Pupils equal. Conjunctivae normal. NECK: JVD unable to assess. Mass not palpable. RESPIRATORY: Effort increased. LUNGS: Decreased breath sounds. CARDIOVASCULAR: First and second sounds normal. Some edema. ABDOMEN: Soft, non-tender. Liver and spleen not palpable. PSYCHIATRY: Lethargic. Somewhat delirious. ORAL CAVITY: Dry. Some white patches. INVESTIGATIONS: Potassium 4.1, BUN 79, creatinine 1.52, bilirubin 2.6, albumin 2.4. ASSESSMENT: 1. Acute hepatic encephalopathy from underlying cirrhosis with known chronic autoimmune hepatitis; not much improvement. 2. Persistent atrial fibrillation. Has a pacemaker. 3. Coronary artery disease. 4. Acute on chronic congestive heart failure exacerbation from diastolic dysfunction, ejection fraction 55% to 60%. 5. Hyperlipidemia. 6. Primary osteoarthritis. 7. Hypothyroidism. 8. 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 9. Chronic medical debility at baseline. PLAN: Patient is overall doing poorly. I did start the patient on IV antifungal. ADVANCED CARE PLANNING: Care was discussed at length with the daughter at the bedside. Seeing patient's overall poor guarded prognosis, she is going to talk to her father about making the patient hospice. All the pros and cons were decided but right now because of cirrhosis the patient's overall prognosis is not good. She brought her father up and the daughter decided to go with [facility]. Total time spent for advanced care planning was about 35-40 minutes. For pain control, IV morphine was added. MMODL / IJN: [id number] /
[2018-10-10] MEDS: MORPHINE SULFATE 4 MG/ML SYRINGE IVP PRN ×3 (00:50→17:33)
[2018-10-10] MEDS: LEVOTHYROXINE 137 MCG TAB PO SCH (05:42)
[2018-10-10] MEDS: SPIRONOLACTONE 25 MG TAB PO SCH (06:55)
[2018-10-10] MEDS: predniSONE 20 MG TAB PO SCH (06:55)
[2018-10-10] MEDS: METOPROLOL SUCCINATE (ER) 50 MG TAB.ER.24H PO SCH (06:55)
[2018-10-10] MEDS: NOVOLIN R SQ SCH ×4 (06:56→21:13)
[2018-10-10] MEDS: LACTULOSE 20 GM/30 ML CUP PO SCH ×4 (07:00→21:13)
[2018-10-10 07:14] LABS: Glucose,Whole Blood 174 mg/dL (75-99)
[2018-10-10] MEDS: IPRATROPIUM-ALBUTEROL 3 ML NEB INHALATION SCH ×3 (07:52→20:33)
[2018-10-10] MEDS: LORazepam 2 MG/ML INJ IV PRN ×2 (09:17→17:49)
[2018-10-10] MEDS: INSULIN ISOPHANE SQ SCH (10:01)
[2018-10-10 10:02] LABS: Calcium 8.4 mg/dL (8.4-10.2); Potassium 4.9 mmol/L (3.5-5.1)
[2018-10-10 12:04] LABS: Glucose,Whole Blood 176 mg/dL (75-99)
--- NOTE | 2018-10-10 15:44 | PN ---
PROGRESS NOTE DATE OF SERVICE: 10/10/2018 REASON FOR FOLLOWUP: Urinary tract infection. INTERVAL HISTORY: The patient is afebrile. The patient remains sleepy, lethargic. No agitation or any change in clinical condition per the nursing staff. No nausea, vomiting or any diarrhea. Oral intake remains poor. PHYSICAL EXAMINATION: Blood pressure 110/63 with a pulse of 70, temperature 97.8. She is 96% on room air. General description is an elderly female lying in bed in no distress. RESPIRATORY SYSTEM: Unlabored breathing. Clear to auscultation anteriorly. HEART: S1, S2. Regular rate and rhythm. ABDOMEN: Soft. No tenderness. LABS: BUN of 85, creatinine 1.48. DIAGNOSTIC IMPRESSION AND PLAN: Patient with mental status changes, likely multifactorial, with a possible component of urinary tract infection. Underlying infection has been adequately treated. Azactam discontinued. Monitor clinical course closely. Continue with supportive care. MMODL / IJN: [id number] /
[2018-10-10] MEDS: FLUCONAZOLE IN NACL,ISO-OSM 100 MG in SALINE 1 50ML.BAG IVPB SCH (16:07)
[2018-10-10 17:23] LABS: Glucose,Whole Blood 207 mg/dL (75-99)
[2018-10-10 20:25] LABS: Glucose,Whole Blood 266 mg/dL (75-99)
--- NOTE | 2018-10-10 21:23 | PN ---
PROGRESS NOTE DATE OF SERVICE: 10/10/2018. PRESENTING COMPLAINT: Lethargic. INTERVAL HISTORY: This patient with multiple problems was made comfort care yesterday. [facility] was called yesterday, [facility] Management. They felt the patient did not qualify for the same. The patient did better with morphine and also received Ativan for symptom control. REVIEW OF SYSTEMS: Patient is lethargic. CURRENT MEDICATIONS: Include IV morphine, Ativan. PHYSICAL EXAMINATION: Temperature 97.9, pulse 57, respirations 14, blood pressure 154/80, pulse ox 97% on room air. GENERAL APPEARANCE: Lying in bed, lethargic. EYES: Pupils equal. Conjunctivae normal. NECK: Respiratory effort increased. LUNGS: Decreased breath sounds. CARDIOVASCULAR: 1st and 2nd heart sounds normal. No edema present. ABDOMEN: Soft, nontender. PSYCHIATRY: Unable to assess. ASSESSMENT: 1. Acute hepatic encephalopathy from worsening cirrhosis from underlying chronic autoimmune hepatitis. 2. Persistent atrial fibrillation, has a pacemaker. 3. Coronary artery disease. 4. Acute on chronic congestive heart failure exacerbation from diastolic dysfunction. Ejection fraction 55% to 60%. 5. Hyperlipidemia. 6. Primary osteoarthritis. 7. Hypothyroidism. 8. Chronic kidney stage 3, combination of diabetic nephropathy and hypertensive nephrosclerosis. 9. Chronic medical debility. PLAN: At this point, per [facility], the patient does not qualify for GIP. Continue with symptom control. tire worker is looking into different options. Care was discussed with the nurse. MARITA / KAYODE: [id number] /
[2018-10-11] MEDS: LEVOTHYROXINE 137 MCG TAB PO SCH (06:14)
[2018-10-11 07:04] LABS: Glucose,Whole Blood 159 mg/dL (75-99)
[2018-10-11] MEDS: IPRATROPIUM-ALBUTEROL 3 ML NEB INHALATION SCH ×3 (08:00→20:28)
[2018-10-11 08:22] LABS: Calcium 8.6 mg/dL (8.4-10.2); Potassium 4.6 mmol/L (3.5-5.1)
[2018-10-11] MEDS: predniSONE 20 MG TAB PO SCH (09:06)
[2018-10-11] MEDS: LACTULOSE 20 GM/30 ML CUP PO SCH ×4 (09:06→19:36)
[2018-10-11] MEDS: NOVOLIN R SQ SCH ×4 (09:06→23:29)
[2018-10-11] MEDS: METOPROLOL SUCCINATE (ER) 50 MG TAB.ER.24H PO SCH (09:06)
[2018-10-11] MEDS: INSULIN ISOPHANE SQ SCH (09:06)
[2018-10-11] MEDS: SPIRONOLACTONE 25 MG TAB PO SCH (09:06)
[2018-10-11] MEDS: MORPHINE SULFATE 4 MG/ML SYRINGE IVP PRN ×2 (09:12→15:15)
[2018-10-11 12:05] LABS: Glucose,Whole Blood 166 mg/dL (75-99)
[2018-10-11] MEDS: LORazepam 2 MG/ML INJ IV PRN ×2 (12:50→19:36)
[2018-10-11] MEDS: FLUCONAZOLE IN NACL,ISO-OSM 100 MG in SALINE 1 50ML.BAG IVPB SCH (15:15)
[2018-10-11 17:13] LABS: Glucose,Whole Blood 193 mg/dL (75-99)
[2018-10-11 20:03] LABS: Glucose,Whole Blood 183 mg/dL (75-99)
[2018-10-12] MEDS: LORazepam 2 MG/ML INJ IV PRN (00:57)
[2018-10-12] MEDS: MORPHINE SULFATE 4 MG/ML SYRINGE IVP PRN ×3 (01:14→23:53)
--- NOTE | 2018-10-12 06:36 | PN ---
PROGRESS NOTE DATE OF SERVICE: 10/11/2018 PRESENTING COMPLAINT: Lethargic. INTERVAL HISTORY: The patient is on comfort care, getting morphine and Ativan for symptom management. Lying in bed, sedated. REVIEW OF SYSTEMS: Cannot be done. CURRENT MEDICATIONS: Include IV morphine, Ativan. PHYSICAL EXAMINATION: Temperature 98.5, pulse 72, respirations 16, blood pressure 118/79, pulse 95% on room air. GENERAL APPEARANCE: Lying in bed, sedated. Respiratory effort normal. LUNGS: Decreased breath sounds. ABDOMEN: Soft, nontender. ASSESSMENT: 1. Acute hepatic encephalopathy from cirrhosis from underlying chronic autoimmune hepatitis. 2. Comfort measures. PLAN: second time worker is looking into discharge planning. In the meantime, continue with comfort care. MMODL / IJN: [id number] /
[2018-10-12 07:06] LABS: Glucose,Whole Blood 168 mg/dL (75-99)
[2018-10-12] MEDS: IPRATROPIUM-ALBUTEROL 3 ML NEB INHALATION SCH ×3 (09:00→20:21)
[2018-10-12] MEDS: NOVOLIN R SQ SCH ×3 (09:23→17:04)
[2018-10-12] MEDS: INSULIN ISOPHANE SQ SCH (09:26)
[2018-10-12] MEDS: METOPROLOL SUCCINATE (ER) 50 MG TAB.ER.24H PO SCH (09:26)
[2018-10-12] MEDS: LACTULOSE 20 GM/30 ML CUP PO SCH ×3 (09:40→18:04)
[2018-10-12] MEDS: predniSONE 20 MG TAB PO SCH (09:40)
[2018-10-12] MEDS: LEVOTHYROXINE 137 MCG TAB PO SCH (09:40)
[2018-10-12] MEDS: SPIRONOLACTONE 25 MG TAB PO SCH (09:41)
[2018-10-12 12:20] LABS: Glucose,Whole Blood 169 mg/dL (75-99)
[2018-10-12 17:05] LABS: Glucose,Whole Blood 158 mg/dL (75-99)
[2018-10-12 21:01] VITALS: TEMP 97.8
[2018-10-13 01:03] VITALS: BP 60/35; PULSE 73; RESP 12
[2018-10-13] MEDS: NOVOLIN R SQ SCH (01:10)
[2018-10-13] MEDS: LACTULOSE 20 GM/30 ML CUP PO SCH (01:10)
--- NOTE | 2018-10-13 01:19 | PN ---
PROGRESS NOTE DATE OF SERVICE: October 12, 2018. PRESENTING COMPLAINT: Lethargic. INTERVAL HISTORY: The patient is comfort care measures requiring morphine and Ativan as needed. She is lying in bed, sedated. REVIEW OF SYSTEMS: Cannot be done. The patient is sedated. CURRENT MEDICATIONS: Include IV morphine, Ativan. PHYSICAL EXAMINATION: Temperature 97.9, pulse 75, respirations 12, blood pressure 99/48, pulse ox 93 percent on room air. LUNGS: Decreased breath sounds. ABDOMEN: Distended. The patient is lethargic. ASSESSMENT: 1. Acute hepatic encephalopathy from cirrhosis from underlying chronic autoimmune hepatitis. 2. Acute delirium. PLAN: Comfort measures to continue. Looking at socially responsible investment adviser and discharge planning. MMODL / IJN: [id number] /
[2018-10-13] MEDS: IPRATROPIUM-ALBUTEROL 3 ML NEB INHALATION SCH (08:24)
--- NOTE | 2018-10-14 07:06 | DS ---
DISCHARGE SUMMARY SUMMARY DATE OF ADMISSION: 10/01/2018 DATE PATIENT : 10/13/2018. CAUSE OF : 1. Cirrhosis due to chronic autoimmune hepatitis. 2. Persistent atrial fibrillation, has a pacemaker. 3. Coronary artery disease. 4. Acute on chronic congestive heart failure exacerbation from diastolic dysfunction, ejection fraction 55% to 60%. 5. Hyperlipidemia. 6. Primary osteoarthritis. 7. Hypothyroidism. 8. 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 9. Chronic medical debility at baseline. HOSPITAL COURSE: This patient was admitted by my colleague with short of breath, edema; was treated for CHF. Also patient was felt to have hepatic encephalopathy, but patient continued to deteriorate, kept getting worse. Family meetings were held. Finally the family decided to make the patient comfort care. The patient has also underlying cirrhosis with chronic autoimmune hepatitis. The patient finally succumbed to the same. CONSULTATIONS: Dr. Lester and colleagues from Pulmonary; Dr. Vidal from Infectious Disease; Dr. Cheney from GI; Dr. Ortiz from Cardiology. MMODL / IJN: [id number] /
--- NOTE | 2018-10-14 13:27 | CDI ---
Documentation Clarification Form Date: 10/14/2018 12:41:58 PM From: ANJEL Damian; Swathi [employer] Systems Analyst Phone: If you have a question about this query, please contact Swathi [employer] Systems Analyst at [phone] between 8am and 5pm. Admit Date: 10/01/2018 3:51:00 PM Patient Name: Isabel Herrera Visit Number: [id number] Discharge Date: 10/13/2018 6:45:00 AM ATTENTION: The Clinical Documentation Specialists (CDI) and [facility] Coding Staff appreciate your assistance in clarifying documentation. Please respond to the clarification below the line at the bottom and electronically sign. The CDI & [facility] Coding staff will review the response and follow-up if needed. Please note: Queries are made part of the Legal Health Record. If you have any questions, please contact the author of this message via ITS. Dr. Hellen Chaidez The patient presented to ED on September 29, and admitted to OBS. On October 01, patient was made IP. Acute conditions being treated include congestive heart failure exacerbation, UTI, rule out pneumonia, metabolic encephalopathy, autoimmune hepatitis. History/Risk Factors: Atrial fibrillation, CAD, DM fibromyalgia, HTN, CKD. Clinical Indicators: Shortness of breath, confusion. In your professional opinion, can you please clarify the reason patient rosita made IP on October 01? Exacerbation of diastolic congestive heart failure UTI Autoimmune hepatitis Other, please specify Unable to determine MTDD
== END 2018-10-13 06:45 | disposition expired | DRG 291 ==
LOC: EC 13:47 → 4SSUR 17:53 → OBSVTOIN 10-01 15:51
PROVIDERS: ADMIT Hospitalist; ATTEND Hospitalist
DX: I13.0 Hypertensive heart and chronic kidney disease with heart failure and stage 1 through stage 4 chronic kidney disease, or unspecified chronic kidney disease (principal); G93.41 Metabolic encephalopathy; I50.33 Acute on chronic diastolic (congestive) heart failure; K72.00 Acute and subacute hepatic failure without coma; N39.0 Urinary tract infection, site not specified; I48.1 Persistent atrial fibrillation; L03.115 Cellulitis of right lower limb; Z68.43 Body mass index [BMI] 50.0-59.9, adult; B96.20 Unspecified Escherichia coli [E. coli] as the cause of diseases classified elsewhere; B96.4 Proteus (mirabilis) (morganii) as the cause of diseases classified elsewhere; D86.9 Sarcoidosis, unspecified; E03.9 Hypothyroidism, unspecified; E11.21 Type 2 diabetes mellitus with diabetic nephropathy; E11.22 Type 2 diabetes mellitus with diabetic chronic kidney disease; E66.01 Morbid (severe) obesity due to excess calories; E78.5 Hyperlipidemia, unspecified; G47.33 Obstructive sleep apnea (adult) (pediatric); G89.4 Chronic pain syndrome; I08.0 Rheumatic disorders of both mitral and aortic valves; I25.10 Atherosclerotic heart disease of native coronary artery without angina pectoris; Z51.5 Encounter for palliative care; Z66 Do not resuscitate; I25.2 Old myocardial infarction; I44.0 Atrioventricular block, first degree; I45.4 Nonspecific intraventricular block; I48.0 Paroxysmal atrial fibrillation; I48.2 Chronic atrial fibrillation; J45.909 Unspecified asthma, uncomplicated; K21.9 Gastro-esophageal reflux disease without esophagitis; K74.60 Unspecified cirrhosis of liver; K75.4 Autoimmune hepatitis; M19.91 Primary osteoarthritis, unspecified site; M32.9 Systemic lupus erythematosus, unspecified; M79.7 Fibromyalgia; N18.3 Chronic kidney disease, stage 3 (moderate); Z79.01 Long term (current) use of anticoagulants; Z79.4 Long term (current) use of insulin; Z79.82 Long term (current) use of aspirin; Z79.890 Hormone replacement therapy; Z79.899 Other long term (current) drug therapy; Z82.49 Family history of ischemic heart disease and other diseases of the circulatory system; Z87.01 Personal history of pneumonia (recurrent); Z87.440 Personal history of urinary (tract) infections; Z88.1 Allergy status to other antibiotic agents; Z90.49 Acquired absence of other specified parts of digestive tract; Z90.710 Acquired absence of both cervix and uterus; Z95.0 Presence of cardiac pacemaker; Z95.5 Presence of coronary angioplasty implant and graft; Z91.018 Allergy to other foods; Z88.0 Allergy status to penicillin; Z88.2 Allergy status to sulfonamides; K72.90 Hepatic failure, unspecified without coma
CPT/HCPCS: 36415; 71045; 71046; 76700; 80048; 80053; 80076; 81001; 82105; 82140; 82550; 82553; 83036; 83735; 83880; 84484; 85025; 85610; 85730; 87040; 87077; 87086; 87186; 93005; 94640; 94760; 96374; 96375; 99284